=== PATIENT | male | born 1950 | race Caucasian/White ===

== ENCOUNTER 2023-10-12 11:38 | Outpatient (OUT) | payer MEDICARE, SELFPAY ==
[2023-10-12 12:06] LABS: Basophils Percent Auto 0.4 % (0.2-2.0); Eosinophils Absolute Auto 0.1 10^3/uL (0.0-0.7); Eosinophils Percent Auto 0.8 % (0.9-7.0); Hematocrit 37.5 % (42.0-54.0); Hemoglobin 13.1 g/dL (14.0-18.0); Immature Granulocytes Abs Auto 0.02 10^3/uL (0.00-0.03); Immature Granulocytes Pct Auto 0.3 % (0.0-0.5); Lymphocytes Absolute Auto 0.9 10^3/uL (1.2-3.8); Lymphocytes Percent Auto 10.8 % (20.5-60.0); Mean Corpuscular HGB Conc 34.9 g/dL (29.9-35.2); Mean Corpuscular Hemoglobin 36.3 pg (25.9-34.0); Mean Corpuscular Volume 103.9 fL (80.0-94.0); Mean Platelet Volume 10.7 fL (9.5-13.5); Monocytes Absolute Auto 0.7 10^3/uL (0.3-0.8); Monocytes Percent Auto 8.6 % (1.7-12.0); Neutrophils Absolute Auto 6.3 10^3/uL (1.4-6.5); Neutrophils Percent Auto 79.1 % (43.0-75.0); Platelet Count 165 10^3/uL (150-450); Red Blood Count 3.61 10^6/uL (4.70-6.10); Red Cell Distribution Width 12.1 % (11.0-15.0)
[2023-10-12 13:26] LABS: Free T4 0.86 ng/dL (0.76-1.46)
[2023-10-12 13:34] LABS: Prostate Specific Antigen Scrn 0.75 ng/mL (<=4.00)
[2023-10-12 13:45] LABS: Alanine Aminotransferase 30 U/L (16-63); Albumin Level 3.8 g/dL (3.4-5.0); Alkaline Phosphatase 97 U/L (46-116); Anion Gap 14.2; Aspartate Amino Transferase 29 U/L (15-37); BUN Creatinine Ratio 7.3; Bilirubin Total 0.7 mg/dL (0.2-1.0); Calcium 9.6 mg/dL (8.5-10.1); Carbon Dioxide 27.5 mmol/L (21.0-32.0); Chloride 99 mmol/L (98-107); Chol HDL Ratio 1.3; Cholesterol 181 mg/dL (<=200); Estimated GFR (African America >60 (>=60); Estimated GFR (Non-African Ame >60 (>=60); Free T3 2.66 pg/mL (2.18-3.98); Globulin 3.7 g/dL; Glucose 99 mg/dL (74-106); HDL Cholesterol 135 mg/dL (40-60); Potassium 3.7 mmol/L (3.5-5.1); Sodium 137 mmol/L (136-145); Thyroid Stimulating Hormone 0.987 uIU/mL (0.358-3.740); Total Protein 7.5 g/dL (6.4-8.2); Triglycerides 28 mg/dL (<=150); VLDL CHOLESTEROL 5.6 mg/dL
[2023-10-12 13:49] LABS: Estimated Average Glucose 74 mg/dL; Glycohemoglobin A1C 4.2 % (4.5-6.2)
[2023-10-12 15:31] LABS: Occult Blood Positive
[2023-10-13 08:13] LABS: CA 19-9 5 U/mL (0-35)
== END 2023-10-12 11:39 | disposition home or self-care (01) ==
LOC: LAB 11:42
PROVIDERS: PCP Family Medicine; Visit Provider Family Medicine
DX: Z00.00 Encounter for general adult medical examination without abnormal findings (principal); E78.49 Other hyperlipidemia; D50.9 Iron deficiency anemia, unspecified; R97.8 Other abnormal tumor markers
CPT/HCPCS: 36415; 80053; 80061; 83036; 84439; 84443; 84481; 85025; 86301; G0103; G0328

== ENCOUNTER 2023-10-18 11:23 | Outpatient (OUT) | payer MEDICARE, SELFPAY ==
--- NOTE | 2023-10-18 11:26 | US_ITS ---
The [address] [address] Patient Name: GARY ROD MRN: [id number] date: 1950 Sex: M Assigned Patient Location: US Current Patient Location: US Accession/Order Number: [id number] Exam Date: 10/18/2023 11:30 Report Date: 10/18/2023 21:12 At the request of: LORRIE NAPIER Procedure: US right upper quadrant EXAM: US right upper quadrant HISTORY: abnormal tumor markers R97.8 COMPARISON: None. TECHNIQUE: Sonographic examination of the right upper quadrant of the abdomen using grayscale, and color Doppler. FINDINGS: Normal contour and increased echotexture of the liver. No discrete solid hepatic mass. No intrahepatic biliary ductal dilatation. Common bile duct within normal limits. Normal gallbladder wall thickness. No cholelithiasis or intraluminal mass. Negative sonographic Prakash sign. No pericholecystic fluid. Normal visualized pancreas. Normal echogenicity of the right kidney, which measures 11.2 cm in length. No hydronephrosis. No free fluid. Normal visualized aortic diameter(s). SUMMARY: Hepatic steatosis without discrete hepatic mass. Electronically authenticated by: ROBERTO HOWELL Date: 10/18/2023 21:12
--- OUTSIDE RECORDS SUMMARY | 2023-10-18 11:26 | XMS_ITS | CCD ---
Author Name Unknown Address [address] [place] [address] Organization [facility] Care Team Providers Care Television Host Name Role Phone PHYSICIAN, DEFAULT Unavailable Unavailable PHYSICIAN, DEFAULT Unavailable Unavailable BRENT CONDON Unavailable Unavailable BRENT CONDON Unavailable Unavailable LORRIE MUNOZ Unavailable Unavailable LORRIE MUNOZ Unavailable Unavailable PHYSICIAN, DEFAULT Unavailable Unavailable PHYSICIAN, DEFAULT Unavailable Unavailable LORRIE MUNOZ Unavailable Unavailable BALA SHEA Attending Unavailable LORRIE MUNOZ Primary Care Unavailable LORRIE MUNOZ Referring Unavailable Lorrie Munoz Primary Care Physician KARTHIKEYAN ., DR ANDREW Admitting Unavailable HOY ., DR ANDREW Attending Unavailable HOY ., DR ANDREW Primary Care Unavailable HOY ., DR ANDREW Consulting Unavailable ZIEBER, DR FLO Fitzpatrick Consulting Unavailable HOY ., DR ANDREW Admitting Unavailable HOY ., DR ANDREW Attending Unavailable HOY ., DR ANDREW Primary Care Unavailable HOY ., DR ANDREW Consulting Unavailable Eric Stanley Attending Unavaila ble Allergies Allergy Classification Reported Allergen(s) Allergy Type Date of Onset Reaction(s) Facility (1 source) [facility] allergy (disorder) 8 AOF [facility] (1 source) No Known Allergies; Translations: [No Known Allergies] Propensity to adverse reactions (disorder) [facility] (2 sources) influenza A virus A/[place]/GP19 05/2015 (H1N1) antigen / influenza A virus A/[place]/GP20 (H3N2) antigen / influenza B virus B/Saba Barney antigen / influenza B virus B/ antigen; Translations: [influenza virus vaccine] Drug Allergy unknown [facility] (1 source) Flu Vaccine (18 yr +) Drug allergy (disorder) [facility] Repository Medications Current Medications Medication Drug Class(es) Dates Sig (Normalized) Sig (Original) apixaban 5 mg oral tablet (1 source) Factor Xa Inhibitor Start: 01-13-2019 take 5 mg by mouth twice daily Eliquis 5 mg, Oral, BID, Refills(s) 0, Blood Thinner Start Date: 01/13/19 Status: Ordered aspirin 325 mg oral tablet (1 source) Platelet Aggregation Inhibitor, Nonsteroidal Anti-inflammatory Drug Start: 01-13-2019 take 325 mg by mouth once daily aspirin 325 mg, Oral, Daily, Refills(s) 0, Prophylaxis Start Date: 01/13/19 Status: Ordered cetirizine hydrochloride 10 mg oral tablet (1 source) Histamine-1 Receptor Antagonist Start: 01-13-2019 take 10 mg by mouth once daily cetirizine 10 mg, Oral, Daily, Refills(s) 0, Allergy symptoms Start Date: 01/13/19 Status: Ordered desvenlafaxine 50 mg oral tablet (1 source) Serotonin and Norepinephrine Reuptake Inhibitor Start: 01-13-2019 take 50 mg by mouth once daily desvenlafaxine 50 mg, Oral, Daily, Refills(s) 0, Depression Start Date: 01/13/19 Status: Ordered dofetilide 0.25 mg oral capsule (1 source) Antiarrhythmic Start: 08-03-2020 take 1 ug by mouth twice daily dofetilide 250 mcg oral capsule mcg cap(s), Oral, BID, Refills(s) 0 Start Date: 08/03/20 Status: Ordered ferrous sulfate (1 source) Start: 08-03-2020 ferrous sulfate Oral, Refills(s) 0 Start Date: 08/03/20 Status: Ordered Fish Oils (1 source) Start: 01-13-2019 take 1000 mg by mouth once daily Fish Oil 1,000 mg, Oral, Daily, Refill(s) 0, Prophylaxis Start Date: 01/13/19 Status: Ordered lisinopril 40 mg oral tablet (1 source) Angiotensin Converting Enzyme Inhibitor Start: 01-13-2019 take 40 mg by mouth once daily lisinopril 40 mg, Oral, Daily, Refills(s) 0, High blood pressure Start Date: 01/13/19 Status: Ordered Medical Marijuana (1 source) Start: 01-13-2019 Medical Marijuana Medical Marijuana, Pain Start Date: 01/13/19 Status: Ordered mesalamine 1200 mg delayed release oral tablet (1 source) Aminosalicylate Start: 09-21-2022 Lialda 1.2 g oral enteric coated tablet 4.8 gm, 4 tab(s), Oral, Daily, 30 tab(s), Refill(s) 11, [facility]/pharmacy #[id number] Start Date: 09/21/22 Status: Ordered 24 hr metoprolol succinate 50 mg extended release oral tablet (1 source) beta-Adrenergic Turner Start: 01-13-2019 take 1 tablet by mouth twice daily metoprolol 50 mg ER Tab 50 mg = 1 tab(s), Oral, BID, Refills(s) 0, High blood pressure Start Date: 01/13/19 Status: Ordered Milk thistle extract (1 source) Start: 01-13-2019 take 175 mg by mouth three times daily milk thistle 175 mg, Oral, TID, Refill(s) 0, Prophylaxis Start Date: 01/13/19 Status: Ordered Multivitamin, Therapeutic w/ Minerals (1 source) Start: 01-13-2019 take 1 tablet by mouth once daily Multivitamin, Therapeutic w/ Minerals 1 tab(s), Oral, Daily, Refill(s) 0, Prophylaxis Start Date: 01/13/19 Status: Ordered Problems Active Problems Problem Classification Problem Date Documented Date Episodic/Chronic Cardiac dysrhythmias (8 sources) Unspecified atrial fibrillation; Translations: [Paroxysmal atrial fibrillation] Onset: 06-25-2018 Chronic Disorders of lipid metabolism (1 source) Hyperlipidemia, unspecified; Translations: [HYPERLIPIDEMIA UNSPECIFIED] Onset: 07-29-2022 Chronic Esophageal disorders (2 sources) Flores's esophagus; Translations: [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] Onset: 09-20-2022 Chronic Essential hypertension (3 sources) Essential (primary) hypertension; Translations: [Hypertensive disorder] Onset: 06-25-2018 08-03-2020 Chronic Nutritional deficiencies (1 source) Vitamin D deficiency, unspecified; Translations: [VITAMIN D DEFICIENCY UNSPECIFIED] Onset: 07-29-2022 Chronic Osteoarthritis (4 sources) Unilateral primary osteoarthritis, right hip; Translations: [UNI PRIM OSTEOARTHRITIS RT HIP] Onset: 11-29-2022 Chronic Other aftercare (1 source) [facility]DC (current) use of anticoagulants; Translations: [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 (CURRENT) USE OF ANTICOAGULANTS] Onset: 06-25-2018 Episodic Regional enteritis and ulcerative colitis (4 sources) Left sided ulcerative colitis ; Translations: [Left sided colitis without complications] Onset: 09-20-2022 Chronic Substance-related disorders (1 source) Nicotine dependence, unspecified, uncomplicated; Translations: [NICOTINE DEPENDENCE, UNSPECIFIED, UNCOMPLICATED] Onset: 06-25-2018 Chronic Unclassified (1 source) Obstructive sleep apnea (adult) (pediatric); Translations: [OBSTRUCTIVE SLEEP APNEA (ADULT) (PEDIATRIC)] Onset: 06-25-2018 Chronic Unclassified (2 sources) Unknown / UNK(Unknown) Onset: 06-25-2018 Past or Other Problems Problem Classification Problem Date Documented Date Episodic/Chronic Diabetes mellitus without complication (1 source) Other abnormal glucose; Translations: [OTHER ABNORMAL GLUCOSE] Onset: 07-29-2022 Episodic Other nutritional; endocrine; and metabolic disorders (1 source) Hyperuricemia without signs of inflammatory arthritis and tophaceous disease; Translations: [HU W/O SIGNS IA AND TOPHACEOUS DZ] Onset: 07-29-2022 Episodic Other screening for suspected conditions (not mental disorders or infectious disease) (1 source) Encounter for screening for malignant neoplasm of prostate; Translations: [ENC SCREEN MALIG NEOPLASM PROSTATE] Onset: 07-29-2022 Episodic Results Test Name Value Interpretation Reference Range Facility Provider Letter FTMCon 10-31 Provider Letter [facility] [place]Inserted Image. Un able to display) October 31, 2022 GARY BUITRAGO [address] [place] [id number] GARY BUITRAGO 1950 To Whom It May Concern, Please excuse the patient above from Jury Duty. They have multiple medical conditions that would prohibit sitting through jury duty. Respectfully, Sandie Roque Normal [facility] INSULINon 07-28-2022 Insulin 10.4 uIU/mL Normal 2.6-24.9 [facility] Comment on above: Performed By: #### I NSULIN #### [facility] [address] [address] [address] Joanne Martinez CBC AUTO DIFFon 07-27-2022 BASO # 0.0 103/ul Normal 0.0-0.1 [facility] Comment on above: Performed By: #### T 7, URIC, CMP, TSH, LIPID #### [facility] [address] [place] [address] Dr. Joanne Martinez Basophils/100 WBC (Bld) 0.6 % Normal 0.2-2.0 [facility] Comment on above: Performed By: #### T 7, URIC, CMP, TSH, LIPID #### [facility] [address] [place] [address] Dr. Joanne Martinez EO # 0.1 103/ul Normal 0.0-0.7 [facility] Comment on above: Performed By: #### T 7, URIC, CMP, TSH, LIPID #### [facility] [address] [place] [address] Dr. Joanne Martinez Eosinophils/100 WBC (Bld) 1.2 % Normal 0.9-7.0 [facility] Comment on above: Performed By: #### T 7, URIC, CMP, TSH, LIPID #### [facility] [address] [place] [address] Dr. Joanne Martinez Erythrocyte distribution width (RBC) [Ratio] 11.5 % Normal 11.0-15.0 [facility] Comment on above: Performed By: #### T 7, URIC, CMP, TSH, LIPID #### [facility] [address] [place] [address] Dr. Joanne Martinez Hematocrit (Bld) [Volume fraction] 39.2 % Critically low 42.0-54.0 [facility] Comment on above: Performed By: #### T 7, URIC, CMP, TSH, LIPID #### [facility] [address] [place] [address] Dr. Joanne Martinez Hemoglobin (Bld) [Mass/Vol] 14.0 g/dL Normal 14.0-18.0 [facility] Comment on above: Performed By: #### T 7, URIC, CMP, TSH, LIPID #### [facility] [address] [place] [address] Dr. Joanne Martinez IG # 0.03 10e3/ul Normal 0.00-0.03 [facility] Comment on above: Performed By: #### T 7, URIC, CMP, TSH, LIPID #### [facility] [address] [place] [address] Dr. Joanne Martinez IG % 0.5 % Normal 0.0-0.5 [facility] Comment on above: Performed By: #### T 7, URIC, CMP, TSH, LIPID #### [facility] [address] [place] [address] Dr. Joanne Martinez LYMPH # 1.1 103/ul Critically low 1.2-3.8 [facility] Comment on above: Performed By: #### T 7, URIC, CMP, TSH, LIPID #### [facility] [address] [place] [address] Dr. Joanne Martinez Lymphocytes/100 WBC (Bld) 16.3 % Critically low 20.5-60.0 [facility] Comment on above: Performed By: #### T 7, URIC, CMP, TSH, LIPID #### [facility] [address] [place] [address] Dr. Joanne Martinez MANUAL DIFF REQ NO Normal [facility] Comment on above: Performed By: #### T 7, URIC, CMP, TSH, LIPID #### [facility] [address] [place] [address] Dr. Joanne Martinez MCH (RBC) [Entitic mass] 36.9 pg Critically high 25.9-34.0 [facility] Comment on above: Performed By: #### T 7, URIC, CMP, TSH, LIPID #### [facility] [address] [place] [address] Dr. Joanne Martinez MCHC (RBC) [Mass/Vol] 35.7 g/dL Critically high 29.9-35.2 [facility] Comment on above: Performed By: #### T 7, URIC, CMP, TSH, LIPID #### [facility] [address] [place] [address] Dr. Joanne Martinez MCV (RBC) [Entitic vol] 103.4 fL Critically high 80.0-94.0 [facility] Comment on above: Performed By: #### T 7, URIC, CMP, TSH, LIPID #### [facility] [address] [place] [address] Dr. Joanne Martinez MONO # 0.7 103/ul Normal 0.3-0.8 [facility] Comment on above: Performed By: #### T 7, URIC, CMP, TSH, LIPID #### [facility] [address] [place] [address] Dr. Joanne Martinez Monocytes/100 WBC (Bld) 9.8 % Normal 1.7-12.0 [facility] Comment on above: Performed By: #### T 7, URIC, CMP, TSH, LIPID #### [facility] [address] [place] [address] Dr. Joanne Martinez NEUT # 4.8 103/ul Normal 1.4-6.5 [facility] Comment on above: Performed By: #### T 7, URIC, CMP, TSH, LIPID #### [facility] [address] [place] [address] Dr. Joanne Martinez Neutrophils/100 WBC (Bld) 71.6 % Normal 43.0-75.0 [facility] Comment on above: Performed By: #### T 7, URIC, CMP, TSH, LIPID #### [facility] [address] [place] [address] Dr. Joanne Martinez Platelet mean volume (Bld) [Entitic vol] 10.9 fL Normal 9.5-13.5 [facility] Comment on above: Performed By: #### T 7, URIC, CMP, TSH, LIPID #### [facility] [address] [place] [address] Dr. Joanne Martinez PLT 168 103/ul Normal 150-450 [facility] Comment on above: Performed By: #### T 7, URIC, CMP, TSH, LIPID #### [facility] [address] [place] [address] Dr. Joanne Martinez RBC 3.79 106/ul Critically low 4.70-6.10 [facility] Comment on above: Performed By: #### T 7, URIC, CMP, TSH, LIPID #### [facility] [address] [address] [address] Joanne Martinez WBC 6.6 103/ul Normal 4.0-11.0 [facility] Comment on above: Performed By: #### T 7, URIC, CMP, TSH, LIPID #### [facility] [address] [address] [address] Joanne Martinez FREE THYROXINE INDEX T7on FTI 2.14 Normal 1.30-4.50 [facility] Comment on above: Performed By: #### T 7, URIC, CMP, TSH, LIPID #### [facility] [address] [address] [address] Joanne Martinez T3U 34.0 % Normal 33.0-40.0 [facility] Comment on above: Performed By: #### T 7, URIC, CMP, TSH, LIPID #### [facility] [address] [place] [address] Dr. Joanne Martinez T4 [Mass/Vol] 6.30 ug/dL Normal 4.50-12.10 [facility] Comment on above: Performed By: #### T 7, URIC, CMP, TSH, LIPID #### [facility] [address] [address] [address] Joanne Martinez GLYCOHEMOGLOBIN A1Con 2021 ADA RECOMMENDATION SEE BELOW Normal [facility] Comment on above: Result Comment: ADA RECOMMENDED LIMIT 4.0 - 6.0 ADA THERAPEUTIC TARGET < 7.0 ACTION SUGGESTED > 7.0 Performed By: #### A 1C #### [facility] [address] [place] [address] Dr. Joanne Martinez Glucose [Mass/Vol] 74 mg/dL Normal [facility] Comment on above: Performed By: #### A 1C #### [facility] [address] [place] [address] Dr. Joanne Maritnez HbA1c (Bld) [Mass fraction] 4.2 % Critically low 4.5-6.2 [facility] Comment on above: Performed By: #### A 1C #### [facility] [address] [place] [address] Dr. Joanne Martinez LIPID PROFILEon 07-27-2022 CHOL-HDL RATIO NORM SEE BELOW Normal [facility] Comment on above: Result Comment: 3.3 - 4.4 LOW RISK 4.4 - 7.1 AVERAGE RISK 7.1 - 11.0 MODERATE RISK >11.0 HIGH RISK Performed By: #### T 7, URIC, CMP, TSH, LIPID #### [facility] [address] [address] [address] Joanne Martinez Cholesterol [Mass/Vol] 211 mg/dL Critically high <=200 [facility] Comment on above: Performed By: #### T 7, URIC, CMP, TSH, LIPID #### [facility] [address] [address] [address] Joanne Martinez Cholesterol in HDL [Mass/Vol] 121 mg/dL Critically high 40-60 [facility] Comment on above: Performed By: #### T 7, URIC, CMP, TSH, LIPID #### [facility] [address] [address] [address] Joanne Martinez Cholesterol in LDL [Mass/Vol] 81.6 mg/dL Normal [facility] Comment on above: Performed By: #### T 7, URIC, CMP, TSH, LIPID #### [facility] [address] [address] [address] Joanne Martinez Cholesterol.total/Ch olesterol in HDL [Mass ratio] 1.7 {ratio} Normal [facility] Comment on above: Performed By: #### T 7, URIC, CMP, TSH, LIPID #### [facility] [address] [address] [address] Joanne Martinez HDL NORMAL > or = 60 mg/dl - LO W CARDIOVASCULAR RISK <40 mg/dl - HIGH CARDIOVASCULAR RISK Normal [facility] Comment on above: Performed By: #### T 7, URIC, CMP, TSH, LIPID #### [facility] [address] [place] [address] Dr. Joanne Martinez LDL CALC NORMAL SEE BELOW Normal [facility] Comment on above: Result Comment: <100 mg/dl OPTIMAL 100 - 129 mg/dl NEAR OR ABOVE OPTIMAL 130 - 159 mg/dl BORDERLINE HIGH 160 - 189 mg/dl HIGH >190 mg/dl VERY HIGH Performed By: #### T 7, URIC, CMP, TSH, LIPID #### [facility] [address] [address] [address] Joanne Martinez Triglyceride [Mass/Vol] 42 mg/dL Normal <=150 [facility] Comment on above: Performed By: #### T 7, URIC, CMP, TSH, LIPID #### [facility] [address] [address] [address] Joanne Martinez VLDL CALC 8.4 mg/dL Normal [facility] Comment on above: Performed By: #### T 7, URIC, CMP, TSH, LIPID #### [facility] [address] [place] [address] Dr. Joanne Martinez PROF 14(COMP METB)on 022 Albumin [Mass/Vol] 4.1 g/dL Normal 3.4-5.[address] [facility] Comment on above: Performed By: #### T 7, URIC, CMP, TSH, LIPID #### [facility] [address] [place] [address] Dr. Joanne Martinez Albumin/Globulin [Mass ratio] 1.2 {ratio} Normal [facility] Comment on above: Performed By: #### T 7, URIC, CMP, TSH, LIPID #### [facility] [address] [place] [address] Dr. Joanne Martinez ALP [Catalytic activity/Vol] 104 U/L Normal 46-116 [facility] Comment on above: Performed By: #### T 7, URIC, CMP, TSH, LIPID #### [facility] [address] [place] [address] Dr. Joanne Martinez ALT [Catalytic activity/Vol] 42 U/L Normal 16-63 [facility] Comment on above: Performed By: #### T 7, URIC, CMP, TSH, LIPID #### [facility] [address] [place] [address] Dr. Joanne Martinez Anion gap [Moles/Vol] 14.2 mmol/L Normal [facility] Comment on above: Performed By: #### T 7, URIC, CMP, TSH, LIPID #### [facility] [address] [address] [address] Joanne Martinez AST [Catalytic activity/Vol] 56 U/L Critically high 15-37 [facility] Comment on above: Performed By: #### T 7, URIC, CMP, TSH, LIPID #### [facility] [address] [address] [address] Joanne Martinez Bilirubin [Mass/Vol] 0.8 mg/dL Normal 0.2-1.0 [facility] Comment on above: Performed By: #### T 7, URIC, CMP, TSH, LIPID #### [facility] [address] [address] [address] Joanne Martinez Calcium [Mass/Vol] 9.6 mg/dL Normal 8.5-10.[address] [facility] Comment on above: Performed By: #### T 7, URIC, CMP, TSH, LIPID #### [facility] [address] [address] [address] Joanne Martinez Chloride [Moles/Vol] 99 mmol/L Normal 98-107 [facility] Comment on above: Performed By: #### T 7, URIC, CMP, TSH, LIPID #### [facility] [address] [place] [address] Dr. Joanne Martinez CO2 [Moles/Vol] 25.9 mmol/L Normal 21.0-32.0 [facility] Comment on above: Performed By: #### T 7, URIC, CMP, TSH, LIPID #### [facility] [address] [address] [address] Joanne Martinez Creatinine [Mass/Vol] 0.88 mg/dL Normal 0.70-1.30 [facility] Comment on above: Performed By: #### T 7, URIC, CMP, TSH, LIPID #### [facility] [address] [place] [address] Dr. Joanne Martinez EGFR-AF GIBRALTARIAN >60 Normal >=60 [facility] Comment on above: Performed By: #### T 7, URIC, CMP, TSH, LIPID #### [facility] [address] [place] [address] Dr. Joanne Martinez EGFR-NON AF GIBRALTARIAN >60 Normal >=60 [facility] Comment on above: Performed By: #### T 7, URIC, CMP, TSH, LIPID #### [facility] [address] [address] [address] Joanne Martinez Globulin (S) [Mass/Vol] 3.5 g/dL Normal [facility] Comment on above: Performed By: #### T 7, URIC, CMP, TSH, LIPID #### [facility] [address] [address] [address] Joanne Martinez Glucose [Mass/Vol] 99 mg/dL Normal 74-[address] [facility] Comment on above: Performed By: #### T 7, URIC, CMP, TSH, LIPID #### [facility] [address] [place] [address] Dr. Joanne Martinez Potassium [Moles/Vol] 4.1 mmol/L Normal 3.5-5.1 [facility] Comment on above: Performed By: #### T 7, URIC, CMP, TSH, LIPID #### [facility] [address] [address] [address] Joanne Martinez Protein [Mass/Vol] 7.6 g/dL Normal 6.4-8.2 [facility] Comment on above: Performed By: #### T 7, URIC, CMP, TSH, LIPID #### [facility] [address] [place] [address] Dr. Joanne Martinez Sodium [Moles/Vol] 135 mmol/L Critically low 136-145 [facility] Comment on above: Performed By: #### T 7, URIC, CMP, TSH, LIPID #### [facility] [address] [address] [address] Joanne Martinez Urea nitrogen [Mass/Vol] 7.0 mg/dL Normal 7.0-18.0 [facility] Comment on above: Performed By: #### T 7, URIC, CMP, TSH, LIPID #### [facility] [address] [address] [address] Joanne Martinez Urea nitrogen/Creatinine [Mass ratio] 8.0 mg/mg Normal [facility] Comment on above: Performed By: #### T 7, URIC, CMP, TSH, LIPID #### [facility] [address] [place] [address] Dr. Joanne Martinez TSHon 07-27-2022 TSH 1.712 uIU/mL Normal 0.358-3.740 [facility] Comment on above: Performed By: #### T 7, URIC, CMP, TSH, LIPID #### [facility] [facility] [address] [place] [address] Dr. Joanne Martinez URIC ACID SERUMon 07-27-2022 Urate [Mass/Vol] 6.6 mg/dL Normal 3.5-7.2 [facility] Comment on above: Performed By: #### T 7, URIC, CMP, TSH, LIPID #### [facility] [address] [place] [address] Dr. Joanne Martinez VITAMIN D 25 OHon 07-27-2022 VIT D 25-OH 86.1 ng/mL Normal [facility] Comment on above: Performed By: #### V LIDIA, PSASC #### [facility] [address] [place] [address] Dr. Joanne Martinez VIT D RANGES SEE BELOW Normal [facility] Comment on above: Result Comment: <20 ng/mL Vit D deficient 20 - <30 ng/mL Vit D insufficient 30 - 100 ng/mL Vit D sufficient >100 ng/mL Potential Toxicity Performed By: #### Wanda MURILLO, PSASC #### [facility] [address] [place] [address] Dr. Joanne Martinez CNOVSPon 05-29-2019 CNOVSP Visit (SP) Office (HEMACL) GARY BUITRAGO ([id number]) 1950 Date Time Provider Department 05/29/19 2:00 PM ESTER ALBRECHT [facility] During your visit today, we recorded the following information about you: Temperature Pulse Respiration Blood pressure 99.5 degrees 92/minute 18/minute 174/84 Weight Height 107.2 kg 1.81 m Ester Albrecht MD 05/29/2019 2:43 PM Signed HPI Gary Butirago is a 69 year old male who presents in follow up with CT negative for splenomegaly or node enlargement. His hgb is normal. I will recommend he maintain the iron for now and then see me in 4 months for CBC check. If CBC ok will stop iron when I see him in September. He has chronic thrombocytopenia of unknown etiology. Current Outpatient Medications: [place]-3 Fatty Acids (FISH OIL) 500 mg cap Fish Oil Multivitamin capsule Take 1 capsule by mouth once daily. aspirin, enteric coated (ASPIRIN, ENTERIC COATED) 81 mg EC tablet Take 81 mg by mouth once daily. desvenlafaxine ER (PRISTIQ) 50 mg 24 hr tablet Take 50 mg by mouth once daily. Omeprazole 40 mg capsule Take 40 mg by mouth once daily. Mesalamine (LIALDA) 1.2 gram EC tablet Take 2,400 mg by mouth daily with breakfast. lisinopril (ZESTRIL, PRINIVIL) 40 mg tablet Take 40 mg by mouth once daily. metoprolol tartrate, short acting, (LOPRESSOR) 50 mg tablet Take 75 mg by mouth twice daily. Cetirizine (ALL DAY ALLERGY, CETIRIZINE,) 10 mg cap Take 10 mg by mouth once daily. Milk Thistle 175 mg tab Take 175 mg by mouth three times daily. apixaban (ELIQUIS) 5 mg tab(s) Take 5 mg by mouth twice daily. ferrous sulfate 325 mg (65 mg iron) tablet Take 325 mg by mouth daily with breakfast. sucralfate (CARAFATE) 1 gram tablet Take 1 g by mouth four times daily. No current facility-administered medications for this visit. ALLERGIES Allergen Reactions - Influenza Vaccine T* Hives REVIEW OF SYSTEMS GENERAL: No weight loss, malaise or fevers., SEE HPI HEENT: Negative for frequent or significant headaches, No changes in hearing or vision, no nose bleeds or other nasal problems NECK: Negative for lumps, goiter, pain and significant neck swelling RESPIRATORY: Negative for cough, wheezing or shortness of breath. CARDIOVASCULAR: Negative for chest pain, leg swelling or palpitations. GI: Negative for abdominal discomfort, blood in stools or black stools or change in bowel habits MUSCULOSKELETAL: Negative for joint pain or swelling, back pain or muscle pain. SKIN: Negative for lesions, rash, and itching. PSYCH: Negative for sleep disturbance, mood disorder and recent psychosocial stressors. HEMATOLOGY/LYMPHOLOGY: Negative for prolonged bleeding, bruising easily or swollen nodes. NEURO: No history of headaches, syncope, paralysis, seizures or tremors All other reviewed and negative other than HPI. PHYSICAL EXAM: BP 174/84 Pulse 92 Temp 37.5 ?C (99.5 ?F) (Oral) Resp 18 Ht 181 cm (5' 11.26 ) Wt 107.2 kg (236 lb 6.4 oz) SpO2 97% BMI 32.73 kg/m? General Appearance: alert and oriented, appearing in no acute distress Skin: skin color, texture, turgor normal, no suspicious rashes or lesions. Head: normal. Eyes: Anicteric sclera. Pupils are equally round. Extraocular movements are intact. . Ears: external ears normal Neck: Supple, no adenopathy; thyroid symmetric, normal size, no bruits. Back:no pain with ambulation Lungs: good air exchange overall Heart: RRR Abdomen: No obvious evidence of rebound tenderness or guarding Extremities: Extremities normal. No deformities, edema, or skin discoloration. Good capillary refill.. Musculoskeletal: Spine range of motion normal. Muscular strength intact. Peripheral Pulses: Normal. Neurologic: Gait normal. No gross cerebellar defects Psychiatric: the patient has an appropriate affect Hemoglobin (g/dL) Date Value 05/29/2019 15.8 Hematocrit (%) Date Value 05/29/2019 44.0 WBC (k/uL) Date Value 05/29/2019 5.89 Platelet Count (k/uL) Date Value 05/29/2019 110 ASSESSMENT/PLAN: 1. Iron deficiency anemia, unspecified iron deficiency anemia type - ICD9: 280.9, ICD10: D50.9 (primary diagnosis) Maintain oral iron See me in 4 months and at that time will discontinue oral iron - ABS GRAN CT + CBC (FOR REMOTE [facility] USE) - CBC + DIFF (FOR REMOTE [facility] USE) 2. Thrombocytopenia (HCC) - ICD9: 287.5, ICD10: D69.6 Stable Of unknown cause - ABS GRAN CT + CBC (FOR REMOTE [facility] USE) - CBC + DIFF (FOR REMOTE [facility] USE) Ester Albrecht MD Referring Provider: ESTER ALBRECHT [[id number]] Allergies As of Date: 05/29/2019 Noted Allergy Reaction INFLUENZA VACCINE TR-S 09 (PF) 08/02/2018 4 - Hives Date Reviewed: 05/29/2019 Reviewed by: Mariah Guerrero - Fully Assessed Reason for Visit: Anemia [6] Cmt: follow up Primary Visit Diagnosis:Iron deficiency anemia, unspecified iron deficiency anemia type [D50.9] Other Visit Diagnosis:Thrombocytope ladi (HCC) [D69.6] Order(s):ABS GRAN CT + CBC (FOR REMOTE [facility] USE) [SQRAGCBC] Order #: [id number] FUTURE CBC + DIFF (FOR REMOTE [facility] USE) [SQRCBCDF] Order #: [id number] FUTURE Disposition: Return in about 4 months (around 09/28/2019). Follow-up and Disposition History Recorded Prescriptions as of 05/29/2019 Sig: [place]ME[place]-3 FATTY ACIDS 500 MG CA* Fish Oil MULTIVITAMIN CAPSULE Take 1 capsule by mouth once * ASPIRIN 81 MG TABLET,DELAYED * Take 81 mg by mouth once errol* DESVENLAFAXINE SUCCINATE ER 5* Take 50 mg by mouth once errol* OMEPRAZOLE 40 MG CAPSULE,ALBARO* Take 40 mg by mouth once errol* MESALAMINE 1.2 GRAM TABLET,DE* Take 2,400 mg by mouth daily * LISINOPRIL 40 MG TABLET Take 40 mg by mouth once errol* METOPROLOL TARTRATE 50 MG TAB* Take 75 mg by mouth twice faheem* CETIRIZINE 10 MG CAPSULE Take 10 mg by mouth once errol* MILK THISTLE 175 MG TABLET Take 175 mg by mouth three ti* APIXABAN 5 MG TABLET Take 5 mg by mouth twice errol* FERROUS SULFATE 325 MG (65 MG* Take 325 mg by mouth daily wi* SUCRALFATE 1 GRAM TABLET Take 1 g by mouth four times * Problem List As Of Date: 05/29/2019 (None) Encounter Status:Closed by ESTER ALBRECHT MD on 05/29/19 [facility] PROGRESSon 05-29-2019 PROGRESS HNO ID: [id number] Author: Ester Albrecht Service: ? Author Type: Physician Type: Progress Notes Filed: 05/29/2019 2:43 PM Note Text: HPI Gary Buitrago is a 69 year old male who presents in follow up with CT negative for splenomegaly or node enlargement. His hgb is normal. I will recommend he maintain the iron for now and then see me in 4 months for CBC check. If CBC ok will stop iron when I see him in September. He has chronic thrombocytopenia of unknown etiology. Current Outpatient Medications: [place]-3 Fatty Acids (FISH OIL) 500 mg cap Fish Oil Multivitamin capsule Take 1 capsule by mouth once daily. aspirin, enteric coated (ASPIRIN, ENTERIC COATED) 81 mg EC tablet Take 81 mg by mouth once daily. desvenlafaxine ER (PRISTIQ) 50 mg 24 hr tablet Take 50 mg by mouth once daily. Omeprazole 40 mg capsule Take 40 mg by mouth once daily. Mesalamine (LIALDA) 1.2 gram EC tablet Take 2,400 mg by mouth daily with breakfast. lisinopril (ZESTRIL, PRINIVIL) 40 mg tablet Take 40 mg by mouth once daily. metoprolol tartrate, short acting, (LOPRESSOR) 50 mg tablet Take 75 mg by mouth twice daily. Cetirizine (ALL DAY ALLERGY, CETIRIZINE,) 10 mg cap Take 10 mg by mouth once daily. Milk Thistle 175 mg tab Take 175 mg by mouth three times daily. apixaban (ELIQUIS) 5 mg tab(s) Take 5 mg by mouth twice daily. ferrous sulfate 325 mg (65 mg iron) tablet Take 325 mg by mouth daily with breakfast. sucralfate (CARAFATE) 1 gram tablet Take 1 g by mouth four times daily. No current facility-administered medications for this visit. ALLERGIES Allergen Reactions - Influenza Vaccine T* Hives REVIEW OF SYSTEMS GENERAL: No weight loss, malaise or fevers., SEE HPI HEENT: Negative for frequent or significant headaches, No changes in hearing or vision, no nose bleeds or other nasal problems NECK: Negative for lumps, goiter, pain and significant neck swelling RESPIRATORY: Negative for cough, wheezing or shortness of breath. CARDIOVASCULAR: Negative for chest pain, leg swelling or palpitations. GI: Negative for abdominal discomfort, blood in stools or black stools or change in bowel habits MUSCULOSKELETAL: Negative for joint pain or swelling, back pain or muscle pain. SKIN: Negative for lesions, rash, and itching. PSYCH: Negative for sleep disturbance, mood disorder and recent psychosocial stressors. HEMATOLOGY/LYMPHOLOGY: Negative for prolonged bleeding, bruising easily or swollen nodes. NEURO: No history of headaches, syncope, paralysis, seizures or tremors All other reviewed and negative other than HPI. PHYSICAL EXAM: BP 174/84 Pulse 92 Temp 37.5 ?C (99.5 ?F) (Oral) Resp 18 Ht 181 cm (5' 11.26 ) Wt 107.2 kg (236 lb 6.4 oz) SpO2 97% BMI 32.73 kg/m? General Appearance: alert and oriented, appearing in no acute distress Skin: skin color, texture, turgor normal, no suspicious rashes or lesions. Head: normal. Eyes: Anicteric sclera. Pupils are equally round. Extraocular movements are intact. . Ears: external ears normal Neck: Supple, no adenopathy; thyroid symmetric, normal size, no bruits. Back:no pain with ambulation Lungs: good air exchange overall Heart: RRR Abdomen: No obvious evidence of rebound tenderness or guarding Extremities: Extremities normal. No deformities, edema, or skin discoloration. Good capillary refill.. Musculoskeletal: Spine range of motion normal. Muscular strength intact. Peripheral Pulses: Normal. Neurologic: Gait normal. No gross cerebellar defects Psychiatric: the patient has an appropriate affect Hemoglobin (g/dL) Date Value 05/29/2019 15.8 Hematocrit (%) Date Value 05/29/2019 44.0 WBC (k/uL) Date Value 05/29/2019 5.89 Platelet Count (k/uL) Date Value 05/29/2019 110 ASSESSMENT/PLAN: 1. Iron deficiency anemia, unspecified iron deficiency anemia type - ICD9: 280.9, ICD10: D50.9 (primary diagnosis) Maintain oral iron See me in 4 months and at that time will discontinue oral iron - ABS GRAN CT + CBC (FOR REMOTE [facility] USE) - CBC + DIFF (FOR REMOTE [facility] USE) 2. Thrombocytopenia (HCC) - ICD9: 287.5, ICD10: D69.6 Stable Of unknown cause - ABS GRAN CT + CBC (FOR REMOTE [facility] USE) - CBC + DIFF (FOR REMOTE [facility] USE) Ester Albrecht MD Normal [facility] Remote Abs Gran + CBC (for [facility] use only)on 05-29-2019 Absol Gran Count 3.92 k/uL Normal 1.45-7.50 [facility] Erythrocyte distribution width (RBC) [Ratio] 14.0 % Normal 11.5-15.0 [facility] Hematocrit (Bld) [Volume fraction] 44.0 % Normal 39.0-51.0 [facility] Hemoglobin (Bld) [Mass/Vol] 15.8 g/dL Normal 13.0-17.0 [facility] MCH (RBC) [Entitic mass] 34.6 pG High 26.0-34.0 [facility] MCHC (RBC) [Mass/Vol] 35.9 g/dL Normal 30.5-36.0 [facility] MCV (RBC) [Entitic vol] 96.5 fL Normal 80.0-100.0 [facility] Platelet mean volume (Bld) [Entitic vol] 11.2 fL Normal 9.0-12.7 [facility] Platelets (Bld) [#/Vol] 110 10*3/uL Low 150-400 [facility] RBC (Bld) [#/Vol] 4.56 10*6/uL Normal 4.20-6.00 [facility] WBC (Bld) [#/Vol] 5.89 10*3/uL Normal 3.70-11.00 [facility] CT-CT ABD/PELVIS W CON IMPOR Ton 05-23-2019 CT-CT ABD/PELVIS W CON IMPORT Images were obtained outside of [facility] [id number] Normal [facility] CNOVSPon 05-16-2019 CNOVSP Visit (SP) Office (HEMAS[place]) GARY BUITRAGO ([id number]) 1950 M Date Time Provider Department 05/16/19 1:45 PM ESTER ALBRECHT During your visit today, we recorded the following information about you: Temperature Pulse Respiration Blood pressure 98.4 degrees 84/minute 16/minute 177/71 Weight Height 106.8 kg 1.81 m Ester Albrecht MD 05/16/2019 2:58 PM Signed HPI Gary Buitrago is a 69 year old male who presents in follow up with fatigue. With his thrombocytopenia I will check for splenomegaly (NHL, liver disease, etc). On exam, he has no splenomegaly. Our work up has been negative. We recommended he stay on oral iron for now. Results for GARY BUITRAGO ( ) as of 05/16/2019 14:56 Ref. Range 05/07/2019 09:39 05/07/2019 09:52 05/07/2019 09:52 05/14/2019 12:53 05/14/2019 12:54 Sodium Latest Ref Range: 136 - 144 mmol/L 137 Potassium Latest Ref Range: 3.7 - 5.1 mmol/L 4.7 Chloride Latest Ref Range: 97 - 105 mmol/L 101 CO2 Latest Ref Range: 22 - 30 mmol/L 27 BUN Latest Ref Range: 9 - 24 mg/dL 10 Creatinine Latest Ref Range: 0.73 - 1.22 mg/dL 1.01 Glucose Latest Ref Range: 74 - 99 mg/dL 127 (H) Protein, Total Latest Ref Range: 6.0 - 8.4 g/dL 7.0 7.2 Calcium Latest Ref Range: 8.5 - 10.2 mg/dL 9.9 Albumin Latest Ref Range: 3.9 - 4.9 g/dL 4.6 Bilirubin, Total Latest Ref Range: 0.2 - 1.3 mg/dL 0.6 Alkaline Phosphatase Latest Ref Range: 38 - 113 U/L 117 (H) ALT Latest Ref Range: 10 - 54 U/L 33 AST Latest Ref Range: 14 - 40 U/L 39 Anion Gap Latest Ref Range: 9 - 18 mmol/L 9 eGFR- Unknown >60 eGFR-All Other Races Latest Units: . >60 Vitamin B12 Latest Ref Range: 232 - 1,245 pg/mL 262 Folate Latest Ref Range: >4.7 ng/mL >20.0 Ferritin Latest Ref Range: 30.3 - 565.7 ng/mL 106.0 Iron Latest Ref Range: 41 - 186 ug/dL 109 TIBC Latest Ref Range: 232 - 386 ug/dL 348 Transferrin Saturation Latest Ref Range: 15 - 57 % 31 Hematocrit Latest Ref Range: 39.0 - 51.0 % 44.7 46.0 Albumin for SPE Latest Ref Range: 3.37 - 4.23 gm/dL 4.26 (H) Alpha 1 Globulin Latest Ref Range: 0.18 - 0.31 gm/dL 0.27 Alpha 2 Globulin Latest Ref Range: 0.52 - 0.97 gm/dL 0.62 Beta Globulin Latest Ref Range: 0.84 - 1.36 gm/dL 0.97 Gamma Globulin Latest Ref Range: 0.70 - 1.44 gm/dL 1.07 Interpretation (Prot Electro) Unknown SEE COMMENT SPE Staff Review Unknown Reviewed by Star Villagomez M.D., PhD ([id number]) M-Protein Location Unknown N/A M-Protein Concentration Latest Ref Range: 0.00 gm/dL 0.00 MPA Result Latest Ref Range: No M protein is identified. No M protein is identified. Staff Review (MPA) Unknown Reviewed by Star Villagomez M.D., PhD ([id number]) [place] Free, Serum Latest Ref Range: 3.30 - 19.40 mg/L 17.8 Lambda Free, Serum Latest Ref Range: 5.7 - 26.3 mg/L 16.4 K/L Ratio, Serum Latest Ref Range: 0.26 - 1.65 1.09 TSH Latest Ref Range: 0.400 - 5.500 uU/mL 1.350 WBC Latest Ref Range: 3.70 - 11.00 k/uL 6.41 8.17 RBC Latest Ref Range: 4.20 - 6.00 m/uL 4.68 4.76 Hemoglobin Latest Ref Range: 13.0 - 17.0 g/dL 15.8 16.2 Platelet Count Latest Ref Range: 150 - 400 k/uL 120 (L) 127 (L) MCV Latest Ref Range: 80.0 - 100.0 fL 95.5 96.6 MCH Latest Ref Range: 26.0 - 34.0 pG 33.8 34.0 MCHC Latest Ref Range: 30.5 - 36.0 g/dL 35.3 35.2 MPV Latest Ref Range: 9.0 - 12.7 fL 11.0 11.3 RDW-CV Latest Ref Range: 11.5 - 15.0 % 18.6 (H) 17.0 (H) Absol Gran Count Latest Ref Range: 1.45 - 7.50 k/uL 4.88 Neut% Latest Units: % 74.9 Abs Neut (ANC) Latest Ref Range: 1.45 - 7.50 k/uL 6.12 Lymph% Latest Units: % 13.5 Abs Lymph Latest Ref Range: 1.00 - 4.00 k/uL 1.10 [place]% Latest Units: % 10.4 Abs [place] Latest Ref Range: 0.00 - 0.86 k/uL 0.85 Eosin% Latest Units: % 0.7 Abs Eosin Latest Ref Range: 0.00 - 0.45 k/uL 0.06 Baso% Latest Units: % 0.5 Abs Baso Latest Ref Range: 0.00 - 0.10 k/uL 0.04 Staff Review, CBCDIF Unknown SEE COMMENT Pathologist for Staff Review Unknown The Staff Review ... Current Outpatient Medications: [place]-3 Fatty Acids (FISH OIL) 500 mg cap Fish Oil Multivitamin capsule Take 1 capsule by mouth once daily. aspirin, enteric coated (ASPIRIN, ENTERIC COATED) 81 mg EC tablet Take 81 mg by mouth once daily. desvenlafaxine ER (PRISTIQ) 50 mg 24 hr tablet Take 50 mg by mouth once daily. Omeprazole 40 mg capsule Take 40 mg by mouth once daily. Mesalamine (LIALDA) 1.2 gram EC tablet Take 2,400 mg by mouth daily with breakfast. lisinopril (ZESTRIL, PRINIVIL) 40 mg tablet Take 40 mg by mouth once daily. metoprolol tartrate, short acting, (LOPRESSOR) 50 mg tablet Take 75 mg by mouth twice daily. Cetirizine (ALL DAY ALLERGY, CETIRIZINE,) 10 mg cap Take 10 mg by mouth once daily. Milk Thistle 175 mg tab Take 175 mg by mouth three times daily. sucralfate (CARAFATE) 1 gram tablet Take 1 g by mouth four times daily. apixaban (ELIQUIS) 5 mg tab(s) Take 5 mg by mouth twice daily. ferrous sulfate 325 mg (65 mg iron) tablet Take 325 mg by mouth daily with breakfast. No current facility-administered medications for this visit. ALLERGIES Allergen Reactions - Influenza Vaccine T* Hives REVIEW OF SYSTEMS GENERAL: No weight loss, malaise or fevers., SEE HPI HEENT: Negative for frequent or significant headaches, No changes in hearing or vision, no nose bleeds or other nasal problems NECK: Negative for lumps, goiter, pain and significant neck swelling RESPIRATORY: Negative for cough, wheezing or shortness of breath. CARDIOVASCULAR: Negative for chest pain, leg swelling or palpitations. GI: Negative for abdominal discomfort, blood in stools or black stools or change in bowel habits MUSCULOSKELETAL: Negative for joint pain or swelling, back pain or muscle pain. SKIN: Negative for lesions, rash, and itching. PSYCH: Negative for sleep disturbance, mood disorder and recent psychosocial stressors. HEMATOLOGY/LYMPHOLOGY: Negative for prolonged bleeding, bruising easily or swollen nodes. NEURO: No history of headaches, syncope, paralysis, seizures or tremors All other reviewed and negative other than HPI. PHYSICAL EXAM: BP 177/71 Pulse 84 Temp 36.9 ?C (98.4 ?F) (Oral) Resp 16 Ht 181 cm (5' 11.26 ) Wt 106.8 kg (235 lb 6.4 oz) SpO2 100% BMI 32.59 kg/m? General Appearance: alert and oriented, appearing in no acute distress Lymphoreticular exam negative, no splenomegaly Skin: skin color, texture, turgor normal, no suspicious rashes or lesions. Head: normal. Eyes: Anicteric sclera. Pupils are equally round. Extraocular movements are intact. . Ears: external ears normal Neck: Supple, no adenopathy; thyroid symmetric, normal size, no bruits. Back:no pain with ambulation Lungs: good air exchange overall Heart: RRR Abdomen: No obvious evidence of rebound tenderness or guarding Extremities: Extremities normal. No deformities, edema, or skin discoloration. Good capillary refill.. Musculoskeletal: Spine range of motion normal. Muscular strength intact. Peripheral Pulses: Normal. Neurologic: Gait normal. No gross cerebellar defects Psychiatric: the patient has an appropriate affect Hemoglobin (g/dL) Date Value 05/14/2019 16.2 Hematocrit (%) Date Value 05/14/2019 46.0 WBC (k/uL) Date Value 05/14/2019 8.17 Platelet Count (k/uL) Date Value 05/14/2019 127 ASSESSMENT/PLAN: 1. Iron deficiency anemia, unspecified iron deficiency anemia type - ICD9: 280.9, ICD10: D50.9 (primary diagnosis) See below - HEP REMOTE PANEL BL 2. Thrombocytopenia (HCC) - ICD9: 287.5, ICD10: D69.[address] abdomen to rule out NHL, splenomegaly, etc - HEP REMOTE PANEL BL 3. Malaise and fatigue - ICD9: 780.79, ICD10: R53.81, R53.83 With thrombocytopenia, will check CT scans and Hep panel remote - HEP REMOTE PANEL BL 4. Abdominal mass, unspecified abdominal location - ICD9: 789.30, ICD10: R19.00 See above - CT ABD/PEL WO IVCON Ester Albrecht MD Referring Provider: ESTER ALBRECHT [[id number]] Allergies As of Date: 05/16/2019 Noted Allergy Reaction INFLUENZA VACCINE TR-S 09 (PF) 08/02/2018 4 - Hives Date Reviewed: 05/16/2019 Reviewed by: Arielle Rodriguez - Fully Assessed Reason for Visit: Anemia [6] Cmt: follow up Primary Visit Diagnosis:Iron deficiency anemia, unspecified iron deficiency anemia type [D50.9] Other Visit Diagnoses:Thrombocytope ladi (HCC) [D69.6] Malaise and fatigue [R53.81, R53.83] Abdominal mass, unspecified abdominal location [R19.00] Order(s):HEP REMOTE PANEL BL [SQHREMOP] Order #: [id number] FUTURE CT ABD/PEL WO IVCON [[id number]] Order #: [id number] FUTURE Disposition: Return in about 2 weeks (around 05/30/2019). Follow-up and Disposition History Recorded Prescriptions as of 05/16/2019 Sig: OMEGA-3 FATTY ACIDS 500 MG CA* Fish Oil MULTIVITAMIN CAPSULE Take 1 capsule by mouth once * ASPIRIN 81 MG TABLET,DELAYED * Take 81 mg by mouth once errol* DESVENLAFAXINE SUCCINATE ER 5* Take 50 mg by mouth once errol* OMEPRAZOLE 40 MG CAPSULE,ALBARO* Take 40 mg by mouth once errol* MESALAMINE 1.2 GRAM TABLET,DE* Take 2,400 mg by mouth daily * LISINOPRIL 40 MG TABLET Take 40 mg by mouth once errol* METOPROLOL TARTRATE 50 MG TAB* Take 75 mg by mouth twice faheem* CETIRIZINE 10 MG CAPSULE Take 10 mg by mouth once errol* MILK THISTLE 175 MG TABLET Take 175 mg by mouth three ti* SUCRALFATE 1 GRAM TABLET Take 1 g by mouth four times * APIXABAN 5 MG TABLET Take 5 mg by mouth twice errol* FERROUS SULFATE 325 MG (65 MG* Take 325 mg by mouth daily wi* Problem List As Of Date: 05/16/2019 (None) Encounter Status:Closed by ESTER ALBRECHT MD on 05/16/19 [facility] 05-16-2019 CNPN Telephone (NCCAP) GARY BUITRAGO ([id number]) 1950 M Date Time Provider Department 05/16/19 ESTER ALBRECHT NCCTIMMY During your visit today, we recorded the following information about you: Sergio Lorenzo Patient Public Health Dentist 05/16/2019 2:39 PM Signed Need a new order for CT abd/pel W/Ivcon and also an order for Creatine. Thank you Ester Albrecht MD 05/16/2019 3:13 PM Signed done Sergio Lorenzo Patient Public Health Dentist 05/16/2019 3:19 PM Signed Can you just change the CT to WITH ivcon. Thanks AUSTIN HERRERA PA-C 05/19/2019 8:01 AM Signed Ordered AUSTIN HERRERA PA-C Allergies As of Date: 05/16/2019 Noted Allergy Reaction INFLUENZA VACCINE TR-S 09 (PF) 08/02/2018 4 - Hives Date Reviewed: 05/16/2019 Reviewed by: Arielle Rodriguez - Fully Assessed Reason for Visit: Appointment [[id number]] Visit Diagnoses:Abdominal pain, unspecified abdominal location [R10.9] Abdominal mass, unspecified abdominal location [R19.00] Order(s):CREATININE BLD [SQCRET] Order #: [id number] FUTURE CT ABD/PEL W IVCON [[id number]] Order #: [id number] FUTURE [] iv contrast (will be provided with radiology test)CT ABD/PEL -Inject, intravenously, once for 1 dose.No IV access, insert saline lock prior to the beginning of sedation, infusion, injection of imaging exam. Discontinue saline lock post exam. If Pt. has a central line or IVAD, may access for administration according to line specific nursing protocol. Once exam is complete flush line and de-access according to line specific nursing protocol in the CT contrast administration guidelines link.Disp: 1 EachRfl: 0 [] enteric contrast (will be provided with radiology test)For CT ABD/PEL W IVCON Routine order Administer, As Directed One Time Only, via Oral, Rectal, both Oral and Rectal, Enteric Tube, Stoma or Indwelling Catheter, Enteric Contrast as designated per enteric contrast guidelinesDisp: 1 EachRfl: 0 Prescriptions as of 05/16/2019 Sig: IV CONTRAST (RADIOLOGY PROCED* CT ABD/PEL -Inject, intraveno* ENTERIC CONTRAST (RADIOLOGY P* For CT ABD/PEL W IVCON Routin* OMEGA-3 FATTY ACIDS 500 MG CA* Fish Oil MULTIVITAMIN CAPSULE Take 1 capsule by mouth once * ASPIRIN 81 MG TABLET,DELAYED * Take 81 mg by mouth once errol* DESVENLAFAXINE SUCCINATE ER 5* Take 50 mg by mouth once errol* OMEPRAZOLE 40 MG CAPSULE,ALBARO* Take 40 mg by mouth once errol* MESALAMINE 1.2 GRAM TABLET,DE* Take 2,400 mg by mouth daily * LISINOPRIL 40 MG TABLET Take 40 mg by mouth once errol* METOPROLOL TARTRATE 50 MG TAB* Take 75 mg by mouth twice faheem* CETIRIZINE 10 MG CAPSULE Take 10 mg by mouth once errol* MILK THISTLE 175 MG TABLET Take 175 mg by mouth three ti* SUCRALFATE 1 GRAM TABLET Take 1 g by mouth four times * APIXABAN 5 MG TABLET Take 5 mg by mouth twice errol* FERROUS SULFATE 325 MG (65 MG* Take 325 mg by mouth daily wi* Problem List As Of Date: 05/16/2019 (None) Prescriptions ordered this encounter Disp Refills Start End IV CONTRAST (RADIOLOGY PROCEDURE) 1 Ea* 0 05/19/2019 05/20/2019 Class: In Office Sig: CT ABD/PEL -Inject, intravenously, once for 1 dose.No IV access, insert saline lock prior to the beginning of sedation, infusion, injection of imaging exam. Discontinue saline lock post exam. If Pt. has a central line or IVAD, may access for administration according to line specific nursing protocol. Once exam is complete flush line and de-access according to line specific nursing protocol in the CT contrast administration guidelines link. ENTERIC CONTRAST (RADIOLOGY PROCEDUR* 1 Ea* 0 05/19/2019 05/20/2019 Class: In Office Sig: For CT ABD/PEL W IVCON Routine order Administer, As Directed One Time Only, via Oral, Rectal, both Oral and Rectal, Enteric Tube, Stoma or Indwelling Catheter, Enteric Contrast as designated per enteric contrast guidelines Encounter Status:Closed by SURESH PATIENT MEDICAL CODING AUDITOR, SERGIO on 02/04/20 [facility] PROGRESSon 05-16-2019 PROGRESS HNO ID: [id number] Author: Ester Albrecht Service: ? Author Type: Physician Type: Progress Notes Filed: 05/16/2019 2:58 PM Note Text: HPI Gary Buitrago is a 69 year old male who presents in follow up with fatigue. With his thrombocytopenia I will check for splenomegaly (NHL, liver disease, etc). On exam, he has no splenomegaly. Our work up has been negative. We recommended he stay on oral iron for now. Results for GARY BUITRAGO ( ) as of 05/16/2019 14:56 Ref. Range 05/07/2019 09:39 05/07/2019 09:52 05/07/2019 09:52 05/14/2019 12:53 05/14/2019 12:54 Sodium Latest Ref Range: 136 - 144 mmol/L 137 Potassium Latest Ref Range: 3.7 - 5.1 mmol/L 4.7 Chloride Latest Ref Range: 97 - 105 mmol/L 101 CO2 Latest Ref Range: 22 - 30 mmol/L 27 BUN Latest Ref Range: 9 - 24 mg/dL 10 Creatinine Latest Ref Range: 0.73 - 1.22 mg/dL 1.01 Glucose Latest Ref Range: 74 - 99 mg/dL 127 (H) Protein, Total Latest Ref Range: 6.0 - 8.4 g/dL 7.0 7.2 Calcium Latest Ref Range: 8.5 - 10.2 mg/dL 9.9 Albumin Latest Ref Range: 3.9 - 4.9 g/dL 4.6 Bilirubin, Total Latest Ref Range: 0.2 - 1.3 mg/dL 0.6 Alkaline Phosphatase Latest Ref Range: 38 - 113 U/L 117 (H) ALT Latest Ref Range: 10 - 54 U/L 33 AST Latest Ref Range: 14 - 40 U/L 39 Anion Gap Latest Ref Range: 9 - 18 mmol/L 9 eGFR- Unknown >60 eGFR-All Other Races Latest Units: . >60 Vitamin B12 Latest Ref Range: 232 - 1,245 pg/mL 262 Folate Latest Ref Range: >4.7 ng/mL >20.0 Ferritin Latest Ref Range: 30.3 - 565.7 ng/mL 106.0 Iron Latest Ref Range: 41 - 186 ug/dL 109 TIBC Latest Ref Range: 232 - 386 ug/dL 348 Transferrin Saturation Latest Ref Range: 15 - 57 % 31 Hematocrit Latest Ref Range: 39.0 - 51.0 % 44.7 46.0 Albumin for SPE Latest Ref Range: 3.37 - 4.23 gm/dL 4.26 (H) Alpha 1 Globulin Latest Ref Range: 0.18 - 0.31 gm/dL 0.27 Alpha 2 Globulin Latest Ref Range: 0.52 - 0.97 gm/dL 0.62 Beta Globulin Latest Ref Range: 0.84 - 1.36 gm/dL 0.97 Gamma Globulin Latest Ref Range: 0.70 - 1.44 gm/dL 1.07 Interpretation (Prot Electro) Unknown SEE COMMENT SPE Staff Review Unknown Reviewed by Star Villagomez M.D., PhD ([id number]) M-Protein Location Unknown N/A M-Protein Concentration Latest Ref Range: 0.00 gm/dL 0.00 MPA Result Latest Ref Range: No M protein is identified. No M protein is identified. Staff Review (MPA) Unknown Reviewed by Star Villagomez M.D., PhD ([id number]) [place] Free, Serum Latest Ref Range: 3.30 - 19.40 mg/L 17.8 Lambda Free, Serum Latest Ref Range: 5.7 - 26.3 mg/L 16.4 K/L Ratio, Serum Latest Ref Range: 0.26 - 1.65 1.09 TSH Latest Ref Range: 0.400 - 5.500 uU/mL 1.350 WBC Latest Ref Range: 3.70 - 11.00 k/uL 6.41 8.17 RBC Latest Ref Range: 4.20 - 6.00 m/uL 4.68 4.76 Hemoglobin Latest Ref Range: 13.0 - 17.0 g/dL 15.8 16.2 Platelet Count Latest Ref Range: 150 - 400 k/uL 120 (L) 127 (L) MCV Latest Ref Range: 80.0 - 100.0 fL 95.5 96.6 MCH Latest Ref Range: 26.0 - 34.0 pG 33.8 34.0 MCHC Latest Ref Range: 30.5 - 36.0 g/dL 35.3 35.2 MPV Latest Ref Range: 9.0 - 12.7 fL 11.0 11.3 RDW-CV Latest Ref Range: 11.5 - 15.0 % 18.6 (H) 17.0 (H) Absol Gran Count Latest Ref Range: 1.45 - 7.50 k/uL 4.88 Neut% Latest Units: % 74.9 Abs Neut (ANC) Latest Ref Range: 1.45 - 7.50 k/uL 6.12 Lymph% Latest Units: % 13.5 Abs Lymph Latest Ref Range: 1.00 - 4.00 k/uL 1.10 [place]% Latest Units: % 10.4 Abs [place] Latest Ref Range: 0.00 - 0.86 k/uL 0.85 Eosin% Latest Units: % 0.7 Abs Eosin Latest Ref Range: 0.00 - 0.45 k/uL 0.06 Baso% Latest Units: % 0.5 Abs Baso Latest Ref Range: 0.00 - 0.10 k/uL 0.04 Staff Review, CBCDIF Unknown SEE COMMENT Pathologist for Staff Review Unknown The Staff Review ... Current Outpatient Medications: [place]-3 Fatty Acids (FISH OIL) 500 mg cap Fish Oil Multivitamin capsule Take 1 capsule by mouth once daily. aspirin, enteric coated (ASPIRIN, ENTERIC COATED) 81 mg EC tablet Take 81 mg by mouth once daily. desvenlafaxine ER (PRISTIQ) 50 mg 24 hr tablet Take 50 mg by mouth once daily. Omeprazole 40 mg capsule Take 40 mg by mouth once daily. Mesalamine (LIALDA) 1.2 gram EC tablet Take 2,400 mg by mouth daily with breakfast. lisinopril (ZESTRIL, PRINIVIL) 40 mg tablet Take 40 mg by mouth once daily. metoprolol tartrate, short acting, (LOPRESSOR) 50 mg tablet Take 75 mg by mouth twice daily. Cetirizine (ALL DAY ALLERGY, CETIRIZINE,) 10 mg cap Take 10 mg by mouth once daily. Milk Thistle 175 mg tab Take 175 mg by mouth three times daily. sucralfate (CARAFATE) 1 gram tablet Take 1 g by mouth four times daily. apixaban (ELIQUIS) 5 mg tab(s) Take 5 mg by mouth twice daily. ferrous sulfate 325 mg (65 mg iron) tablet Take 325 mg by mouth daily with breakfast. No current facility-administered medications for this visit. ALLERGIES Allergen Reactions - Influenza Vaccine T* Hives REVIEW OF SYSTEMS GENERAL: No weight loss, malaise or fevers., SEE HPI HEENT: Negative for frequent or significant headaches, No changes in hearing or vision, no nose bleeds or other nasal problems NECK: Negative for lumps, goiter, pain and significant neck swelling RESPIRATORY: Negative for cough, wheezing or shortness of breath. CARDIOVASCULAR: Negative for chest pain, leg swelling or palpitations. GI: Negative for abdominal discomfort, blood in stools or black stools or change in bowel habits MUSCULOSKELETAL: Negative for joint pain or swelling, back pain or muscle pain. SKIN: Negative for lesions, rash, and itching. PSYCH: Negative for sleep disturbance, mood disorder and recent psychosocial stressors. HEMATOLOGY/LYMPHOLOGY: Negative for prolonged bleeding, bruising easily or swollen nodes. NEURO: No history of headaches, syncope, paralysis, seizures or tremors All other reviewed and negative other than HPI. PHYSICAL EXAM: BP 177/71 Pulse 84 Temp 36.9 ?C (98.4 ?F) (Oral) Resp 16 Ht 181 cm (5' 11.26 ) Wt 106.8 kg (235 lb 6.4 oz) SpO2 100% BMI 32.59 kg/m? General Appearance: alert and oriented, appearing in no acute distress Lymphoreticular exam negative, no splenomegaly Skin: skin color, texture, turgor normal, no suspicious rashes or lesions. Head: normal. Eyes: Anicteric sclera. Pupils are equally round. Extraocular movements are intact. . Ears: external ears normal Neck: Supple, no adenopathy; thyroid symmetric, normal size, no bruits. Back:no pain with ambulation Lungs: good air exchange overall Heart: RRR Abdomen: No obvious evidence of rebound tenderness or guarding Extremities: Extremities normal. No deformities, edema, or skin discoloration. Good capillary refill.. Musculoskeletal: Spine range of motion normal. Muscular strength intact. Peripheral Pulses: Normal. Neurologic: Gait normal. No gross cerebellar defects Psychiatric: the patient has an appropriate affect Hemoglobin (g/dL) Date Value 05/14/2019 16.2 Hematocrit (%) Date Value 05/14/2019 46.0 WBC (k/uL) Date Value 05/14/2019 8.17 Platelet Count (k/uL) Date Value 05/14/2019 127 ASSESSMENT/PLAN: 1. Iron deficiency anemia, unspecified iron deficiency anemia type - ICD9: 280.9, ICD10: D50.9 (primary diagnosis) See below - HEP REMOTE PANEL BL 2. Thrombocytopenia (HCC) - ICD9: 287.5, ICD10: D69.[address] abdomen to rule out NHL, splenomegaly, etc - HEP REMOTE PANEL BL 3. Malaise and fatigue - ICD9: 780.79, ICD10: R53.81, R53.83 With thrombocytopenia, will check CT scans and Hep panel remote - HEP REMOTE PANEL BL 4. Abdominal mass, unspecified abdominal location - ICD9: 789.30, ICD10: R19.00 See above - CT ABD/PEL WO IVCON Ester Albrecht MD Normal [facility] Ferritinon 05-14-2019 Ferritin [Mass/Vol] 106.0 ng/mL Normal 30.3-565.7 [facility] Comment on above: Performed By: #### T MARCUS, CISCO, IFESC, SEPG #### [facility] [employer] [address], [place] [id number] Folate, Serumon 05-14-2019 Folate [Mass/Vol] ng/mL Normal >4.7 [facility] Comment on above: Result Comment: A re sult of > 20 ng/mL is not necessarily indicative of a pathologic or treatable condition: it reflects a limitation of the test methodology. Assay reference range: 4.8 to 24.2 ng/mL. Suitable for detection of folate deficiency. Reference: Folate III (Folate III) [package insert V 2.0 [place]]. [facility], [place], [place]: August 2015. Performed By: #### T MARCUS, KLFRS, IFESC, SEPG #### [facility] [employer] [address] [place], [place] [id number] Iron and TIBCon 07-31-2019 Iron [Mass/Vol] 109 ug/dL Normal 41-186 [facility] Comment on above: Performed By: #### T CISCO VELAZQUEZ, IFBRIANNAC, SEPG #### [place] [id number] [place] [phone] TIBC 348 ug/dL Normal 232-386 [facility] Comment on above: Performed By: #### T MARCUS, CISCO, IFBRIANNAC, SEPG #### [place] [id number] [place] [phone] Transferrin Saturatn 31 % Normal 15-57 [facility] Comment on above: Performed By: #### T CISCO VELAZQUEZ, CASEY, SEPG #### [place] [phone] Methylmalonic Acidon 019 Methylmalonic Acid 314 nmol/L Normal 79-376 [facility] Comment on above: Result Comment: This test was developed and its performance characteristics determined by [facility] [place] ([facility]). It has not been cleared or approved by the FDA. [facility] is regulated under CLIA as qualified to perform high complexity testing. This test is used for clinical purposes. It should not be regarded as investigational or for research. Performed By: #### T CISCO VELAZQUEZ, IFASAF, SEPG #### [place] [phone] Staff Rev w CBCDIFon 019 Abs Baso 0.04 k/uL Normal 0.00-0.10 [facility] Comment on above: Performed By: #### S MARIA M #### [place] [id number] Abs [place] 0.85 k/uL Normal 0.00-0.86 [facility] Comment on above: Performed By: #### S MARIA M #### [address] [address] Abs Neut 6.12 k/uL Normal 1.45-7.50 [facility] Comment on above: Performed By: #### S MARIA M #### [place] [address] Basophils/100 WBC (Bld) 0.5 % Normal [facility] Comment on above: Performed By: #### S MARIA M #### [place] [address] Eosinophils (Bld) [#/Vol] 0.06 10*3/uL Normal 0.00-0.45 [facility] Comment on above: Performed By: #### S MARIA M #### [place] [address] Eosinophils/100 WBC (Bld) 0.7 % Normal [facility] Comment on above: Performed By: #### S MARIA M #### [place] [address] Erythrocyte distribution width (RBC) [Ratio] 17.0 % High 11.5-15.0 [facility] Comment on above: Performed By: #### S MARIA M #### [place] [address] Hematocrit (Bld) [Volume fraction] 46.0 % Normal 39.0-51.0 [facility] Comment on above: Performed By: #### S MARIA M #### [place] [address] Hemoglobin (Bld) [Mass/Vol] 16.2 g/dL Normal 13.0-17.0 [facility] Comment on above: Performed By: #### S MARIA M #### [place] [id number] Lymphocytes (Bld) [#/Vol] 1.10 10*3/uL Normal 1.00-4.00 [facility] Comment on above: Performed By: #### S MARIA M #### [place] [id number] [place] [address] Lymphocytes/100 WBC (Bld) 13.5 % Normal [facility] Comment on above: Performed By: #### S MARIA M #### [place] [phone] MCH (RBC) [Entitic mass] 34.0 pG Normal 26.0-34.0 [facility] Comment on above: Performed By: #### S MARIA M #### [place] [phone] MCHC (RBC) [Mass/Vol] 35.2 g/dL Normal 30.5-36.0 [facility] Comment on above: Performed By: #### S MARIA M #### [place] [phone] MCV (RBC) [Entitic vol] 96.6 fL Normal 80.0-100.0 [facility] Comment on above: Performed By: #### S MARIA M #### [place] [phone] Monocytes/100 WBC (Bld) 10.4 % Normal [facility] Comment on above: Performed By: #### S MARIA M #### [place] [address] Neutrophils/100 WBC (Bld) 74.9 % Normal [facility] Comment on above: Performed By: #### S MARIA M #### [place] [address] Pathologist Cyto stain Nom (Cvx/Vag) [ID] The Staff Review on this sample was cancelled because the hematology analyzer did not flag any parameters as requiring manual review. If there is a specific clinical concern for which you would like a staff pathologist to review the blood smear, please call Lab Client Services within 28 days. Normal [facility] Comment on above: Result Comment: Acco unt Credited Performed By: #### S MARIA M #### [facility] [employer] [facility] [place] [address] Platelet mean volume (Bld) [Entitic vol] 11.3 fL Normal 9.0-12.7 [facility] Comment on above: Performed By: #### S MARIA M #### [place] [address] Platelets (Bld) [#/Vol] 127 10*3/uL Low 150-400 [facility] Comment on above: Performed By: #### S MARIA M #### [place] [address] RBC (Bld) [#/Vol] 4.76 10*6/uL Normal 4.20-6.00 [facility] Comment on above: Performed By: #### S MARIA M #### [place] [address] Staff Review SEE COMMENT Normal [facility] Comment on above: Result Comment: The Staff Review on this sample was cancelled because the hematology analyzer did not flag any parameters as requiring manual review. If there is a specific clinical concern for which you would like a staff pathologist to review the blood smear, please call Lab Client Services within 28 days. Account Credited Performed By: #### S MARIA M #### [place] [address] WBC (Bld) [#/Vol] 8.17 10*3/uL Normal 3.70-11.00 [facility] Comment on above: Performed By: #### S MARIA M #### [place] [address] Vitamin B12on 05-14-2019 Cobalamin (Vitamin B12) [Mass/Vol] 262 pg/mL Normal 232-1245 [facility] Comment on above: Performed By: #### B 12, SERFOL, IRON, FERR, MMA #### [facility] [address] [place] [id number] CNOVSPon 05-07-2019 CNOVSP Visit (SP) Office ([place]) GARY BUITRAGO ([id number]) 1950 M Date Time Provider Department 05/07/19 9:15 AM ESTER ALBRECHT During your visit today, we recorded the following information about you: Temperature Pulse Respiration Blood pressure 98 degrees 68/minute 18/minute 170/60 Weight Height 107.6 kg 1.81 m Ester Albrecht MD 05/07/2019 11:50 AM Signed HPI Gary Buitrago is a 69 year old male who presents in consultation today with iron deficiency and mild thrombocytopenia. He presented with hemoglobin of 4 was found to have iron deficiency. He was placed on oral iron and has since normalized. He was found to have some low-grade thrombocytopenia. A GI workup was negative. On April 30, 2019 platelet count was 122 with platelet hemoglobin of 15.2. He has had a sustained mildly low platelet count. PAST MEDICAL HISTORY Diagnosis Date - Anemia - Colitis - Hyperlipidemia - Hypertension PAST SURGICAL HISTORY Procedure Laterality Date - COLONOSCOPY - EGD Social History Tobacco Use - Smoking status: Current Every Day Smoker Types: Cigars - Smokeless tobacco: Never Used Substance Use Topics - Alcohol use: Not Currently - Drug use: Never No family history on file. Current Outpatient Medications: [place]-3 Fatty Acids (FISH OIL) 500 mg cap Fish Oil Multivitamin capsule Take 1 capsule by mouth once daily. aspirin, enteric coated (ASPIRIN, ENTERIC COATED) 81 mg EC tablet Take 81 mg by mouth once daily. desvenlafaxine ER (PRISTIQ) 50 mg 24 hr tablet Take 50 mg by mouth once daily. Omeprazole 40 mg capsule Take 40 mg by mouth once daily. Mesalamine (LIALDA) 1.2 gram EC tablet Take 2,400 mg by mouth daily with breakfast. lisinopril (ZESTRIL, PRINIVIL) 40 mg tablet Take 40 mg by mouth once daily. metoprolol tartrate, short acting, (LOPRESSOR) 50 mg tablet Take 75 mg by mouth twice daily. Cetirizine (ALL DAY ALLERGY, CETIRIZINE,) 10 mg cap Take 10 mg by mouth once daily. Milk Thistle 175 mg tab Take 175 mg by mouth three times daily. sucralfate (CARAFATE) 1 gram tablet Take 1 g by mouth four times daily. apixaban (ELIQUIS) 5 mg tab(s) Take 5 mg by mouth twice daily. ferrous sulfate 325 mg (65 mg iron) tablet Take 325 mg by mouth daily with breakfast. No current facility-administered medications for this visit. ALLERGIES Allergen Reactions - Influenza Vaccine T* Hives REVIEW OF SYSTEMS GENERAL: No weight loss, malaise or fevers., SEE HPI HEENT: Negative for frequent or significant headaches, No changes in hearing or vision, no nose bleeds or other nasal problems NECK: Negative for lumps, goiter, pain and significant neck swelling RESPIRATORY: Negative for cough, wheezing or shortness of breath. CARDIOVASCULAR: Negative for chest pain, leg swelling or palpitations. GI: Negative for abdominal discomfort, blood in stools or black stools or change in bowel habits MUSCULOSKELETAL: Negative for joint pain or swelling, back pain or muscle pain. SKIN: Negative for lesions, rash, and itching. PSYCH: Negative for sleep disturbance, mood disorder and recent psychosocial stressors. HEMATOLOGY/LYMPHOLOGY: Negative for prolonged bleeding, bruising easily or swollen nodes. NEURO: No history of headaches, syncope, paralysis, seizures or tremors All other reviewed and negative other than HPI. PHYSICAL EXAM: BP 170/60 Pulse 68 Temp 36.7 ?C (98 ?F) (Oral) Resp 18 Ht 181 cm (5' 11.26 ) Wt 107.6 kg (237 lb 3.2 oz) SpO2 97% BMI 32.84 kg/m? General Appearance: alert and oriented, appearing in no acute distress Skin: skin color, texture, turgor normal, no suspicious rashes or lesions. Head: normal. Eyes: Anicteric sclera. Pupils are equally round. Extraocular movements are intact. . Ears: external ears normal Neck: Supple, no adenopathy; thyroid symmetric, normal size, no bruits. Back:no pain with ambulation Lungs: good air exchange overall Heart: RRR Abdomen: No splenomegaly Extremities: Extremities normal. No deformities, edema, or skin discoloration. Good capillary refill.. Musculoskeletal: Spine range of motion normal. Muscular strength intact. Peripheral Pulses: Normal. Neurologic: Gait normal. No gross cerebellar defects Psychiatric: the patient has an appropriate affect Hemoglobin (g/dL) Date Value 05/07/2019 15.8 Hematocrit (%) Date Value 05/07/2019 44.7 WBC (k/uL) Date Value 05/07/2019 6.41 Platelet Count (k/uL) Date Value 05/07/2019 120 ASSESSMENT/PLAN: 1. Iron deficiency anemia, unspecified iron deficiency anemia type - ICD9: 280.9, ICD10: D50.9 (primary diagnosis) Resolved on oral iron GI work up negative Continue on oral iron per instructions by Dr Munoz - ABS GRAN CT + CBC (FOR REMOTE [facility] USE) - TSH BLD - PROTEIN ELECTROPHORESIS W/INTERP - KAPPA/CACERES,FREE,SER - IMMUNOFIXATION SCREEN, SERUM - COMP METABOLIC PANEL - CBC 2. Thrombocytopenia (HCC) - ICD9: 287.5, ICD10: D69.6 Suspect environmental causes, medications Low grade and can be watched. I would recommend observation only at this point. His platelets can be safely watched now. No intervention needed. See me in one year - ABS GRAN CT + CBC (FOR REMOTE [facility] USE) - TSH BLD - PROTEIN ELECTROPHORESIS W/INTERP - KAPPA/CACERES,FREE,SER - IMMUNOFIXATION SCREEN, SERUM - COMP METABOLIC PANEL - CBC 3. Abnormal weight loss - ICD9: 783.21, ICD10: R63.4 See above - ABS GRAN CT + CBC (FOR REMOTE [facility] USE) - TSH BLD - PROTEIN ELECTROPHORESIS W/INTERP - KAPPA/CACERES,FREE,SER - IMMUNOFIXATION SCREEN, SERUM - COMP METABOLIC PANEL Ester Albrecht MD Referring Provider: LORRIE MUNOZ [[id number]] Allergies As of Date: 05/07/2019 Noted Allergy Reaction INFLUENZA VACCINE TR-S 09 (PF) 08/02/2018 4 - Hives Date Reviewed: 05/07/2019 Reviewed by: Cari Jackson - Fully Assessed Reason for Visit: Anemia [6] Cmt: New patient consultation Primary Visit Diagnosis:Iron deficiency anemia, unspecified iron deficiency anemia type [D50.9] Other Visit Diagnoses:Thrombocytope ladi (HCC) [D69.6] Abnormal weight loss [R63.4] Order(s):ABS GRAN CT + CBC (FOR [facility] USE) [SQRAGCBC] Order #: [id number] FUTURE TSH BLD [SQTSH] Order #: [id number] FUTURE PROTEIN ELECTROPHORESIS W/INTERP [SQSEPG] Order #: [id number] FUTURE KAPPA/CACERES,FREE,SER [SQKLFRS] Order #: [id number] FUTURE IMMUNOFIXATION SCREEN, SERUM [SQIFESC] Order #: [id number] FUTURE COMP METABOLIC PANEL [SQCMP] Order #: [id number] FUTURE CBC [SQCBC] Order #: [id number] FUTURE Disposition: Return in about 1 year (around 05/07/2020). Follow-up and Disposition History Recorded Prescriptions as of 05/07/2019 Sig: [place]-3 FATTY ACIDS 500 MG CA* Fish Oil MULTIVITAMIN CAPSULE Take 1 capsule by mouth once * ASPIRIN 81 MG TABLET,DELAYED * Take 81 mg by mouth once errol* DESVENLAFAXINE SUCCINATE ER 5* Take 50 mg by mouth once errol* OMEPRAZOLE 40 MG CAPSULE,ALBARO* Take 40 mg by mouth once errol* MESALAMINE 1.2 GRAM TABLET,DE* Take 2,400 mg by mouth daily * LISINOPRIL 40 MG TABLET Take 40 mg by mouth once errol* METOPROLOL TARTRATE 50 MG TAB* Take 75 mg by mouth twice faheem* CETIRIZINE 10 MG CAPSULE Take 10 mg by mouth once errol* MILK THISTLE 175 MG TABLET Take 175 mg by mouth three ti* SUCRALFATE 1 GRAM TABLET Take 1 g by mouth four times * APIXABAN 5 MG TABLET Take 5 mg by mouth twice errol* FERROUS SULFATE 325 MG (65 MG* Take 325 mg by mouth daily wi* Problem List As Of Date: 05/07/2019 (None) Encounter Status:Closed by ESTER ALBRECHT MD on 05/07/19 Normal [facility] Comp Metabolic Panelon 05-07 Albumin [Mass/Vol] 4.6 g/dL Normal 3.9-4.9 [facility] Comment on above: Performed By: #### T SH, KLFRS, IFESC, SEPG #### [facility] [address], [place] [address] ALP [Catalytic activity/Vol] 117 U/L High 38-113 [facility] Comment on above: Performed By: #### T SH, KLFRS, IFESC, SEPG #### [facility] [address], [place] [address] ALT [Catalytic activity/Vol] 33 U/L Normal 10-54 [facility] Comment on above: Performed By: #### T SH, KLFRS, IFESC, SEPG #### [facility] [address], [place] [address] Anion gap [Moles/Vol] 9 mmol/L Normal 9-18 [facility] Comment on above: Performed By: #### T MARCUS, KLFRS, IFESC, SEPG #### [facility] [address], [place] [address] AST [Catalytic activity/Vol] 39 U/L Normal 14-40 [facility] Comment on above: Performed By: #### T SH, KLFRS, IFESC, SEPG #### [facility] [address], [place] [address] Bilirubin [Mass/Vol] 0.6 mg/dL Normal 0.2-1.3 [facility] Comment on above: Performed By: #### T SH, KLFRS, IFESC, SEPG #### [facility] [address], [place] [address] Calcium [Mass/Vol] 9.9 mg/dL Normal 8.5-10.2 [facility] Comment on above: Performed By: #### T SH, KLFRS, IFESC, SEPG #### [facility] [address], [place] [address] Chloride [Moles/Vol] 101 mmol/L Normal 97-105 [facility] Comment on above: Performed By: #### T CISCO VELAZQUEZ IFESC, SEPG #### [facility] [address] [place] [address] CO2 [Moles/Vol] 27 mmol/L Normal 22-30 [facility] Comment on above: Performed By: #### T CISCO VELAZQUEZ IFBRIANNAC, SEPG #### [facility] [address] [place] [address] Creatinine [Mass/Vol] 1.01 mg/dL Normal 0.73-1.22 [facility] Comment on above: Performed By: #### T CISCO VELAZQUEZ IFESC, SEPG #### [facility] [address] [place] [address] eGFR- Amer. >60 Normal [facility] Comment on above: Performed By: #### T CISCO VELAZQUEZ IFASAF, SEPG #### [facility] [address] [place] [address] GFR/1.73 sq M predicted among non-blacks MDRD (S/P/Bld) [Vol rate/Area] mL/min/{1.73_m2} Normal [facility] Comment on above: Result Comment: eGFR (Estimated GFR) Units of measure: mL/min/1.73 meters squared eGFR is derived from the reexpressed MDRD Study equation using the following parameters: serum creatinine, age, gender and race. The creatinine assay has been calibrated to be traceable to IDMS. An eGFR <60 mL/min/1.73m2 for >3 months is consistent with chronic kidney disease. Refer to KDOQI guidelines for clinical interpretation. In patients with unstable renal function, e.g. those with acute kidney injury, the eGFR may not accurately reflect actual GFR. Performed By: #### T CISCO VELAZQUEZ, IFESC, SEPG #### [facility] [address] [place] [id number] Glucose [Mass/Vol] 127 mg/dL High 74-99 [facility] Comment on above: Result Comment: The [place] Diabetes Association (ADA) provides guidance for cutoff values for fasting glucose and random glucose. The ADA defines fasting as no caloric intake for at least 8 hours. Fasting plasma glucose results between 100 to 125 mg/dL indicate increased risk for diabetes (prediabetes). Fasting plasma glucose results greater than or equal to 126 mg/dL meet the criteria for diagnosis of diabetes. In the absence of unequivocal hyperglycemia, results should be confirmed by repeat testing. In a patient with classic symptoms of hyperglycemia or hyperglycemic crisis, random plasma glucose results greater than or equal to 200 mg/dL meet the criteria for diagnosis of diabetes. Reference: Standards of Medical Care in Diabetes 2016, [place] Diabetes Association. Diabetes Care. 2016.39(Suppl 1). Performed By: #### T MARCUS, CISCO, IFESC, SEPG #### [facility] [employer] [address], [place] [address] Potassium [Moles/Vol] 4.7 mmol/L Normal 3.7-5.1 [facility] Comment on above: Performed By: #### T MARCUS, LIMARS, IFESC, SEPG #### [facility] [employer] [address], [place] [address] Protein [Mass/Vol] 7.0 g/dL Normal 6.3-8.0 [facility] Comment on above: Performed By: #### T MARCUS, KLFRS, IFESC, SEPG #### [facility] [employer] [address], [place] [address] Sodium [Moles/Vol] 137 mmol/L Normal 136-144 [facility] Comment on above: Performed By: #### T MARCUS, KLFRS, IFESC, SEPG #### [facility] [employer] [address], [place] [address] Urea nitrogen [Mass/Vol] 10 mg/dL Normal 9-24 [facility] Comment on above: Performed By: #### T MARCUS, KLFRS, IFESC, SEPG #### [facility] [employer] [address] [place], [place] [address] DOMINGO Screen, Serumon 07-24-20 19 Protein [Mass/Vol] No M protein is identified. Normal No M protein is identified. [facility] Comment on above: Performed By: #### T CISCO VELAZQUEZ, IFASAF, SEPG #### [facility] [address] [place] [address] Staff Review Reviewed by Star Villagomez M.D., PhD ([id number]) [facility] Comment on above: Performed By: #### T MARCUS, CISCO, IFESC, SEPG #### [place] [id number] [place] [address] [place]/Caceres,Free,Seron 2018 K/L Ratio, Serum 1.09 Normal 0.26-1.65 [facility] Comment on above: Performed By: #### T CISCO VELAZQUEZ, IFASAF, SEPG #### [place] [id number] [place] [address] [place], Free, Serum 17.8 mg/L Normal 3.30-19.40 [facility] Comment on above: Result Comment: Test performed by an immunoturbidimetric assay on Optilite instrument from [facility]. Immunoglobulin free light chain assay results should be interpreted in conjunction with other tests and in correlation with clinical picture. Performed By: #### T MARCUS, CISCO, IFESC, SEPG #### [place] [id number] [place] [address] Lambda, Free, Serum 16.4 mg/L Normal 5.7-26.3 [facility] Comment on above: Result Comment: Test performed by an immunoturbidimetric assay on Optilite instrument from [facility]. Immunoglobulin free light chain assay results should be interpreted in conjunction with other tests and in correlation with clinical picture. Performed By: #### T MARCUS, CISCO, IFESC, SEPG #### [facility] [address] [place] [address] PROGRESSon 05-07-2019 PROGRESS HNO ID: [id number] Author: Ester Albrecht Service: ? Author Type: Physician Type: Progress Notes Filed: 05/07/2019 11:50 AM Note Text: HPI Gary Buitrago is a 69 year old male who presents in consultation today with iron deficiency and mild thrombocytopenia. He presented with hemoglobin of 4 was found to have iron deficiency. He was placed on oral iron and has since normalized. He was found to have some low-grade thrombocytopenia. A GI workup was negative. On April 30, 2019 platelet count was 122 with platelet hemoglobin of 15.2. He has had a sustained mildly low platelet count. PAST MEDICAL HISTORY Diagnosis Date - Anemia - Colitis - Hyperlipidemia - Hypertension PAST SURGICAL HISTORY Procedure Laterality Date - COLONOSCOPY - EGD Social History Tobacco Use - Smoking status: Current Every Day Smoker Types: Cigars - Smokeless tobacco: Never Used Substance Use Topics - Alcohol use: Not Currently - Drug use: Never No family history on file. Current Outpatient Medications: [place]-3 Fatty Acids (FISH OIL) 500 mg cap Fish Oil Multivitamin capsule Take 1 capsule by mouth once daily. aspirin, enteric coated (ASPIRIN, ENTERIC COATED) 81 mg EC tablet Take 81 mg by mouth once daily. desvenlafaxine ER (PRISTIQ) 50 mg 24 hr tablet Take 50 mg by mouth once daily. Omeprazole 40 mg capsule Take 40 mg by mouth once daily. Mesalamine (LIALDA) 1.2 gram EC tablet Take 2,400 mg by mouth daily with breakfast. lisinopril (ZESTRIL, PRINIVIL) 40 mg tablet Take 40 mg by mouth once daily. metoprolol tartrate, short acting, (LOPRESSOR) 50 mg tablet Take 75 mg by mouth twice daily. Cetirizine (ALL DAY ALLERGY, CETIRIZINE,) 10 mg cap Take 10 mg by mouth once daily. Milk Thistle 175 mg tab Take 175 mg by mouth three times daily. sucralfate (CARAFATE) 1 gram tablet Take 1 g by mouth four times daily. apixaban (ELIQUIS) 5 mg tab(s) Take 5 mg by mouth twice daily. ferrous sulfate 325 mg (65 mg iron) tablet Take 325 mg by mouth daily with breakfast. No current facility-administered medications for this visit. ALLERGIES Allergen Reactions - Influenza Vaccine T* Hives REVIEW OF SYSTEMS GENERAL: No weight loss, malaise or fevers., SEE HPI HEENT: Negative for frequent or significant headaches, No changes in hearing or vision, no nose bleeds or other nasal problems NECK: Negative for lumps, goiter, pain and significant neck swelling RESPIRATORY: Negative for cough, wheezing or shortness of breath. CARDIOVASCULAR: Negative for chest pain, leg swelling or palpitations. GI: Negative for abdominal discomfort, blood in stools or black stools or change in bowel habits MUSCULOSKELETAL: Negative for joint pain or swelling, back pain or muscle pain. SKIN: Negative for lesions, rash, and itching. PSYCH: Negative for sleep disturbance, mood disorder and recent psychosocial stressors. HEMATOLOGY/LYMPHOLOGY: Negative for prolonged bleeding, bruising easily or swollen nodes. NEURO: No history of headaches, syncope, paralysis, seizures or tremors All other reviewed and negative other than HPI. PHYSICAL EXAM: BP 170/60 Pulse 68 Temp 36.7 ?C (98 ?F) (Oral) Resp 18 Ht 181 cm (5' 11.26 ) Wt 107.6 kg (237 lb 3.2 oz) SpO2 97% BMI 32.84 kg/m? General Appearance: alert and oriented, appearing in no acute distress Skin: skin color, texture, turgor normal, no suspicious rashes or lesions. Head: normal. Eyes: Anicteric sclera. Pupils are equally round. Extraocular movements are intact. . Ears: external ears normal Neck: Supple, no adenopathy; thyroid symmetric, normal size, no bruits. Back:no pain with ambulation Lungs: good air exchange overall Heart: RRR Abdomen: No splenomegaly Extremities: Extremities normal. No deformities, edema, or skin discoloration. Good capillary refill.. Musculoskeletal: Spine range of motion normal. Muscular strength intact. Peripheral Pulses: Normal. Neurologic: Gait normal. No gross cerebellar defects Psychiatric: the patient has an appropriate affect Hemoglobin (g/dL) Date Value 05/07/2019 15.8 Hematocrit (%) Date Value 05/07/2019 44.7 WBC (k/uL) Date Value 05/07/2019 6.41 Platelet Count (k/uL) Date Value 05/07/2019 120 ASSESSMENT/PLAN: 1. Iron deficiency anemia, unspecified iron deficiency anemia type - ICD9: 280.9, ICD10: D50.9 (primary diagnosis) Resolved on oral iron GI work up negative Continue on oral iron per instructions by Dr Munoz - ABS GRAN CT + CBC (FOR REMOTE [facility] USE) - TSH BLD - PROTEIN ELECTROPHORESIS W/INTERP - KAPPA/CACERES,FREE,SER - IMMUNOFIXATION SCREEN, SERUM - COMP METABOLIC PANEL - CBC 2. Thrombocytopenia (HCC) - ICD9: 287.5, ICD10: D69.6 Suspect environmental causes, medications Low grade and can be watched. I would recommend observation only at this point. His platelets can be safely watched now. No intervention needed. See me in one year - ABS GRAN CT + CBC (FOR REMOTE C USE) - TSH BLD - PROTEIN ELECTROPHORESIS W/INTERP - KAPPA/CACERES,FREE,SER - IMMUNOFIXATION SCREEN, SERUM - COMP METABOLIC PANEL - CBC 3. Abnormal weight loss - ICD9: 783.21, ICD10: R63.4 See above - ABS GRAN CT + CBC (FOR REMOTE C USE) - TSH BLD - PROTEIN ELECTROPHORESIS W/INTERP - KAPPA/CACERES,FREE,SER - IMMUNOFIXATION SCREEN, SERUM - COMP METABOLIC PANEL Ester Albrecht MD Normal [facility] Protein Electrophor.on 05-07 Albumin [Mass/Vol] 4.26 g/dL High 3.37-4.23 [facility] Comment on above: Performed By: #### T CISCO VELAZQUEZ IFESC, SEPG #### [facility] [address] [place] [address] Alpha 1 Globulin 0.27 gm/dL Normal 0.18-0.31 [facility] Comment on above: Performed By: #### T CISCO VELAZQUEZ IFESC, SEPG #### [facility] [employer] [address] [place] [address] Alpha 2 Globulin 0.62 gm/dL Normal 0.52-0.97 [facility] Comment on above: Performed By: #### T CISCO VELAZQUEZ IFESC, SEPG #### [facility] [address], [place] [address] Beta Globulin 0.97 gm/dL Normal 0.84-1.36 [facility] Comment on above: Performed By: #### T SH, KLFRS, IFESC, SEPG #### [facility] [address] [place] [address] Gamma Globulin 1.07 gm/dL Normal 0.70-1.44 [facility] Comment on above: Performed By: #### T MARCUS, KLFRS, IFESC, SEPG #### [place] [id number] [place] [address] Interpretation SEE COMMENT Normal [facility] Comment on above: Result Comment: No d efinitive M protein is identified on protein electrophoresis. Performed By: #### T MARCUS, CISCO, IFESC, SEPG #### [place] [id number] [place] [address] M Gigi Concentratn 0.00 gm/dL Normal 0.00 [facility] Comment on above: Performed By: #### T MARCUS, CISCO, IFESC, SEPG #### [place] [address] [place] [address] Protein [Mass/Vol] N/A Normal [facility] Comment on above: Performed By: #### T SH, KLFVEENA, IFESC, SEPG #### [place] [address] [place] [address] Protein [Mass/Vol] 7.2 g/dL Normal 6.0-8.4 [facility] Comment on above: Performed By: #### T MARCUS, KLFRS, IFESC, SEPG #### [place] [id number] [place] [address] SPE Staff Review Reviewed by Star Villagomez M.D., PhD ([id number]) [facility] Comment on above: Performed By: #### T MARCUS, KLFRS, IFESC, SEPG #### [place] [id number] [place] [address] Remote Abs Gran + CBC (for F [facility] use only)on 05-07-2019 Absol Gran Count 4.88 k/uL Normal 1.45-7.50 [facility] Erythrocyte distribution width (RBC) [Ratio] 18.6 % High 11.5-15.0 [facility] Hematocrit (Bld) [Volume fraction] 44.7 % Normal 39.0-51.0 [facility] Hemoglobin (Bld) [Mass/Vol] 15.8 g/dL Normal 13.0-17.0 [facility] MCH (RBC) [Entitic mass] 33.8 pG Normal 26.0-34.0 [facility] MCHC (RBC) [Mass/Vol] 35.3 g/dL Normal 30.5-36.0 [facility] MCV (RBC) [Entitic vol] 95.5 fL Normal 80.0-100.0 [facility] Platelet mean volume (Bld) [Entitic vol] 11.0 fL Normal 9.0-12.7 [facility] Platelets (Bld) [#/Vol] 120 10*3/uL Low 150-400 [facility] RBC (Bld) [#/Vol] 4.68 10*6/uL Normal 4.20-6.00 [facility] WBC (Bld) [#/Vol] 6.41 10*3/uL Normal 3.70-11.00 [facility] TSHon 05-07-2019 TSH Qn 1.350 uU/mL Normal 0.400-5.500 [facility] Comment on above: Performed By: #### T SH, KLFRS, IFESC, SEPG #### [facility] [address] [place] [id number] Encounters Encounter Date Encounter Type Care Provider Facility Start: 11-29-2023 ambulatory Eric Stanley Facility:[facility] [place] [facility] Start: 11-29-2022 End: 11-30-[address] LORRIE MUNOZ . Facility: Start: 09-21-2022 End: 09-21-2022 Off-Site Hooperanthony MONDRAGON [facility] Start: 07-27-2022 End: 07-28-[address] LORRIE MUNOZ . Facility: Start: 07-13-2021 ambulatory BALA SHEA Facility :[facility] Start: 07-01-2018 End: 07-02-2018 Patient encounter DEFAULT PHYSICIAN Facility:[facility] Start: 06-25-2018 End: 06-26-2018 Patient encounter BRENT Hernández ROSEANNA Facility:[facility] Start: 05-02-2018 End: 05-03-2018 Patient encounter DEFAULT PHYSICIAN Facility:[facility] Procedures Date Procedure Procedure Detail Performing Clinician Start: 07-27-[address] BHARATHI MUNOZ . Comment on above: Performed By: #### V ITAD, PSASC #### [facility] [address] [place] [address] Dr. Joanne Martinez Immunizations Immunization Date Immunization Notes Care Provider [facility] 06-14-2021 SARS-CoV-2 (COVID-19 ) mRNA BNT-162b2 [employer] [facility] 05-24-2021 SARS-CoV-2 (COVID-19 ) mRNA BNT-162b2 [employer] [facility] Payers Date Payer Category Payer Medicare [id number] 1957 Medicare [id number] 1950 Unknown [id number] 1950 Unknown [id number] [id number] 1950 Unknown [id number] [id number] 1950 Unknown [id number] [id number] Unknown Unknown [id number] Social History Date Type Detail Facility Start: 09-21-2022 Tobacco smoking status Smokes tobacco daily (finding) [facility] Tobacco smoking status Never Kishan [facility] Sex Assigned At Male [facility] Functional Status Date Assessment Result Facility 09-21-2022 Functional Status N/A [facility] Clinical Note 11-29-2022 Note Date & Type Note Facility 11-29-2022 Note PROCEDURE: XR HIPS B IL 5V W PELVIS HISTORY: Idiopathic osteoarthritis ; chronic bilateral hip pain COMPARISON: None. FINDINGS: BONES:Slight narrowing of the superior joint space and mild subchondral sclerosis and small periarticular degenerative osteophytes bilaterally. No fracture, dislocation, bone lesion. SOFT TISSUES:No visible soft tissue swelling. EFFUSION:None visible. OTHER: Mechanical fusion of the visible lower lumbar spine. Spinal stimulator pack projecting over right pelvis. IMPRESSION: 1. Mild degenerative changes of hip joints bilaterally. Electronically authenticated by: FLO CORADO Date: 2022-11-29 13:17 [facility] Evaluation + Plan note 09-21-2022 Note Date & Type Note Facility 09-21-2022 Evaluation + Plan note [facility]22Comprehensive Metabolic Panel 09/21/22Calprotectin, Fecal 09/21/22 [facility] Hospital Discharge instructions 07-10-2022 Note Date & Type Note Facility 07-10-2022 Hospital Discharg e instructions Follow Up Care 07/10/2022 17:05:26 With:MIGUELITO RAMIREZ, KASSY Hooper, [facility] Address: [address] [address]- When:1 year [facility] Hospital course Narrative Note Date & Type Note Facility Hospital course Narrative No data available for this section [facility] Progress note Note Date & Type Note Facility Progress note No data available for this section [facility] Summary Purpose Family History No Family History Records FoundNo Family History Records FoundNo Family History Records FoundNo Family History Records FoundNo Family History Records Found Advance Directives No Advanced Directives Records FoundNo Advanced Directives Records FoundNo Advanced Directives Records FoundNo Advanced Directives Records FoundNo Advanced Directives Records Found Additional Source Comments (unrecognized sect ion and content) No Status Records FoundNo Status Records FoundNo Status Records FoundNo Status Records FoundNo Status Records Found INFORMATION SOURCE (unrecogn ized section and content) DATE CREATED AUTHOR 07/28/2018 [facility] DATE CREATED AUTHOR AUTHOR'S ORGANIZ ATION 02/04/2020 [facility] DATE CREATED AUTHOR AUTHOR'S ORGANIZ ATION 11/27/2021 [facility] DATE CREATED AUTHOR AUTHOR'S ORGANIZ ATION 12/04/2022 [facility] DATE CREATED AUTHOR AUTHOR'S ORGANIZ ATION 09/23/2023 [facility] Patient Care team informatio n (unrecognized section and content) Personnel Name: Lorrie Munoz MD Address: Address: [address] [place] [address] FOR RECORDS PERTAINING TO PATIENTS WHO ARE OR HAVE BEEN ENROLLED IN A CHEMICAL DEPENDENCY/SUBSTANCEABUSE PROGRAM, SOME INFORMATION MAY BE OMITTED. This clinical summary was aggregated from multiple sources. Caution should be exercised in using it in the provision of clinical care. This summary normalizes information from multiple sources, and as a consequence, information in this document may materially change the coding, format and clinical context of patient data. In addition, data may be omitted in some cases. CLINICAL DECISIONS SHOULD BE BASED ON THE PRIMARY CLINICAL RECORDS. [facility]. provides no warranty or guarantee of the accuracy or completeness of information in this document.
== END 2023-10-18 11:24 | disposition home or self-care (01) ==
LOC: US 11:23
PROVIDERS: PCP Family Medicine; Visit Provider Family Medicine
DX: R97.8 Other abnormal tumor markers (principal); K76.0 Fatty (change of) liver, not elsewhere classified
CPT/HCPCS: 76705

== ENCOUNTER 2024-12-26 13:48 | Outpatient (OUT) | payer MEDICARE, SELFPAY ==
--- OUTSIDE RECORDS SUMMARY | 2024-12-26 14:14 | XMS_ITS | CCD ---
Author Organization [facility] Care Team Providers Care [employer] Worker Name Role Phone PHYSICIAN, DEFAULT Unavailable Unavailable [...] Fluarix Drug allergy (disorder) 8 AOF [facility] Repository (1 source) No Known Allergies; Translations: [No Known Allergies] Propensity to adverse reactions (disorder) [facility] Repository (3 sources) influenza A virus A/[place]/GP19 05/2015 (H1N1) antigen / influenza A virus A/[place]/GP20 (H3N2) antigen / influenza B virus B/[place] antigen / influenza B virus B/ antigen; Translations: [influenza virus vaccine] Drug Allergy unknown [facility] (1 source) Flu Vaccine (18 yr +) Drug allergy (disorder) [facility] Medications Current Medications Medication Drug Class(es) Dates Sig (Normalized) Sig (Original) apixaban 5 mg oral tablet (2 sources) Factor Xa Inhibitor Start: 01-13-2019 take 5 mg by mouth twice daily Eliquis 5 mg, Oral, BID, Refills(s) 0, Blood Thinner Start Date: 01/13/19 Status: Ordered aspirin 325 mg oral tablet (2 sources) Platelet Aggregation Inhibitor, Nonsteroidal Anti-inflammatory Drug Start: 01-13-2019 take 325 mg by mouth once daily aspirin 325 mg, Oral, Daily, Refills(s) 0, Prophylaxis Start Date: 01/13/19 Status: Ordered cetirizine hydrochloride 10 mg oral tablet (2 sources) Histamine-1 Receptor Antagonist Start: 01-13-2019 take 10 mg by mouth once daily cetirizine 10 mg, Oral, Daily, Refills(s) 0, Allergy symptoms Start Date: 01/13/19 Status: Ordered desvenlafaxine 50 mg oral tablet (2 sources) Serotonin and Norepinephrine Reuptake Inhibitor Start: 01-13-2019 take 50 mg by mouth once daily desvenlafaxine 50 mg, Oral, Daily, Refills(s) 0, Depression Start Date: 01/13/19 Status: Ordered dofetilide 0.25 mg oral capsule (2 sources) Antiarrhythmic Start: 08-03-2020 take 1 ug by mouth twice daily dofetilide 250 mcg oral capsule mcg cap(s), Oral, BID, Refills(s) 0 Start Date: 08/03/20 Status: Ordered ferrous sulfate (2 sources) Start: 08-03-2020 ferrous sulfate Oral, Refills(s) 0 Start Date: 08/03/20 Status: Ordered Fish Oils (2 sources) Start: 01-13-2019 take 1000 mg by mouth once daily Fish Oil 1,000 mg, Oral, Daily, Refill(s) 0, Prophylaxis Start Date: 01/13/19 Status: Ordered lisinopril 40 mg oral tablet (2 sources) Angiotensin Converting Enzyme Inhibitor Start: 01-13-2019 take 40 mg by mouth once daily lisinopril 40 mg, Oral, Daily, Refills(s) 0, High blood pressure Start Date: 01/13/19 Status: Ordered Medical Marijuana (2 sources) Start: 01-13-2019 Medical Marijuana Medical Marijuana, Pain Start Date: 01/13/19 Status: Ordered mesalamine 1200 mg delayed release oral tablet (2 sources) Aminosalicylate Start: 09-24-2023 Lialda 1.2 g oral enteric coated tablet 4.8 gm, 4 tab(s), Oral, Daily, 30 tab(s), Refill(s) 3, [facility]/pharmacy #[id number] Start Date: 09/24/23 Status: Ordered Start: 09-21-2022 Lialda 1.2 g o ral enteric coated tablet 4.8 gm, 4 tab(s), Oral, Daily, 30 tab(s), Refill(s) 11, [facility]/pharmacy #[id number] Start Date: 09/21/22 Status: Ordered 24 hr metoprolol succinate 50 mg extended release oral tablet (2 sources) beta-Adrenergic Turner Start: 01-13-2019 take 1 tablet by mouth twice daily metoprolol 50 mg ER Tab 50 mg = 1 tab(s), Oral, BID, Refills(s) 0, High blood pressure Start Date: 01/13/19 Status: Ordered Milk thistle extract (2 sources) Start: 01-13-2019 take 175 mg by mouth three times daily milk thistle 175 mg, Oral, TID, Refill(s) 0, Prophylaxis Start Date: 01/13/19 Status: Ordered Multivitamin, Therapeutic w/ Minerals (2 sources) Start: 01-13-2019 take 1 tablet by mouth [...] [HYPERLIPIDEMIA UNSPECIFIED] Onset: 07-29-2022 Chronic Esophageal disorders (4 sources) Flores's esophagus; Translations: [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] Onset: 09-20-2022 Chronic Essential hypertension (4 sources) Essential (primary) hypertension; Translations: [Hypertensive disorder] Onset: 06-25-2018 08-03-2020 Chronic Nutritional deficiencies (1 source) Vitamin D deficiency, unspecified; Translations: [VITAMIN D DEFICIENCY UNSPECIFIED] Onset: 07-29-2022 Chronic Osteoarthritis (4 sources) Unilateral primary osteoarthritis, right hip; Translations: [UNI PRIM OSTEOARTHRITIS RT HIP] Onset: 11-29-2022 Chronic Other 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 Joanne Martinez CBC AUTO DIFFon 07-27-2022 BASO # 0.0 103/ul Normal 0.0-0.1 [facility] Comment on above: Performed By: #### T 7, URIC, CMP, TSH, LIPID #### [facility] [address] [address] [address] Joanne Martinez Basophils/100 WBC (Bld) 0.6 % Normal 0.2-2.0 [facility] Comment on above: Performed By: #### T 7, URIC, CMP, TSH, LIPID #### [facility] [address] [place] [address] Dr. Joanne Martinez EO # 0.1 103/ul Normal 0.0-0.7 [facility] Comment on above: Performed By: #### T 7, URIC, CMP, TSH, LIPID #### [facility] [address] [place] [address] Dr. Joanne Martinez Eosinophils/100 WBC (Bld) 1.2 % Normal 0.9-7.0 [facility] Comment on above: Performed By: #### T 7, URIC, CMP, TSH, LIPID #### [facility] [address] [place] [address] Dr. Joanne Martinez Erythrocyte distribution width (RBC) [Ratio] 11.5 % Normal 11.0-15.0 [facility] Comment on above: Performed By: #### T 7, URIC, CMP, TSH, LIPID #### [facility] [address] [place] [address] Dr. Joanne Martinez Hematocrit (Bld) [Volume fraction] 39.2 % Critically low 42.0-54.0 [facility] Comment on above: Performed By: #### T 7, URIC, CMP, TSH, LIPID #### [facility] [address] [place] [address] Dr. Joanne Martinez Hemoglobin (Bld) [Mass/Vol] 14.0 g/dL Normal 14.0-18.0 [facility] Comment on above: Performed By: #### T 7, URIC, CMP, TSH, LIPID #### [facility] [address] [place] [address] Dr. Joanne Martinez IG # 0.03 10e3/ul Normal 0.00-0.03 [facility] Comment on above: Performed By: #### T 7, URIC, CMP, TSH, LIPID #### [facility] [address] [place] [address] Dr. Joanne Martinez IG % 0.5 % Normal 0.0-0.5 [facility] Comment on above: Performed By: #### T 7, URIC, CMP, TSH, LIPID #### [facility] [address] [place] [address] Dr. Joanne Martinez LYMPH # 1.1 103/ul Critically low 1.2-3.8 [facility] Comment on above: Performed By: #### T 7, URIC, CMP, TSH, LIPID #### [facility] [address] [address] [address] Joanne Martinez Lymphocytes/100 WBC (Bld) 16.3 % Critically low 20.5-60.0 [facility] Comment on above: Performed By: #### T 7, URIC, CMP, TSH, LIPID #### [facility] [address] [place] [address] Dr. Joanne Martinez MANUAL DIFF REQ NO Normal [facility] Comment on above: Performed By: #### T 7, URIC, CMP, TSH, LIPID #### [facility] [address] [place] [address] Dr. Joanne Martinez MCH (RBC) [Entitic mass] 36.9 pg Critically high 25.9-34.0 [facility] Comment on above: Performed By: #### T 7, URIC, CMP, TSH, LIPID #### [facility] [address] [place] [address] Dr. Joanne Martinez MCHC (RBC) [Mass/Vol] 35.7 g/dL Critically high 29.9-35.2 [facility] Comment on above: Performed By: #### T 7, URIC, CMP, TSH, LIPID #### [facility] [address] [place] [address] Dr. Joanne Martinez MCV (RBC) [Entitic vol] 103.4 fL Critically high 80.0-94.0 [facility] Comment on above: Performed By: #### T 7, URIC, CMP, TSH, LIPID #### [facility] [address] [place] [address] Dr. Joanne Martinez MONO # 0.7 103/ul Normal 0.3-0.8 [facility] Comment on above: Performed By: #### T 7, URIC, CMP, TSH, LIPID #### [facility] [address] [address] [address] Joanne Martinez Monocytes/100 WBC (Bld) 9.8 % Normal 1.7-12.0 [facility] Comment on above: Performed By: #### T 7, URIC, CMP, TSH, LIPID #### [facility] [address] [place] [address] Dr. Joanne Martinez NEUT # 4.8 103/ul Normal 1.4-6.5 [facility] Comment on above: Performed By: #### T 7, URIC, CMP, TSH, LIPID #### [facility] [address] [place] [address] Dr. Joanne Martinez Neutrophils/100 WBC (Bld) 71.6 % Normal 43.0-75.0 [facility] Comment on above: Performed By: #### T 7, URIC, CMP, TSH, LIPID #### [facility] [address] [place] [address] Dr. Joanne Martinez Platelet mean volume (Bld) [Entitic vol] 10.9 fL Normal 9.5-13.5 [facility] Comment on above: Performed By: #### T 7, URIC, CMP, TSH, LIPID #### [facility] [address] [place] [address] Dr. Joanne Martinez PLT 168 103/ul Normal 150-450 [facility] Comment on above: Performed By: #### T 7, URIC, CMP, TSH, LIPID #### [facility] [address] [place] [address] Dr. Joanne Martinez RBC 3.79 106/ul Critically low 4.70-6.10 [facility] Comment on above: Performed By: #### T 7, URIC, CMP, TSH, LIPID #### [facility] [address] [place] [address] Dr. Joanne Martinez WBC 6.6 103/ul Normal 4.0-11.0 [facility] Comment on above: Performed By: #### T 7, URIC, CMP, TSH, LIPID #### [facility] [address] [address] [address] Joanne Martinez FREE THYROXINE INDEX T7on FTI 2.14 Normal 1.30-4.50 [facility] Comment on above: Performed By: #### T 7, URIC, CMP, TSH, LIPID #### [facility] [address] [place] [address] Dr. Joanne Martinez T3U 34.0 % Normal 33.0-40.0 [facility] Comment on above: Performed By: #### T 7, URIC, CMP, TSH, LIPID #### [facility] [address] [address] [address] Joanne Martinez T4 [Mass/Vol] 6.30 ug/dL Normal 4.50-12.10 [facility] Comment on above: Performed By: #### T 7, URIC, CMP, TSH, LIPID #### [facility] [address] [place] [address] Dr. Joanne Martinez GLYCOHEMOGLOBIN A1Con 2021 ADA RECOMMENDATION SEE BELOW Normal [facility] Comment on above: Result Comment: ADA RECOMMENDED LIMIT 4.0 - 6.0 ADA THERAPEUTIC TARGET < 7.0 ACTION SUGGESTED > 7.0 Performed By: #### A 1C #### [facility] [address] [place] [address] Dr. Joanne Martinez Glucose [Mass/Vol] 74 mg/dL Normal [facility] Comment on above: Performed By: #### A 1C #### [facility] [address] [place] [address] Dr. Joanne Martinez HbA1c (Bld) [Mass fraction] 4.2 % Critically low 4.5-6.2 [facility] Comment on above: Performed By: #### A 1C #### [facility] [address] [place] [address] Dr. Joanne Martinez LIPID PROFILEon 07-27-2022 CHOL-HDL RATIO NORM SEE BELOW Normal [facility] Comment on above: Result Comment: 3.3 - 4.4 LOW RISK 4.4 - 7.1 AVERAGE RISK 7.1 - 11.0 MODERATE RISK >11.0 HIGH RISK Performed By: #### T 7, URIC, CMP, TSH, LIPID #### [facility] [address] [address] [address] Joanne Martinez Cholesterol [Mass/Vol] 211 mg/dL Critically high <=200 [facility] Comment on above: Performed By: #### T 7, URIC, CMP, TSH, LIPID #### [facility] [address] [address] [address] Joanne Martinez Cholesterol in HDL [Mass/Vol] 121 mg/dL Critically high 40-60 [facility] Comment on above: Performed By: #### T 7, URIC, CMP, TSH, LIPID #### [facility] [address] [place] [address] Dr. Joanne Martinez Cholesterol in LDL [Mass/Vol] 81.6 mg/dL Normal [facility] Comment on above: Performed By: #### T 7, URIC, CMP, TSH, LIPID #### [facility] [address] [place] [address] Dr. Joanne Martinez Cholesterol.total/Ch olesterol in HDL [Mass ratio] 1.7 {ratio} Normal [facility] Comment on above: Performed By: #### T 7, URIC, CMP, TSH, LIPID #### [facility] [address] [place] [address] Dr. Joanne Martinez HDL NORMAL > or = 60 mg/dl - LO W CARDIOVASCULAR RISK <40 mg/dl - HIGH CARDIOVASCULAR RISK Normal [facility] Comment on above: Performed By: #### T 7, URIC, CMP, TSH, LIPID #### [facility] [address] [place] [address] Dr. Joanne Martinez LDL CALC NORMAL SEE BELOW Normal [facility] Comment on above: Result Comment: <100 mg/dl OPTIMAL 100 - 129 mg/dl NEAR OR ABOVE OPTIMAL 130 - 159 mg/dl BORDERLINE HIGH 160 - 189 mg/dl HIGH >190 mg/dl VERY HIGH Performed By: #### T 7, URIC, CMP, TSH, LIPID #### [facility] [address] [place] [address] Dr. Joanne Martinez Triglyceride [Mass/Vol] 42 mg/dL Normal <=150 [facility] Comment on above: Performed By: #### T 7, URIC, CMP, TSH, LIPID #### [facility] [address] [address] [address] Joanne Martinez VLDL CALC 8.4 mg/dL Normal [facility] Comment on above: Performed By: #### T 7, URIC, CMP, TSH, LIPID #### [facility] [address] [address] [address] Joanne Martinez PROF 14(COMP METB)on 022 Albumin [Mass/Vol] 4.1 g/dL Normal 3.4-5.0 [facility] Comment on above: Performed By: #### T 7, URIC, CMP, TSH, LIPID #### [facility] [address] [place] [address] Dr. Joanne Martinez Albumin/Globulin [Mass ratio] 1.2 {ratio} Normal [facility] Comment on above: Performed By: #### T 7, URIC, CMP, TSH, LIPID #### [facility] [address] [place] [address] Dr. Joanne Martinez ALP [Catalytic activity/Vol] 104 U/L Normal 46-116 [facility] Comment on above: Performed By: #### T 7, URIC, CMP, TSH, LIPID #### [facility] [address] [place] [address] Dr. Joanne Martinez ALT [Catalytic activity/Vol] 42 U/L Normal 16-63 [facility] Comment on above: Performed By: #### T 7, URIC, CMP, TSH, LIPID #### [facility] [address] [address] [address] Joanne Martinez Anion gap [Moles/Vol] 14.2 mmol/L Normal [facility] Comment on above: Performed By: #### T 7, URIC, CMP, TSH, LIPID #### [facility] [address] [address] [address] Joanne Martinez AST [Catalytic activity/Vol] 56 U/L Critically high 15-37 [facility] Comment on above: Performed By: #### T 7, URIC, CMP, TSH, LIPID #### [facility] [address] [place] [address] Dr. Joanne Martinez Bilirubin [Mass/Vol] 0.8 mg/dL Normal 0.2-1.0 [facility] Comment on above: Performed By: #### T 7, URIC, CMP, TSH, LIPID #### [facility] [address] [place] [address] Dr. Joanne Martinez Calcium [Mass/Vol] 9.6 mg/dL Normal 8.5-10.1 [facility] Comment on above: Performed By: #### T 7, URIC, CMP, TSH, LIPID #### [facility] [address] [place] [address] Dr. Joanne Martinez Chloride [Moles/Vol] 99 mmol/L Normal 98-107 [facility] Comment on above: Performed By: #### T 7, URIC, CMP, TSH, LIPID #### [facility] [address] [place] [address] Dr. Joanne Martinez CO2 [Moles/Vol] 25.9 mmol/L Normal 21.0-32.0 [facility] Comment on above: Performed By: #### T 7, URIC, CMP, TSH, LIPID #### [facility] [address] [place] [address] Dr. Joanne Martinez Creatinine [Mass/Vol] 0.88 mg/dL Normal 0.70-1.30 [facility] Comment on above: Performed By: #### T 7, URIC, CMP, TSH, LIPID #### [facility] [address] [place] [address] Dr. Joanne Martinez EGFR-AF DANISH >60 Normal >=60 [facility] Comment on above: Performed By: #### T 7, URIC, CMP, TSH, LIPID #### [facility] [address] [place] [address] Dr. Joanne Martinez EGFR-NON AF DANISH >60 Normal >=60 [facility] Comment on above: Performed By: #### T 7, URIC, CMP, TSH, LIPID #### [facility] [address] [address] [address] Joanne Martinez Globulin (S) [Mass/Vol] 3.5 g/dL Normal [facility] Comment on above: Performed By: #### T 7, URIC, CMP, TSH, LIPID #### [facility] [address] [place] [address] Dr. Joanne Martinez Glucose [Mass/Vol] 99 mg/dL Normal 74-106 [facility] Comment on above: Performed By: #### T 7, URIC, CMP, TSH, LIPID #### [facility] [address] [place] [address] Dr. Joanne Martinez Potassium [Moles/Vol] 4.1 mmol/L Normal 3.5-5.1 [facility] Comment on above: Performed By: #### T 7, URIC, CMP, TSH, LIPID #### [facility] [address] [place] [address] Dr. Joanne Martinez Protein [Mass/Vol] 7.6 g/dL Normal 6.4-8.2 [facility] Comment on above: Performed By: #### T 7, URIC, CMP, TSH, LIPID #### [facility] [address] [place] [address] Dr. Joanne Martinez Sodium [Moles/Vol] 135 mmol/L Critically low 136-145 [facility] Comment on above: Performed By: #### T 7, URIC, CMP, TSH, LIPID #### [facility] [address] [place] [address] Dr. Joanne Martinez Urea nitrogen [Mass/Vol] 7.0 mg/dL Normal 7.0-18.0 [facility] Comment on above: Performed By: #### T 7, URIC, CMP, TSH, LIPID #### [facility] [address] [place] [address] Dr. Joanne Martinez Urea nitrogen/Creatinine [Mass ratio] 8.0 mg/mg Normal [facility] Comment on above: Performed By: #### T 7, URIC, CMP, TSH, LIPID #### [facility] [address] [place] [address] Dr. Joanne Martinez TSHon 07-27-2022 TSH 1.712 uIU/mL Normal 0.358-3.740 [facility] Comment on above: Performed By: #### T 7, URIC, CMP, TSH, LIPID #### [facility] [address] [address] [address] Joanne Martinez URIC ACID SERUMon 07-27-2022 Urate [Mass/Vol] 6.6 mg/dL Normal 3.5-7.2 [facility] Comment on above: Performed By: #### T 7, URIC, CMP, TSH, LIPID #### [facility] [address] [address] [address] Joanne Martinez VITAMIN D 25 OHon 07-27-2022 VIT D 25-OH 86.1 ng/mL Normal [facility] Comment on above: Performed By: #### V LIDIA, PSASC #### [facility] [address] [address] [address] Joanne Martinez VIT D RANGES SEE BELOW Normal [facility] Comment on above: Result Comment: <20 ng/mL Vit D deficient 20 - <30 ng/mL Vit D insufficient 30 - 100 ng/mL Vit D sufficient >100 ng/mL Potential Toxicity Performed By: #### V ITKAR, PSASC #### [facility] [address] [place] [address] Dr. Joanne YUENPon 05-29-2019 CNOVS Visit (SP) Office (HEMACL) GARY BUITRAGO ([id number]) 1950 M Date Time Provider Department 05/29/19 2:00 PM ESTER ALBRECHT During your visit today, we recorded the following information about you: Temperature Pulse Respiration Blood pressure 99.5 degrees 92/minute 18/minute 174/84 Weight Height 107.2 kg 1.81 m Ester Albrecht MD 05/29/2019 2:43 PM Signed HPI Gary Buitrago is a [...] thrombocytopenia of unknown etiology. Current Outpatient Medications: [place]-3 Fatty Acids (FISH OIL) 500 mg cap [...] CBC + DIFF (FOR REMOTE [facility] USE) sEter Albrecht MD Referring Provider: ESTER ALBRECHT [[id number]] Allergies As of Date: 05/29/2019 Noted Allergy [...] (FOR REMOTE [facility] USE) [SQRAGCBC] Order #: [id number] FUTURE CBC + DIFF (FOR REMOTE [facility] USE) [SQRCBCDF] Order #: [id number] FUTURE Disposition: Return in about 4 months [...] Status:Closed by ESTER ALBRECHT MD on 05/29/19 [facility] 05-29-2019 PROGRESS HNO ID: [id number] Author: Ester Albrecht Service: ? Author Type: [...] thrombocytopenia of unknown etiology. Current Outpatient Medications: [place]-3 Fatty Acids (FISH OIL) 500 mg cap [...] REMOTE [facility] USE) Ester Albrecht MD Normal [facility] Remote Abs Gran + CBC (for [facility] use only)on 05-29-2019 Absol Gran Count 3.92 k/uL Normal 1.45-7.50 [facility] Erythrocyte distribution width (RBC) [Ratio] 14.0 % Normal 11.5-15.0 [facility] Hematocrit (Bld) [Volume fraction] 44.0 % Normal 39.0-51.0 [facility] Hemoglobin (Bld) [Mass/Vol] 15.8 g/dL Normal 13.0-17.0 [facility] MCH (RBC) [Entitic mass] 34.6 pG High 26.0-34.0 [facility] MCHC (RBC) [Mass/Vol] 35.9 g/dL Normal 30.5-36.0 [facility] MCV (RBC) [Entitic vol] 96.5 fL Normal 80.0-100.0 [facility] Platelet mean volume (Bld) [Entitic vol] 11.2 fL Normal 9.0-12.7 [facility] Platelets (Bld) [#/Vol] 110 10*3/uL Low 150-400 [facility] RBC (Bld) [#/Vol] 4.56 10*6/uL Normal 4.20-6.00 [facility] WBC (Bld) [#/Vol] 5.89 10*3/uL Normal 3.70-11.00 [facility] CT-CT ABD/PELVIS W CON IMPOR Ton 05-23-2019 CT-CT ABD/PELVIS W CON IMPORT Images were obtained outside of [facility] [id number] Normal [facility] CNOVSPon 05-16-2019 CNOVSP Visit (SP) Office (HEMASA) GARY BUITRAGO ([id number]) 1950 M Date Time Provider Department 05/16/19 1:45 PM ESTER ALBRECHT During your visit today, we recorded the following information about you: Temperature Pulse Respiration Blood pressure 98.4 degrees 84/minute 16/minute 177/71 Weight Height 106.8 kg 1.81 m Ester Albrecht MD 05/16/2019 2:58 PM Signed HPI Gary Kitrosario is a 69 year old male who [...] Unknown Reviewed by Star Villagomez M.D., PhD ([id number]) M-Protein Location Unknown N/A M-Protein Concentration Latest Ref Range: 0.00 gm/dL 0.00 MPA Result Latest Ref Range: No M protein is identified. No M protein is identified. Staff Review (MPA) Unknown Reviewed by Star Villagomez M.D., PhD ([id number]) [place] Free, Serum Latest Ref Range: 3.30 - [...] Ref Range: 1.00 - 4.00 k/uL 1.10 [place]% Latest Units: % 10.4 Abs [place] Latest Ref Range: 0.00 - 0.86 k/uL 0.85 [place]% Latest Units: % 0.7 Abs [place]osin Latest Ref Range: 0.00 - 0.45 k/uL 0.06 Baso% Latest Units: % 0.5 Abs Baso Latest Ref Range: 0.00 - 0.10 k/uL 0.04 Staff Review, CBCDIF Unknown SEE COMMENT Pathologist for Staff Review Unknown The Staff Review ... Current Outpatient Medications: [place]-3 Fatty Acids (FISH OIL) 500 mg cap [...] Ester Albrecht MD Referring Provider: ESTER ALBRECHT [[id number]] Allergies As of Date: 05/16/2019 Noted Allergy [...] Order(s):HEP REMOTE PANEL BL [SQHREMOP] Order #: [id number] FUTURE CT ABD/PEL WO IVCON [[id number]] Order #: [id number] FUTURE Disposition: Return in about 2 weeks [...] Status:Closed by ESTER ALBRECHT MD on [facility]/16/[facility] Tele[facility] (NCCAP) GARY BUITRAGO ([id number]) 1950 M Date Time Provider Department 05/16/19 ESTER ALBRECHT NCCTIMMY During your visit today, we recorded the following information about you: Sergio Lorenzo Patient [employer] 05/16/2019 2:39 PM Signed Need a new order for CT abd/pel W/Ivcon and also an order for Creatine. Thank you Ester Albrecht MD 05/16/2019 3:13 PM Signed done Sergio Lorenzo Patient [employer] 05/16/2019 3:19 PM Signed Can you just [...] location [R19.00] Order(s):CREATININE BLD [SQCRET] Order #: [id number] FUTURE CT ABD/PEL W IVCON [[id number]] Order #: [id number] FUTURE [] iv contrast (will be provided [...] contrast guidelines Encounter Status:Closed by SURESH PATIENT TEXTILE TECHNOLOGIST, SERGIO on 02/04/20 [facility] PROGRESSon 05-16-2019 PROGRESS HNO ID: [id number] Author: Ester Albrecht Service: ? Author Type: [...] Unknown Reviewed by Star Villagomez M.D., PhD ([id number]) M-Protein Location Unknown N/A M-Protein Concentration Latest Ref Range: 0.00 gm/dL 0.00 MPA Result Latest Ref Range: No M protein is identified. No M protein is identified. Staff Review (MPA) Unknown Reviewed by Star Villagomez M.D., PhD ([id number]) [place] Free, Serum Latest Ref Range: 3.30 - [...] Ref Range: 1.00 - 4.00 k/uL 1.10 [place]% Latest Units: % 10.4 Abs [place] Latest Ref Range: 0.00 - 0.86 k/uL 0.85 Eosin% Latest Units: % 0.7 Abs Eosin Latest Ref Range: 0.00 - 0.45 k/uL 0.06 Baso% Latest Units: % 0.5 Abs Baso Latest Ref Range: 0.00 - 0.10 k/uL 0.04 Staff Review, CBCDIF Unknown SEE COMMENT Pathologist for Staff Review Unknown The Staff Review ... Current Outpatient Medications: [place]-3 Fatty Acids (FISH OIL) 500 mg cap [...] ABD/PEL WO IVCON Ester Albrecht MD Normal [facility] [place] [facility] Ferritinon 05-14-2019 Ferritin [Mass/Vol] 106.0 ng/mL Normal 30.3-565.7 [facility] Comment on above: Performed By: #### T CISCO VELAZQUEZ, IFESC, SEPG #### [facility] [address], [place] [address] Folate, Serumon 05-14-2019 Folate [Mass/Vol] ng/mL Normal >4.7 [facility] Comment on above: Result Comment: A re sult of > 20 ng/mL is not necessarily indicative of a pathologic or treatable condition: it reflects a limitation of the test methodology. Assay reference range: 4.8 to 24.2 ng/mL. Suitable for detection of folate deficiency. Reference: Folate III (Folate III) [package insert V 2.0 Martiniquais]. [facility], [place], [place]: August 2015. Performed By: #### T MARCUS, CISCO, IFESC, SEPG #### [facility] [address] [place], [place] [address] Iron and TIBCon 05-14-2019 Iron [Mass/Vol] 109 ug/dL Normal 41-186 [facility] [place] [facility] Comment on above: Performed By: #### T MARCUS, CISCO, IFESC, SEPG #### [place] [address] [place] [address] TIBC 348 ug/dL Normal 232-386 [facility] [place] [facility] Comment on above: Performed By: #### T CISCO VELAZQUEZ, CASEY, SEPG #### [facility] [address] [place] [address] Transferrin Saturatn 31 % Normal 15-57 [facility] Comment on above: Performed By: #### T CISCO VELAZQUEZ, CASEY, SEPG #### [place] [address] [place] [address] Methylmalonic Acidon 019 Methylmalonic Acid 314 nmol/L Normal 79-376 [facility] Comment on above: Result Comment: This test was developed and its performance characteristics determined by [facility]'s [facility] [place] ( [facility]). It has not been cleared or approved by the FDA. [facility] is regulated under CLIA as qualified to perform high complexity testing. This test is used for clinical purposes. It should not be regarded as investigational or for research. Performed By: #### T CISCO VELAZQUEZ, CASEY, SEPG #### [place] [address] Staff Rev w CBCDIFon 019 Abs Baso 0.04 k/uL Normal 0.00-0.10 [facility] [place] [facility] Comment on above: Performed By: #### S MARIA M #### [place] [address] [place] [address] Abs [place] 0.85 k/uL Normal 0.00-0.86 [facility] [place] [facility] Comment on above: Performed By: #### S MARIA M #### [place] [id number] Abs Neut 6.12 k/uL Normal 1.45-7.50 [facility] [place] [facility] Comment on above: Performed By: #### S MARIA M #### [address] [place], [place] [address] Basophils/100 WBC (Bld) 0.5 % Normal [facility] [place] [facility] Comment on above: Performed By: #### S MARIA M #### [facility] [address], [place] [address] Eosinophils (Bld) [#/Vol] 0.06 10*3/uL Normal 0.00-0.45 [facility] [place] [facility] Comment on above: Performed By: #### S MARIA M #### [place] [address] [place], [place] [address] Eosinophils/100 WBC (Bld) 0.7 % Normal [facility] [place] [facility] Comment on above: Performed By: #### S MARIA M #### [place] [address] Erythrocyte distribution width (RBC) [Ratio] 17.0 % High 11.5-15.0 [facility] [place] [facility] Comment on above: Performed By: #### S MARIA M #### [place] [address] [place] [address] Hematocrit (Bld) [Volume fraction] 46.0 % Normal 39.0-51.0 [facility] [place] [facility] Comment on above: Performed By: #### S MARIA M #### [place] [address] [place], [place] [address] Hemoglobin (Bld) [Mass/Vol] 16.2 g/dL Normal 13.0-17.0 [facility] [place] [facility] Comment on above: Performed By: #### S MARIA M #### [place] [address] [place], [place] [address] Lymphocytes (Bld) [#/Vol] 1.10 10*3/uL Normal 1.00-4.00 [facility] [place] [facility] Comment on above: Performed By: #### S MARIA M #### [place] [address] [place] [id number] Lymphocytes/100 WBC (Bld) 13.5 % Normal [facility] [place] [facility] Comment on above: Performed By: #### S MARIA M #### [place] [address] MCH (RBC) [Entitic mass] 34.0 pG Normal 26.0-34.0 [facility] [place] [facility] Comment on above: Performed By: #### S MARIA M #### [place] [address] MCHC (RBC) [Mass/Vol] 35.2 g/dL Normal 30.5-36.0 [facility] [place] [facility] Comment on above: Performed By: #### S MARIA M #### [place] [phone] MCV (RBC) [Entitic vol] 96.6 fL Normal 80.0-100.0 [facility] [place] [facility] Comment on above: Performed By: #### S MARIA M #### [place] [address] Monocytes/100 WBC (Bld) 10.4 % Normal [facility] [place] [facility] Comment on above: Performed By: #### S MARIA M #### [place] [address] Neutrophils/100 WBC (Bld) 74.9 % Normal [facility] [place] [facility] Comment on above: Performed By: #### S MARIA M #### [place] [phone] Pathologist Cyto stain Nom (Cvx/Vag) [ID] The Staff Review on this sample was cancelled because the hematology analyzer did not flag any parameters as requiring manual review. If there is a specific clinical concern for which you would like a staff pathologist to review the blood smear, please call Lab Client Services within 28 days. Normal [facility] [place] [facility] Comment on above: Result Comment: Acco unt Credited Performed By: #### S MARIA M #### [place] [address] Platelet mean volume (Bld) [Entitic vol] 11.3 fL Normal 9.0-12.7 [facility] [place] [facility] Comment on above: Performed By: #### S MARIA M #### [place] [address] Platelets (Bld) [#/Vol] 127 10*3/uL Low 150-400 [facility] [place] [facility] Comment on above: Performed By: #### S MARIA M #### [place] [address] RBC (Bld) [#/Vol] 4.76 10*6/uL Normal 4.20-6.00 [facility] Comment on above: Performed By: #### S MARIA M #### [place] [address] Staff Review SEE COMMENT Normal [facility] [place] [facility] Comment on above: Result Comment: The Staff Review on this sample was cancelled because the hematology analyzer did not flag any parameters as requiring manual review. If there is a specific clinical concern for which you would like a staff pathologist to review the blood smear, please call Lab Client Services within 28 days. Account Credited Performed By: #### S MARIA M #### [place] [address] WBC (Bld) [#/Vol] 8.17 10*3/uL Normal 3.70-11.00 [facility] Comment on above: Performed By: #### S MARIA M #### [place] [address] Vitamin B12on 05-14-2019 Cobalamin (Vitamin B12) [Mass/Vol] 262 pg/mL Normal 232-1245 [facility] [place] [facility] Comment on above: Performed By: #### B 12, SERFOL, IRON, FERR, MMA #### [place] [address] CNOVSPon 05-07-2019 CNOVSP Visit (SP) Office (HEMASA) GARY BUITRAGO ([id number]) 1950 M Date Time Provider Department 05/07/19 [...] family history on file. Current Outpatient Medications: [place]-3 Fatty Acids (FISH OIL) 500 mg cap [...] + CBC (FOR REMOTE [facility] USE) - TSH BLD - PROTEIN ELECTROPHORESIS [...] + CBC (FOR REMOTE [facility] USE) - TSH BLD - PROTEIN ELECTROPHORESIS W/INTERP - KAPPA/CACERES,FREE,SER - IMMUNOFIXATION SCREEN, SERUM - COMP METABOLIC PANEL - CBC 3. Abnormal weight loss - ICD9: 783.21, ICD10: R63.4 See above - ABS GRAN CT + CBC (FOR REMOTE [facility] USE) - TSH BLD - PROTEIN ELECTROPHORESIS W/INTERP - KAPPA/CACERES,FREE,SER - IMMUNOFIXATION SCREEN, SERUM - COMP METABOLIC PANEL Ester Albrecht MD Referring Provider: LORRIE MUNOZ [[id number]] Allergies As of Date: 05/07/2019 Noted Allergy [...] (FOR REMOTE [facility] USE) [SQRAGCBC] Order #: [id number] FUTURE TSH BLD [SQTSH] Order #: [id number] FUTURE PROTEIN ELECTROPHORESIS W/INTERP [SQSEPG] Order #: [id number] FUTURE KAPPA/CACERES,FREE,SER [SQKLFRS] Order #: [id number] FUTURE IMMUNOFIXATION SCREEN, SERUM [SQIFESC] Order #: [id number] FUTURE COMP METABOLIC PANEL [SQCMP] Order #: [id number] FUTURE CBC [SQCBC] Order #: [id number] FUTURE Disposition: Return in about 1 year [...] by ESTER ALBRECHT MD on 05/07/19 Normal [facility] [place] [facility] Comp Metabolic Panelon 05-07 Albumin [Mass/Vol] 4.6 g/dL Normal 3.9-4.9 [facility] Comment on above: Performed By: #### T SH, KLFRS, IFESC, SEPG #### [facility] [address], [place] [address] ALP [Catalytic activity/Vol] 117 U/L High 38-113 [facility] [place] [facility] Comment on above: Performed By: #### T SH, KLFRS, IFESC, SEPG #### [facility] [address], [place] [address] ALT [Catalytic activity/Vol] 33 U/L Normal 10-54 [facility] [place] [facility] Comment on above: Performed By: #### T SH, KLFRS, IFESC, SEPG #### [facility] [address], [place] [address] Anion gap [Moles/Vol] 9 mmol/L Normal 9-18 [facility] [place] [facility] Comment on above: Performed By: #### T SH, KLFRS, IFESC, SEPG #### [facility] [address], [place] [address] AST [Catalytic activity/Vol] 39 U/L Normal 14-40 [facility] [place] [facility] Comment on above: Performed By: #### T SH, KLFRS, IFESC, SEPG #### [facility] [address], [place] [address] Bilirubin [Mass/Vol] 0.6 mg/dL Normal 0.2-1.3 [facility] Comment on above: Performed By: #### T SH, KLFRS, IFESC, SEPG #### [facility] [address], [place] [address] Calcium [Mass/Vol] 9.9 mg/dL Normal 8.5-10.2 [facility] Comment on above: Performed By: #### T SH, KLFRS, IFESC, SEPG #### [facility] [address], [place] [address] Chloride [Moles/Vol] 101 mmol/L Normal 97-105 [facility] Comment on above: Performed By: #### T SH, KLFRS, IFESC, SEPG #### [facility] [address], [place] [address] CO2 [Moles/Vol] 27 mmol/L Normal 22-30 [facility] [place] [facility] Comment on above: Performed By: #### T CISCO VELAZQUEZ IFESC, SEPG #### [facility] [address] [place], [place] [address] Creatinine [Mass/Vol] 1.01 mg/dL Normal 0.73-1.22 [facility] [place] [facility] Comment on above: Performed By: #### T CISCO VELAZQUEZ IFESC, SEPG #### [facility] [address] [place] [address] eGFR- Amer. >60 Normal [facility] Comment on above: Performed By: #### T CISCO VELAZQUEZ IFESC, SEPG #### [facility] [address] [place] [address] GFR/1.73 sq M predicted among non-blacks MDRD (S/P/Bld) [Vol rate/Area] mL/min/{1.73_m2} Normal [facility] [place] [facility] Comment on above: Result Comment: eGFR (Estimated [...] actual GFR. Performed By: #### T CISCO VELAZQUEZ IFESC, SEPG #### [facility] [address] [place] [phone] Glucose [Mass/Vol] 127 mg/dL High 74-99 [facility] Comment on above: Result Comment: The [place] Diabetes Association (ADA) provides guidance for cutoff [...] Standards of Medical Care in Diabetes 2016, [place] [employer] Association. Diabetes Care. 2016.39(Suppl 1). Performed By: #### T CISCO VELAZQUEZ, IFESC, SEPG #### [facility] [address], [place] [address] Potassium [Moles/Vol] 4.7 mmol/L Normal 3.7-5.1 [facility] [place] [facility] Comment on above: Performed By: #### T CISCO VELAZQUEZ, IFESC, SEPG #### [place] [address] [place], [place] [address] Protein [Mass/Vol] 7.0 g/dL Normal 6.3-8.0 [facility] Comment on above: Performed By: #### T CISCO VELAZQUEZ, IFESC, SEPG #### [facility] [address], [place] [address] Sodium [Moles/Vol] 137 mmol/L Normal 136-144 [facility] Comment on above: Performed By: #### T CISCO VELAZQUEZ, IFESC, SEPG #### [place] [address] [place], [place] [address] Urea nitrogen [Mass/Vol] 10 mg/dL Normal 9-24 [facility] [place] [facility] Comment on above: Performed By: #### T CISCO VELAZQUEZ, IFESC, SEPG #### [facility] [address], [place] [address] DOMINGO Screen, Serumon 05-07-20 19 Protein [Mass/Vol] No M protein is identified. Normal No M protein is identified. [facility] [place] [facility] Comment on above: Performed By: #### T CISCO VELAZQUEZ, IFESC, SEPG #### [facility] [address], [place] [address] Staff Review Reviewed by Star Villagomez M.D., PhD ([id number]) [facility] Comment on above: Performed By: #### T MARCUS, CISCO, IFESC, SEPG #### [facility] [address], [place] [address] [place],Free,Seron 2018 K/L Ratio, Serum 1.09 Normal 0.26-1.65 [facility] Comment on above: Performed By: #### T MARCUS, CISCO, IFASAF, SEPG #### [facility] [address], [place] [address] [place], Free, Serum 17.8 mg/L Normal 3.30-19.40 [facility] Comment on above: Result Comment: Test performed by an immunoturbidimetric assay on Optilite instrument from [facility]. Immunoglobulin free light chain assay results should be interpreted in conjunction with other tests and in correlation with clinical picture. Performed By: #### T MARCUS, CISCO, IFBRIANNAC, SEPG #### [facility] [address], [place] [address] Lambda, Free, Serum 16.4 mg/L Normal 5.7-26.3 [facility] Comment on above: Result Comment: Test performed by an immunoturbidimetric assay on Optilite instrument from [facility]. Immunoglobulin free light chain assay results should be interpreted in conjunction with other tests and in correlation with clinical picture. Performed By: #### T MARCUS, CISCO, IFESC, SEPG #### [facility] [address], [place] [address] PROGRESSon 05-07-2019 PROGRESS HNO ID: [id number] Author: Ester Albrecht Service: ? Author Type: Physician Type: Progress Notes Filed: 05/07/2019 11:50 AM Note Text: THOMPSON Buitrago is a 69 year old male [...] family history on file. Current Outpatient Medications: [place]-3 Fatty Acids (FISH OIL) 500 mg cap [...] iron per instructions by Dr Munoz - MARIO CRAWFORD CT + CBC (FOR REMOTE [facility] USE) - TSH BLD - PROTEIN ELECTROPHORESIS [...] ABS GRAN CT + CBC (FOR REMOTE [facility] USE) - TSH BLD - PROTEIN ELECTROPHORESIS W/INTERP - KAPPA/CACERES,FREE,SER - IMMUNOFIXATION SCREEN, SERUM - COMP METABOLIC PANEL - CBC 3. Abnormal weight loss - ICD9: 783.21, ICD10: R63.4 See above - ABS GRAN CT + CBC (FOR REMOTE [facility] USE) - TSH BLD - PROTEIN ELECTROPHORESIS W/INTERP - KAPPA/CACERES,FREE,SER - IMMUNOFIXATION SCREEN, SERUM - COMP METABOLIC PANEL Ester Albrecht MD Normal [facility] [place] [facility] Protein Electrophor.on 05-07 Albumin [Mass/Vol] 4.26 g/dL High 3.37-4.23 [facility] Comment on above: Performed By: #### T MARCUS, CISCO, IFBRIANNAC, SEPG #### [facility] [address], [place] [address] Alpha 1 Globulin 0.27 gm/dL Normal 0.18-0.31 [facility] Comment on above: Performed By: #### T MARCUS, CISCO, IFBRIANNAC, SEPG #### [facility] [address], [place] [address] Alpha 2 Globulin 0.62 gm/dL Normal 0.52-0.97 [facility] Comment on above: Performed By: #### T MARCUS, CISCO, IFESC, SEPG #### [facility] [address], [place] [address] Beta Globulin 0.97 gm/dL Normal 0.84-1.36 [facility] [place] [facility] Comment on above: Performed By: #### T MARCUS, CISCO, IFESC, SEPG #### [facility] [address], [place] [address] Gamma Globulin 1.07 gm/dL Normal 0.70-1.44 [facility] [place] [facility] Comment on above: Performed By: #### T MARCUS, CISCO, IFESC, SEPG #### [facility] [address] [place] [address] Interpretation SEE COMMENT Normal [facility] [place] [facility] Comment on above: Result Comment: No d efinitive M protein is identified on protein electrophoresis. Performed By: #### T MARCUS, CISCO, IFESC, SEPG #### [facility] [address] [place] [address] M Gigi Concentratn 0.00 gm/dL Normal 0.00 [facility] Comment on above: Performed By: #### T MARCUS, CISCO, IFESC, SEPG #### [place] [address] [place] [address] Protein [Mass/Vol] N/A Normal [facility] Comment on above: Performed By: #### T MARCUS, CISCO, IFESC, SEPG #### [place] [address] [place] [address] Protein [Mass/Vol] 7.2 g/dL Normal 6.0-8.4 [facility] Comment on above: Performed By: #### T MARCUS, CISCO, IFESC, SEPG #### [place] [address] [place], [place] [address] SPE Staff Review Reviewed by Star Villagomez M.D., PhD ([id number]) Normal [facility] [place] [facility] Comment on above: Performed By: #### T MARCUS, CISCO, IFESC, SEPG #### [facility] [address] [place] [address] Remote Abs Gran + CBC (for [facility] use only)on 05-07-2019 Absol Gran Count 4.88 k/uL Normal 1.45-7.50 [facility] Erythrocyte distribution width (RBC) [Ratio] 18.6 % High 11.5-15.0 [facility] [place] [facility] Hematocrit (Bld) [Volume fraction] 44.7 % Normal 39.0-51.0 [facility] [place] [facility] Hemoglobin (Bld) [Mass/Vol] 15.8 g/dL Normal 13.0-17.0 [facility] [place] [facility] MCH (RBC) [Entitic mass] 33.8 pG Normal 26.0-34.0 [facility] [place] [facility] MCHC (RBC) [Mass/Vol] 35.3 g/dL Normal 30.5-36.0 [facility] [place] [facility] MCV (RBC) [Entitic vol] 95.5 fL Normal 80.0-100.0 [facility] [place] [facility] Platelet mean volume (Bld) [Entitic vol] 11.0 fL Normal 9.0-12.7 [facility] [place] [facility] Platelets (Bld) [#/Vol] 120 10*3/uL Low 150-400 [facility] [place] [facility] RBC (Bld) [#/Vol] 4.68 10*6/uL Normal 4.20-6.00 [facility] WBC (Bld) [#/Vol] 6.41 10*3/uL Normal 3.70-11.00 [facility] TSHon 05-07-2019 TSH Qn 1.350 uU/mL Normal 0.400-5.500 [facility] [place] [facility] Comment on above: Performed By: #### T SH, KLFRS, IFESC, SEPG #### [facility] [address] [place] [id number] Encounters Encounter Date Encounter Type Care Provider Facility Start: 11-29-2023 End: 11-30-2023 ambulatory Eric Stanley [facility] Start: 11-29-2023 End: 11-29-2023 Off-Site Eric Stanley [facility] Start: 11-29-2022 End: 11-30-[address] LORRIE MUNOZ . Facility: Start: 09-21-2022 End: 09-21-2022 Off-Site Sandie FARLEY [facility] Start: 07-27-2022 End: 07-28-[address] LORRIE MUNOZ . Facility: Start: 07-13-2021 ambulatory BALA SHEA Facility :[facility] Start: 07-01-2018 End: 07-02-2018 Patient encounter DEFAULT PHYSICIAN Facility:[facility] Start: 06-25-2018 End: 06-26-2018 Patient encounter BRENT Hernández ROSEANNA Facility:[facility] Start: 05-02-2018 End: 05-03-2018 Patient encounter DEFAULT PHYSICIAN Facility:[facility] Procedures Date Procedure Procedure Detail Performing Clinician Start: 07-27-[address] BHARATHI MUNOZ . Comment on above: Performed By: #### V ITAD, PSASC #### [facility] [address] [place] [address] Dr. Joanne Martinze Immunizations Immunization Date Immunization Notes Care Provider Fa cility 06-14-2021 SARS-CoV-2 (COVID-19 ) mRNA BNT-162b2 VISUAL NACERTx Agolo [facility] 05-24-2021 SARS-CoV-2 (COVID-19 ) mRNA BNT-100l9 VISUAL NACERTx Agolo [facility] NEGATED: Highlighted row has not occurred!11-22-2023 influenza virus vaccine, unspecified formulation Reyes Sarmini [facility] Payers Date Payer Category Payer Medicare [id number] 1957 Medicare [id number] 1950 Unknown [id number] 1950 Unknown [id number] [id number] 1950 Unknown [id number] [id number] [id number] 1950 Unknown [id number] [id number] Unknown Unknown [id number] Social History Date Type Detail Facility Start: 09-21-2022 End: 11-29-2023 Tobacco smoking status Smokes tobacco daily (finding) [facility] Tobacco smoking status Never Kishan [facility] Sex Assigned At Male [facility] Functional Status Date Assessment Result Facility 09-21-2022 Functional Status N/A [facility] Clinical Note 11-29-2022 Note [...] authenticated by: FLO CORADO Date: 2022-11-29 13:17 [facility] Evaluation + Plan note 09-21-2022 Note Date & Type Note Facility 09-21-2022 Evaluation + [facility]/21/22Comprehensive Metabolic Panel 09/21/22Calprotectin, Fecal 09/21/22 [facility] Hospital Discharge instructions 07-10-2022 Note Date & Type Note Facility 07-10-2022 Hospital Discharg e instructions Follow Up Care 07/10/2022 17:05:26 With:MIGUELITO RAMIREZ, KASSY Hooper, [facility] Address: [facility] [address] [place] [address] [place] [address]- When:3 year [facility] Hospital course Narrative Note Date & Type Note Facility Hospital course Narrative No data available for this section [facility] Hospital Discharge instructions Note Date & Type Note Facility Hospital Discharge instructions No data available for this section [facility] Progress note Note Date & Type Note Facility Progress note No data available for this section [facility] Summary Purpose Family History No Family History Records FoundNo Family History Records FoundNo Family History Records FoundNo Family History Records Found No data available for this section No Family History Records Found Advance Directives No Advanced Directives Records FoundNo Advanced Directives Records FoundNo Advanced Directives Records FoundNo Advanced Directives Records FoundNo Advanced Directives Records Found Additional Source Comments (unrecognized sect ion and content) No Status Records FoundNo Status Records FoundNo Status Records FoundNo Status Records FoundNo Status Records Found INFORMATION SOURCE (unrecogn ized section and content) DATE CREATED AUTHOR 07/28/2018 [facility] DATE CREATED AUTHOR AUTHOR'S ORGANIZ ATION 02/04/2020 [facility] [place] [facility] DATE CREATED AUTHOR AUTHOR'S ORGANIZ ATION 11/27/2021 [facility] DATE CREATED AUTHOR AUTHOR'S ORGANIZ ATION 12/04/2022 [facility] DATE CREATED AUTHOR AUTHOR'S ORGANIZ ATION 11/30/2023 [facility] Patient Care team informatio n (unrecognized section and content) Personnel Name: Lorrie Munoz MD Address: Address: [address] [place] [address] Personnel Name: Lorrie Munoz MD Address: Address: [address] [place] [address] FOR RECORDS PERTAINING TO PATIENTS WHO ARE [...] BE BASED ON THE PRIMARY CLINICAL RECORDS. [facility] [employer] [facility]. provides no warranty or guarantee of the accuracy or completeness of information in this document.
== END 2024-12-26 13:49 | disposition home or self-care (01) ==
PROVIDERS: PCP Family Medicine; Visit Provider Family Medicine
DX: M75.40 Impingement syndrome of unspecified shoulder (principal); M54.12 Radiculopathy, cervical region; M25.552 Pain in left hip; M54.16 Radiculopathy, lumbar region; M43.22 Fusion of spine, cervical region; M50.30 Other cervical disc degeneration, unspecified cervical region; M43.26 Fusion of spine, lumbar region; M85.80 Other specified disorders of bone density and structure, unspecified site
CPT/HCPCS: 72040; 72110; 73030; 73523

== ENCOUNTER 2025-01-07 13:53 | Outpatient (RCR) | payer MEDICARE, SELFPAY | END 2025-03-06 07:53 | disposition home or self-care (01) | LOC: PT 13:53 | PROVIDERS: PCP Family Medicine; Visit Provider Family Medicine | DX: M54.16 Radiculopathy, lumbar region (principal); M75.40 Impingement syndrome of unspecified shoulder; M54.12 Radiculopathy, cervical region; M25.559 Pain in unspecified hip | CPT/HCPCS: 97110; 97140; 97162 ==

== ENCOUNTER 2025-01-09 12:55 | Outpatient (OUT) | payer MEDICARE, SELFPAY ==
--- NOTE | 2025-01-09 12:57 | CT_ITS ---
The [address] [address] Patient Name: GARY ROD MRN: [id number] date: 1950 Sex: M Assigned Patient Location: CT Current Patient Location: CT Accession/Order Number: [id number] Exam Date: 01/09/2025 13:59 Report Date: 01/09/2025 14:02 At the request of: LORRIE NAPIER MD Procedure: CT cervical spine wo con CT CERVICAL SPINE WITHOUT CONTRAST : CLINICAL HISTORY: Cervical Radiculopathy COMPARISON: Cervical spine 12/26/2024 TECHNIQUE: Spiral axial unenhanced images were obtained through the cervical spine. Sagittal, coronal and reconstructions were also reviewed. This CT exam was performed using one or more following dose reduction techniques: Automated exposure control, adjustment of the mA and/or kV according to patient size, or use of iterative reconstruction technique. FINDINGS: Anterior fusion hardware C4-5 and posterior hardware C3-C6 without evidence of hardware complication. No fracture. Vertebral body heights appear maintained. Scattered endplate and facet degenerative changes with severe disc space narrowing c5. The kidneys. No prevertebral soft tissue swelling. Visualized lung apices demonstrate emphysema. CT/CT cervical spine wo con IMPRESSION: NO HARDWARE COMPLICATION. NO FRACTURE IS SEEN. SCATTERED DEGENERATIVE CHANGES WITH SEVERE DISC SPACE NARROWING C5-T2. Impression dictated by: Maninder Zendejas Jr., D.O.01/09/2025 2:02 PM Dictation Location: [place] [address] Electronically authenticated by: [id number] Y Date: 01/09/2025 14:02
--- NOTE | 2025-01-09 12:57 | CT_ITS ---
The [address] [address] Patient Name: GARY ROD MRN: [id number] date: 1950 Sex: M Assigned Patient Location: CT Current Patient Location: CT Accession/Order Number: [id number] Exam Date: 01/09/2025 14:02 Report Date: 01/09/2025 14:05 At the request of: LORRIE NAPIER MD Procedure: CT lumbar spine wo con CT lumbar spine wo con 01/09/2025 1:18 PM History:Lumbar radiculopathy. TECHNIQUE: Multi detector CT axial slices of the lumbar spine were obtained without IV contrast. Volumetric acquisition sagittal, coronal, and 3-D reconstructions were performed and reviewed on a separate workstation. CT was performed with one or more of the following dose reduction techniques: Automated exposure control, adjustment of the mA and/or kV according to patient size, or use of iterative reconstruction technique. COMPARISON: None FINDINGS: No fracture. Vertebral body heights appear maintained. Posterior hardware fixation L3-L5 without hardware complication. There appears to be partial bony fusion of L2-L3. Scattered endplate and facet joint degenerative changes with severe disc space narrowing L1-L2 and L5-S1. Transverse processes appear intact. SI joints demonstrate change. No paraspinal mass. Neurostimulator device is in place. Visualized retroperitoneum demonstrates no acute process. CT/CT lumbar spine wo con IMPRESSION: Degenerative changes involving lumbar spine with severe disc space narrowing L1-L2 and L5-S1. No hardware complication is seen. Impression dictated by: Maninder Zendejas Jr. DJewell01/09/2025 2:05 PM Dictation Location[facility] Electronically authenticated by: [id number] Y Date: 01/09/2025 14:05
--- OUTSIDE RECORDS SUMMARY | 2025-01-09 13:05 | XMS_ITS | CCD ---
Author Organization [facility] Care Team Providers Care Trauma Registrar Name Role Phone PHYSICIAN, DEFAULT Unavailable Unavailable [...] Fluarix Drug allergy (disorder) 8 AOF [facility]ository (1 source) No Known Allergies; Translations: [No Known Allergies] Propensity to adverse reactions (disorder) [facility] (3 sources) influenza A virus A/[place]/GP19 05/2015 (H1N1) antigen / influenza A virus A/[place]/GP20 (H3N2) antigen / influenza B virus B/[place] antigen / influenza B virus B/ antigen; Translations: [influenza virus vaccine] Drug Allergy unknown [facility] (1 source) Flu Vaccine (18 yr +) Drug allergy (disorder) [facility] Rep[facility] Medications Current Medications Medication Drug Class(es) [...] tab(s), Oral, Daily, 30 tab(s), Refill(s) 3, [facility]/pharmacy #[id number] Start Date: 09/24/23 Status: Ordered Start: 09-21-2022 Lialda 1.2 g o ral enteric coated tablet 4.8 gm, 4 tab(s), Oral, Daily, 30 tab(s), Refill(s) 11, [facility]/pharmacy #[id number] Start Date: 09/21/22 [...] Onset: 11-29-2022 Chronic Other aftercare (1 source) 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 Joanne Martinez CBC AUTO DIFFon 07-27-2022 BASO # 0.0 103/ul Normal 0.0-0.1 [facility] Comment on above: Performed By: #### T 7, URIC, CMP, TSH, LIPID #### [facility] [address] [address] [address] Joanne Martinez Basophils/100 WBC (Bld) 0.6 % Normal 0.2-2.0 [facility] Comment on above: Performed By: #### T 7, URIC, CMP, TSH, LIPID #### [facility] [address] [place] [address] Dr. Joanne Martinez EO # 0.1 103/ul Normal 0.0-0.7 [facility] Comment on above: Performed By: #### T 7, URIC, CMP, TSH, LIPID #### [facility] [address] [place] [address] Dr. Joanne Martinez Eosinophils/100 WBC (Bld) 1.2 % Normal 0.9-7.0 [facility] Comment on above: Performed By: #### T 7, URIC, CMP, TSH, LIPID #### [facility] [address] [place] [address] Dr. Joanne Martinez Erythrocyte distribution width (RBC) [Ratio] 11.5 % Normal 11.0-15.0 [facility] Comment on above: Performed By: #### T 7, URIC, CMP, TSH, LIPID #### [facility] [address] [place] [address] Dr. Joanne Martinez Hematocrit (Bld) [Volume fraction] 39.2 % Critically low 42.0-54.0 [facility] Comment on above: Performed By: #### T 7, URIC, CMP, TSH, LIPID #### [facility] [address] [place] [address] Dr. Joanne Martinez Hemoglobin (Bld) [Mass/Vol] 14.0 g/dL Normal 14.0-18.0 [facility] Comment on above: Performed By: #### T 7, URIC, CMP, TSH, LIPID #### [facility] [address] [place] [address] Dr. Joanne Mratinez IG # 0.03 10e3/ul Normal 0.00-0.03 [facility] Comment on above: Performed By: #### T 7, URIC, CMP, TSH, LIPID #### [facility] [address] [place] [address] Dr. Joanne Martinez IG % 0.5 % Normal 0.0-0.5 [facility] Comment on above: Performed By: #### T 7, URIC, CMP, TSH, LIPID #### [facility] [address] [place] [address] Dr. Joanne Martinez LYMPH # 1.1 103/ul Critically low 1.2-3.8 [facility] Comment on above: Performed By: #### T 7, URIC, CMP, TSH, LIPID #### [facility] [address] [address] [address] Joanne Martinez Lymphocytes/100 WBC (Bld) 16.3 % Critically low 20.5-60.0 [facility] Comment on above: Performed By: #### T 7, URIC, CMP, TSH, LIPID #### [facility] [address] [place] [address] Dr. Joanne Martinez MANUAL DIFF REQ NO Normal [facility] Comment on above: Performed By: #### T 7, URIC, CMP, TSH, LIPID #### [facility] [address] [place] [address] Dr. Joanne Martinez MCH (RBC) [Entitic mass] 36.9 pg Critically high 25.9-34.0 [facility] Comment on above: Performed By: #### T 7, URIC, CMP, TSH, LIPID #### [facility] [address] [place] [address] Dr. Joanne Martinez MCHC (RBC) [Mass/Vol] 35.7 g/dL Critically high 29.9-35.2 [facility] Comment on above: Performed By: #### T 7, URIC, CMP, TSH, LIPID #### [facility] [address] [place] [address] Dr. Joanne Martinez MCV (RBC) [Entitic vol] 103.4 fL Critically high 80.0-94.0 [facility] Comment on above: Performed By: #### T 7, URIC, CMP, TSH, LIPID #### [facility] [address] [place] [address] Dr. Joanne Martinez MONO # 0.7 103/ul Normal 0.3-0.8 [facility] Comment on above: Performed By: #### T 7, URIC, CMP, TSH, LIPID #### [facility] [address] [address] [address] Joanne Martinez Monocytes/100 WBC (Bld) 9.8 % Normal 1.7-12.0 [facility] Comment on above: Performed By: #### T 7, URIC, CMP, TSH, LIPID #### [facility] [address] [place] [address] Dr. Joanne Martinez NEUT # 4.8 103/ul Normal 1.4-6.5 [facility] Comment on above: Performed By: #### T 7, URIC, CMP, TSH, LIPID #### [facility] [address] [place] [address] Dr. Joanne Martinez Neutrophils/100 WBC (Bld) 71.6 % Normal 43.0-75.0 [facility] Comment on above: Performed By: #### T 7, URIC, CMP, TSH, LIPID #### [facility] [address] [place] [address] Dr. Joanne Martinez Platelet mean volume (Bld) [Entitic vol] 10.9 fL Normal 9.5-13.5 [facility] Comment on above: Performed By: #### T 7, URIC, CMP, TSH, LIPID #### [facility] [address] [place] [address] Dr. Joanne Martinez PLT 168 103/ul Normal 150-450 [facility] Comment on above: Performed By: #### T 7, URIC, CMP, TSH, LIPID #### [facility] [address] [place] [address] Dr. Joanne Martinez RBC 3.79 106/ul Critically low 4.70-6.10 [facility] Comment on above: Performed By: #### T 7, URIC, CMP, TSH, LIPID #### [facility] [address] [place] [address] Dr. Joanne Martinez WBC 6.6 103/ul Normal 4.0-11.0 [facility] Comment on above: Performed By: #### T 7, URIC, CMP, TSH, LIPID #### [facility] [address] [address] [address] Joanne Martinez FREE THYROXINE INDEX T7on FTI 2.14 Normal 1.30-4.50 [facility] Comment on above: Performed By: #### T 7, URIC, CMP, TSH, LIPID #### [facility] [address] [place] [address] Dr. Joanne Martinez T3U 34.0 % Normal 33.0-40.0 [facility] Comment on above: Performed By: #### T 7, URIC, CMP, TSH, LIPID #### [facility] [address] [address] [address] Joanne Martinez T4 [Mass/Vol] 6.30 ug/dL Normal 4.50-12.10 [facility] Comment on above: Performed By: #### T 7, URIC, CMP, TSH, LIPID #### [facility] [address] [place] [address] Dr. Joanne Martinez GLYCOHEMOGLOBIN A1Con 2021 ADA RECOMMENDATION SEE BELOW Normal [facility] Comment on above: Result Comment: ADA RECOMMENDED LIMIT 4.0 - 6.0 ADA THERAPEUTIC TARGET < 7.0 ACTION SUGGESTED > 7.0 Performed By: #### A 1C #### [facility] [address] [place] [address] Dr. Joanne Martinez Glucose [Mass/Vol] 74 mg/dL Normal [facility] Comment on above: Performed By: #### A 1C #### [facility] [address] [place] [address] Dr. Joanne Martinez HbA1c (Bld) [Mass fraction] 4.2 % Critically low 4.5-6.2 [facility] Comment on above: Performed By: #### A 1C #### [facility] [address] [place] [address] Dr. Joanne Martinez LIPID PROFILEon 07-27-2022 CHOL-HDL RATIO NORM SEE BELOW Normal [facility] Comment on above: Result Comment: 3.3 - 4.4 LOW RISK 4.4 - 7.1 AVERAGE RISK 7.1 - 11.0 MODERATE RISK >11.0 HIGH RISK Performed By: #### T 7, URIC, CMP, TSH, LIPID #### [facility] [address] [address] [address] Joanne Martinez Cholesterol [Mass/Vol] 211 mg/dL Critically high <=200 [facility] Comment on above: Performed By: #### T 7, URIC, CMP, TSH, LIPID #### [facility] [address] [address] [address] Joanne Martinez Cholesterol in HDL [Mass/Vol] 121 mg/dL Critically high 40-60 [facility] Comment on above: Performed By: #### T 7, URIC, CMP, TSH, LIPID #### [facility] [address] [place] [address] Dr. Joanne Martinez Cholesterol in LDL [Mass/Vol] 81.6 mg/dL Normal [facility] Comment on above: Performed By: #### T 7, URIC, CMP, TSH, LIPID #### [facility] [address] [place] [address] Dr. Joanne Martinez Cholesterol.total/Ch olesterol in HDL [Mass ratio] 1.7 {ratio} Normal [facility] Comment on above: Performed By: #### T 7, URIC, CMP, TSH, LIPID #### [facility] [address] [place] [address] Dr. Joanne Martinez HDL NORMAL > or = 60 mg/dl - LO W CARDIOVASCULAR RISK <40 mg/dl - HIGH CARDIOVASCULAR RISK Normal [facility] Comment on above: Performed By: #### T 7, URIC, CMP, TSH, LIPID #### [facility] [address] [place] [address] Dr. Joanne Martinez LDL CALC NORMAL SEE BELOW Normal [facility] Comment on above: Result Comment: <100 mg/dl OPTIMAL 100 - 129 mg/dl NEAR OR ABOVE OPTIMAL 130 - 159 mg/dl BORDERLINE HIGH 160 - 189 mg/dl HIGH >190 mg/dl VERY HIGH Performed By: #### T 7, URIC, CMP, TSH, LIPID #### [facility] [address] [place] [address] Dr. Joanne Martinez Triglyceride [Mass/Vol] 42 mg/dL Normal <=150 [facility] Comment on above: Performed By: #### T 7, URIC, CMP, TSH, LIPID #### [facility] [address] [address] [address] Joanne Martinez VLDL CALC 8.4 mg/dL Normal [facility] Comment on above: Performed By: #### T 7, URIC, CMP, TSH, LIPID #### [facility] [address] [address] [address] Joanne Martinez PROF 14(COMP METB)on 022 Albumin [Mass/Vol] 4.1 g/dL Normal 3.4-5.0 [facility] Comment on above: Performed By: #### T 7, URIC, CMP, TSH, LIPID #### [facility] [address] [place] [address] Dr. Joanne Martinez Albumin/Globulin [Mass ratio] 1.2 {ratio} Normal [facility] Comment on above: Performed By: #### T 7, URIC, CMP, TSH, LIPID #### [facility] [address] [place] [address] Dr. Joanne Martinez ALP [Catalytic activity/Vol] 104 U/L Normal 46-116 [facility] Comment on above: Performed By: #### T 7, URIC, CMP, TSH, LIPID #### [facility] [address] [place] [address] Dr. Joanne Martinez ALT [Catalytic activity/Vol] 42 U/L Normal 16-63 [facility] Comment on above: Performed By: #### T 7, URIC, CMP, TSH, LIPID #### [facility] [address] [address] [address] Joanne Martinez Anion gap [Moles/Vol] 14.2 mmol/L Normal [facility] Comment on above: Performed By: #### T 7, URIC, CMP, TSH, LIPID #### [facility] [address] [address] [address] Joanne Martinez AST [Catalytic activity/Vol] 56 U/L Critically high 15-37 [facility] Comment on above: Performed By: #### T 7, URIC, CMP, TSH, LIPID #### [facility] [address] [place] [address] Dr. Joanne Martinez Bilirubin [Mass/Vol] 0.8 mg/dL Normal 0.2-1.0 [facility] Comment on above: Performed By: #### T 7, URIC, CMP, TSH, LIPID #### [facility] [address] [place] [address] Dr. Joanne Martinez Calcium [Mass/Vol] 9.6 mg/dL Normal 8.5-10.1 [facility] Comment on above: Performed By: #### T 7, URIC, CMP, TSH, LIPID #### [facility] [address] [place] [address] Dr. Joanne Martinez Chloride [Moles/Vol] 99 mmol/L Normal 98-107 [facility] Comment on above: Performed By: #### T 7, URIC, CMP, TSH, LIPID #### [facility] [address] [place] [address] Dr. Joanne Martinez CO2 [Moles/Vol] 25.9 mmol/L Normal 21.0-32.0 [facility] Comment on above: Performed By: #### T 7, URIC, CMP, TSH, LIPID #### [facility] [address] [place] [address] Dr. Joanne Martinez Creatinine [Mass/Vol] 0.88 mg/dL Normal 0.70-1.30 [facility] Comment on above: Performed By: #### T 7, URIC, CMP, TSH, LIPID #### [facility] [address] [place] [address] Dr. Joanne Martinez EGFR-AF BENINESE >60 Normal >=60 [facility] Comment on above: Performed By: #### T 7, URIC, CMP, TSH, LIPID #### [facility] [address] [place] [address] Dr. Joanne Martinez EGFR-NON AF BENINESE >60 Normal >=60 [facility] Comment on above: Performed By: #### T 7, URIC, CMP, TSH, LIPID #### [facility] [address] [address] [address] Joanne Martinez Globulin (S) [Mass/Vol] 3.5 g/dL Normal [facility] Comment on above: Performed By: #### T 7, URIC, CMP, TSH, LIPID #### [facility] [address] [place] [address] Dr. Joanne Martinez Glucose [Mass/Vol] 99 mg/dL Normal 74-106 [facility] Comment on above: Performed By: #### T 7, URIC, CMP, TSH, LIPID #### [facility] [address] [place] [address] Dr. Joanne Martinez Potassium [Moles/Vol] 4.1 mmol/L Normal 3.5-5.1 [facility] Comment on above: Performed By: #### T 7, URIC, CMP, TSH, LIPID #### [facility] [address] [place] [address] Dr. Joanne Martinez Protein [Mass/Vol] 7.6 g/dL Normal 6.4-8.2 [facility] Comment on above: Performed By: #### T 7, URIC, CMP, TSH, LIPID #### [facility] [address] [place] [address] Dr. Joanne Martinez Sodium [Moles/Vol] 135 mmol/L Critically low 136-145 [facility] Comment on above: Performed By: #### T 7, URIC, CMP, TSH, LIPID #### [facility] [address] [place] [address] Dr. Joanne Martinez Urea nitrogen [Mass/Vol] 7.0 mg/dL Normal 7.0-18.0 [facility] Comment on above: Performed By: #### T 7, URIC, CMP, TSH, LIPID #### [facility] [address] [place] [address] Dr. Joanne Martinez Urea nitrogen/Creatinine [Mass ratio] 8.0 mg/mg Normal [facility] Comment on above: Performed By: #### T 7, URIC, CMP, TSH, LIPID #### [facility] [address] [place] [address] Dr. Joanne Martinez TSHon 07-27-2022 TSH 1.712 uIU/mL Normal 0.358-3.740 [facility] Comment on above: Performed By: #### T 7, URIC, CMP, TSH, LIPID #### [facility] [address] [address] [address] Joanne Martinez URIC ACID SERUMon 07-27-2022 Urate [Mass/Vol] 6.6 mg/dL Normal 3.5-7.2 [facility] Comment on above: Performed By: #### T 7, URIC, CMP, TSH, LIPID #### [facility] [address] [address] [address] Joanne Martinez VITAMIN D 25 OHon 07-27-2022 VIT D 25-OH 86.1 ng/mL Normal [facility] Comment on above: Performed By: #### V LIDIA, PSASC #### [facility] [address] [address] [address] Joanne Martinez VIT D RANGES SEE BELOW Normal [facility] Comment on above: Result Comment: <20 ng/mL Vit D deficient 20 - <30 ng/mL Vit D insufficient 30 - 100 ng/mL Vit D sufficient >100 ng/mL Potential Toxicity Performed By: #### V ITKAR, PSASC #### [facility] [address] [place] [address] Dr. Joanne YUENPon 05-29-2019 CNOVS Visit (SP) Office (HEMACL) GARY BUITRAGO ([id number]) 1950 M Date Time Provider Department 05/29/19 [...] thrombocytopenia of unknown etiology. Current Outpatient Medications: Mcdowell-3 Fatty Acids (FISH OIL) 500 mg cap [...] Ester Albrecht MD Referring Provider: ESTER ALBRECHT [[id number]] Allergies As of Date: 05/29/2019 Noted Allergy [...] (FOR REMOTE [facility] USE) [SQRAGCBC] Order #: [id number] FUTURE CBC + DIFF (FOR REMOTE [facility] USE) [SQRCBCDF] Order #: [id number] FUTURE Disposition: Return in about 4 months [...] by ESTER ALBRECHT MD on 05/29/19 [facility] 05-29-2019 PROGRESS HNO ID: [id number] Author: Ester Albrecht Service: ? Author Type: [...] thrombocytopenia of unknown etiology. Current Outpatient Medications: Mcdowell-3 Fatty Acids (FISH OIL) 500 mg cap [...] REMOTE [facility] USE) Ester Albrecht MD Normal [facility] Remote Abs Gran + CBC (for [facility] use only)on 05-29-2019 Absol Gran Count 3.92 k/uL Normal 1.45-7.50 [facility] Erythrocyte distribution width (RBC) [Ratio] 14.0 % Normal 11.5-15.0 [facility] Hematocrit (Bld) [Volume fraction] 44.0 % Normal 39.0-51.0 [facility] Hemoglobin (Bld) [Mass/Vol] 15.8 g/dL Normal 13.0-17.0 [facility] MCH (RBC) [Entitic mass] 34.6 pG High 26.0-34.0 [facility] MCHC (RBC) [Mass/Vol] 35.9 g/dL Normal 30.5-36.0 [facility] MCV (RBC) [Entitic vol] 96.5 fL Normal 80.0-100.0 [facility] Platelet mean volume (Bld) [Entitic vol] 11.2 fL Normal 9.0-12.7 [facility] Platelets (Bld) [#/Vol] 110 10*3/uL Low 150-400 [facility] RBC (Bld) [#/Vol] 4.56 10*6/uL Normal 4.20-6.00 [facility] WBC (Bld) [#/Vol] 5.89 10*3/uL Normal 3.70-11.00 [facility] CT-CT ABD/PELVIS W CON IMPOR Ton 05-23-2019 CT-CT ABD/PELVIS W CON IMPORT Images were obtained outside of [facility] [id number] Normal [facility] CNOVSPon 05-16-2019 CNOVSP Visit (SP) Office (HEMASA) GARY BUITRAGO ([id number]) 1950 M Date Time Provider Department 05/16/19 1:45 PM ESTER ALBRECHT During your visit today, we recorded the following information about you: Temperature Pulse Respiration Blood pressure 98.4 degrees 84/minute 16/minute 177/71 Weight Height 106.8 kg 1.81 m Ester Albrecht MD 05/16/2019 2:58 PM Signed HPI Gary Kitrosairo is a 69 year old male who [...] Unknown Reviewed by Star Villagomez M.D., PhD ([id number]) M-Protein Location Unknown N/A M-Protein Concentration Latest Ref Range: 0.00 gm/dL 0.00 MPA Result Latest Ref Range: No M protein is identified. No M protein is identified. Staff Review (MPA) Unknown Reviewed by Star Villagomez M.D., PhD ([id number]) [place] Free, Serum Latest Ref Range: 3.30 - [...] Ref Range: 1.00 - 4.00 k/uL 1.10 Oxford% Latest Units: % 10.4 Abs Oxford Latest Ref Range: 0.00 - 0.86 k/uL 0.85 Eosin% Latest Units: % 0.7 Abs Eosin Latest Ref Range: 0.00 - 0.45 k/uL 0.06 Baso% Latest Units: % 0.5 Abs Baso Latest Ref Range: 0.00 - 0.10 k/uL 0.04 Staff Review, CBCDIF Unknown SEE COMMENT Pathologist for Staff Review Unknown The Staff Review ... Current Outpatient Medications: Mcdowell-3 Fatty Acids (FISH OIL) 500 mg cap [...] Ester Albrecht MD Referring Provider: ESTER ALBRECHT [[id number]] Allergies As of Date: 05/16/2019 Noted Allergy [...] Order(s):HEP REMOTE PANEL BL [SQHREMOP] Order #: [id number] FUTURE CT ABD/PEL WO IVCON [[id number]] Order #: [id number] FUTURE Disposition: Return in about 2 weeks [...] Status:Closed by ESTER ALBRECHT MD on [facility]16[facility] CNPN Telephone (NCCAP) GARY BUITRAGO ([id number]) 1950 M Date Time Provider Department 05/16/19 ESTER ALBRECHT NCCTIMMY During your visit today, we recorded the following information about you: Sergio Lorenzo 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 Thank you Ester Albrecht MD 05/16/2019 3:13 PM Signed done Sergio Lorenzo Patient Cnc Lathe Programmer 05/16/2019 3:19 PM Signed Can you just [...] location [R19.00] Order(s):CREATININE BLD [SQCRET] Order #: [id number] FUTURE CT ABD/PEL W IVCON [[id number]] Order #: [id number] FUTURE [] iv contrast (will be provided [...] contrast guidelines Encounter Status:Closed by SURESH PATIENT PICKER OPERATOR, SERGIO on 02/04/20 [facility] PROGRESSon 05-16-2019 PROGRESS HNO ID: [id number] Author: Ester Albrecht Service: ? Author Type: [...] Unknown Reviewed by Star Villagomez M.D., PhD ([id number]) M-Protein Location Unknown N/A M-Protein Concentration Latest Ref Range: 0.00 gm/dL 0.00 MPA Result Latest Ref Range: No M protein is identified. No M protein is identified. Staff Review (MPA) Unknown Reviewed by Star Villagomez M.D., PhD ([id number]) [place] Free, Serum Latest Ref Range: 3.30 - [...] Ref Range: 1.00 - 4.00 k/uL 1.10 [place]% Latest Units: % 10.4 Abs [place] Latest Ref Range: 0.00 - 0.86 k/uL 0.85 Eosin% Latest Units: % 0.7 Abs Eosin Latest Ref Range: 0.00 - 0.45 k/uL 0.06 Baso% Latest Units: % 0.5 Abs Baso Latest Ref Range: 0.00 - 0.10 k/uL 0.04 Staff Review, CBCDIF Unknown SEE COMMENT Pathologist for Staff Review Unknown The Staff Review ... Current Outpatient Medications: Mcdowell-3 Fatty Acids (FISH OIL) 500 mg cap [...] ABD/PEL WO IVCON Ester Albrecht MD Normal [facility] Ferritinon 05-14-2019 Ferritin [Mass/Vol] 106.0 ng/mL Normal 30.3-565.[address] [facility] Comment on above: Performed By: #### T CISCO VELAZQUEZ, IFESC, SEPG #### [facility] [employer] [address] [place], [place] [address] Folate, Serumon 05-14-2019 Folate [Mass/Vol] ng/mL Normal >4.7 [facility] Comment on above: Result Comment: A re sult of > 20 ng/mL is not necessarily indicative of a pathologic or treatable condition: it reflects a limitation of the test methodology. Assay reference range: 4.8 to 24.2 ng/mL. Suitable for detection of folate deficiency. Reference: Folate III (Folate III) [package insert V 2.0 [place]]. [facility], [place], [place]: August 2015. Performed By: #### T MARCUS, CISCO, IFESC, SEPG #### [facility] [address] [place], [place] [address] Iron and TIBCon 05-14-2019 Iron [Mass/Vol] 109 ug/dL Normal 41-186 [facility] Comment on above: Performed By: #### T MARCUS, CISCO, IFESC, SEPG #### [place] [address] [place] [address] TIBC 348 ug/dL Normal 232-386 [facility] Comment on above: Performed By: #### T CISCO VELAZQUEZ, CASEY, SEPG #### [facility] [address] [place] [address] Transferrin Saturatn 31 % Normal 15-[address] [facility] Comment on above: Performed By: #### T CISCO VELAZQUEZ, CASEY, SEPG #### [place] [address] [place] [address] Methylmalonic Acidon 019 Methylmalonic Acid 314 nmol/L Normal 79-376 [facility] Comment on above: Result Comment: This test was developed and its performance characteristics determined by [facility] [place] ( [facility]). It has not been cleared or approved by the FDA. [facility] is regulated under CLIA as qualified to perform high complexity testing. This test is used for clinical purposes. It should not be regarded as investigational or for research. Performed By: #### T CISCO VELAZQUEZ, CASEY, SEPG #### [place] [address] Staff Rev w CBCDIFon 019 Abs Baso 0.04 k/uL Normal 0.00-0.10 [facility] Comment on above: Performed By: #### S MARIA M #### [place] [address] [place] [address] Abs Oxford 0.85 k/uL Normal 0.00-0.86 [facility] Comment on above: Performed By: #### S MARIA M #### [place] [id number] Abs Neut 6.12 k/uL Normal 1.45-7.50 [facility] Comment on above: Performed By: #### S MARIA M #### [address] [place], [place] [address] Basophils/100 WBC (Bld) 0.5 % Normal [facility] Comment on above: Performed By: #### S MARIA M #### [facility] [address] [place], [place] [address] Eosinophils (Bld) [#/Vol] 0.06 10*3/uL Normal 0.00-0.45 [facility] Comment on above: Performed By: #### S MARIA M #### [place] [address] [place], [place] [address] Eosinophils/100 WBC (Bld) 0.7 % Normal [facility] Comment on above: Performed By: #### S MARIA M #### [place] [address] Erythrocyte distribution width (RBC) [Ratio] 17.0 % High 11.5-15.0 [facility] Comment on above: Performed By: #### S MARIA M #### [place] [address] [place] [address] Hematocrit (Bld) [Volume fraction] 46.0 % Normal 39.0-51.0 [facility] Comment on above: Performed By: #### S MARIA M #### [place] [address] [place], [place] [address] Hemoglobin (Bld) [Mass/Vol] 16.2 g/dL Normal 13.0-17.0 [facility] Comment on above: Performed By: #### S MARIA M #### [place] [address] [place], [place] [address] Lymphocytes (Bld) [#/Vol] 1.10 10*3/uL Normal 1.00-4.00 [facility] Comment on above: Performed By: #### S MARIA M #### [place] [address] [place] [phone] Lymphocytes/100 WBC (Bld) 13.5 % Normal [facility] Comment on above: Performed By: #### S MARIA M #### [place] [address] MCH (RBC) [Entitic mass] 34.0 pG Normal 26.0-34.0 [facility] Comment on above: Performed By: #### S MARIA M #### [place] [address] MCHC (RBC) [Mass/Vol] 35.2 g/dL Normal 30.5-36.0 [facility] Comment on above: Performed By: #### S MARIA M #### [place] [phone] MCV (RBC) [Entitic vol] 96.6 fL Normal 80.0-100.0 [facility] Comment on above: Performed By: #### S MARIA M #### [place] [address] Monocytes/100 WBC (Bld) 10.4 % Normal [facility] Comment on above: Performed By: #### S MARIA M #### [place] [address] Neutrophils/100 WBC (Bld) 74.9 % Normal [facility] Comment on above: Performed By: #### S MARIA M #### [place] [phone] Pathologist Cyto stain Nom (Cvx/Vag) [ID] The Staff Review on this sample was cancelled because the hematology analyzer did not flag any parameters as requiring manual review. If there is a specific clinical concern for which you would like a staff pathologist to review the blood smear, please call Lab Client Services within 28 days. Normal [facility] Comment on above: Result Comment: Acco unt Credited Performed By: #### S MARIA M #### [place] [address] Platelet mean volume (Bld) [Entitic vol] 11.3 fL Normal 9.0-12.7 [facility] Comment on above: Performed By: #### S MARIA M #### [place] [address] Platelets (Bld) [#/Vol] 127 10*3/uL Low 150-400 [facility] Comment on above: Performed By: #### S MARIA M #### [place] [address] RBC (Bld) [#/Vol] 4.76 10*6/uL Normal 4.20-6.00 [facility] Comment on above: Performed By: #### S MARIA M #### [place] [address] Staff Review SEE COMMENT Normal [facility] Comment on above: Result Comment: [...] Performed By: #### S MARIA M #### [place] [address] WBC (Bld) [#/Vol] 8.17 10*3/uL Normal 3.70-11.00 [facility] Comment on above: Performed By: #### S MARIA M #### [place] [address] Vitamin B12on 05-14-2019 Cobalamin (Vitamin B12) [Mass/Vol] 262 pg/mL Normal 232-1245 [facility] Comment on above: Performed By: #### B 12, SERFOL, IRON, FERR, MMA #### [place] [address] CNOVSPon 05-07-2019 CNOVSP Visit (SP) Office ([place]) GARY BUITRAGO ([id number]) 1950 M Date Time Provider Department 05/07/19 [...] family history on file. Current Outpatient Medications: Mcdowell-3 Fatty Acids (FISH OIL) 500 mg cap [...] Ester Albrecht MD Referring Provider: LORRIE MUNOZ [[id number]] Allergies As of Date: 05/07/2019 Noted Allergy [...] (FOR REMOTE [facility] USE) [SQRAGCBC] Order #: [id number] FUTURE TSH BLD [SQTSH] Order #: [id number] FUTURE PROTEIN ELECTROPHORESIS W/INTERP [SQSEPG] Order #: [id number] FUTURE KAPPA/CACERES,FREE,SER [SQKLFRS] Order #: [id number] FUTURE IMMUNOFIXATION SCREEN, SERUM [SQIFESC] Order #: [id number] FUTURE COMP METABOLIC PANEL [SQCMP] Order #: [id number] FUTURE CBC [SQCBC] Order #: [id number] FUTURE Disposition: Return in about 1 year [...] by ESTER ALBRECHT MD on 05/07/19 Normal [facility] Comp Metabolic Panelon 05-07 Albumin [Mass/Vol] 4.6 g/dL Normal 3.9-4.9 [facility] Comment on above: Performed By: #### T SH, KLFRS, IFESC, SEPG #### [facility] [address] [place], [place] [address] ALP [Catalytic activity/Vol] 117 U/L High 38-113 [facility] Comment on above: Performed By: #### T SH, KLFRS, IFESC, SEPG #### [facility] [address], [place] [address] ALT [Catalytic activity/Vol] 33 U/L Normal 10-54 [facility] Comment on above: Performed By: #### T SH, KLFRS, IFESC, SEPG #### [facility] [address] [place], [place] [address] Anion gap [Moles/Vol] 9 mmol/L Normal 9-18 [facility] Comment on above: Performed By: #### T SH, KLFRS, IFESC, SEPG #### [facility] [address] [place], [place] [address] AST [Catalytic activity/Vol] 39 U/L Normal 14-40 [facility] Comment on above: Performed By: #### T SH, KLFRS, IFESC, SEPG #### [facility] [address] [place], [place] [address] Bilirubin [Mass/Vol] 0.6 mg/dL Normal 0.2-1.[address] [facility] Comment on above: Performed By: #### T SH, KLFRS, IFESC, SEPG #### [facility] [address] [place], [place] [address] Calcium [Mass/Vol] 9.9 mg/dL Normal 8.5-10.2 [facility] Comment on above: Performed By: #### T SH, KLFRS, IFESC, SEPG #### [facility] [address] [place], [place] [address] Chloride [Moles/Vol] 101 mmol/L Normal 97-[address] [facility] Comment on above: Performed By: #### T SH, KLFRS, IFESC, SEPG #### [facility] [address], [place] [address] CO2 [Moles/Vol] 27 mmol/L Normal 22-30 [facility] Comment on above: Performed By: #### T CISCO VELAZQUEZ IFESC, SEPG #### [facility] [address] [place], [place] [address] Creatinine [Mass/Vol] 1.01 mg/dL Normal 0.73-1.22 [facility] Comment on above: Performed By: #### T CISCO VELAZQUEZ IFESC, SEPG #### [facility] [address] [place] [address] eGFR- Amer. >60 Normal [facility] Comment on above: Performed By: #### T CISCO VELAZQUEZ IFESC, SEPG #### [facility] [address] [place] [address] GFR/1.73 sq M predicted among non-blacks MDRD (S/P/Bld) [Vol rate/Area] mL/min/{1.73_m2} Normal [facility] Comment on above: Result Comment: eGFR [...] #### T CISCO VELAZQUEZ IFESC, SEPG #### [facility] [address] [place] [phone] Glucose [Mass/Vol] 127 mg/dL High 74-99 [facility] Comment on above: Result Comment: The [place] Diabetes Association (ADA) provides guidance for cutoff [...] Standards of Medical Care in Diabetes 2016, [place] [employer] Association. Diabetes Care. 2016.39(Suppl 1). Performed By: #### T CISCO VELAZQUEZ, IFESC, SEPG #### [facility] [address] [place], [place] [address] Potassium [Moles/Vol] 4.7 mmol/L Normal 3.7-5.1 [facility] Comment on above: Performed By: #### T CISCO VELAZQUEZ, IFESC, SEPG #### [place] [address] [place], [place] [address] Protein [Mass/Vol] 7.0 g/dL Normal 6.3-8.0 [facility] Comment on above: Performed By: #### T CISCO VELAZQUEZ, IFESC, SEPG #### [facility] [address] [place], [place] [address] Sodium [Moles/Vol] 137 mmol/L Normal 136-144 [facility] Comment on above: Performed By: #### T CISCO VELAZQUEZ, IFESC, SEPG #### [place] [address] [place], [place] [address] Urea nitrogen [Mass/Vol] 10 mg/dL Normal 9-24 [facility] Comment on above: Performed By: #### T CISCO VELAZQUEZ, IFESC, SEPG #### [facility] [address] [place], [place] [address] DOMINGO Screen, Serumon 05-07-20 19 Protein [Mass/Vol] No M protein is identified. Normal No M protein is identified. [facility] Comment on above: Performed By: #### T CISCO VELAZQUEZ, IFESC, SEPG #### [facility] [address] [place], [place] [address] Staff Review Reviewed by Star Villagomez M.D., PhD ([id number]) [facility] Comment on above: Performed By: #### T MARCUS, CISCO, IFESC, SEPG #### [facility] [address] [place], [place] [address] [place]aceres,Free,Seron 2018 K/L Ratio, Serum 1.09 Normal 0.26-1.65 [facility] Comment on above: Performed By: #### T MARCUS, CISCO, IFASAF, SEPG #### [facility] [address] [place], [place] [address] [place], Free, Serum 17.8 mg/L Normal 3.30-19.40 [facility] Comment on above: Result Comment: Test performed by an immunoturbidimetric assay on Optilite instrument from [employer]. Immunoglobulin free light chain assay results should be interpreted in conjunction with other tests and in correlation with clinical picture. Performed By: #### T MARCUS, CISCO, IFBRIANNAC, SEPG #### [facility] [address] [place], [place] [address] Lambda, Free, Serum 16.4 mg/L Normal 5.7-26.3 [facility] Comment on above: Result Comment: Test performed by an immunoturbidimetric assay on Optilite instrument from [employer]. Immunoglobulin free light chain assay results should be interpreted in conjunction with other tests and in correlation with clinical picture. Performed By: #### T MARCUS, CISCO, IFESC, SEPG #### [facility] [address] [place], [place] [address] PROGRESSon 05-07-2019 PROGRESS HNO ID: [id number] Author: Ester Albrecht Service: ? Author Type: [...] family history on file. Current Outpatient Medications: Mcdowell-3 Fatty Acids (FISH OIL) 500 mg cap [...] MARIO CRAWFORD CT + CBC (FOR REMOTE [facility] USE) - TSH BLD - [...] ABS GRAN CT + CBC (FOR REMOTE [facility] USE) - TSH BLD - PROTEIN ELECTROPHORESIS W/INTERP - KAPPA/CACERES,FREE,SER - IMMUNOFIXATION SCREEN, SERUM - COMP METABOLIC PANEL - CBC 3. Abnormal weight loss - ICD9: 783.21, ICD10: R63.4 See above - ABS GRAN CT + CBC (FOR REMOTE [facility] USE) - TSH BLD - PROTEIN ELECTROPHORESIS W/INTERP - KAPPA/CACERES,FREE,SER - IMMUNOFIXATION SCREEN, SERUM - COMP METABOLIC PANEL Ester Albrecht MD Normal [facility] Protein Electrophor.on 05-07 Albumin [Mass/Vol] 4.26 g/dL High 3.37-4.23 [facility] Comment on above: Performed By: #### T MARCUS, CISCO, IFBRIANNAC, SEPG #### [facility] [address] [place], [place] [address] Alpha 1 Globulin 0.27 gm/dL Normal 0.18-0.31 [facility] Comment on above: Performed By: #### T MARCUS, CISCO, IFBRIANNAC, SEPG #### [facility] [address] [place], [place] [address] Alpha 2 Globulin 0.62 gm/dL Normal 0.52-0.97 [facility] Comment on above: Performed By: #### T MARCUS, CISCO, IFESC, SEPG #### [facility] [address] [place], [place] [address] Beta Globulin 0.97 gm/dL Normal 0.84-1.36 [facility] Comment on above: Performed By: #### T MARCUS, CISCO, IFESC, SEPG #### [facility] [address] [place], [place] [address] Gamma Globulin 1.07 gm/dL Normal 0.70-1.44 [facility] Comment on above: Performed By: #### T MARCUS, CISCO, IFESC, SEPG #### [facility] [address] [place] [address] Interpretation SEE COMMENT Normal [facility] Comment on above: Result Comment: No d efinitive M protein is identified on protein electrophoresis. Performed By: #### T MARCUS, CISCO, IFESC, SEPG #### [facility] [address] [place] [address] M Gigi Concentratn 0.00 gm/dL Normal 0.00 [facility] Comment on above: Performed By: #### T MARCUS, CISCO, IFESC, SEPG #### [place] [address] [place] [address] Protein [Mass/Vol] N/A Normal [facility] Comment on above: Performed By: #### T MARCUS, CISCO, IFESC, SEPG #### [place] [address] [place] [address] Protein [Mass/Vol] 7.2 g/dL Normal 6.0-8.4 [facility] Comment on above: Performed By: #### T MARCUS, CISCO, IFESC, SEPG #### [place] [address] [place], [place] [address] SPE Staff Review Reviewed by Star Villagomez M.D., PhD ([id number]) Normal [facility] Comment on above: Performed By: #### T MARCUS, CISCO, IFESC, SEPG #### [facility] [address] [place] [address] Remote Abs Gran + CBC (for [facility] use only)on 05-07-2019 Absol Gran Count 4.88 k/uL Normal 1.45-7.50 [facility] Erythrocyte distribution width (RBC) [Ratio] 18.6 % High 11.5-15.0 [facility] Hematocrit (Bld) [Volume fraction] 44.7 % Normal 39.0-51.0 [facility] Hemoglobin (Bld) [Mass/Vol] 15.8 g/dL Normal 13.0-17.0 [facility] MCH (RBC) [Entitic mass] 33.8 pG Normal 26.0-34.0 [facility] MCHC (RBC) [Mass/Vol] 35.3 g/dL Normal 30.5-36.0 [facility] MCV (RBC) [Entitic vol] 95.5 fL Normal 80.0-100.0 [facility] Platelet mean volume (Bld) [Entitic vol] 11.0 fL Normal 9.0-12.7 [facility] Platelets (Bld) [#/Vol] 120 10*3/uL Low 150-400 [facility] RBC (Bld) [#/Vol] 4.68 10*6/uL Normal 4.20-6.00 [facility] WBC (Bld) [#/Vol] 6.41 10*3/uL Normal 3.70-11.00 [facility] TSHon 05-07-2019 TSH Qn 1.350 uU/mL Normal 0.400-5.500 [facility] Comment on above: Performed By: #### T SH, KLFRS, IFESC, SEPG #### [facility] [address] [place] [id number] Encounters Encounter Date Encounter Type Care Provider Facility Start: 11-29-2023 End: 11-30-2023 ambulatory [facility] Start: 11-29-2023 End: 11-29-2023 Off-Site Eric Stanley [facility] Start: 11-29-2022 End: 11-30-[address] LORRIE MUNOZ . Facility: Start: 09-21-2022 End: 09-21-2022 Off-Site Sandie FARLEY [facility] Start: 07-27-2022 End: 07-28-[address] LORRIE MUNOZ . Facility: Start: 07-13-2021 ambulatory BALA SHEA Facility :[facility] Start: 07-01-2018 End: 07-02-2018 Patient encounter DEFAULT PHYSICIAN Facility:[facility] Start: 06-25-2018 End: 06-26-2018 Patient encounter BRENT Hernández ROSEANNA Facility:[facility] Start: 05-02-2018 End: 05-03-2018 Patient encounter DEFAULT PHYSICIAN Facility:[facility] Procedures Date Procedure Procedure Detail Performing Clinician Start: 07-27-[address] BHARATHI MUNOZ . Comment on above: Performed By: #### V ITAD, PSASC #### [facility] [address] [place] [address] Dr. Joanne Martinez Immunizations Immunization Date Immunization Notes Care Provider Fa cility 06-14-2021 SARS-CoV-2 (COVID-19 ) mRNA BNT-162b2 [employer] [facility] 05-24-2021 SARS-CoV-2 (COVID-19 ) mRNA BNT-901f0 [employer] [facility] NEGATED: Highlighted row has not occurred!11-22-2023 influenza virus vaccine, unspecified formulation Reyes Sarmini [facility] Payers Date Payer Category Payer Medicare [id number] 1957 Medicare [id number] 1950 Unknown [id number] 1950 Unknown [id number] [id number] [id number] 1950 Unknown [id number] 1950 Unknown [id number] [id number] Unknown Unknown [id number] Social History Date Type Detail Facility Start: 09-21-2022 End: 11-29-2023 Tobacco smoking status Smokes tobacco daily (finding) [facility] Tobacco smoking status Never Kishan [facility] Sex Assigned At Male [facility] Functional Status Date Assessment Result Facility 09-21-2022 Functional Status N/A [facility] Clinical Note 11-29-2022 Note [...] authenticated by: FLO CORADO Date: 2022-11-29 13:17 [facility] Evaluation + Plan note 09-21-2022 Note Date & Type Note Facility 09-21-2022 Evaluation + Plan note [facility] Indices 09/21/22Comprehensive Metabolic Panel 09/21/22Calprotectin, Fecal 09/21/22 [facility] Hospital Discharge instructions 07-10-2022 Note Date & Type Note Facility 07-10-2022 Hospital Discharg e instructions Follow Up Care 07/10/2022 17:05:26 With:MIGUELITO RAMIREZ, KASSY Hooper, [facility] Address: [facility] [address] [place] [address] [place] [address]- When:1 year [facility] Hospital course Narrative Note Date & Type Note Facility Hospital course Narrative No data available for this section [facility] Hospital Discharge instructions Note Date & Type Note Facility Hospital Discharge instructions No data available for this section [facility] Progress note Note Date & Type Note Facility Progress note No data available for this section [facility] Summary Purpose Family History No Family [...] section and content) DATE CREATED AUTHOR 07/28/2018 [facility] DATE CREATED AUTHOR AUTHOR'S ORGANIZ ATION 02/04/2020 [facility] DATE CREATED AUTHOR AUTHOR'S ORGANIZ ATION 11/27/2021 [facility] DATE CREATED AUTHOR AUTHOR'S ORGANIZ ATION 12/04/2022 [facility] DATE CREATED AUTHOR AUTHOR'S ORGANIZ ATION 11/30/2023 [facility] Patient Care team informatio n (unrecognized section and content) Personnel Name: Lorrie Munoz MD Address: Address: [address] [place] [address] Personnel Name: Lorrie Munoz MD Address: Address: [address] [place] [address] FOR RECORDS PERTAINING TO PATIENTS WHO ARE [...] BE BASED ON THE PRIMARY CLINICAL RECORDS. [facility]. provides no warranty or guarantee of the accuracy or completeness of information in this document.
--- NOTE | 2025-01-09 13:12 | CT_ITS ---
The [address] [address] Patient Name: GARY ROD MRN: [id number] date: 1950 Sex: M Assigned Patient Location: CT Current Patient Location: CT Accession/Order Number: [id number] Exam Date: 01/09/2025 14:05 Report Date: 01/09/2025 14:07 At the request of: LORRIE NAPIER MD Procedure: CT shoulder LT wo con CT left shoulder WITHOUT CONTRAST : CLINICAL HISTORY: Shoulder impingement M75.40 COMPARISON: Left shoulder series 12/26/2024 TECHNIQUE: Spiral axial unenhanced images were obtained through the left shoulder. Sagittal, coronal reconstructions were also reviewed. This CT exam was performed using one or more following dose reduction techniques: Automated exposure control, adjustment of the mA and/or kV according to patient size, or use of iterative reconstruction technique. FINDINGS: Moderate degenerative changes of the AC glenohumeral joints without fracture. Patient is status post rotator cuff surgery. There is narrowing of the subacromial space. Musculature demonstrates no focal abnormality. No axillary lymphadenopathy. No joint effusion. Visualized left rib cage and left lung field demonstrates no acute process. CT/CT shoulder LT wo con IMPRESSION: MODERATE DEGENERATIVE CHANGES OF THE LEFT SHOULDER WITHOUT ACUTE BONY PROCESS. Impression dictated by: Maninder Zendejas Jr., D.O.01/09/2025 2:07 PM Dictation Location: [place] [address] Electronically authenticated by: [id number] Y Date: 01/09/2025 14:07
== END 2025-01-09 12:56 | disposition home or self-care (01) ==
LOC: CT 12:55
PROVIDERS: PCP Family Medicine; Visit Provider Family Medicine
DX: M54.16 Radiculopathy, lumbar region (principal); M54.12 Radiculopathy, cervical region; M75.40 Impingement syndrome of unspecified shoulder; M51.369 Other intervertebral disc degeneration, lumbar region without mention of lumbar back pain or lower extremity pain; M50.30 Other cervical disc degeneration, unspecified cervical region
CPT/HCPCS: 72125; 72131; 73200

== ENCOUNTER 2025-03-16 11:36 | Outpatient (OUT) | payer MEDICARE, SELFPAY ==
--- OUTSIDE RECORDS SUMMARY | 2025-02-13 11:36 | XMS_ITS ---
Author Organization [facility] [place] Address [address] [place] [address] Care Team Providers Care Micro Computer Specialist Name Role Phone Gucci Munoz Primary Care Provider REASON FOR VISIT f/u from PT Encounters Encounter Location Date Provider Diagnosis [facility] [address] [place] [address] 02/13/2025 Gucci Tammy Plan Of Treatment No Information Progress Notes * Nick BUITRAGODOB: (74 yo M)Acc No.[id number]:02/13/2025 Patient: Nick GOMEZ :1950 A ge:74 Y S ex:Male Address:[address] [place] [phone] * true * Date: Generated for Gaviota walker/Vernellg/eTransmitting on: 0 03/16/2025 11:49 AM EDT
--- OUTSIDE RECORDS SUMMARY | 2025-03-13 09:00 | XMS_ITS ---
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 patient reports lots of improvement Medications Medication SIG (Take, Route, Frequency, Duration) Notes Start Date End Date Status Metoprolol Tartrate 100 MG TAKE 1 TABLET BY MOUTH TWICE A DAY WITH FOOD FOR 30 DAYS for 90 Active Montelukast Sodium 10 MG TAKE 1 TABLET B Y MOUTH EVERY DAY FOR 90 DAYS for 90 Active amLODIPine Besylate 2.5 MG TAKE 1 TABLET BY MOUTH EVERY DAY FOR 30 DAYS for 90 days Active Cetirizine HCl 10 MG TAKE 1 TABLET BY MO UTH EVERY DAY FOR 30 DAYS for 90 days Active Desvenlafaxine Succinate ER 50 MG TAKE 1 TABLET BY MOUTH EVERY DAY for 90 Active Eliquis 5 MG TAKE 1 TABLET BY MARY BETH TH TWICE A DAY for 30 Active Ferrous Sulfate 325 (65 Fe) MG TAKE 1 TABLET BY MOUTH TWICE A DAY for 90 days Active Lisinopril 40 MG TAKE 1 TABLET BY MARY BETH TH EVERY DAY for 90 Active Memantine HCl ER 28 MG TAKE 1 CAPSULE BY MOUTH EVERY DAY FOR 30 DAYS for 90 Active Mesalamine 1.2 GM TAKE 4 TABLETS ORALL Y ONCE A DAY 30 DAYS for 90 Active Dofetilide 250 MCG TAKE 1 CAPSULE BY MO UTH TWICE A DAY for 90 Active Social History Tobacco Use: Social History Observation Description Date Details (start date - stop date) Current Smoker NA - NA Tobacco Use/Smoking Question Answer Notes Patient is a current smoker How often do you smoke cigarettes? every day Tobacco use other than smoking: Question Answer Notes Are you an other tobacco user? Yes C igars AUDIT-C (Standard) Question Answer Notes Did you have a drink contain ing alcohol in the past year? Yes How often did you have six o r more drinks on one occasion in the past year? 4 or more times a week (4 points) How many drinks did you have on a typical day when you were drinking in the past year? 10 or more drinks (4 points) How often did you have a dri nk containing alcohol in the past year? Daily or almost daily (4 points) Points 12 Interpretation Positive Vital Signs Blood pressure systolic 154 mm Hg 03/13/20 25 Blood pressure diastolic 80 mm Hg 025 Height 70 in 03/13/2025 Weight 220.4 lbs 03/13/2025 BMI 31.62 kg/m2 03/13/2025 Encounters Encounter Location Date Provider Diagnosis [address] [address] 03/13/2025 Gucci Munoz Essential (primary) hypertension I10 and Shoulder impingement M75.40 Assessments Encounter Date Diagnosis (ICD Code) Assessment Notes Treatment Notes Treatment Clinical Notes Section Notes 03/13/2025 Essential (primary) hypertension (ICD-10 - I10) 03/13/2025 Shoulder impingement (ICD-10 - M75.40) Plan Of Treatment No Information Progress Notes * Nick BUITRAGODOB: (74 yo M)Acc No.[id number]:03/13/2025 UNLOCKED PROGRESS NOTE Progress Note Patient: Nick GOMEZ Provider: Winifred Munoz ([facility])MD :1950 A ge:74 Y S ex:Male Date:03/13/2025 Address:[address] [place], [place] [id number] Check In:12:58 PM ESTCheck O ut:01:20 PM EST Subjective: * Chief Complaints: * 1 . F/u after pt, finished pt last . patient reports lots of improvement. * HPI: G eneral: Graduated for PT - doing home exercises hs doding better - macrina cloud [facility] pt htn - not watching caffeine UC - stable on meds. * ROS: E ENT: hearing changes d enies. v isual changes d enies.?non-healing mouth sores d enies. s wollen glands or neck lumps d enies. h oarseness d enies. s ore throat d enies. d ifficulty swallowing d enies. n ose bleeds d enies. n amira congestion d enies. e ar ache d enies. e ar discharge?denies. r inging in ears d enies. l ight sensitivity d enies. e ye pain d enies. b lurring d enies. e ye irritation d enies. d ouble vision d enies.?vision loss d enies. G eneral/Constitutional: Sweats: D enies. F atigue d enies. S leep problems d enies. A norexia d enies. M alaise d enies. W eight loss d enies.?Fatigue or Weakness d enies. F ever or Chills d enies. C ardiovascular: Shortness of Breath w/lying flat d enies. L ightheadedness/dizziness d enies. C hest tightness/ heavy pressure d enies. S welling of legs, ankles, or feet d enies. W aking up with shortness of breath d enies. C hest pain denies. P alpitations d enies. W eight gain d enies. R espiratory: Chronic or frequent cough d enies. C oughing up blood?denies. D ifficulty breathing d enies. P roductive cough d enies. S noring?denies. S hortness of breath that awakens from sleep (PND) d enies. C hest pain d enies. S putum production d enies. W heezing d enies. M usculoskeletal: Joint pain d enies. J oint Fluid d enies. B ack pain d enies. K nee pain d enies. N chase pain d enies. J oint Stiffness d enies. M uscle cramps d enies. W eakness of muscles d enies. A rthritis d enies. M uscle aches d enies. P ain in shoulder(s) d enies. S wollen joints d enies. * Medical History: M edical History Verified. * Surgical History: C ardiac Ablation , Cardioversion , Back Surgery , Neck Surgery , Hernia Repair , Rotator Cuff Surgery- Bilateral , Knee Surgery- Left . * Family History: F ather: , pancreatic cancer, diagnosed with Other malignant neoplasm of unspecified site. B jeseniaer(s): pancreatic cancer, diagnosed with Other malignant neoplasm of unspecified site. S iszoie(s): , pancreatic cancer, diagnosed with Other malignant neoplasm of unspecified site. * Social History: T obacco Use: T obacco use other than smoking A re you an other tobacco user? Y es Cigars Tobacco Use/Smoking P atient is a c urrent smoker H ow often do you smoke cigarettes? e very day D rug/Alcohol: A JOJO-C (Standard) D id you have a drink containing alcohol in the past year? Y es H ow often did you have six or more drinks on one occasion in the past year? 4 or more times a week (4 points) H ow many drinks did you have on a typical day when you were drinking in the past year? 1 0 or more drinks (4 points) H ow often did you have a drink containing alcohol in the past year? D aily or almost daily (4 points) P oints 1 2 I nterpretation P ositive * Medications: T aking amLODIPine Besylate 2.5 MG Tablet TAKE 1 TABLET BY MOUTH EVERY DAY FOR 30 DAYS , Taking Cetirizine HCl 10 MG Tablet TAKE 1 TABLET BY MOUTH EVERY DAY FOR 30 DAYS , Taking Desvenlafaxine Succinate ER 50 MG Tablet Extended Release 24 Hour TAKE 1 TABLET BY MOUTH EVERY DAY , Taking Dofetilide 250 MCG Capsule TAKE 1 CAPSULE BY MOUTH TWICE A DAY , Taking Eliquis(Apixaban) 5 MG Tablet TAKE 1 TABLET BY MOUTH TWICE A DAY , Taking Ferrous Sulfate 325 (65 Fe) MG Tablet TAKE 1 TABLET BY MOUTH TWICE A DAY , Taking Lisinopril 40 MG Tablet TAKE 1 TABLET BY MOUTH EVERY DAY , Taking Memantine HCl ER 28 MG Capsule Extended Release 24 Hour TAKE 1 CAPSULE BY MOUTH EVERY DAY FOR 30 DAYS , Taking Mesalamine 1.2 GM Tablet Delayed Release TAKE 4 TABLETS ORALLY ONCE A DAY 30 DAYS , Taking Metoprolol Tartrate 100 MG Tablet TAKE 1 TABLET BY MOUTH TWICE A DAY WITH FOOD FOR 30 DAYS , Taking Montelukast Sodium 10 MG Tablet TAKE 1 TABLET BY MOUTH EVERY DAY FOR 90 DAYS , Medication List reviewed and reconciled with the patient * Allergies: I nfluenza Vaccines: hives. Objective: * Vitals: W t:220.4lbs, Ht: 70 in, BP:154/80mm Hg, BMI:31.62Index, Ht-cm: 177.8 cm, Wt-k.97 kg. * Examination: P hysical Exam: GENERAL: w ell developed, well nourished, in no acute distress. HEAD: n ormocephalic/atraumatic. EYES: p upils equal, round and reactive to light, conjunctivae and sclerae normal. EARS: n o deformity or lesion of external ear, canals and TM appear normal bilaterally, TM's intact, not inflamed with normal light reflex, hearing grossly normal to conversational speech. NOSE: n o deformity, discharge, inflammation, or lesions.? MOUTH: m ucous membranes moist, normal oropharynx and posterior pharynx without lesions or exudates, tongue normal, dentition normal. NECK: n chase supple, no masses or palpable cervical nodes, trachea midline, thyroid without nodules, masses, tenderness, or enlargement. CHEST: n o chest wall deformity, no chest wall tenderness.? LUNGS: n ormal respiratory effort and clear to auscultation, no wheezes, rales, or rhonchi, good air exchange. CARDIO: r egular rate and rhythm, normal S1 and S2, nor murmur, rub, or gallop. PULSES: n ormal capillary refill. ABDOMEN: s oft, non-distended, non-tender, no masses. MUSCULOSKELETAL: n o deformity or scoliosis noted, normal range of motion, joints normal, no erythema, edema, effusion, or ecchymosis. EXTREMITY: n o clubbing, cyanosis, edema, or deformity with normal ROM in both upper and lower bilateral extremities. NEUROLOGIC: g rossly normal. SKIN: n o rashes, ulcerations, or suspicious lesions. LYMPH NODES: n o cervical adenopathy, nodes normal. MENTAL STATUS: a lert and oriented x3, normal mood and affect. Assessment: * Assessment: 1. E ssential (primary) hypertension - I10 (Primary) 2 . S houlder impingement - M75.40 Plan: * Treatment: * Preventive Medicine: Screenings/Counseling: B [place] ACTION PLAN Above Normal BMI Follow-up D ietary management education, guidance, and counseling See treatment section of progress note for complete details of management plan. T OBACCO ACTION PLAN Patient counselled on the dangers of tobacco use and urged to quit. . * * Electronic signature of Gucci Munoz MD, [phone] on 03/16/2025 at 11:48 AM EDT Sign off status: Pending Visit Status: C HK (Check Out) * Provider: Winifred Munoz ([facility])MD Date: 0 03/13/2025 Generated for Printi ng/Fakeanug/eTransmitting on: 0 03/16/2025 11:48 AM EDT History and Physical Notes * HPI (History of Present Illness) Category Sub-Category Detail Notes Category Not es General Graduated for PT - doing home exercises hs doding better - macrina cloud wtih pt htn - not watching caffeine UC - stable on meds Examination Category Sub-Category Detail Notes Category Not es Physical Exam GENERAL: well developed, well nourished, in no acute distress HEAD: normocephalic/atraum atic EYES: pupils equal, round and reactive to light, conjunctivae and sclerae normal EARS: no deformity or lesi on of external ear, canals and TM appear normal bilaterally, TM's intact, not inflamed with normal light reflex, hearing grossly normal to conversational speech NOSE: no deformity, discha rge, inflammation, or lesions MOUTH: mucous membranes joe st, normal oropharynx and posterior pharynx without lesions or exudates, tongue normal, dentition normal NECK: neck supple, no mass es or palpable cervical nodes, trachea midline, thyroid without nodules, masses, tenderness, or enlargement CHEST: no chest wall deform ity, no chest wall tenderness LUNGS: normal respiratory e ffort and clear to auscultation, no wheezes, rales, or rhonchi, good air exchange CARDIO: regular rate and rhy thm, normal S1 and S2, nor murmur, rub, or gallop PULSES: normal capillary ref ill ABDOMEN: soft, non-distended, non-tender, no masses RECTAL: MUSCULOSKELETAL: no deformity or scol iosis noted, normal range of motion, joints normal, no erythema, edema, effusion, or ecchymosis EXTREMITY: no clubbing, cyanosi s, edema, or deformity with normal ROM in both upper and lower bilateral extremities NEUROLOGIC: grossly normal SKIN: no rashes, ulceratio ns, or suspicious lesions LYMPH NODES: no cervical adenopat hy, nodes normal MENTAL STATUS: alert and oriented x 3, normal mood and affect
--- OUTSIDE RECORDS SUMMARY | 2025-03-13 09:18 | XMS_ITS ---
Author Organization The [facility] in [place] Address [address] [place] [address] Care Team Providers Care Community Mental Health Worker Name Role Phone Gucci Munoz Primary Care Provider REASON FOR VISIT lab orders- LMTCB Encounters Encounter Location Date Provider Diagnosis [facility] [address] [place] [address] 03/13/2025 Gucci Munoz Iron deficiency anem ia, unspecified D50.9 ; Essential (primary) hypertension I10 ; Other hyperlipidemia E78.49 ; Other hypoglycemia E16.1 and Family history of cancer Z80.9 Assessments Encounter Date Diagnosis (ICD Code) Assessment Notes Treatment Notes Treatment Clinical Notes Section Notes 03/13/2025 Iron deficiency anemia, unspecified (ICD-10 - D50.9) 03/13/2025 Essential (primary) hypertension (ICD-10 - I10) 03/13/2025 Other hyperlipidemia (ICD-10 - E78.49) 03/13/2025 Other hypoglycemia (ICD-10 - E16.1) 03/13/2025 Family history of cancer (ICD-10 - Z80.9) Plan Of Treatment Pending Test Test Name Order Date FECAL OCCULT BLOOD 03/13/2025 CMP - Comprehensive Metabolic Panel 02/14 CBC W/AUTO DIFF 03/13/2025 AMYLASE 03/13/2025 CA 19-9 03/13/2025 GLYCOHEMOGLOBIN A1C 03/13/2025 LIPASE 03/13/2025 LIPID PROFILE 03/13/2025 THYROID PANEL (T4/TSH/FREE T3) PSA, SCREENING 03/13/2025 Progress Notes * Nick BUITRAGODOB: (74 yo M)Acc No.[id number]:03/13/2025 Patient: Nick GOMEZ :1950 A ge:74 Y S ex:Male Address:[address] [place] [phone] Subjective: * Chief Complaints: * l ab orders- LMTCB * Medical History: * Surgical History: * Hospitalization/Major Diagno stic Procedure: * Medications: Objective: * Vitals: * Physical Examination: Assessment: * Assessment: 1. I [place]ingo deficiency anemia, unspecified - D50.9 (Primary) 2 . E ssential (primary) hypertension - I10 3 . O ther hyperlipidemia - E78.49 4 . O ther hypoglycemia - E16.1 5 . F amily history of cancer - Z80.9 ? Plan: * Treatment: 2. E ssential (primary) hypertension L AB: FECAL OCCULT BLOOD L AB: CMP - Comprehensive Metabolic Panel L AB: CBC W/AUTO DIFF L AB: GLYCOHEMOGLOBIN A1C L AB: LIPID PROFILE L AB: THYROID PANEL (T4/TSH/FREE T3) L AB: PSA, SCREENING 3. O ther hyperlipidemia L AB: FECAL OCCULT BLOOD L AB: CMP - Comprehensive Metabolic Panel L AB: CBC W/AUTO DIFF L AB: GLYCOHEMOGLOBIN A1C L AB: LIPID PROFILE L AB: THYROID PANEL (T4/TSH/FREE T3) L AB: PSA, SCREENING 4. O ther hypoglycemia L AB: FECAL OCCULT BLOOD L AB: CMP - Comprehensive Metabolic Panel L AB: CBC W/AUTO DIFF L AB: GLYCOHEMOGLOBIN A1C L AB: LIPID PROFILE L AB: THYROID PANEL (T4/TSH/FREE T3) L AB: PSA, SCREENING 5. F amily history of cancer L AB: AMYLASE L AB: CA 19-9 L AB: LIPASE * Procedure Codes: * true * Date: Generated for Printi ng/Fakeanug/eTransmitting on: 0 03/16/2025 11:49 AM EDT
--- OUTSIDE RECORDS SUMMARY | 2025-03-16 11:49 | XMS_ITS | Clinical Summary ---
Author Organization [facility] Address [address] [place], [place] [address] Care Team Providers Care Inset Cutter Name Role Phone Lauro Munoz MD Primary Care Provider [phone] Allergies Active Allergy Reactions Criticality Noted Date Comments Influenza Vaccine Tr-S 09 (Pf) Hives High 08/02 Medications Multivitamin capsule Take 1 capsule by mouth once daily. Active aspirin, enteric coated (ASPIRIN, ENTERIC COATED) 81 mg EC tablet Take 81 mg by mouth once daily. Active desvenlafaxine ER (PRISTIQ) 50 mg 24 hr tablet Take 50 mg by mouth once daily. Active Omeprazole 40 mg capsule Take 40 mg by mouth once daily. Active Mesalamine (LIALDA) 1.2 gram EC tablet Take 2,400 mg by mouth daily with breakfast. Active lisinopril (ZESTRIL, PRINIVIL) 40 mg tablet Take 40 mg by mouth once daily. Active metoprolol tartrate, short acting, (LOPRESSOR) 50 mg tablet Take 75 mg by mouth twice daily. Active Cetirizine (ALL DAY ALLERGY, CETIRIZINE,) 10 mg cap Take 10 mg by mouth once daily. Active Milk Thistle 175 mg tab Take 175 mg by mouth three times daily. Active sucralfate (CARAFATE) 1 gram tablet Take 1 g by mouth four times daily. Active apixaban (ELIQUIS) 5 mg tab(s) Take 5 mg by mouth twice daily. Active ferrous sulfate 325 mg (65 mg iron) tablet Take 325 mg by mouth daily with breakfast. Active [place]-3 Fatty Acids (FISH OIL) 500 mg cap Fish Oil Acti ve Social History Tobacco Use Types Packs/Day Years Used Date Smoking Tobacco: Every Day Cigars Smokeless Tobacco: Never Alcohol Use Standard Drinks/Week Comments Not Currently 0 (1 standard drink = 0.6 oz pur e alcohol) PHQ-2 Answer Date Recorded PHQ-2 score 0 05/16/2019 Area Deprivation Index Answer Date Rafy rded National Score (1-100), lower number is lower ri sk Not on file 09/21/2020 State Score (1-10), lower number is lower risk N ot on file 09/21/2020 Data from: https://www.neighborhoodatlas.medicine.[facility]/. Last address used for calculation Not on file 09/21/2020 Sex and Gender Information Value Date Recorded Sex Assigned at Not on file Legal Sex Male 2:36 PM EDT Gender Identity Not on file Sexual Orientation Not on file Last Filed Vital Signs Vital Sign Reading Time Taken Comments Blood Pressure 174/84 05/29/2019 1:48 PM EDT Pulse 92 05/29/2019 1:48 PM EDT Temperature 37.5 C (99.5 F) 05/29/2019 1:48 PM EDT Respiratory Rate 18 05/29/2019 1:48 PM EDT Oxygen Saturation 97% 05/29/2019 1:48 PM EDT Inhaled Oxygen Concentration - - Weight 107.2 kg (236 lb 6.4 oz) 05/29/2019 1:48 PM EDT Height 181 cm (5' 11.26 ) 05/29/2019 1:48 PM EDT Body Mass Index 32.73 05/29/2019 1:48 PM EDT Plan of Treatment Health Maintenance Due Date Last Done Comments Abdominal Aortic Aneurysm Screening 1950 Anxiety Screening 1970 Depression Screening 1970 Hepatitis C Screening 1970 DTaP,Tdap,Td Vaccine (1 - Tdap) [address] Colonography 1997 Cologuard (FIT-DNA) 1997 Colonoscopy 1997 Colorectal Cancer Screening 1997 Fecal Occult Blood 1997 Sigmoidoscopy 1997 Pneumococcal Vaccine: 50+ (1 of 1 - PCV) 2002 Shingrix Vaccine (1 of 2) 2002 Diabetes Screening 05/07/2022 05/07/2019, 1 11/24/2017, 09/22/2018, Additional history exists Covid-19 Vaccine ( - 2023-2 5 season) 2024 Advance Directive Discussion 10/15/2024 Influenza Vaccine (Season Ended) 2025 RSV Vaccine (1 - 1-dose 75+ series) 2027 Procedures Procedure Name Priority Date/Time Associated Diagnosis Comments COMPREHENSIVE METABOLIC PANEL Routine 05/07/2019 9:52 AM EDT Iron deficiency anemia, unspecified iron deficiency anemia type Thrombocytopenia (HCC) Abnormal weight loss from Last 3 Months or Most Recently Relevant to Health Maintenance Results * (ABNORMAL) COMP METABOLIC PANEL (05/07/2019 9:52 AM EDT) Pathologist [facility] Protein, Total 7.0 6.3 - 8.0 g/dL 05/07/2019 10:18 AM EDT [facility] Albumin 4.6 3.9 - 4.9 g/dL 05/07/2019 10:18 AM EDT [facility] Calcium 9.9 8.5 - 10.2 mg/dL 05/07/2019 10:18 AM EDT [facility] Bilirubin, Total 0.6 0.2 - 1.3 mg/dL 05/07/2019 10:18 AM EDT [facility] Alkaline Phosphatase 117(H) 38 - 113 U/L 05/07/2019 10:18 AM EDT [facility] AST 39 14 - 40 U/L 05/07/2019 10:18 AM EDT [facility] Glucose 127(H) 74 - 99 mg/dL 05/07/2019 10:18 AM EDT [facility] Comment: The [place] Diabetes Association (ADA) provides guidance for cutoff [...] Standards of Medical Care in Diabetes 2016, [place] Diabetes Association. Diabetes Care. 2016.39(Suppl 1). BUN 10 9 - 24 mg/dL 05/07/2019 10:18 AM EDT [facility] Creatinine 1.01 0.73 - 1.22 mg/dL 05/07/2019 10:18 AM EDT [facility] Sodium 137 136 - 144 mmol/L 05/07/2019 10:18 AM EDT [facility] Potassium 4.7 3.7 - 5.1 mmol/L 05/07/2019 10:18 AM EDT [facility] Chloride 101 97 - 105 mmol/L 05/07/2019 10:18 AM EDT [facility] CO2 27 22 - 30 mmol/L 05/07/2019 10:18 AM EDT [facility] Anion Gap 9 9 - 18 mmol/L 05/07/2019 10:18 AM EDT [facility] ALT 33 10 - 54 U/L 05/07/2019 10:18 AM EDT [facility] eGFR- >60 05/07/2019 10:18 AM EDT [facility] eGFR-All Other Races >60 . 05/07/2019 10:18 AM EDT [facility] Comment: eGFR (Estimated GFR) Units of measure: [...] eGFR may not accurately reflect actual GFR. Blood specimen (specimen) BLOOD SPECIMEN / Unknown 05/07/2019 9:52 AM EDT 05/07/2019 9:57 AM EDT [facility] Final Result [address] [facility] [address] [place], [place] from Last 3 Months or Most Recently Relevant to Health Maintenance Insurance [facility] MEDICARE [employer] MEDICARE Care Teams Inset Cutter Relationship Specialty Start Date End Date Lauro Munoz MD PCP - General Family Medicine 04/30/19
--- OUTSIDE RECORDS SUMMARY | 2025-03-16 11:49 | XMS_ITS | Clinical Summary ---
Author Organization [facility] Address [address] [place] [address] Care Team Providers Care Hot Mill Supervisor Name Role Phone Lauro Munoz MD Primary Care Provider [phone] Jovanny Arnold MD Unavailable [phone] Jovanny Arnold MD Unavailable [phone] Venkatesh Neves MD Unavailable [phone] Allergies Active Allergy Reactions Criticality Noted Date Comments Influenza Vaccines Hives 08/02/2018 Medications apixaban (ELIQUIS) 5 MG Tab tablet Take 5 mg by mouth every 12 hours. Active lisinopril 40 MG Tab tablet Take 40 mg by mouth daily. Active Milk Thistle 175 MG Tab Take 175 mg by mouth 3 times daily. Active Desvenlafaxine Succinate (PRISTIQ) 50 MG Tab SR 24 HR Take 50 mg by mouth daily. Active Multiple Vitamin (MULTIVITAMIN) Cap Take 1 capsule by mouth daily. Active cetirizine 10 MG Tab tablet Take 10 mg by mouth daily. Active omega-3 acid ethyl esters 1 g Cap capsule Take 1 g by mouth daily. Active NON-FORMULARY Medical cannabis Active Mesalamine (LIALDA) 1.[address] Take 2 tablets by mouth daily. 60 tablet 1 09/21/2018 Active aspirin 81 MG Chew Tab chewable tablet Chew 1 tablet daily every morning. 09/24/2018 Active DOFETILIDE 250 MCG capsule TAKE 1 CAPSULE BY MOUTH EVERY 12 HOURS 60 capsule 01/17/2019 Active metoprolol 50 MG tab regular release Take 75 mg by mouth 2 times daily. Active Active Problems Problem Noted Date Diagnosed Date Atrial fibrillation 08/02/2018 Obesity: body mass index of 30.0-34.9 08/02/2018 PAF (paroxysmal atrial fibrillation) 07/29/2018 Overview (07/29/2018): Added automatically from request for surgery [id number] Paroxysmal atrial fibrillation 07/29/2018 Overview (08/02/2018): Added automatically from request for surgery [id number] A-fib Family History Medical History Relation Name Comments Cancer- Other Father pancreatic can cer Breast Cancer Mother Relation Name Status Comments Father Mother Social History Tobacco Use Types Packs/Day Years Used Date Smoking Tobacco: Every Day Cigars Smokeless Tobacco: Never Alcohol Use Standard Drinks/Week Comments Yes 6 (1 standard drink = 0.6 oz pur e alcohol) 6-8 drinks/day Sex and Gender Information Value Date Recorded Sex Assigned at Not on file Legal Sex Male 7:13 AM EDT Gender Identity Male 07/17/2018 9:13 AM EDT Sexual Orientation Not on file Last Filed Vital Signs Vital Sign Reading Time Taken Comments Blood Pressure 161/53 01/07/2019 2:09 PM EDT Pulse 107 01/07/2019 2:09 PM EDT Temperature 36.6 C (97.8 F) 09/23/2018 7:49 AM EST Respiratory Rate 18 01/07/2019 2:09 PM EDT Oxygen Saturation 99% 09/23/2018 7:49 AM EST Inhaled Oxygen Concentration - - Weight 104.3 kg (230 lb) 07/13/2021 10:07 AM EDT Height 177.8 cm (5' 10 ) 07/13/2021 10:07 AM EDT Body Mass Index 33 07/13/2021 10:07 AM EDT Plan of Treatment Health Maintenance Due Date Last Done Comments HEPATITIS C VIRUS SCREENING 1950 TETANUS 1952 TDAP (ADULT) 1971 LIPID SCREENING 1992 COLORECTAL CANCER SCREENING DISCUSSION 1997 PNEUMOCOCCAL VACCINE SERIES (1 of 1 - PCV) 2002 ZOSTER (SHINGLES) VACCINE (1 of 2) 2002 ABDOMINAL AORTIC ANEURYSM HIGH RISK SCREEN 2017 COVID-19 VACCINE (2023-2 5 season) 2024 06/14/2021, 05/24/2021 RSV VACCINE (1 - 1-dose 75+ series) 2027 HEP B VACCINE Aged Out No longer elimich acosta based on patient's age to complete this topic Medical Devices Implanted Type Area Brand Planner Device Identifier Shelf Expiration Date Model / Serial / Lot Icm Reveal Linq - [id number] Implanted:Qty : 1 on 08/02/2018 by Meeta Cornejo MD at [facility] Loop Recorder Left: Chest [employer] [id number] 02/09/2019 [id number] / [id number] S / Insurance MEDICARE RAILROAD MEDICARE SUPPLEMENT on file Care Teams Hot Mill Supervisor Relationship Specialty Start Date End Date Lauro Munoz MD PCP - General Family Medicine 07/25/18 Jovanny Arnold MD PCP - Referring 1 Cardiovascular Disease 08/02/18 Venkatesh Neves MD [address] [place] [id number] PCP - Referring 2 Clinical Cardiac Electrophysiology 08/02/18 Jovanny Arnold MD Cardiovascular Disease 07/25/18
--- OUTSIDE RECORDS SUMMARY | 2025-03-16 11:49 | XMS_ITS | Encounter Summary ---
Author Organization [facility] Address [address] [place], [place] [address] Care Team Providers Care Multi Mission Helicopter Aircrewman Name Role Phone Lauro Munoz MD Primary Care Provider [phone] Source Comments In the event this information is protected by the Federal Confidentiality of Alcohol and Drug AbusePatient Records regulations: The Federal rules restrict any use of the information to criminally investigate or prosecute any alcohol or drug abuse patient.[facility] Encounter Details Date Type Department Care Team (Latest Contact Info) Description 05/01/2019 H&P External-NonCCF Provider, External, GRADY Do not enter address information under generic External Provider. Social History Tobacco Use Types Packs/Day Years Used Date Smoking Tobacco: Never Assessed Sex and Gender Information Value Date Recorded Sex Assigned at Not on file Legal Sex Male 2:36 PM EDT Gender Identity Not on file Sexual Orientation Not on file documented as of this encounter Plan of Treatment Not on file documented as of this encounter Visit Diagnoses Not on filedocumented in this encounter Care Teams Multi Mission Helicopter Aircrewman Relationship Specialty Start Date End Date Lauro Munoz MD PCP - General Family Medicine 04/30/19 documented as of this encounter
--- OUTSIDE RECORDS SUMMARY | 2025-03-16 11:49 | XMS_ITS | Patient Health Record ---
Author Organization [facility] [place] Address [address] [place] [address] Care Team Providers Care Public School Teacher Name Role Phone Gucci Napier Primary Care Provider Allergies Allergen (clinical drug ingredient) Drug/Non Drug Allergy documented on EMR Reaction Allergy Type Onset Date Status Vaccine product containing Influenza virus antigen (medicinal product) Influenza Vaccines hives Drug Allergy Ac tive Results Component Value Reference Range Notes CT shoulder LT wo con Reviewed date:01/11/2025 03:59:31 PM Interpretation: Performing Lab: Notes/Report: Source Facility: [place] [address] CT Scan Report Signed Patient: NICK BUITRAGO MR#: [id number] : 1950 Acct:[id number] Age/Sex: 74 / M ADM Date: 01/09/25 Loc: CT Attending Dr: Lauro Napier M.D. Ordering Physician: Lauro Napier M.D. Date of Service: 01/09/25 Procedure(s): CT shoulder LT wo con Accession Number(s): [id number] cc: Lauro Napier M.D. [place] [id number] Patient Name: NICK BUITRAGO MRN: [id number] date: 1950 Sex: M Assigned Patient Location: CT Current Patient Location: CT Accession/Order Number: [id number] Exam Date: 01/09/2025 14:05 Report Date: 01/09/2025 14:07 At the request of: LAURO NAPIER MD Procedure: CT shoulder LT wo con CT left shoulder WITHOUT CONTRAST : CLINICAL HISTORY: Shoulder impingement M75.40 COMPARISON: Left shoulder series 12/26/2024 TECHNIQUE: Spiral axial unenhanced images were obtained through the left shoulder. Sagittal, coronal reconstructions were also reviewed. This CT exam was performed using one or more following dose reduction techniques: Automated exposure control, adjustment of the mA and/or kV according to patient size, or use of iterative reconstruction technique. FINDINGS: Moderate degenerative changes of the AC glenohumeral joints without fracture. Patient is status post rotator cuff surgery. There is narrowing of the subacromial space. Musculature demonstrates no focal abnormality. No axillary lymphadenopathy. No joint effusion. Visualized left rib cage and left lung field demonstrates no acute process. CT/CT shoulder LT wo con IMPRESSION: MODERATE DEGENERATIVE CHANGES OF THE LEFT SHOULDER WITHOUT ACUTE BONY PROCESS. Impression dictated by: Maninder Zendejas Jr., D.O.01/09/2025 2:07 PM Dictation Location: [place] [address] Electronically authenticated by: [id number] Y Date: 01/09/2025 14:07 Dictated By: Maninder Zendejas M.D. Signed By: 01/09/25 1410 DD/ 1407 TD/TT: Valet Parker: [place] [address] CT Scan Report Signed Patient: NICK SANCHEZ MR#: [id number] : 1950 Acct:[id number] Age/Sex: 74 / M ADM Date: 01/09/25 Loc: CT Attending Dr: Lauro Napier M.D. Ordering Physician: Lauro Napier M.D. Date of Service: 01/09/25 Procedure(s): CT ed ulder LT wo con Accession Number(s): [id number] cc: Lauro Napier M.D. [place] [id number] Patient Name: NICK BUITRAGO MRN: [id number] date: 1950 Sex: M Assigned Patient Location: CT Current Patient Location: CT Accession/Order Numb er: [id number] Exam Date: 01/09/2025 14:05 Report Date: 01/09/2025 14:07 At the request of: LAURO NAPIER MD Procedure: CT should er LT wo con CT left shoulder WIT HOUT CONTRAST : CLINICAL HISTORY: Sh oulder impingement M75.40 COMPARISON: Left ed ulder series 12/26/2024 TECHNIQUE: Spiral ax ial unenhanced images were obtained through the left shoulder. Sagittal, coronal reconstructions were also reviewed. This CT exam was performed u sing one or more following dose reduction techniques: Automated exposure c ontrol, adjustment of the mA and/or kV according to patient size, or use of iterative reconstruction technique. FINDINGS: Moderate d egenerative changes of the AC glenohumeral joints without fracture. Patient is status post rotator cuff surgery. There is narrowing of the subacromial spac e. Musculature demonstrates no focal abnormality. No axillary lymphadenop athy. No joint effusion. Visualized left rib cage and left lung field demo nstrates no acute process. C T/CT shoulder LT wo con IMPRESSION: MODERATE DEGENERATIV E CHANGES OF THE LEFT SHOULDER WITHOUT ACUTE BONY PROCESS. Impression dictated by: Maninder Zendejas Jr., D.O.01/09/2025 2:07 PM Dictation Location: [facility] Electronically authe nticated by: [id number] Y Date: 01/09/2025 14:07 Dictated By: Maninder Sánchez i, M.D. Signed By: 01/09/25 1410 DD/ 1407 TD/TT: Valet Parker: CT cervical spine wo con Reviewed date:01/11/2025 03:59:31 PM Interpretation: Performing Lab: Notes/Report: Source Facility: [place] [address] [place] [address] CT Scan Report Signed Patient: NICK BUITRAGO MR#: [id number] : 1950 Acct:[id number] Age/Sex: 74 / M ADM Date: 01/09/25 Loc: CT Attending Dr: Lauro Napier M.D. Ordering Physician: Lauro Napier M.D. Date of Service: 01/09/25 Procedure(s): CT cervical spine wo con Accession Number(s): [id number] cc: Lauro Napier M.D. [place] [id number] Patient Name: NICK BUITRAGO MRN: [id number] date: 1950 Sex: M Assigned Patient Location: CT Current Patient Location: CT Accession/Order Number: [id number] Exam Date: 01/09/2025 13:59 Report Date: 01/09/2025 14:02 At the request of: LAURO NAPIER MD Procedure: CT cervical spine wo con CT CERVICAL SPINE WITHOUT CONTRAST : CLINICAL HISTORY: Cervical Radiculopathy COMPARISON: Cervical spine 12/26/2024 TECHNIQUE: Spiral axial unenhanced images were obtained through the cervical spine. Sagittal, coronal and reconstructions were also reviewed. This CT exam was performed using one or more following dose reduction techniques: Automated exposure control, adjustment of the mA and/or kV according to patient size, or use of iterative reconstruction technique. FINDINGS: Anterior fusion hardware C4-5 and posterior hardware C3-C6 without evidence of hardware complication. No fracture. Vertebral body heights appear maintained. Scattered endplate and facet degenerative changes with severe disc space narrowing c5. The kidneys. No prevertebral soft tissue swelling. Visualized lung apices demonstrate emphysema. CT/CT cervical spine wo con IMPRESSION: NO HARDWARE COMPLICATION. NO FRACTURE IS SEEN. SCATTERED DEGENERATIVE CHANGES WITH SEVERE DISC SPACE NARROWING C5-T2. Impression dictated by: Maninder Zendejas Jr., DAngieOAngie01/09/2025 2:02 PM Dictation Location: [place] [address] Electronically authenticated by: [id number] Y Date: 01/09/2025 14:02 Dictated By: Maninder Zendejas M.D. Signed By: 01/09/25 140 DD/ 01 TD/TT: Valet Parker: [place] [address] CT Scan Report Signed Patient: NICK SANCHEZ MR#: [id number] : 1950 Acct:[id number] Age/Sex: 74 / M ADM Date: 01/09/25 Loc: CT Attending Dr: Lauro Napier M.D. Ordering Physician: Lauro Napier M.D. Date of Service: 01/09/25 Procedure(s): CT cer vical spine wo con Accession Number(s): [id number] cc: Lauro Napier M.D. [place] [address] Patient Name: NICK BUITRAGO MRN: [id number] date: 1950 Sex: M Assigned Patient Location: CT Current Patient Location: CT Accession/Order Numb er: [id number] Exam Date: 01/09/2025 13:59 Report Date: 01/09/2025 14:02 At the request of: LAURO NAPIER MD Procedure: CT cervic al spine wo con CT CERVICAL SPINE WI THOUT CONTRAST : CLINICAL HISTORY: Ce rvical Radiculopathy COMPARISON: Cervical spine 12/26/2024 TECHNIQUE: Spiral ax ial unenhanced images were obtained through the cervical spine. Sagittal, cor onal and reconstructions were also reviewed. This CT exam was performed u sing one or more following dose reduction techniques: Automated exposure c ontrol, adjustment of the mA and/or kV according to patient size, or use of iterative reconstruction technique. FINDINGS: Anterior f usion hardware C4-5 and posterior hardware C3-C6 without evidence of hardware complication. No fracture. Vertebral body heights appear maintained. S cattered endplate and facet degenerative changes with severe disc space na rrowing c5. The kidneys. No prevertebral soft tissue swelling. Visualized lung apices demonstrate emphysema. C T/CT cervical spine wo con IMPRESSION: NO HARDWARE COMPLICA TION. NO FRACTURE IS SEEN. SCATTERED DEGENERATI VE CHANGES WITH SEVERE DISC SPACE NARROWING C5-T2. Impression dictated by: Maninder Zendejas Jr., D.O.01/09/2025 2:02 PM Dictation Location: [facility] [address] Electronically authe nticated by: [id number] Y Date: 01/09/2025 14:02 Dictated By: Maninder Sánchez i, M.D. Signed By: 01/09/25 1405 DD/ 140 TD/TT: Valet Parker: CT lumbar spine wo con Reviewed date:01/11/2025 03:59:31 PM Interpretation: Performing Lab: Notes/Report: Source Facility: [place] [address] CT Scan Report Signed Patient: NICK BUITRAGO MR#: [id number] : 1950 Acct:[id number] Age/Sex: 74 / M ADM Date: 01/09/25 Loc: CT Attending Dr: Lauro Napier M.D. Ordering Physician: Lauro Napier M.D. Date of Service: 01/09/25 Procedure(s): CT lumbar spine wo con Accession Number(s): [id number] cc: Lauro Napier M.D. [place] [address] Patient Name: NICK BUITRAGO MRN: [id number] date: 1950 Sex: M Assigned Patient Location: CT Current Patient Location: CT Accession/Order Number: [id number] Exam Date: 01/09/2025 14:02 Report Date: 01/09/2025 14:05 At the request of: LAURO NAPIER MD Procedure: CT lumbar spine wo con CT lumbar spine wo con 01/09/2025 1:18 PM History:Lumbar radiculopathy. TECHNIQUE: Multi detector CT axial slices of the lumbar spine were obtained without IV contrast. Volumetric acquisition sagittal, coronal, and 3-D reconstructions were performed and reviewed on a separate workstation. CT was performed with one or more of the following dose reduction techniques: Automated exposure control, adjustment of the mA and/or kV according to patient size, or use of iterative reconstruction technique. COMPARISON: None FINDINGS: No fracture. Vertebral body heights appear maintained. Posterior hardware fixation L3-L5 without hardware complication. There appears to be partial bony fusion of L2-L3. Scattered endplate and facet joint degenerative changes with severe disc space narrowing L1-L2 and L5-S1. Transverse processes appear intact. SI joints demonstrate change. No paraspinal mass. Neurostimulator device is in place. Visualized retroperitoneum demonstrates no acute process. CT/CT lumbar spine wo con IMPRESSION: Degenerative changes involving lumbar spine with severe disc space narrowing L1-L2 and L5-S1. No hardware complication is seen. Impression dictated by: Maninder Zendejas Jr., D.O.01/09/2025 2:05 PM Dictation Location: [place] [address] Electronically authenticated by: [id number] Y Date: 01/09/2025 14:05 Dictated By: Maninder Zendejas M.D. Signed By: 01/09/25 1407 DD/ 04 TD/TT: Valet Parker: [place] [address] CT Scan Report Signed Patient: NICK SANCHEZ MR#: [id number] : 1950 Acct:[id number] Age/Sex: 74 / M ADM Date: 01/09/25 Loc: CT Attending Dr: Lauro Napier M.D. Ordering Physician: Lauro Napier M.D. Date of Service: 01/09/25 Procedure(s): CT lum bar spine wo con Accession Number(s): [id number] cc: Lauro Napier M.D. [place] [address] Patient Name: NICK BUITRAGO MRN: [id number] date: 1950 Sex: M Assigned Patient Location: CT Current Patient Location: CT Accession/Order Numb er: [id number] Exam Date: 01/09/2025 14:02 Report Date: 01/09/2025 14:05 At the request of: LAURO NAPIER MD Procedure: CT lumbar spine wo con CT lumbar spine wo c on 01/09/2025 1:18 PM History:Lumbar radiculopathy. TECHNIQUE: Multi det ayush CT axial slices of the lumbar spine were obtained without IV contrast. Volumetric acquisition sagittal, coronal, and 3-D reconstructions were performed and reviewed on a separate workstation. CT was performed with one o r more of the following dose reduction techniques: Automated exposure c ontrol, adjustment of the mA and/or kV according to patient size, or use of iterative reconstruction technique. COMPARISON: None FINDINGS: No fracture. Vertebr al body heights appear maintained. Posterior hardware fixation L3-L5 witho ut hardware complication. There appears to be partial bony fusion of L2-L3 . Scattered endplate and facet joint degenerative changes with severe disc spa ce narrowing L1-L2 and L5-S1. Transverse processes appear intact. SI joints de monstrate change. No paraspinal mass. Neurostimulator device is in place. Visualized retroperitoneum demonstrates no acute process. C T/CT lumbar spine wo con IMPRESSION: Degenerative changes involving lumbar spine with severe disc space narrowing L1-L2 and L5-S1. No hardware complication is seen. Impression dictated by: Maninder Zendejas Jr., D.O.01/09/2025 2:05 PM Dictation Location: [facility]--18 Electronically authe nticated by: [id number] Y Date: 01/09/2025 14:05 Dictated By: Maninder Sánchez i, M.D. Signed By: 01/09/25 1407 DD/ 140 TD/TT: Valet Parker: Reason For Referral Diagnosis 1 Shoulder impingement (M75.40) Diagnosis 2 Lumbar radiculopathy (M54.16) Diagnosis 3 Hip pain, acute (M25 .559) Diagnosis 4 Cervical radiculopat hy (M54.12) Referral Organization [facility] Medicine Referring Provider First Name Gucci Referring Provider Last Name Tammy Referring Provider Speciality Family Med icine Referred Provider [facility], Physical Therap y Referred Provider Specialty Physical The rapist Referral Priority Routine Medications Medication SIG (Take, Route, Frequency, Duration) Notes Start Date End Date Status Dofetilide 250 MCG TAKE 1 CAPSULE BY MO UTH TWICE A DAY for 90 Active Eliquis 5 MG [...] A DAY 30 DAYS for 90 Active Metoprolol Tartrate 100 MG TAKE 1 TABLET [...] HCl 10 MG TAKE 1 TABLET BY [facility] EVERY DAY FOR 30 DAYS for 90 days Active Desvenlafaxine Succinate ER 50 MG TAKE 1 TABLET BY MOUTH EVERY DAY for 90 Active Social History Tobacco Use: Social History Observation Description Date Details (start date - stop date) Current Smoker NA - NA Tobacco Use/Smoking Question Answer Notes Patient is a current smoker How often do you smoke cigarettes? every day Alcohol Screen (Audit-C) Question Answer Notes Did you have a drink contain ing alcohol in the past year? Yes How often did you have 6 or more drinks on one occasion in the past year? Four or more times a week (4 points) How many drinks did you have on a typical day when you were drinking in the past year? 5 or 6 drinks (2 points) How often did you have a dri nk containing alcohol in the past year? 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.8) Active confirmed Problem Cervical radiculopathy (22206502) Cervical radiculopathy (M54.12) Active confirmed Problem Lumbar radiculopathy (500454821) Lumbar radiculopathy (M54.16) Active confirmed Problem Memory loss (12426950) Memory loss (R41.3) Active confirmed Problem Impingement syndrome of shoulder region (635412532) Shoulder impingement (M75.40) Active confirmed Problem Arthralgia of the pelvic region and thigh (713383225) Hip pain, acute (M25.559) Active confirmed Problem 66530374 Other hyperlipidemia (E78.49) Active confirmed Vital Signs Blood pressure diastolic 80 mm Hg 03/13/2025 Height 70 in 03/13/2025 Blood pressure systolic 154 mm Hg 03/13/2025 Weight 220.4 lbs 03/13/2025 BMI 31.62 kg/m2 03/13/2025 Encounters Encounter Location Date Provider Diagnosis [address] [address] 01/07/2025 Gucci Hoy Shoulder impingement M75.[address] [address] 01/11/2025 Gucci Hoy [address] [address] 02/13/2025 Gucci Daríoy [address] [address] 03/13/2025 Gucci Hoy Iron deficiency anem ia, unspecified D50.9 ; Essential (primary) hypertension I10 ; Other hyperlipidemia E78.49 ; Other hypoglycemia E16.1 and Family history of cancer Z80.[address] [address] 12/30/2024 Gucci Hoy Lumbar radiculopathy M54.16 and Cervical radiculopathy M54.[address] [address] 12/26/2024 Gucci Hoy Shoulder impingement M75.40 ; Cervical radiculopathy M54.12 ; Hip pain, acute M25.559 ; Lumbar radiculopathy M54.16 and H/O fall Z91.[address] [address] 03/13/2025 Gucci Hoy Essential (primary) hypertension I10 and Shoulder impingement M75.40 Assessments Encounter Date Diagnosis (ICD Code) Assessment Notes Treatment Notes Treatment Clinical Notes Section Notes 12/26/2024 Shoulder impingement (ICD-10 - M75.40) 12/26/2024 Cervical radiculopathy (ICD-10 - M54.12) 03/13/2025 Essential (primary) hypertension (ICD-10 - I10) 03/13/2025 Shoulder impingement (ICD-10 - M75.40) 12/30/2024 Lumbar radiculopathy (ICD-10 - M54.16) 12/30/2024 Cervical radiculopathy (ICD-10 - M54.12) 01/07/2025 Shoulder impingement (ICD-10 - M75.40) 03/13/2025 Iron deficiency anemia, unspecified (ICD-10 - D50.9) 03/13/2025 Essential (primary) hypertension (ICD-10 - I10) 03/13/2025 Other hyperlipidemia (ICD-10 - E78.49) 12/26/2024 Hip pain, acute (ICD-10 - M25.559) 12/26/2024 Lumbar radiculopathy (ICD-10 - M54.16) 03/13/2025 Other hypoglycemia (ICD-10 - E16.1) 03/13/2025 Family history of cancer (ICD-10 - Z80.9) 12/26/2024 H/O fall (ICD-10 - Z91.81) Plan Of Treatment Pending Test Test Name Order Date CMP (COMPLETE METABOLIC PANEL) 3 PSA, PROSTATE-SPECIFIC ANTIGEN 3 T3 FREE, T4 FREE and TSH 10/11/2023 FECAL OCCULT BLOOD 10/11/2023 FECAL OCCULT BLOOD 03/13/2025 CMP - Comprehensive Metabolic Panel 02/14 US Pancreas 10/11/2023 CBC W/AUTO DIFF 03/13/2025 AMYLASE 03/13/2025 CA 19-9 10/11/2023 CA 19-9 03/13/2025 GLYCOHEMOGLOBIN A1C 03/13/2025 LIPASE 03/13/2025 LIPID PROFILE 03/13/2025 CT SHOULDER LT WO CON 01/07/2025 XR HIP LT 2 3V W PELVIS 12/26/2024 XR LSPINE MIN 4 VIEWS 12/26/2024 XR SHOULDER LT 2V or > 12/26/2024 THYROID PANEL (T4/TSH/FREE T3) 5 XR HIP RT 2 3V W PELVIS 12/26/2024 XR cervical spine 2-3V 12/26/2024 PSA, SCREENING 03/13/2025 Insurance Providers Payer Name Payer Address Payer Phone Subscriber Number Group Number Insured Name Patient Relationship to Insured Coverage Start Date Coverage End Date [employer] [address] [address] [place] [phone] [id number] Nick Scott Self - patient is the insured Medical (General) History Surgical History Surgery Date(Month/Year) Cardiac Ablation Cardioversion Back Surgery Neck Surgery Hernia Repair Rotator Cuff Surgery- Bilateral Knee Surgery- Left
--- OUTSIDE RECORDS SUMMARY | 2025-03-16 11:49 | XMS_ITS | Encounter Summary ---
Author Organization [facility] Address [address] [place], [place] [id number] Care Team Providers Care Construction Millwright Name Role Phone Lauro Munoz MD Primary Care Provider [phone] Source Comments In the event this information is protected by the Federal Confidentiality of Alcohol and Drug AbusePatient Records regulations: The Federal rules restrict any use of the information to criminally investigate or prosecute any alcohol or drug abuse patient.[facility] Encounter Details Date Type Department Care [...] on filedocumented in this encounter Care Teams Construction Millwright Relationship Specialty Start Date End Date Lauro Munoz MD PCP - General Family Medicine 04/30/19 documented as of this encounter
--- OUTSIDE RECORDS SUMMARY | 2025-03-16 11:49 | XMS_ITS | Encounter Summary ---
Author Organization [facility] Address [address] [place] [address] Care Team Providers Care Healthcare Liaison Name Role Phone Lauro Munoz MD Primary Care Provider [phone] Jovanny Arnold MD Unavailable [phone] Jovanny Arnold MD Unavailable [phone] Venkatesh Neves MD Unavailable [phone] Encounter Details Date Type Department Care Team (Late st Contact Info) Description 09/18/2018 Orders Only Cardiovascular Imaging Lab [facility] [address] [place] [id number] Angelika Win RN PAF (paroxysmal atrial fibrillation) (Primary Dx); Obesity: body mass index of 30.0-34.9 Social History Tobacco Use Types Packs/Day Years Used Date Smoking Tobacco: Every Day Cigars Alcohol Use Standard Drinks/Week Comments Yes 0 (1 standard drink = 0.6 oz pur e alcohol) 6-8 drinks/day Sex and Gender Information Value Date Recorded Sex Assigned at Not on file Legal Sex Male 7:13 AM EDT Gender Identity Male 07/17/2018 9:13 AM EDT Sexual Orientation Not on file documented as of this encounter Functional Status * Are you deaf or do you have serious difficulty hearing? Answer Date of Assessment Author No 08/02/2018 4:00 PM EDT Hilario Ashley, LINE PATROLLER-FILM MASKER * Are you blind or do you have serious difficulty seeing, even when wearing glasses? Answer Date of Assessment Author No 08/02/2018 4:00 PM EDT Hilario Ashley, LINE PATROLLER-FILM MASKER * Do you have serious difficulty walking or climbing stairs (5 years or older)? Answer Date of Assessment Author No 08/02/2018 4:00 PM EDT Hilario Ashley, LINE PATROLLER-FILM MASKER * Do you have difficulty dressing or bathing (5 yrs or older)? Answer Date of Assessment Author No 08/02/2018 4:33 PM EDT Hilario Ashley, LINE PATROLLER-FILM MASKER * Because of a physical, mental, or emotional condition, do you have difficulty doing errands alone such as visiting a doctor's office or shopping (5 yrs or older)? Answer Date of Assessment Author No 08/02/2018 4:33 PM EDT Hilario Ashley, LINE PATROLLER-FILM MASKER documented as of this encounter Mental Status * Because of a physical, mental, or emotional condition, do you have serious difficulty concentrating, remembering, or making decisions (5 yrs or older)? Answer Entry Date Author No 08/02/2018 4:33 PM EDT Hilario Ashley, LINE PATROLLER-FILM MASKER documented in this encounter Plan of Treatment Not on file documented as of this encounter Results * (ABNORMAL) CHEM 7 (LYTES,BUN,CREA,GLUC) (09/19/2018 8:45 AM EST) BUN 17 7 - 22 mg/dL [facility], [facility] SODIUM 141 133 - 143 mmol/L [facility] Potassium 4.8 3.5 - 5.0 mmol/L [facility] CHLORIDE 106 98 - 108 mmol/L [facility] CARBON DIOXIDE (CO2) 28 22 - 30 mmol/L [facility] Glucose 116(H) 70 - 99 mg/dL [facility] CREATININE SERUM 1.10 0.70 - 1.30 mg/dL [facility] ANION GAP 12 7 - 17 mmol/L [facility] BUN/CREA RATIO 15 [facility] OSMOLALITY (CALC) 299 278 - 305 mOsm/kg [facility] ESTIMATED GFR, NON AMER >60 >60 mL/min/1.7 3sqM [facility] ESTIMATED GFR, >60 >60 mL/min/1.7 3sqM [facility] 09/19/2018 8:45 AM EST 09/19/2018 9:50 AM EST us Venkatesh Neves MD CHEMISTRY ORDERABLES Final Resu lt Performing Organization Address [facility] de Phone Number LAB, [facility] [address] [place] [address] * (ABNORMAL) CBC,PLATELETS (09/19/2018 8:45 AM EST) WBC (WHITE BLOOD COUNT) 5.64 3.73 - 10.10 K/uL [facility] RBC 4.03(L) 4.38 - 5.83 M/uL [facility] HEMOGLOBIN (HGB) 10.5(L) 13.4 - 16.8 g/dL [facility] HEMATOCRIT (HCT) 34.2(L) 39.6 - 48.8 % [facility] Mean Cell Volume 84.9 79.0 - 94.5 fL [facility] Mean Cell HGB 26.1 26.1 - 33.3 pg [facility] Mean Cell HGB Concentration 30.7(LL) 31.9 - 36.5 g/dL [facility] RBC Distribution 16.0(H) 10.9 - 14.3 % [facility] PLATELET COUNT 171 146 - 337 K/uL [facility] Mean Platelet Volume 12.5(H) 8.7 - 12.3 fL [facility] RBC, NUCLEATED 0.0 0.0 - 0.2 /100 WBC [facility] 09/19/2018 8:45 AM EST 09/19/2018 9:50 AM EST us Venkatesh Neves MD HEMATOLOGY ORDERABLES Final Res ult Performing Organization Address City/[facility]/ZIP Co de Phone Number LAB, [facility] [address] [place] [address] documented in this encounter Visit Diagnoses Diagnosis PAF (paroxysmal atrial fibrillation)- Primary Atrial fibrillation Obesity: body mass index of 30.0-34.9 Obesity, unspecified documented in this encounter Care Teams Healthcare Liaison Relationship Specialty Start Date End Date Lauro Munoz MD PCP - General Family Medicine 07/25/18 Jovanny Arnold MD PCP - Referring 1 Cardiovascular Disease 08/02/18 Venkatesh Neves MD [address] [address] PCP - Referring 2 Clinical Cardiac Electrophysiology 08/02/18 Jovanny Arnold MD Cardiovascular Disease 07/25/18 documented as of this encounter
--- OUTSIDE RECORDS SUMMARY | 2025-03-16 11:49 | XMS_ITS | Clinical Summary ---
Author Organization [facility] Address [address] [place] [address] Care Team Providers Care Sheep Clipper Name Role Phone Unavailable Primary Care Provider Unavailabl e Social History Tobacco Use Types Packs/Day Years Used Date Smoking Tobacco: Never Assessed Sex and Gender Information Value Date Recorded Sex Assigned at Not on file Legal Sex Male 3:45 PM EDT Gender Identity Not on file Sexual Orientation Not on file Plan of Treatment Not on file
[2025-03-16 12:09] LABS: Basophils Percent Auto 0.5 % (0.2-2.0); Eosinophils Absolute Auto 0.2 10^3/uL (0.0-0.7); Eosinophils Percent Auto 2.6 % (0.9-7.0); Hematocrit 38.1 % (42.0-54.0); Hemoglobin 13.8 g/dL (14.0-18.0); Immature Granulocytes Abs Auto 0.03 10^3/uL (0.00-0.03); Immature Granulocytes Pct Auto 0.5 % (0.0-0.5); Lymphocytes Percent Auto 16.9 % (20.5-60.0); Mean Corpuscular HGB Conc 36.2 g/dL (29.9-35.2); Mean Corpuscular Hemoglobin 36.3 pg (25.9-34.0); Mean Corpuscular Volume 100.3 fL (80.0-94.0); Mean Platelet Volume 10.5 fL (9.5-13.5); Monocytes Absolute Auto 0.6 10^3/uL (0.3-0.8); Monocytes Percent Auto 10.6 % (1.7-12.0); Neutrophils Percent Auto 68.9 % (43.0-75.0); Platelet Count 151 10^3/uL (150-450); White Blood Count 5.7 10^3/uL (4.0-11.0)
[2025-03-16 12:36] LABS: Estimated Average Glucose 94 mg/dL; Glycohemoglobin A1C 4.9 % (4.5-6.2)
[2025-03-16 12:52] LABS: Alanine Aminotransferase 35 U/L (16-63); Albumin Globulin Ratio 1.1; Albumin Level 3.7 g/dL (3.4-5.0); Alkaline Phosphatase 93 U/L (46-116); Amylase 39 U/L (25-115); Anion Gap 15.1; Aspartate Amino Transferase 28 U/L (15-37); BUN Creatinine Ratio 12.5; Bilirubin Total 0.7 mg/dL (0.2-1.0); Carbon Dioxide 27.3 mmol/L (21.0-32.0); Chloride 98 mmol/L (98-107); Chol HDL Ratio 1.6; Cholesterol 186 mg/dL (<=200); Estimated GFR (African America >60 (>=60 mL/min/1.73m^2); Estimated GFR (Non-African Ame >60 (>=60 mL/min/1.73m^2); Free T3 2.44 pg/mL (2.18-3.98); Globulin 3.3 g/dL; Glucose 100 mg/dL (74-106); HDL Cholesterol 116 mg/dL (40-60); Potassium 4.4 mmol/L (3.5-5.1); Sodium 136 mmol/L (136-145); Thyroid Stimulating Hormone 1.593 uIU/mL (0.358-3.740); Triglycerides 20 mg/dL (<=150)
[2025-03-16 12:59] LABS: Calcium 9.4 mg/dL (8.5-10.1)
[2025-03-16 13:37] LABS: Prostate Specific Antigen Scrn 0.74 ng/mL (<=4.00)
[2025-03-17 05:09] LABS: CA 19-9 4 U/mL (0-35)
== END 2025-03-16 11:37 | disposition home or self-care (01) ==
LOC: LAB 11:46
PROVIDERS: PCP Family Medicine; Visit Provider Family Medicine
DX: E78.49 Other hyperlipidemia (principal); I10 Essential (primary) hypertension; Z12.5 Encounter for screening for malignant neoplasm of prostate; Z12.11 Encounter for screening for malignant neoplasm of colon; D50.9 Iron deficiency anemia, unspecified; E07.9 Disorder of thyroid, unspecified; E16.1 Other hypoglycemia; Z80.9 Family history of malignant neoplasm, unspecified
CPT/HCPCS: 36415; 80053; 80061; 82150; 83036; 83690; 84436; 84443; 84481; 85025; 86301; G0103

== ENCOUNTER 2025-03-18 12:36 | Outpatient (OUT) | payer MEDICARE, SELFPAY ==
--- OUTSIDE RECORDS SUMMARY | 2025-03-13 09:18 | XMS_ITS ---
Author Organization The [facility] in [place] Address [address] [place] [address] Care Team Providers Care Medical Representative Name Role Phone Gucci Munoz Primary Care Provider [phone] Results Component Value Reference Range Notes AMYLASE Reviewed date:03/16/2025 08:54:23 PM Interpretation: Performing Lab: Notes/Report: [facility] , Amylase 39 25-115 U/L Performing Lab: see note ML - [facility] LB GLYCOHEMOGLOBIN A1C Reviewed date:03/16/2025 08:54:23 PM Interpretation: Performing Lab: Notes/Report: [facility] , Glycohemoglobin A1C 4.9 4.5-6.2 % ADA RECOMMENDED LIMIT 4.0 - 6.0 ADA THERAPEUTIC TARGET < 7.0 ACTION SUGGESTED > 7.0 Estimated Average Glucose 94 Performing Lab: see note ML - [facility] LB LIPASE Reviewed date:03/16/2025 08:54:23 PM Interpretation: Performing Lab: Notes/Report: [facility] , Lipase 33.0 16.0-77.0 U/L Performing Lab: see note ML - [facility] LB LIPID PROFILE Reviewed date:03/16/2025 08:54:23 PM Interpretation: Performing Lab: Notes/Report: [facility] , Triglycerides 20 <=150 mg/dL Cholesterol 186 <=200 mg/dL HDL Cholesterol 116 40-60 mg/dL > or =60 mg/dl - LOW CARDIOVASCULAR RISK <40 mg/dl - HIGH CARDIOVASCULAR RISK LDL Cholesterol Calculated 66.0 <100 mg/dl OPTIMAL 100-129 mg/dl NEAR OR ABOVE OPTIMAL 130-159 mg/dl BORDERLINE HIGH 160-189 mg/dl HIGH >190 mg/dl VERY HIGH VLDL CHOLESTEROL 4.0 Chol HDL Ratio 1.6 3.3 - 4.4 LOW RISK 4.4 - 7.1 AVERAGE RISK 7.1 - 11.0 MODERATE RISK >11.0 HIGH RISK Performing Lab: see note ML - [facility] LB REASON FOR VISIT lab orders- LMB Encounters Encounter Location Date Provider Diagnosis [facility] [address] [place] [address] 03/13/2025 Gucci Munoz Iron deficiency anem ia, [...] Metabolic Panel 02/14 CBC W/AUTO DIFF 03/13/2025 CA 19-9 03/13/2025 THYROID PANEL (T4/TSH/FREE T3) PSA, SCREENING 03/13/2025 Progress Notes * Nick BUITRAGODOB: (74 yo M)Acc No.[id number]:03/13/2025 Patient: Red Nick CHURCH :1950 A ge:74 Y S ex:Male Address:[address] [place] [phone] Subjective: * Chief Complaints: * [facility] * Medical History: * Surgical History: * [...] Codes: * true * Date: Generated for Gaviota walker/Darcy/eTransmitting on: 0 03/18/2025 12:39 PM EDT
--- OUTSIDE RECORDS SUMMARY | 2025-03-16 16:53 | XMS_ITS ---
Author Organization [facility] [place] Address [address] [place] [address] Care Team Providers Care Chairperson Anesthesiology Name Role Phone Gucci Munoz Primary Care Provider REASON FOR VISIT review labs Encounters Encounter Location Date Provider Diagnosis [facility] [address] [place] [address] 03/16/2025 Gucci Munoz Abnormal red blood cells R71.8 and Iron deficiency anemia, unspecified D50.9 Assessments Encounter Date Diagnosis (ICD Code) Assessment Notes Treatment Notes Treatment Clinical Notes Section Notes 03/16/2025 Abnormal red blood cells (ICD-10 - R71.8) 03/16/2025 Iron deficiency anemia, unspecified (ICD-10 - D50.9) Plan Of Treatment Pending Test Test Name Order Date FERRITIN 03/16/2025 VITAMIN B12 03/16/2025 Progress Notes * Nick BUITRAGODOB: (74 yo M)Acc No.[id number]:03/16/2025 Patient: Red Nick CHURCH :1950 A ge:74 Y S ex:Male Address:[address] [place] [id number] Subjective: * Chief Complaints: * R eview labs * Medical History: * Surgical History: * Hospitalization/Major Diagno stic Procedure: * Medications: Objective: * Vitals: * Physical Examination: Assessment: * Assessment: 1. A bnormal red blood cells - R71.8 (Primary) 2 . I dom[place] deficiency anemia, unspecified - D50.9 Plan: * Treatment: 2. I domingo deficiency anemia, unspecified L AB: FERRITIN L AB: VITAMIN B12 * Procedure Codes: * true * Date: Generated for Gaviota walker/Darcy/Ramón on: 0 03/18/2025 12:39 PM EDT
--- OUTSIDE RECORDS SUMMARY | 2025-03-17 12:09 | XMS_ITS ---
Author Organization [facility] [place] Address [address] [place] [address] Care Team Providers Care Audit Mgr Name Role Phone Gucci Munoz Primary Care Provider [phone] REASON FOR VISIT review labs/pancreas Encounters Encounter Location Date Provider Diagnosis [facility] [address] [place] [address] 03/17/2025 Gucci Tammy Plan Of Treatment No Information Progress Notes * Nick BUITRAGODOB: (74 yo M)Acc No.[id number]:03/17/2025 Patient: Nick GOMEZ :1950 A ge:74 Y S ex:Male Address:[address] [place] [id number] * true * Date: Generated for Gaviota walker/Darcy/eTransmitting on: 0 03/18/2025 12:39 PM EDT
--- OUTSIDE RECORDS SUMMARY | 2025-03-18 12:39 | XMS_ITS | Encounter Summary ---
Author Organization [facility] Address [address] [place], [place] [address] Care Team Providers Care Publicity Consultant Name Role Phone Lauro Munoz MD Primary Care Provider [phone] Source Comments In the event this information is protected by the Federal Confidentiality of Alcohol and Drug AbusePatient Records regulations: The Federal rules restrict any use of the information to criminally investigate or prosecute any alcohol or drug abuse patient.[facility] Encounter Details Date Type Department Care [...] on filedocumented in this encounter Care Teams Publicity Consultant Relationship Specialty Start Date End Date Lauro Munoz MD PCP - General Family Medicine 04/30/19 documented as of this encounter
--- OUTSIDE RECORDS SUMMARY | 2025-03-18 12:40 | XMS_ITS | Encounter Summary ---
Author Organization [facility] Address [address] [place] [address] Care Team Providers Care Excavating Contractor Name Role Phone Lauro Munoz MD Primary Care Provider [phone] Jovanny Arnold MD Unavailable [phone] Jovanny Arnold MD Unavailable [phone] Venkatesh Neves MD Unavailable [phone] Encounter Details Date Type Department Care Team (Late st Contact Info) Description 09/18/2018 Orders Only Cardiovascular Imaging Lab [facility] [address] [place] [phone] Angelika Win RN PAF (paroxysmal atrial fibrillation) [...] No 08/02/2018 4:00 PM EDT Hilario Ashley, METEOROLOGY PROFESSOR-TAX INVESTIGATOR * Are you blind or do you have serious difficulty seeing, even when wearing glasses? Answer Date of Assessment Author No 08/02/2018 4:00 PM EDT Hilario Ashley, METEOROLOGY PROFESSOR-TAX INVESTIGATOR * Do you have serious difficulty walking or climbing stairs (5 years or older)? Answer Date of Assessment Author No 08/02/2018 4:00 PM EDT Hilario Ashley, METEOROLOGY PROFESSOR-TAX INVESTIGATOR * Do you have difficulty dressing or bathing (5 yrs or older)? Answer Date of Assessment Author No 08/02/2018 4:33 PM EDT Hilario Ashley, METEOROLOGY PROFESSOR-TAX INVESTIGATOR * Because of a physical, mental, or emotional condition, do you have difficulty doing errands alone such as visiting a doctor's office or shopping (5 yrs or older)? Answer Date of Assessment Author No 08/02/2018 4:33 PM EDT Hilario Ashley, METEOROLOGY PROFESSOR-TAX INVESTIGATOR documented as of this encounter Mental Status * Because of a physical, mental, or emotional condition, do you have serious difficulty concentrating, remembering, or making decisions (5 yrs or older)? Answer Entry Date Author No 08/02/2018 4:33 PM EDT Hilario Ashley, METEOROLOGY PROFESSOR-TAX INVESTIGATOR documented in this encounter Plan of Treatment [...] ORDERABLES Final Resu lt Performing Organization Address [facility] de Phone Number LAB, [facility] [address] [place] [address] * (ABNORMAL) CBC,PLATELETS (09/19/2018 8:45 AM EST) [...] ORDERABLES Final Res ult Performing Organization Address City/[facility]/ZIP Co de Phone Number LAB, [facility] [address] [place] [address] documented in this encounter Visit Diagnoses Diagnosis PAF (paroxysmal atrial fibrillation)- Primary Atrial fibrillation Obesity: body mass index of 30.0-34.9 Obesity, unspecified documented in this encounter Care Teams Excavating Contractor Relationship Specialty Start Date End Date Lauro Munoz MD PCP - General Family Medicine 07/25/18 Jovanny Arnold MD PCP - Referring 1 Cardiovascular Disease 08/02/18 Venkatesh Neves MD [address] [address] PCP - Referring 2 Clinical Cardiac Electrophysiology 08/02/18 Jovanny Arnold MD Cardiovascular Disease 07/25/18 documented as of this encounter
--- OUTSIDE RECORDS SUMMARY | 2025-03-18 12:40 | XMS_ITS | Clinical Summary ---
Author Organization [facility] Address [address] [place] [address] Care Team Providers Care Charter And Tour Bus Driver Name Role Phone Unavailable Primary Care Provider Unavailabl e Social History Tobacco Use Types Packs/Day Years Used Date Smoking Tobacco: Never Assessed Sex and Gender Information Value Date Recorded Sex Assigned at Not on file Legal Sex Male 7:13 PM EDT Gender Identity Not on file Sexual Orientation Not on file Plan of Treatment Not on file
--- OUTSIDE RECORDS SUMMARY | 2025-03-18 12:40 | XMS_ITS | Clinical Summary ---
Author Organization [facility] Address [address] [place], [place] [id number] Care Team Providers Care Assistant Women'S Rowing Coach Name Role Phone Lauro Munoz MD Primary Care Provider [phone] Allergies Active Allergy Reactions Criticality Noted Date [...] mg by mouth daily with breakfast. Active Luck-3 Fatty Acids (FISH OIL) 500 mg cap [...] N ot on file 09/21/2020 Data from: https://www.neighborhoodatlas.medicine.[facility]/. Last address used for calculation Not on [...] METABOLIC PANEL (05/07/2019 9:52 AM EDT) Pathologist [facility] Protein, Total 7.0 6.3 - 8.0 g/dL 05/07/2019 10:18 AM EDT [facility] Albumin 4.6 3.9 - 4.9 g/dL 05/07/2019 10:18 AM EDT [facility] Calcium 9.9 8.5 - 10.2 mg/dL 05/07/2019 10:18 AM EDT [facility] Bilirubin, Total 0.6 0.2 - 1.3 mg/dL 05/07/2019 10:18 AM EDT [facility] Alkaline Phosphatase 117(H) 38 - 113 U/L 05/07/2019 10:18 AM EDT [facility] AST 39 14 - 40 U/L 05/07/2019 10:18 AM EDT [facility] Glucose 127(H) 74 - 99 mg/dL 05/07/2019 10:18 AM EDT [facility] Comment: The [place] [employer] (ADA) provides guidance for cutoff [...] Standards of Medical Care in Diabetes 2016, [place] [employer]. Diabetes Care. 2016.39(Suppl 1). BUN 10 9 - 24 mg/dL 05/07/2019 10:18 AM EDT [facility] Creatinine 1.01 0.73 - 1.22 mg/dL 05/07/2019 10:18 AM EDT [facility] Sodium 137 136 - 144 mmol/L 05/07/2019 10:18 AM EDT [facility] Potassium 4.7 3.7 - 5.1 mmol/L 05/07/2019 10:18 AM EDT [facility] Chloride 101 97 - 105 mmol/L 05/07/2019 10:18 AM EDT [facility] CO2 27 22 - 30 mmol/L 05/07/2019 10:18 AM EDT [facility] Anion Gap 9 9 - 18 mmol/L 05/07/2019 10:18 AM EDT [facility] ALT 33 10 - 54 U/L 05/07/2019 10:18 AM EDT [facility] eGFR- >60 05/07/2019 10:18 AM EDT [facility] eGFR-All Other Races >60 . 05/07/2019 10:18 AM EDT [facility] Comment: eGFR (Estimated GFR) Units of measure: [...] AM EDT [facility] Final Result [address] [address] [facility] [address] [place], [place] from Last 3 Months or Most Recently Relevant to Health Maintenance Insurance [facility] MEDICARE RAILRO[employer] MEDICARE Care Teams Assistant Women'S Rowing Coach Relationship Specialty Start Date End Date Lauro Munoz MD PCP - General Family Medicine 04/30/19
--- OUTSIDE RECORDS SUMMARY | 2025-03-18 12:40 | XMS_ITS | Clinical Summary ---
Author Organization [facility] Address [address] [place] [address] Care Team Providers Care Continuous Wave Operator Name Role Phone Unavailable Primary Care Provider [...]
--- OUTSIDE RECORDS SUMMARY | 2025-03-18 12:40 | XMS_ITS | Patient Health Record ---
Author Organization [facility] in [place] Address [address] [place] [address] Care Team Providers Care Training And Development Manager Name Role Phone Gucci Napier Primary Care Provider Allergies Allergen (clinical drug ingredient) Drug/Non Drug Allergy documented on EMR Reaction Allergy Type Onset Date Status Vaccine product containing Influenza virus antigen (medicinal product) Influenza Vaccines hives Drug Allergy Ac tive Results Component Value Reference Range Notes AMYLASE Reviewed date:03/16/2025 08:54:23 PM Interpretation: Performing Lab: Notes/Report: [facility] , Amylase 39 25-115 U/L Performing Lab: see note ML - [facility] LB LIPASE Reviewed date:03/16/2025 08:54:23 PM Interpretation: Performing Lab: Notes/Report: [facility] , Lipase 33.0 16.0-77.0 U/L Performing Lab: see note ML - [facility] LB LIPID PROFILE Reviewed date:03/16/2025 08:54:23 PM Interpretation: Performing Lab: Notes/Report: [facility] , Triglycerides 20 <=150 mg/dL Cholesterol 186 <=200 mg/dL HDL Cholesterol 116 40-60 mg/dL > or =60 mg/dl - LOW CARDIOVASCULAR RISK <40 mg/dl - HIGH CARDIOVASCULAR RISK LDL Cholesterol Calculated 66.0 >190 mg/dl VERY HIGH 100-129 mg/dl NEAR OR ABOVE OPTIMAL 160-189 mg/dl HIGH <100 mg/dl OPTIMAL 130-159 mg/dl BORDERLINE HIGH VLDL CHOLESTEROL 4.0 Chol HDL Ratio 1.6 7.1 - 11.0 MODERATE RISK 4.4 - 7.1 AVERAGE RISK >11.0 HIGH RISK 3.3 - 4.4 LOW RISK Performing Lab: see note ML - [facility] LB CT shoulder LT wo con Reviewed date:01/11/2025 03:59:31 PM Interpretation: Performing Lab: Notes/Report: Source Facility: [place] [address] CT Scan Report Signed Patient: NICK BUITRAGO MR#: [id number] : 1950 Acct:[id number] Age/Sex: 74 / M ADM Date: 01/09/25 Loc: CT Attending Dr: Lauro Napier M.D. Ordering Physician: Lauro Napier M.D. Date of Service: 01/09/25 Procedure(s): CT shoulder LT wo con Accession Number(s): [id number] cc: Lauro Napier M.D. [place] [address] Patient Name: NICK BUITRAGO MRN: [id number] date: 1950 Sex: M Assigned Patient Location: CT Current Patient Location: CT Accession/Order Number: [id number] Exam Date: 01/09/2025 14:05 Report Date: 01/09/2025 [...] BONY PROCESS. Impression dictated by: Maninder Zendejas Jr. DAngieOAngie01/09/2025 2:07 PM Dictation Location: [employer] Electronically authenticated by: [id number] Y Date: 01/09/2025 14:07 Dictated By: Maninder Zendejas M.D. Signed By: 01/09/25 1410 DD/ 1407 TD/TT: Senior Developer: [place] [address] CT Scan Report Signed Patient: NICK BUITRAGO MR#: [id number] : 1950 Acct:[id number] Age/Sex: 74 / M ADM Date: 01/09/25 Loc: CT Attending Dr: Lauro Napier M.D. Ordering Physician: Lauro Napier M.D. Date of Service: 01/09/25 Procedure(s): CT shoulder LT wo con Accession Number(s): [id number] cc: Lauro Napier M.D. [place] [address] Patient Name: NICK BUITRAGO MRN: [id number] date: 1950 Sex: M Assigned Patient Location: CT Current Patient Location: CT Accession/Order Number: [id number] Exam Date: 01/09/2025 14:05 Report Date: 01/09/2025 [...] Zendejas Jr., D.O.01/09/2025 2:07 PM Dictation Location: [place] [address] Electronically authenticated by: [id number] Y Date: 01/09/2025 14:07 Dictated By: Maninder Zendejas M.D. Signed By: 01/09/25 1410 DD/ 1407 TD/TT: Senior Developer: CBC AUTO DIFF Reviewed date:03/16/2025 08:54:23 PM Interpretation: Performing Lab: Notes/Report: [facility] , White Blood Count 5.7 4.0-11.0 10 3/uL Red Blood Count 3.80 4.70-6.10 10 6/uL Hemoglobin 13.8 14.0-18.0 g/dL Hematocrit 38.1 42.0-54.0 % Mean Corpuscular Volume 100.3 80.0-94.0 fL Mean Corpuscular Hemoglobin 36.3 25.9-34.0 pg Mean Corpuscular HGB Conc 36.2 29.9-35.2 g/dL Red Cell Distribution Width 12.0 11.0-15.0 % Platelet Count 151 150-450 10 3/uL Mean Platelet Volume 10.5 9.5-13.5 fL Neutrophils Percent Auto 68.9 43.0-75.0 % Lymphocytes Percent Auto 16.9 20.5-60.0 % Monocytes Percent Auto 10.6 1.7-12.0 % Eosinophils Percent Auto 2.6 0.9-7.0 % Basophils Percent Auto 0.5 0.2-2.0 % Immature Granulocytes Pct Auto 0.5 0.0-0.5 % Neutrophils Absolute Auto 4.0 1.4-6.5 10 3/uL Lymphocytes Absolute Auto 1.0 1.2-3.8 10 3/uL Monocytes Absolute Auto 0.6 0.3-0.8 10 3/uL Eosinophils Absolute Auto 0.2 0.0-0.7 10 3/uL Basophils Absolute Auto 0.0 0.0-0.1 10 3/uL Immature Granulocytes Abs Auto 0.03 0.00-0.03 10 3/uL Performing Lab: see note ML - [facility] LB FREE T3 Reviewed date:03/16/2025 08:54:23 PM Interpretation: Performing Lab: Notes/Report: [facility] , Free T3 2.44 2.18-3.98 pg/mL Performing Lab: see note ML - [facility] LB PROF 14(COMP METB) Reviewed date:03/16/2025 08:54:23 PM Interpretation: Performing Lab: Notes/Report: [facility] , Sodium 136 136-145 mmol/L Potassium 4.4 3.5-5.1 mmol/L Chloride 98 98-107 mmol/L Carbon Dioxide 27.3 21.0-32.0 mmol/L Anion Gap 15.1 Glucose 100 74-106 mg/dL Blood Urea Nitrogen 10.0 7.0-18.0 mg/dL Creatinine 0.80 0.70-1.30 mg/dL Estimated GFR ( Krystle >60 >=60 mL/min/1.73m 2 Estimated GFR (Non- Belkis >60 >=60 mL/min/1.73m 2 BUN Creatinine Ratio 12.5 Calcium 9.4 8.5-10.1 mg/dL Bilirubin Total 0.7 0.2-1.0 mg/dL Aspartate Amino Transferase 28 15-37 U/L Alanine Aminotransferase 35 16-63 U/L Alkaline Phosphatase 93 46-116 U/L Total Protein 7.0 6.4-8.2 g/dL Albumin Level 3.7 3.4-5.0 g/dL Globulin 3.3 Albumin Globulin Ratio 1.1 Performing Lab: see note ML - [facility] LB PSA SCREENING Reviewed date:03/16/2025 08:54:23 PM Interpretation: Performing Lab: Notes/Report: [facility] , Prostate Specific Antigen Scrn 0.74 <=4.00 ng/mL Performing Lab: see note ML - [facility] LB T4 Reviewed date:03/16/2025 08:54:23 PM Interpretation: Performing Lab: Notes/Report: [facility] , T4 Thyroxine 5.20 4.50-12.10 ug/dL Performing Lab: see note ML - [facility] LB TSH Reviewed date:03/16/2025 08:54:23 PM Interpretation: Performing Lab: Notes/Report: [facility] , Thyroid Stimulating Hormone 1.593 0.358-3.740 uIU/mL Performing Lab: see note ML - [facility] LB CA 19-9 Reviewed date:03/17/2025 04:10:14 PM Interpretation: Performing Lab: Notes/Report: [facility] CA 19-9 4 0-35 U/mL Vacuum Drum Drier Operator: Chauncey Galeano PhD, Phone: [phone] absolute evidence of the presence or absence of malignant [address] [place], [place] [id number] (ECLIA) Performed at: [facility] be used interchangeably. Results cannot be interpreted as Values obtained with different assay methods or kits cannot disease. [employer] Electrochemiluminescence Immunoassay Performing Lab: see note [facility] LB GLYCOHEMOGLOBIN A1C Reviewed date:03/16/2025 08:54:23 PM Interpretation: Performing Lab: Notes/Report: [facility] , Glycohemoglobin A1C 4.9 4.5-6.2 % ADA RECOMMENDED LIMIT 4.0 - 6.0 ADA THERAPEUTIC TARGET < 7.0 ACTION SUGGESTED > 7.0 Estimated Average Glucose 94 Performing Lab: see note - [facility] CT cervical spine wo con Reviewed date:01/11/2025 03:59:31 PM Interpretation: Performing Lab: Notes/Report: Source Facility: [place] [address] CT Scan Report Signed Patient: NICK BUITRAGO MR#: [id number] : 1950 Acct:[id number] Age/Sex: 74 / M ADM Date: 01/09/25 Loc: CT Attending Dr: Lauro Napier M.D. Ordering Physician: Lauro Napier M.D. Date of Service: 01/09/25 Procedure(s): CT cervical spine wo con Accession Number(s): [id number] cc: Lauro Napier M.D. [place] [address] Patient Name: NICK BUITRAGO MRN: [id number] date: 1950 Sex: M Assigned Patient Location: CT Current Patient Location: CT Accession/Order Number: [id number] Exam Date: 01/09/2025 13:59 Report Date: 01/09/2025 [...] Zendejas Jr., D.O.01/09/2025 2:02 PM Dictation Location: [place] [address] Electronically authenticated by: [id number] Y Date: 01/09/2025 14:02 Dictated By: Maninder Zendejas M.D. Signed By: 01/09/251404 DD/ 01 TD/TT: Senior Developer: [place] [address] CT Scan Report Signed Patient: NICK BUITRAGO MR#: [id number] : 1950 Acct:[id number] Age/Sex: 74 / M ADM Date: 01/09/25 Loc: CT Attending Dr: Lauro Napier M.D. Ordering Physician: Lauro Napier M.D. Date of Service: 01/09/25 Procedure(s): CT cervical spine wo con Accession Number(s): [id number] cc: Lauro Napier M.D. [address] [address] Patient Name: NICK BUITRAGO MRN: [id number] date: 1950 Sex: M Assigned Patient Location: CT Current Patient Location: CT Accession/Order Number: [id number] Exam Date: 01/09/2025 13:59 Report Date: 01/09/2025 [...] Zendejas Jr., D.O.01/09/2025 2:02 PM Dictation Location: [place] [address] Electronically authenticated by: [id number] Y Date: 01/09/2025 14:02 Dictated By: Maninder Zendejas M.D. Signed By: 01/09/25 1405 DD/ 1402 TD/TT: Senior Developer: CT lumbar spine wo con Reviewed date:01/11/2025 03:59:31 PM Interpretation: Performing Lab: Notes/Report: Source Facility: [place] [address] [place] [address] CT Scan Report Signed Patient: NICK BUITRAGO MR#: [id number] : 1950 Acct:[id number] Age/Sex: 74 / M ADM Date: 01/09/25 Loc: CT Attending Dr: Lauro Napier M.D. Ordering Physician: Lauro Napier M.D. Date of Service: 01/09/25 Procedure(s): CT lumbar spine wo con Accession Number(s): [id number] cc: Lauro Napier M.D. [place] [address] Patient Name: NICK BUITRAGO MRN: [id number] date: 1950 Sex: M Assigned Patient Location: CT Current Patient Location: CT Accession/Order Number: [id number] Exam Date: 01/09/2025 14:02 Report Date: 01/09/2025 [...] hardware complication is seen. Impression dictated by: Kath Cruz Jr.OAngie01/09/2025 2:05 PM Dictation Location: [facility] Electronically authenticated by: [id number] Y Date: 01/09/2025 14:05 Dictated By: Maninder Zendejas M.D. Signed By: 01/09/25 1407 DD/ 04 TD/TT: Senior Developer: [place] [address] CT Scan Report Signed Patient: NICK BUITRAGO MR#: [id number] : 1950 Acct:[id number] Age/Sex: 74 / M ADM Date: 01/09/25 Loc: CT Attending Dr: Lauro Napier M.D. Ordering Physician: Lauro Napier M.D. Date of Service: 01/09/25 Procedure(s): CT lumbar spine wo con Accession Number(s): [id number] cc: Lauro Napier M.D. [place] [address] Patient Name: NICK BUITRAGO MRN: [id number] date: 1950 Sex: M Assigned Patient Location: CT Current Patient Location: CT Accession/Order Number: [id number] Exam Date: 01/09/2025 14:02 Report Date: 01/09/2025 [...] Zendejas Jr., D.O.01/09/2025 2:05 PM Dictation Location: [place] [address] Electronically authenticated by: [id number] Y Date: 01/09/2025 14:05 Dictated By: Maninder Zendejas M.D. 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) Active confirmed Problem Cervical radiculopathy (31509936) Cervical radiculopathy (M54.12) Active confirmed Problem Lumbar radiculopathy (544576436) Lumbar radiculopathy (M54.16) Active confirmed Problem Memory loss (14867247) Memory loss (R41.3) Active confirmed Problem Impingement syndrome of shoulder region (736201035) Shoulder impingement (M75.40) Active confirmed Problem Arthralgia of the pelvic region and thigh (386832700) Hip pain, acute (M25.559) Active confirmed Problem 17872583 Other hyperlipidemia (E78.49) Active confirmed Vital Signs Blood pressure diastolic 80 mm Hg 03/13/2025 Height 70 in 03/13/2025 Blood pressure systolic 154 mm Hg 03/13/2025 Weight 220.4 lbs 03/13/2025 BMI 31.62 kg/m2 03/13/2025 Encounters Encounter Location Date Provider Diagnosis [facility] [address] [place] [address] 01/07/2025 Gucci Hoy Shoulder impingement M75.[address] [address] 01/11/2025 Gucci Napier [address] [address] 02/13/2025 Gucci Chanely [address] [address] 03/13/2025 Gucci Napier Iron deficiency anem ia, unspecified D50.9 ; Essential (primary) hypertension I10 ; Other hyperlipidemia E78.49 ; Other hypoglycemia E16.1 and Family history of cancer Z80.[address] [address] 03/16/2025 Gucci Napier Abnormal red blood c ells R71.8 and Iron deficiency anemia, unspecified D50.[address] [address] 03/17/2025 Gucci Napier [address] [address] 12/30/2024 Gucci Hoy Lumbar radiculopathy M54.16 and Cervical radiculopathy M54.[address] [address] 12/26/2024 Gucci Chanely Shoulder impingement M75.40 ; Cervical radiculopathy M54.12 ; Hip pain, acute M25.559 ; Lumbar radiculopathy M54.16 and H/O fall Z91.[address] [address] 03/13/2025 Gucci Hoy Essential (primary) hypertension I10 [...] 03/13/2025 Essential (primary) hypertension (ICD-10 - I10) 03/16/2025 Abnormal red blood cells (ICD-10 - R71.8) 03/16/2025 Iron deficiency anemia, unspecified (ICD-10 - D50.9) 03/13/2025 Other hyperlipidemia (ICD-10 - E78.49) 12/26/2024 Hip pain, acute (ICD-10 - M25.559) 12/26/2024 Lumbar radiculopathy (ICD-10 - M54.16) 03/13/2025 Other hypoglycemia (ICD-10 - E16.1) 03/13/2025 Family history of cancer (ICD-10 - Z80.9) 12/26/2024 H/O fall (ICD-10 - Z91.81) Plan Of Treatment Pending Test Test Name Order Date CMP (COMPLETE METABOLIC PANEL) PSA, PROSTATE-SPECIFIC ANTIGEN T3 FREE, T4 FREE and TSH 10/11/2023 FECAL OCCULT BLOOD 10/11/2023 FECAL OCCULT BLOOD 03/13/2025 CMP - Comprehensive Metabolic Panel 02/14 US Pancreas 10/11/2023 CBC W/AUTO DIFF 03/13/2025 CA 19-9 03/13/2025 CA 19-9 10/11/2023 FERRITIN 03/16/2025 VITAMIN B12 03/16/2025 CT SHOULDER LT WO CON 01/07/2025 XR HIP LT 2 3V W PELVIS 12/26/2024 XR LSPINE MIN 4 VIEWS 12/26/2024 XR SHOULDER LT 2V or > 12/26/2024 THYROID PANEL (T4/TSH/FREE T3) XR HIP RT 2 3V W PELVIS 12/26/2024 XR cervical spine 2-3V 12/26/2024 PSA, SCREENING 03/13/2025 Insurance Providers Payer Name Payer Address Payer Phone Subscriber Number Group Number Insured Name Patient Relationship to Insured Coverage Start Date Coverage End Date [facility] MEDICARE SOL[employer]IONS [address] [address] [place] [address] [phone] [id number] Nick Scott Self - patient is the insured Medical (General) History Surgical History Surgery Date(Month/Year) Knee Surgery- Left Rotator Cuff Surgery- Bilateral Hernia Repair Neck Surgery Back Surgery Cardioversion Cardiac Ablation
--- OUTSIDE RECORDS SUMMARY | 2025-03-18 12:40 | XMS_ITS | Clinical Summary ---
Author Organization [facility] Address [address] [place] [address] Care Team Providers Care Chorus Master Name Role Phone Lauro Munoz MD Primary Care Provider [phone] Jovanny Arnold MD Unavailable Jovanny Arnold MD Unavailable [phone] Venkatesh Neves MD Unavailable [phone] Allergies Active Allergy Reactions Criticality Noted [...] (07/29/2018): Added automatically from request for surgery [id number] Paroxysmal atrial fibrillation 07/29/2018 Overview (08/02/2018): Added automatically from request for surgery [id number] A-fib Family History Medical History Relation Name [...] this topic Medical Devices Implanted Type Area Roll On Worker Device Identifier Shelf Expiration Date Model / Serial / Lot Icm Reveal Linq - [id number] Implanted:Qty : 1 on 08/02/2018 by Meeta Cornejo MD at [facility] Loop Recorder Left: Chest [employer] [id number] 02/09/2019 [id number] / [id number] / Insurance MEDICARE RAILROAD MEDICARE SUPPLEMENT on file Care Teams Chorus Master Relationship Specialty Start Date End Date Lauro Munoz MD PCP - General Family Medicine 07/25/18 Jovanny Arnold MD PCP - Referring 1 Cardiovascular Disease 08/02/18 Venkatesh Neves MD [address] [place] [address] PCP - Referring 2 Clinical Cardiac Electrophysiology 08/02/18 Jovanny Arnold MD Cardiovascular Disease 07/25/18
--- OUTSIDE RECORDS SUMMARY | 2025-03-18 12:51 | XMS_ITS | CCD ---
Author Organization [facility] Care Team Providers Care Plant Pathologist Name Role Phone PHYSICIAN, DEFAULT Unavailable Unavailable PHYSICIAN, DEFAULT Unavailable Unavailable BRENT CONDON Unavailable Unavailable BRENT CONDON Unavailable Unavailable LORRIE MUNOZ Unavailable Unavailable LORRIE MUNOZ Unavailable Unavailable PHYSICIAN, DEFAULT Unavailable Unavailable PHYSICIAN, DEFAULT Unavailable Unavailable LORRIE MUNOZ Unavailable Unavailable BALA SHEA Attending Unavailable LORRIE MUNOZ Primary Care Unavailable LORRIE MUNOZ Referring Unavailable Lorrie Munoz Primary Care Physician [phone] [address] ., DR ANDREW Admitting Unavailable HOY [...] [facility]arix Drug allergy (disorder) 8 AOF [facility] Repository (1 source) No Known Allergies; Translations: [No Known Allergies] Propensity to adverse reactions (disorder) [facility] (3 sources) influenza A virus A/[place]/GP19 05/2015 (H1N1) antigen / influenza A virus A/[place]/GP20 (H3N2) antigen / influenza B virus B/[place] antigen / influenza B virus B/ antigen; Translations: [influenza virus vaccine] Drug Allergy unknown [facility] (1 source) Flu Vaccine (18 yr +) Drug allergy (disorder) [facility] Repository Medications Current Medications Medication Drug [...] tab(s), Oral, Daily, 30 tab(s), Refill(s) 3, [facility]/pharmacy #[id number] Start Date: 09/24/23 Status: Ordered Start: 09-21-2022 Lialda 1.2 g o ral enteric coated tablet 4.8 gm, 4 tab(s), Oral, Daily, 30 tab(s), Refill(s) 11, [facility]/pharmacy #[id number] Start Date: 09/21/22 Status: Ordered 24 [...] Onset: 11-29-2022 Chronic Other aftercare (1 source) intermission coordinator (current) use of anticoagulants; 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 Joanne Martinez CBC AUTO DIFFon 07-27-2022 BASO # 0.0 103/ul Normal 0.0-0.1 [facility] Comment on above: Performed By: #### T 7, URIC, CMP, TSH, LIPID #### [facility] [address] [address] [address] Joanne Martinez Basophils/100 WBC (Bld) 0.6 % Normal 0.2-2.0 [facility] Comment on above: Performed By: #### T 7, URIC, CMP, TSH, LIPID #### [facility] [address] [place] [address] Dr. Joanne Martinez EO # 0.1 103/ul Normal 0.0-0.7 [facility] Comment on above: Performed By: #### T 7, URIC, CMP, TSH, LIPID #### [facility] [address] [place] [address] Dr. Joanne Martinez Eosinophils/100 WBC (Bld) 1.2 % Normal 0.9-7.0 [facility] Comment on above: Performed By: #### T 7, URIC, CMP, TSH, LIPID #### [facility] [address] [place] [address] Dr. Joanne Martinez Erythrocyte distribution width (RBC) [Ratio] 11.5 % Normal 11.0-15.0 [facility] Comment on above: Performed By: #### T 7, URIC, CMP, TSH, LIPID #### [facility] [address] [place] [address] Dr. Joanne Martinez Hematocrit (Bld) [Volume fraction] 39.2 % Critically low 42.0-54.0 [facility] Comment on above: Performed By: #### T 7, URIC, CMP, TSH, LIPID #### [facility] [address] [place] [address] Dr. Joanne Martinez Hemoglobin (Bld) [Mass/Vol] 14.0 g/dL Normal 14.0-18.0 [facility] Comment on above: Performed By: #### T 7, URIC, CMP, TSH, LIPID #### [facility] [address] [place] [address] Dr. Joanne Martinez IG # 0.03 10e3/ul Normal 0.00-0.03 [facility] Comment on above: Performed By: #### T 7, URIC, CMP, TSH, LIPID #### [facility] [address] [place] [address] Dr. Joanne Martinez IG % 0.5 % Normal 0.0-0.5 [facility] Comment on above: Performed By: #### T 7, URIC, CMP, TSH, LIPID #### [facility] [address] [place] [address] Dr. Joanne Martinez LYMPH # 1.1 103/ul Critically low 1.2-3.8 [facility] Comment on above: Performed By: #### T 7, URIC, CMP, TSH, LIPID #### [facility] [address] [address] [address] Joanen Martinez Lymphocytes/100 WBC (Bld) 16.3 % Critically low 20.5-60.0 [facility] Comment on above: Performed By: #### T 7, URIC, CMP, TSH, LIPID #### [facility] [address] [place] [address] Dr. Joanne Martinez MANUAL DIFF REQ NO Normal [facility] Comment on above: Performed By: #### T 7, URIC, CMP, TSH, LIPID #### [facility] [address] [place] [address] Dr. Joanne Martinez MCH (RBC) [Entitic mass] 36.9 pg Critically high 25.9-34.0 [facility] Comment on above: Performed By: #### T 7, URIC, CMP, TSH, LIPID #### [facility] [address] [place] [address] Dr. Joanne Martinez MCHC (RBC) [Mass/Vol] 35.7 g/dL Critically high 29.9-35.2 [facility] Comment on above: Performed By: #### T 7, URIC, CMP, TSH, LIPID #### [facility] [address] [place] [address] Dr. Joanne Martinez MCV (RBC) [Entitic vol] 103.4 fL Critically high 80.0-94.0 [facility] Comment on above: Performed By: #### T 7, URIC, CMP, TSH, LIPID #### [facility] [address] [place] [address] Dr. Joanne Martinez MONO # 0.7 103/ul Normal 0.3-0.8 [facility] Comment on above: Performed By: #### T 7, URIC, CMP, TSH, LIPID #### [facility] [address] [address] [address] Joanne Martinez Monocytes/100 WBC (Bld) 9.8 % Normal 1.7-12.0 [facility] Comment on above: Performed By: #### T 7, URIC, CMP, TSH, LIPID #### [facility] [address] [place] [address] Dr. Joanne Martinez NEUT # 4.8 103/ul Normal 1.4-6.5 [facility] Comment on above: Performed By: #### T 7, URIC, CMP, TSH, LIPID #### [facility] [address] [place] [address] Dr. Joanne Martinez Neutrophils/100 WBC (Bld) 71.6 % Normal 43.0-75.0 [facility] Comment on above: Performed By: #### T 7, URIC, CMP, TSH, LIPID #### [facility] [address] [place] [address] Dr. Joanne Martinez Platelet mean volume (Bld) [Entitic vol] 10.9 fL Normal 9.5-13.5 [facility] Comment on above: Performed By: #### T 7, URIC, CMP, TSH, LIPID #### [facility] [address] [place] [address] Dr. Joanne Martinez PLT 168 103/ul Normal 150-450 [facility] Comment on above: Performed By: #### T 7, URIC, CMP, TSH, LIPID #### [facility] [address] [place] [address] Dr. Joanne Martinez RBC 3.79 106/ul Critically low 4.70-6.10 [facility] Comment on above: Performed By: #### T 7, URIC, CMP, TSH, LIPID #### [facility] [address] [place] [address] Dr. Joanne Martinez WBC 6.6 103/ul Normal 4.0-11.0 [facility] Comment on above: Performed By: #### T 7, URIC, CMP, TSH, LIPID #### [facility] [address] [address] [address] Joanne Martinez FREE THYROXINE INDEX T7on FTI 2.14 Normal 1.30-4.50 [facility] Comment on above: Performed By: #### T 7, URIC, CMP, TSH, LIPID #### [facility] [address] [place] [address] Dr. Joanne Martinez T3U 34.0 % Normal 33.0-40.0 [facility] Comment on above: Performed By: #### T 7, URIC, CMP, TSH, LIPID #### [facility] [address] [address] [address] Joanne Martinez T4 [Mass/Vol] 6.30 ug/dL Normal 4.50-12.10 [facility] Comment on above: Performed By: #### T 7, URIC, CMP, TSH, LIPID #### [facility] [address] [place] [address] Dr. Joanne Martinez GLYCOHEMOGLOBIN A1Con 2021 ADA RECOMMENDATION SEE BELOW Normal [facility] Comment on above: Result Comment: ADA RECOMMENDED LIMIT 4.0 - 6.0 ADA THERAPEUTIC TARGET < 7.0 ACTION SUGGESTED > 7.0 Performed By: #### A 1C #### [facility] [address] [place] [address] Dr. Joanne Martinez Glucose [Mass/Vol] 74 mg/dL Normal [facility] Comment on above: Performed By: #### A 1C #### [facility] [address] [place] [address] Dr. Joanne Martinez HbA1c (Bld) [Mass fraction] 4.2 % Critically low 4.5-6.2 [facility] Comment on above: Performed By: #### A 1C #### [facility] [address] [place] [address] Dr. Joanne Martinez LIPID PROFILEon 07-27-2022 CHOL-HDL RATIO NORM SEE BELOW Normal [facility] Comment on above: Result Comment: 3.3 - 4.4 LOW RISK 4.4 - 7.1 AVERAGE RISK 7.1 - 11.0 MODERATE RISK >11.0 HIGH RISK Performed By: #### T 7, URIC, CMP, TSH, LIPID #### [facility] [address] [address] [address] Joanne Martinez Cholesterol [Mass/Vol] 211 mg/dL Critically high <=200 [facility] Comment on above: Performed By: #### T 7, URIC, CMP, TSH, LIPID #### [facility] [address] [address] [address] Joanne Martinez Cholesterol in HDL [Mass/Vol] 121 mg/dL Critically high 40-60 [facility] Comment on above: Performed By: #### T 7, URIC, CMP, TSH, LIPID #### [facility] [address] [place] [address] Dr. Joanne Martinez Cholesterol in LDL [Mass/Vol] 81.6 mg/dL Normal [facility] Comment on above: Performed By: #### T 7, URIC, CMP, TSH, LIPID #### [facility] [address] [place] [address] Dr. Joanne Martinez Cholesterol.total/Ch olesterol in HDL [Mass ratio] 1.7 {ratio} Normal [facility] Comment on above: Performed By: #### T 7, URIC, CMP, TSH, LIPID #### [facility] [address] [place] [address] Dr. Joanne Martinez HDL NORMAL > or = 60 mg/dl - LO W CARDIOVASCULAR RISK <40 mg/dl - HIGH CARDIOVASCULAR RISK Normal [facility] Comment on above: Performed By: #### T 7, URIC, CMP, TSH, LIPID #### [facility] [address] [place] [address] Dr. Joanne Martinez LDL CALC NORMAL SEE BELOW Normal [facility] Comment on above: Result Comment: <100 mg/dl OPTIMAL 100 - 129 mg/dl NEAR OR ABOVE OPTIMAL 130 - 159 mg/dl BORDERLINE HIGH 160 - 189 mg/dl HIGH >190 mg/dl VERY HIGH Performed By: #### T 7, URIC, CMP, TSH, LIPID #### [facility] [address] [place] [address] Dr. Joanne Martinez Triglyceride [Mass/Vol] 42 mg/dL Normal <=150 [facility] Comment on above: Performed By: #### T 7, URIC, CMP, TSH, LIPID #### [facility] [address] [address] [address] Joanne Martinez VLDL CALC 8.4 mg/dL Normal [facility] Comment on above: Performed By: #### T 7, URIC, CMP, TSH, LIPID #### [facility] [address] [address] [address] Joanne Martinez PROF 14(COMP METB)on 022 Albumin [Mass/Vol] 4.1 g/dL Normal 3.4-5.0 [facility] Comment on above: Performed By: #### T 7, URIC, CMP, TSH, LIPID #### [facility] [address] [place] [address] Dr. Joanne Martinez Albumin/Globulin [Mass ratio] 1.2 {ratio} Normal [facility] Comment on above: Performed By: #### T 7, URIC, CMP, TSH, LIPID #### [facility] [address] [place] [address] Dr. Joanne Martinez ALP [Catalytic activity/Vol] 104 U/L Normal 46-116 [facility] Comment on above: Performed By: #### T 7, URIC, CMP, TSH, LIPID #### [facility] [address] [place] [address] Dr. Joanne Martinez ALT [Catalytic activity/Vol] 42 U/L Normal 16-63 [facility] Comment on above: Performed By: #### T 7, URIC, CMP, TSH, LIPID #### [facility] [address] [address] [address] Joanne Martinez Anion gap [Moles/Vol] 14.2 mmol/L Normal [facility] Comment on above: Performed By: #### T 7, URIC, CMP, TSH, LIPID #### [facility] [address] [address] [address] Joanne Martinez AST [Catalytic activity/Vol] 56 U/L Critically high 15-37 [facility] Comment on above: Performed By: #### T 7, URIC, CMP, TSH, LIPID #### [facility] [address] [place] [address] Dr. Joanne Martinez Bilirubin [Mass/Vol] 0.8 mg/dL Normal 0.2-1.0 [facility] Comment on above: Performed By: #### T 7, URIC, CMP, TSH, LIPID #### [facility] [address] [place] [address] Dr. Joanne Martinez Calcium [Mass/Vol] 9.6 mg/dL Normal 8.5-10.1 [facility] Comment on above: Performed By: #### T 7, URIC, CMP, TSH, LIPID #### [facility] [address] [place] [address] Dr. Joanne Martinez Chloride [Moles/Vol] 99 mmol/L Normal 98-107 [facility] Comment on above: Performed By: #### T 7, URIC, CMP, TSH, LIPID #### [facility] [address] [place] [address] Dr. Joanne Martinez CO2 [Moles/Vol] 25.9 mmol/L Normal 21.0-32.0 [facility] Comment on above: Performed By: #### T 7, URIC, CMP, TSH, LIPID #### [facility] [address] [place] [address] Dr. Joanne Martinez Creatinine [Mass/Vol] 0.88 mg/dL Normal 0.70-1.30 [facility] Comment on above: Performed By: #### T 7, URIC, CMP, TSH, LIPID #### [facility] [address] [place] [address] Dr. Joanne Martinez EGFR-AF GREENLANDIC >60 Normal >=60 [facility] Comment on above: Performed By: #### T 7, URIC, CMP, TSH, LIPID #### [facility] [address] [place] [address] Dr. Joanne Martinez EGFR-NON AF GREENLANDIC >60 Normal >=60 [facility] Comment on above: Performed By: #### T 7, URIC, CMP, TSH, LIPID #### [facility] [address] [address] [address] Joanne Martinez Globulin (S) [Mass/Vol] 3.5 g/dL Normal [facility] Comment on above: Performed By: #### T 7, URIC, CMP, TSH, LIPID #### [facility] [address] [place] [address] Dr. Joanne Martinez Glucose [Mass/Vol] 99 mg/dL Normal 74-106 [facility] Comment on above: Performed By: #### T 7, URIC, CMP, TSH, LIPID #### [facility] [address] [place] [address] Dr. Joanne Martinez Potassium [Moles/Vol] 4.1 mmol/L Normal 3.5-5.1 [facility] Comment on above: Performed By: #### T 7, URIC, CMP, TSH, LIPID #### [facility] [address] [place] [address] Dr. Joanne Martinez Protein [Mass/Vol] 7.6 g/dL Normal 6.4-8.2 [facility] Comment on above: Performed By: #### T 7, URIC, CMP, TSH, LIPID #### [facility] [address] [place] [address] Dr. Joanne Martinez Sodium [Moles/Vol] 135 mmol/L Critically low 136-145 [facility] Comment on above: Performed By: #### T 7, URIC, CMP, TSH, LIPID #### [facility] [address] [place] [address] Dr. Joanne Martinez Urea nitrogen [Mass/Vol] 7.0 mg/dL Normal 7.0-18.0 [facility] Comment on above: Performed By: #### T 7, URIC, CMP, TSH, LIPID #### [facility] [address] [place] [address] Dr. Joanne Martinez Urea nitrogen/Creatinine [Mass ratio] 8.0 mg/mg Normal [facility] Comment on above: Performed By: #### T 7, URIC, CMP, TSH, LIPID #### [facility] [address] [place] [address] Dr. Joanne Martinez TSHon 07-27-2022 TSH 1.712 uIU/mL Normal 0.358-3.740 [facility] Comment on above: Performed By: #### T 7, URIC, CMP, TSH, LIPID #### [facility] [address] [address] [address] Joanne Martinez URIC ACID SERUMon 07-27-2022 Urate [Mass/Vol] 6.6 mg/dL Normal 3.5-7.2 [facility] Comment on above: Performed By: #### T 7, URIC, CMP, TSH, LIPID #### [facility] [address] [address] [address] Joanne Martinez VITAMIN D 25 OHon 07-27-2022 VIT D 25-OH 86.1 ng/mL Normal [facility] Comment on above: Performed By: #### V LIDIA, PSASC #### [facility] [address] [address] [address] Joanne Martinez VIT D RANGES SEE BELOW Normal [facility] Comment on above: Result Comment: <20 ng/mL Vit D deficient 20 - <30 ng/mL Vit D insufficient 30 - 100 ng/mL Vit D sufficient >100 ng/mL Potential Toxicity Performed By: #### V ITKAR, PSASC #### [facility] [address] [place] [address] Dr. Joanne YUENPon 05-29-2019 CNOVS Visit (SP) Office ([facility]) GARY BUITRAGO ([id number]) 1950 M Date Time Provider Department 05/29/19 [...] thrombocytopenia of unknown etiology. Current Outpatient Medications: Decker-3 Fatty Acids (FISH OIL) 500 mg cap [...] Ester Albrecht MD Referring Provider: ESTER ALBRECHT [[id number]] Allergies As of Date: 05/29/2019 Noted Allergy [...] (FOR REMOTE [facility] USE) [SQRAGCBC] Order #: [id number] FUTURE CBC + DIFF (FOR REMOTE [facility] USE) [SQRCBCDF] Order #: [id number] FUTURE Disposition: Return in about 4 months [...] by ESTER ALBRECHT MD on 05/29/19 [facility] PROGRESSon 05-29-2019 PROGRESS HNO ID: [id number] Author: Ester Albrecht Service: ? Author Type: [...] thrombocytopenia of unknown etiology. Current Outpatient Medications: Decker-3 Fatty Acids (FISH OIL) 500 mg cap [...] REMOTE [facility] USE) Ester Albrecht MD Normal [facility] Remote Abs Gran + CBC (for [facility] use only)on 05-29-2019 Absol Gran Count 3.92 k/uL Normal 1.45-7.50 [facility] Erythrocyte distribution width (RBC) [Ratio] 14.0 % Normal 11.5-15.0 [facility] Hematocrit (Bld) [Volume fraction] 44.0 % Normal 39.0-51.0 [facility] Hemoglobin (Bld) [Mass/Vol] 15.8 g/dL Normal 13.0-17.0 [facility] MCH (RBC) [Entitic mass] 34.6 pG High 26.0-34.0 [facility] MCHC (RBC) [Mass/Vol] 35.9 g/dL Normal 30.5-36.0 [facility] MCV (RBC) [Entitic vol] 96.5 fL Normal 80.0-100.0 [facility] Platelet mean volume (Bld) [Entitic vol] 11.2 fL Normal 9.0-12.7 [facility] Platelets (Bld) [#/Vol] 110 10*3/uL Low 150-400 [facility] RBC (Bld) [#/Vol] 4.56 10*6/uL Normal 4.20-6.00 [facility] WBC (Bld) [#/Vol] 5.89 10*3/uL Normal 3.70-11.00 [facility] CT-CT ABD/PELVIS W CON IMPOR Ton 05-23-2019 CT-CT ABD/PELVIS W CON IMPORT Images were obtained outside of [facility] [id number] Normal [facility] CNOVSPon 05-16-2019 CNOVSP Visit (SP) Office ([facility]) GARY BUITRAGO ([id number]) 1950 M Date Time Provider Department 05/16/19 [...] Unknown Reviewed by Star Villagomez M.D., PhD ([id number]) M-Protein Location Unknown N/A M-Protein Concentration Latest Ref Range: 0.00 gm/dL 0.00 MPA Result Latest Ref Range: No M protein is identified. No M protein is identified. Staff Review (MPA) Unknown Reviewed by Star Villagomez M.D., PhD ([id number]) [place] Free, Serum Latest Ref Range: 3.30 - [...] Ref Range: 1.00 - 4.00 k/uL 1.10 [place]% Latest Units: % 10.4 Abs [place] Latest Ref Range: 0.00 - 0.86 k/uL 0.85 [place]% Latest Units: % 0.7 Abs Eosin Latest Ref Range: 0.00 - 0.45 k/uL 0.06 Baso% Latest Units: % 0.5 Abs Baso Latest Ref Range: 0.00 - 0.10 k/uL 0.04 Staff Review, CBCDIF Unknown SEE COMMENT Pathologist for Staff Review Unknown The Staff Review ... Current Outpatient Medications: Decker-3 Fatty Acids (FISH OIL) 500 mg cap [...] Ester Albrecht MD Referring Provider: ESTER ALBRECHT [[id number]] Allergies As of Date: 05/16/2019 Noted Allergy [...] Order(s):HEP REMOTE PANEL BL [SQHREMOP] Order #: [id number] FUTURE CT ABD/PEL WO IVCON [[id number]] Order #: [id number] FUTURE Disposition: Return in about 2 weeks [...] CAPSULE Take 10 mg by mouth once rerol* MILK THISTLE 175 MG TABLET Take 175 mg by mouth three ti* SUCRALFATE 1 GRAM TABLET Take 1 g by mouth four times * APIXABAN 5 MG TABLET Take 5 mg by mouth twice errol* FERROUS SULFATE 325 MG (65 MG* Take 325 mg by mouth daily wi* Problem List As Of Date: 05/16/2019 (None) Encounter Status:Closed by ESTER ALBRECHT MD [facility]N Telephone (NCCAP) GARY BUITRAGO ([id number]) 1950 M Date Time Provider Department 05/16/19 ESTER ALBRECHT NCCTIMMY During your visit today, we recorded the following information about you: Sergio Lorenzo Patient Reference Investigator 05/16/2019 2:39 PM Signed Need a new order for CT abd/pel W/Ivcon and also an order for Creatine. Thank you Ester Albrecht MD 05/16/2019 3:13 PM Signed done Sergio Lorenzo Patient Reference Investigator 05/16/2019 3:19 PM Signed Can you just [...] location [R19.00] Order(s):CREATININE BLD [SQCRET] Order #: [id number] FUTURE CT ABD/PEL W IVCON [[id number]] Order #: [id number] FUTURE [] iv contrast (will be provided [...] contrast guidelines Encounter Status:Closed by SURESH PATIENT HUMAN FACTORS ADVISOR LEAD, SERGIO on 02/04/20 [facility] PROGRESSon 05-16-2019 PROGRESS HNO ID: [id number] Author: Ester Albrecht Service: ? Author Type: [...] Unknown Reviewed by Star Villagomez M.D., PhD ([id number]) M-Protein Location Unknown N/A M-Protein Concentration Latest Ref Range: 0.00 gm/dL 0.00 MPA Result Latest Ref Range: No M protein is identified. No M protein is identified. Staff Review (MPA) Unknown Reviewed by Star Villagomez M.D., PhD ([id number]) [place] Free, Serum Latest Ref Range: 3.30 - [...] Ref Range: 1.00 - 4.00 k/uL 1.10 [place]% Latest Units: % 10.4 Abs [place] Latest Ref Range: 0.00 - 0.86 k/uL 0.85 [place]% Latest Units: % 0.7 Abs [place] Latest Ref Range: 0.00 - 0.45 k/uL 0.06 Baso% Latest Units: % 0.5 Abs Baso Latest Ref Range: 0.00 - 0.10 k/uL 0.04 Staff Review, CBCDIF Unknown SEE COMMENT Pathologist for Staff Review Unknown The Staff Review ... Current Outpatient Medications: Decker-3 Fatty Acids (FISH OIL) 500 mg cap [...] ABD/PEL WO IVCON Ester Albrecht MD Normal [facility] Ferritinon 05-14-2019 Ferritin [Mass/Vol] 106.0 ng/mL Normal 30.3-565.7 [facility] Comment on above: Performed By: #### T CISCO VELAZQUEZ, IFESC, SEPG #### [facility] [address] [place], [place] [address] Folate, Serumon 05-14-2019 Folate [Mass/Vol] ng/mL Normal >4.7 [facility] Comment on above: Result Comment: A re sult of > 20 ng/mL is not necessarily indicative of a pathologic or treatable condition: it reflects a limitation of the test methodology. Assay reference range: 4.8 to 24.2 ng/mL. Suitable for detection of folate deficiency. Reference: Folate III (Folate III) [package insert V 2.0 Cymro]. [facility], [place], [place]: August 2015. Performed By: #### T MARCUS, CISCO, IFESC, SEPG #### [facility] [address] [place], [place] [address] Iron and TIBCon 05-14-2019 Iron [Mass/Vol] 109 ug/dL Normal 41-186 [facility] Comment on above: Performed By: #### T MARCUS, CISCO, IFESC, SEPG #### [place] [address] [place] [address] TIBC 348 ug/dL Normal 232-386 [facility] Comment on above: Performed By: #### T CISCO VELAZQUEZ, CASEY, SEPG #### [facility] [address] [place] [address] Transferrin Saturatn 31 % Normal 15-57 [facility] Comment on above: Performed By: #### T CISCO VELAZQUEZ, CASEY, SEPG #### [place] [address] [place] [address] Methylmalonic Acidon 019 Methylmalonic Acid 314 nmol/L Normal 79-376 [facility] Comment on above: Result Comment: This test was developed and its performance characteristics determined by [facility]'s [facility] [place] ( [facility]). It has not been cleared or approved by the FDA. [facility] is regulated under CLIA as qualified to perform high complexity testing. This test is used for clinical purposes. It should not be regarded as investigational or for research. Performed By: #### T CISCO VELAZQUEZ, CASEY, SEPG #### [place] [address] Staff Rev w CBCDIFon 019 Abs Baso 0.04 k/uL Normal 0.00-0.10 [facility] Comment on above: Performed By: #### S MARIAM #### [place] [address] [place] [address] Abs [place] 0.85 k/uL Normal 0.00-0.86 [facility] Comment on above: Performed By: #### S MARIA M #### [place] [id number] Abs Neut 6.12 k/uL Normal 1.45-7.50 [facility] Comment on above: Performed By: #### S MARIA M #### [address] [place], [place] [address] Basophils/100 WBC (Bld) 0.5 % Normal [facility] Comment on above: Performed By: #### S MARIA M #### [facility] [address] [place], [place] [address] Eosinophils (Bld) [#/Vol] 0.06 10*3/uL Normal 0.00-0.45 [facility] Comment on above: Performed By: #### S MARIA M #### [place] [address] [place], [place] [address] Eosinophils/100 WBC (Bld) 0.7 % Normal [facility] Comment on above: Performed By: #### S MARIA M #### [place] [address] Erythrocyte distribution width (RBC) [Ratio] 17.0 % High 11.5-15.0 [facility] Comment on above: Performed By: #### S MARIA M #### [place] [address] [place] [address] Hematocrit (Bld) [Volume fraction] 46.0 % Normal 39.0-51.0 [facility] Comment on above: Performed By: #### S MARIA M #### [place] [address] [place], [place] [address] Hemoglobin (Bld) [Mass/Vol] 16.2 g/dL Normal 13.0-17.0 [facility] Comment on above: Performed By: #### S MARIA M #### [place] [address] [place], [place] [address] Lymphocytes (Bld) [#/Vol] 1.10 10*3/uL Normal 1.00-4.00 [facility] Comment on above: Performed By: #### S MARIA M #### [place] [address] [place] [phone] Lymphocytes/100 WBC (Bld) 13.5 % Normal [facility] Comment on above: Performed By: #### S MARIA M #### [place] [address] MCH (RBC) [Entitic mass] 34.0 pG Normal 26.0-34.0 [facility] Comment on above: Performed By: #### S MARIA M #### [place] [address] MCHC (RBC) [Mass/Vol] 35.2 g/dL Normal 30.5-36.0 [facility] Comment on above: Performed By: #### S MARIA M #### [place] [phone] MCV (RBC) [Entitic vol] 96.6 fL Normal 80.0-100.0 [facility] Comment on above: Performed By: #### S MARIA M #### [place] [address] Monocytes/100 WBC (Bld) 10.4 % Normal [facility] Comment on above: Performed By: #### S MARIA M #### [place] [address] Neutrophils/100 WBC (Bld) 74.9 % Normal [facility] Comment on above: Performed By: #### S MARIA M #### [place] [phone] Pathologist Cyto stain Nom (Cvx/Vag) [ID] The Staff Review on this sample was cancelled because the hematology analyzer did not flag any parameters as requiring manual review. If there is a specific clinical concern for which you would like a staff pathologist to review the blood smear, please call Lab Client Services within 28 days. Normal [facility] Comment on above: Result Comment: Acco unt Credited Performed By: #### S MARIA M #### [place] [address] Platelet mean volume (Bld) [Entitic vol] 11.3 fL Normal 9.0-12.7 [facility] Comment on above: Performed By: #### S MARIA M #### [place] [address] Platelets (Bld) [#/Vol] 127 10*3/uL Low 150-400 [facility] Comment on above: Performed By: #### S MARIA M #### [place] [address] RBC (Bld) [#/Vol] 4.76 10*6/uL Normal 4.20-6.00 [facility] Comment on above: Performed By: #### S MARIA M #### [place] [address] Staff Review SEE COMMENT Normal [facility] Comment on above: Result Comment: The Staff Review on this sample was cancelled because the hematology analyzer did not flag any parameters as requiring manual review. If there is a specific clinical concern for which you would like a staff pathologist to review the blood smear, please call Lab Client Services within 28 days. Account Credited Performed By: #### S MARIA M #### [place] [address] WBC (Bld) [#/Vol] 8.17 10*3/uL Normal 3.70-11.00 [facility] Comment on above: Performed By: #### S MARIA M #### [place] [address] Vitamin B12on 05-14-2019 Cobalamin (Vitamin B12) [Mass/Vol] 262 pg/mL Normal 232-1245 [facility] Comment on above: Performed By: #### B 12, SERFOL, IRON, FERR, MMA #### [place] [address] CNOVSPon 05-07-2019 CNOVSP Visit (SP) Office ([place]) GARY BUITRAGO ([id number]) 1950 M Date Time Provider Department 05/07/19 [...] family history on file. Current Outpatient Medications: Decker-3 Fatty Acids (FISH OIL) 500 mg cap [...] Ester Albrecht MD Referring Provider: LORRIE MUNOZ [[id number]] Allergies As of Date: 05/07/2019 Noted Allergy [...] (FOR REMOTE [facility] USE) [SQRAGCBC] Order #: [id number] FUTURE TSH BLD [SQTSH] Order #: [id number] FUTURE PROTEIN ELECTROPHORESIS W/INTERP [SQSEPG] Order #: [id number] FUTURE KAPPA/CACERES,FREE,SER [SQKLFRS] Order #: [id number] FUTURE IMMUNOFIXATION SCREEN, SERUM [SQIFESC] Order #: [id number] FUTURE COMP METABOLIC PANEL [SQCMP] Order #: [id number] FUTURE CBC [SQCBC] Order #: [id number] FUTURE Disposition: Return in about 1 year [...] by ESTER ALBRECHT MD on 05/07/19 Normal [facility] Comp Metabolic Panelon 05-07 Albumin [Mass/Vol] 4.6 g/dL Normal 3.9-4.9 [facility] Comment on above: Performed By: #### T SH, KLFRS, IFESC, SEPG #### [facility] [address] [place], [place] [address] ALP [Catalytic activity/Vol] 117 U/L High 38-113 [facility] Comment on above: Performed By: #### T SH, KLFRS, IFESC, SEPG #### [facility] [address], [place] [address] ALT [Catalytic activity/Vol] 33 U/L Normal 10-54 [facility] Comment on above: Performed By: #### T SH, KLFRS, IFESC, SEPG #### [facility] [address] [place], [place] [address] Anion gap [Moles/Vol] 9 mmol/L Normal 9-18 [facility] Comment on above: Performed By: #### T SH, KLFRS, IFESC, SEPG #### [facility] [address] [place], [place] [address] AST [Catalytic activity/Vol] 39 U/L Normal 14-40 [facility] Comment on above: Performed By: #### T SH, KLFRS, IFESC, SEPG #### [facility] [address] [place], [place] [address] Bilirubin [Mass/Vol] 0.6 mg/dL Normal 0.2-1.3 [facility] Comment on above: Performed By: #### T SH, KLFRS, IFESC, SEPG #### [facility] [address] [place], [place] [address] Calcium [Mass/Vol] 9.9 mg/dL Normal 8.5-10.2 [facility] Comment on above: Performed By: #### T SH, KLFRS, IFESC, SEPG #### [facility] [address] [place], [place] [address] Chloride [Moles/Vol] 101 mmol/L Normal 97-105 [facility] Comment on above: Performed By: #### T SH, KLFRS, IFESC, SEPG #### [facility] [address] [place], [place] [address] CO2 [Moles/Vol] 27 mmol/L Normal 22-30 [facility] Comment on above: Performed By: #### T CISCO VELAZQUEZ IFESC, SEPG #### [facility] [address] [place], [place] [address] Creatinine [Mass/Vol] 1.01 mg/dL Normal 0.73-1.22 [facility] Comment on above: Performed By: #### T CISCO VELAZQUEZ IFESC, SEPG #### [facility] [address] [place] [address] eGFR- Amer. >60 Normal [facility] Comment on above: Performed By: #### T CISCO VELAZQUEZ IFESC, SEPG #### [facility] [address] [place] [address] GFR/1.73 sq M predicted among non-blacks MDRD (S/P/Bld) [Vol rate/Area] mL/min/{1.73_m2} Normal [facility] Comment on above: Result Comment: eGFR (Estimated [...] #### T CISCO VELAZQUEZ IFESC, SEPG #### [facility] [address] [place] [phone] Glucose [Mass/Vol] 127 mg/dL High 74-99 [facility] Comment on above: Result Comment: The [place] Diabetes Association (ADA) provides guidance for cutoff [...] Standards of Medical Care in Diabetes 2016, [place] [employer]. Diabetes Care. 2016.39(Suppl 1). Performed By: #### T CISCO VELAZQUEZ, IFESC, SEPG #### [facility] [address] [place], [place] [address] Potassium [Moles/Vol] 4.7 mmol/L Normal 3.7-5.1 [facility] Comment on above: Performed By: #### T CISCO VELAZQUEZ, IFESC, SEPG #### [place] [address] [place], [place] [address] Protein [Mass/Vol] 7.0 g/dL Normal 6.3-8.0 [facility] Comment on above: Performed By: #### T CISCO VELAZQUEZ, IFESC, SEPG #### [facility] [address] [place], [place] [address] Sodium [Moles/Vol] 137 mmol/L Normal 136-144 [facility] Comment on above: Performed By: #### T CISCO VELAZQUEZ, IFESC, SEPG #### [place] [address] [place], [place] [address] Urea nitrogen [Mass/Vol] 10 mg/dL Normal 9-24 [facility] Comment on above: Performed By: #### T CISCO VELAZQUEZ, IFESC, SEPG #### [facility] [address] [place], [place] [address] DOMINGO Screen, Serumon 05-07-20 19 Protein [Mass/Vol] No M protein is identified. Normal No M protein is identified. [facility] Comment on above: Performed By: #### T CISCO VELAZQUEZ, IFESC, SEPG #### [facility] [address] [place], [place] [address] Staff Review Reviewed by Star Villagomez M.D., PhD ([id number]) [facility] Comment on above: Performed By: #### T MARCUS, CISCO, IFESC, SEPG #### [facility] [address] [place], [place] [address] [place]/Caceres,Free,Seron 2018 K/L Ratio, Serum 1.09 Normal 0.26-1.65 [facility] Comment on above: Performed By: #### T MARCUS, CISCO, IFASAF, SEPG #### [facility] [address] [place], [place] [address] [place], Free, Serum 17.8 mg/L Normal 3.30-19.40 [facility] Comment on above: Result Comment: Test performed by an immunoturbidimetric assay on Optilite instrument from [facility]. Immunoglobulin free light chain assay results should be interpreted in conjunction with other tests and in correlation with clinical picture. Performed By: #### T MARCUS, CISCO, IFBRIANNAC, SEPG #### [facility] [address] [place], [place] [address] Lambda, Free, Serum 16.4 mg/L Normal 5.7-26.3 [facility] Comment on above: Result Comment: Test performed by an immunoturbidimetric assay on Optilite instrument from [facility]. Immunoglobulin free light chain assay results should be interpreted in conjunction with other tests and in correlation with clinical picture. Performed By: #### T MARCUS, CISCO, IFESC, SEPG #### [facility] [address] [place], [place] [address] PROGRESSon 05-07-2019 PROGRESS HNO ID: [id number] Author: Ester Albrecht Service: ? Author Type: [...] family history on file. Current Outpatient Medications: Decker-3 Fatty Acids (FISH OIL) 500 mg cap [...] MARIO CRAWFORD CT + CBC (FOR REMOTE [facility] USE) - TSH BLD - PROTEIN [...] ABS GRAN CT + CBC (FOR REMOTE [facility] USE) - TSH BLD - PROTEIN ELECTROPHORESIS W/INTERP - KAPPA/CACERES,FREE,SER - IMMUNOFIXATION SCREEN, SERUM - COMP METABOLIC PANEL - CBC 3. Abnormal weight loss - ICD9: 783.21, ICD10: R63.4 See above - ABS GRAN CT + CBC (FOR REMOTE [facility] USE) - TSH BLD - PROTEIN ELECTROPHORESIS W/INTERP - KAPPA/CACERES,FREE,SER - IMMUNOFIXATION SCREEN, SERUM - COMP METABOLIC PANEL Ester Albrecht MD Normal [facility] Protein Electrophor.on 05-07 Albumin [Mass/Vol] 4.26 g/dL High 3.37-4.23 [facility] Comment on above: Performed By: #### T MARCUS, CISCO, IFBRIANNAC, SEPG #### [facility] [address] [place], [place] [address] Alpha 1 Globulin 0.27 gm/dL Normal 0.18-0.31 [facility] Comment on above: Performed By: #### T MARCUS, CISCO, IFBRIANNAC, SEPG #### [facility] [address] [place], [place] [address] Alpha 2 Globulin 0.62 gm/dL Normal 0.52-0.97 [facility] Comment on above: Performed By: #### T MARCUS, CSICO, IFESC, SEPG #### [facility] [address] [place], [place] [address] Beta Globulin 0.97 gm/dL Normal 0.84-1.36 [facility] Comment on above: Performed By: #### T MARCUS, CISCO, IFESC, SEPG #### [facility] [address] [place], [place] [address] Gamma Globulin 1.07 gm/dL Normal 0.70-1.44 [facility] Comment on above: Performed By: #### T MARCUS, CISCO, IFESC, SEPG #### [facility] [address] [place] [address] Interpretation SEE COMMENT Normal [facility] Comment on above: Result Comment: No d efinitive M protein is identified on protein electrophoresis. Performed By: #### T MARCUS, CISCO, IFESC, SEPG #### [facility] [address] [place] [address] M Gigi Concentratn 0.00 gm/dL Normal 0.00 [facility] Comment on above: Performed By: #### T MARCUS, CISCO, IFESC, SEPG #### [place] [address] [place] [address] Protein [Mass/Vol] N/A Normal [facility] Comment on above: Performed By: #### T MARCUS, CISCO, IFESC, SEPG #### [place] [address] [place] [address] Protein [Mass/Vol] 7.2 g/dL Normal 6.0-8.4 [facility] Comment on above: Performed By: #### T MARCUS, CISCO, IFESC, SEPG #### [place] [address] [place], [place] [address] SPE Staff Review Reviewed by Star Villagomez M.D., PhD ([id number]) Normal [facility] Comment on above: Performed By: #### T MARCUS, CISCO, IFESC, SEPG #### [facility] [address] [place] [address] Remote Abs Gran + CBC (for [facility] use only)on 05-07-2019 Absol Gran Count 4.88 k/uL Normal 1.45-7.50 [facility] Erythrocyte distribution width (RBC) [Ratio] 18.6 % High 11.5-15.0 [facility] Hematocrit (Bld) [Volume fraction] 44.7 % Normal 39.0-51.0 [facility] Hemoglobin (Bld) [Mass/Vol] 15.8 g/dL Normal 13.0-17.0 [facility] MCH (RBC) [Entitic mass] 33.8 pG Normal 26.0-34.0 [facility] MCHC (RBC) [Mass/Vol] 35.3 g/dL Normal 30.5-36.0 [facility] MCV (RBC) [Entitic vol] 95.5 fL Normal 80.0-100.0 [facility] Platelet mean volume (Bld) [Entitic vol] 11.0 fL Normal 9.0-12.7 [facility] Platelets (Bld) [#/Vol] 120 10*3/uL Low 150-400 [facility] RBC (Bld) [#/Vol] 4.68 10*6/uL Normal 4.20-6.00 [facility] WBC (Bld) [#/Vol] 6.41 10*3/uL Normal 3.70-11.00 [facility] TSHon 05-07-2019 TSH Qn 1.350 uU/mL Normal 0.400-5.500 [facility] Comment on above: Performed By: #### T SH, KLFRS, IFESC, SEPG #### [facility] [address] [place] [id number] Encounters Encounter Date Encounter Type Care Provider Facility Start: 11-29-2023 End: 11-30-2023 ambulatory Eric [facility] Start: 11-29-2023 End: 11-29-2023 Off-Site Eric Stanley [facility] Start: 11-29-2022 End: 11-30-[address] LORRIE MUNOZ . Facility: Start: 09-21-2022 End: 09-21-2022 Off-Site Sandie FARLEY [facility] Start: 07-27-2022 End: 07-28-[address] LORRIE MUNOZ . Facility: Start: 07-13-2021 ambulatory BALA SHEA Facility :[facility] Start: 07-01-2018 End: 07-02-2018 Patient encounter DEFAULT PHYSICIAN Facility:[facility] Start: 06-25-2018 End: 06-26-2018 Patient encounter BRENT Hernández ROSEANNA Facility:[facility] Start: 05-02-2018 End: 05-03-2018 Patient encounter DEFAULT PHYSICIAN Facility:[facility] Procedures Date Procedure Procedure Detail Performing Clinician Start: 07-27-[address] BHARATHI MUNOZ . Comment on above: Performed By: #### V ITAD, PSASC #### [facility] [address] [place] [address] Dr. Joanne Martinez Immunizations Immunization Date Immunization Notes Care Provider Fa cility 06-14-2021 SARS-CoV-2 (COVID-19 ) mRNA BNT-162b2 Spot[employer]odox Bizee[employer]ee [facility] 05-24-2021 SARS-CoV-2 (COVID-19 ) mRNA BNT-253x2 [employer]ize[employer] [facility] NEGATED: Highlighted row has not occurred!11-22-2023 influenza virus vaccine, unspecified formulation Reyes Sarmini [facility] Payers Date Payer Category Payer Medicare [id number] 1957 Medicare [id number] 1950 Unknown [id number] 1950 Unknown [id number] [id number] 1950 Unknown [id number] [id number] 1950 Unknown [id number] [id number] Unknown Unknown [id number] Social History Date Type Detail Facility Start: 09-21-2022 End: 11-29-2023 Tobacco smoking status Smokes tobacco daily (finding) [facility] Tobacco smoking status Never [facility] Sex Assigned At Male [facility] Functional Status Date Assessment Result Facility 09-21-2022 Functional Status N/A [facility] Clinical Note 11-29-2022 Note [...] authenticated by: FLO CORADO Date: 2022-11-29 13:17 [facility] Evaluation + Plan note 09-21-2022 Note Date & Type Note Facility 09-21-2022 Evaluation + Plan note [facility] 09/21/22Comprehensive Metabolic Panel 09/21/22Calprotectin, Fecal 09/21/22 [facility] Hospital Discharge instructions 07-10-2022 Note Date & Type Note Facility 07-10-2022 Hospital Discharg e instructions Follow Up Care 07/10/2022 17:05:26 With:MIGUELITO RAMIREZ, KASSY Hooper, [facility] Address: [facility] [address] [place] [address] [place] [address]- When:1 year [facility] Hospital course Narrative Note Date & Type Note Facility Hospital course Narrative No data available for this section [facility] Hospital Discharge instructions Note Date & Type Note Facility Hospital Discharge instructions No data available for this section [facility] Progress note Note Date & Type Note Facility Progress note No data available for this section [facility] Summary Purpose Family History No Family History [...] section and content) DATE CREATED AUTHOR 07/28/2018 [facility] DATE CREATED AUTHOR AUTHOR'S ORGANIZ ATION 02/04/2020 [facility] DATE CREATED AUTHOR AUTHOR'S ORGANIZ ATION 11/27/2021 [facility] DATE CREATED AUTHOR AUTHOR'S ORGANIZ ATION 12/04/2022 [facility] DATE CREATED AUTHOR AUTHOR'S ORGANIZ ATION 11/30/2023 [facility] Patient Care team informatio n (unrecognized section and content) Personnel Name: Lorrie Munoz MD Address: Address: [address] [place] [address] Personnel Name: Lorrie Munoz MD Address: Address: [address] [place] [address] FOR RECORDS PERTAINING TO PATIENTS WHO ARE [...] BE BASED ON THE PRIMARY CLINICAL RECORDS. [facility] [employer] [facility]. provides no warranty or guarantee of the accuracy or completeness of information in this document.
[2025-03-18 14:21] LABS: Internal Control Within Normal Limits; Occult Blood Negative
[2025-03-19 05:08] LABS: Vitamin B12 300 pg/mL (232-1245)
== END 2025-03-18 12:37 | disposition home or self-care (01) ==
LOC: LAB 12:38
PROVIDERS: PCP Family Medicine; Visit Provider Family Medicine
DX: D50.9 Iron deficiency anemia, unspecified (principal); E78.49 Other hyperlipidemia; E16.1 Other hypoglycemia; Z12.5 Encounter for screening for malignant neoplasm of prostate; Z12.11 Encounter for screening for malignant neoplasm of colon
CPT/HCPCS: 36415; 82607; 82728; G0328

== ENCOUNTER 2025-05-26 12:56 | Outpatient (OUT) | payer MEDICARE, SELFPAY ==
--- OUTSIDE RECORDS SUMMARY | 2025-05-19 09:00 | XMS_ITS ---
Author Organization [facility] [place] Address [address] [place] [address] Care Team Providers Care Scullion Chief Name Role Phone Gucci Munoz Primary Care Provider Antionette Jane Unavailable [phone] REASON FOR VISIT MD New PT Hem Encounters Encounter Location Date Provider Diagnosis [facility] Oncology [address] [place] [phone] 05/19/2025 Antionette Jane Plan Of Treatment Next Appt Details Provider Name:Antionette Jane , 06/02/2025 01:45:00 PM, [address] [place] [address], [phone], Progress Notes * Nick BUITRAGODOB: (75 yo M)Acc No.[id number]:05/19/2025 UNLOCKED PROGRESS NOTE Progress Notes Patient: Nick GOMEZ Provider: Anu Jane M.D. :1950 A ge:75 Y S ex:Male Date:05/19/2025 Address:[address] [place], [place] [id number] Pcp:Gucci Munoz Subjective: * Chief Complaints: * 1 . MD New PT Hem. * Medical History: Objective: * Vitals: Assessment: Plan: * Treatment: * * Electronic signature of Gokul Jane MD, [id number] on 05/26/2025 at 12:59 PM EDT Sign off status: Pending Visit Status: A [facility] (Voice) * Provider: Anu Jane M.D. Date: 0 05/19/2025 Generated for Gaviota walker/Darcy/Girishitting on: 0 05/26/2025 12:59 PM EDT
--- OUTSIDE RECORDS SUMMARY | 2025-05-22 09:15 | XMS_ITS ---
Author Organization [facility] in [place] Address [address] [place] [address] Care Team Providers Care Warp Clamper Name Role Phone Gucci Munoz Primary Care Provider [phone] Results Component Value Reference Range Notes UA DIP NONAUTO WO MICRO (810 02) - IN OFFICE Reviewed date:05/22/2025 01:17:18 PM Interpretation: Performing Lab: Notes/Report: COLOR yellow CLARITY clear GLUCOSE NEG BILIRUBIN NEG KETONE NEG SPECIFIC GRAVITY 1.005 BLOOD NEG PH 5.0 PROTEIN NEG UROBILINOGEN NEG NITRITE NEG LEUKOCYTE ESTERASE NEG REASON FOR VISIT urine Encounters Encounter Location Date Provider Diagnosis [facility] [address] [place] [address] 05/22/2025 Gucci Munoz Frequency R35.0 Assessments Encounter Date Diagnosis (ICD Code) Assessment Notes Treatment Notes Treatment Clinical Notes Section Notes 05/22/2025 Frequency (ICD-10 - R35.0) Plan Of Treatment Next Appt Details Provider Name:Antionette Jane , 06/02/2025 01:45:00 PM, [address] [place], [address], Progress Notes * Nick BUITRAGODOB: (75 yo M)Acc No.[id number]:05/22/2025 UNLOCKED PROGRESS NOTE Nurse Visit Patient: Nick GOMEZ Provider: Winifred Munoz ([facility])MD :1950 A ge:75 Y S ex:Male Date:05/22/2025 Address:[address] [place], [place] [id number] Check In:01:10 PM ESTCheck O ut:01:16 PM EST Subjective: * Chief Complaints: * 1 . Urine. * Medical History: Objective: * Vitals: Assessment: * Assessment: 1. F requency - R35.0 (Primary) Plan: * Treatment: * Labs: * L ab: UA DIP NONAUTO WO MICRO (32646) - IN OFFICE (Collection Date & Time - 05/22/2025) Value Reference Range C OLOR yellow * C LARITY clear * G LUCOSE NEG * B ILIRUBIN NEG * K ETONE NEG * S PECIFIC GRAVITY 1.005 * B LOOD NEG * P H 5.0 * P ROTEIN NEG * U ROBILINOGEN NEG * N ITRITE NEG * L EUKOCYTE ESTERASE NEG * Procedure Codes: 8 1002 URINALYSIS WO MICRO * * Electronic signature of Gucci Munoz MD, [id number] on 05/26/2025 at 12:58 PM EDT Sign off status: Pending Visit Status: C HK (Check Out) * Provider: Winifred Munoz ([facility])MD Date: 0 05/22/2025 Generated for Gaviota walker/Darcy/eTransmitting on: 0 05/26/2025 12:58 PM EDT
--- OUTSIDE RECORDS SUMMARY | 2025-05-22 09:17 | XMS_ITS ---
Author Organization [facility] [place] Address [address] [place] [address] Care Team Providers Care Cassandra Architect Name Role Phone Gucci Munoz Primary Care Provider [phone] REASON FOR VISIT urine Encounters Encounter Location Date Provider Diagnosis [facility] [address] [place] [address] 05/22/2025 Gucci Munoz Plan Of Treatment Next Appt Details Provider Name:Antionette Jane , 06/02/2025 01:45:00 PM, [address] [place], [address], Progress Notes * Nick BUITRAGO JDOB: (75 yo M)Acc No.[id number]:05/22/2025 Patient: Red Nick CHURCH :1950 A ge:75 Y S ex:Male Address:[address] [place] [phone] Subjective: * Chief Complaints: * U rine * Medical History: * Surgical History: * Hospitalization/Major Diagno stic Procedure: * Medications: Objective: * Vitals: * P ast Orders: L ab:UA DIP NONAUTO WO MICRO (22793) - IN OFFICE (Order Date - 05/22/2025) (Collection Date & Time - 05/22/2025) Value Reference Range COLOR yellow CLARITY clear GLUCOSE NEG BILIRUBIN NEG KETONE NEG SPECIFIC GRAVITY 1.005 BLOOD NEG PH 5.0 PROTEIN NEG UROBILINOGEN NEG NITRITE NEG LEUKOCYTE ESTERASE NEG * Physical Examination: Assessment: Plan: * Treatment: * Procedure Codes: * true * Date: Generated for Printi ng/Faxing/eTransmitting on: 0 05/26/2025 12:59 PM EDT
--- NOTE | 2025-05-26 | US_ITS ---
[address] [address] Patient Name: GARY ROD MRN: [id number] date: 1950 Sex: M Assigned Patient Location: US Current Patient Location: US Accession/Order Number: [id number] Exam Date: 05/26/2025 13:53 Report Date: 05/26/2025 13:55 At the request of: SUSAN LAMB MD Procedure: US right upper quadrant LIMITED ABDOMINAL ULTRASOUND: CLINICAL HISTORY: anemia, abnormal liver enzyme test COMPARISON: Ultrasound 10/18/2023 TECHNIQUE: Grayscale and color Doppler images of the right upper quadrant organs were obtained. FINDINGS: Pancreas: Heterogeneous in echotexture without focal abnormality. Liver: Fatty infiltration. Gallbladder: Unremarkable. CBD: 2.2 mm RT KIDNEY: No Hydronephrosis US/US right upper quadrant IMPRESSION: FATTY INFILTRATION OF THE LIVER. NO ACUTE PROCESS. HETEROGENEOUS ECHOTEXTURE INVOLVING THE PANCREAS. THIS CAN BE FURTHER EVALUATED BY CONTRAST-ENHANCED CT.. Impression dictated by: Maninder Zendejas Jr., D.O. 05/26/2025 1:55 PM Dictation Location: [place] [address] Electronically authenticated by: [id number] Y Date: 05/26/2025 13:55
--- OUTSIDE RECORDS SUMMARY | 2025-05-26 12:59 | XMS_ITS | Patient Health Record ---
Author Organization [facility] in [place] Address [address] [place] [address] Care Team Providers Care Food And Beverage Associate Name Role Phone Tammy Gucci Primary Care Provider Antionette Jane Unavailable [phone] Allergies Allergen (clinical drug ingredient) Drug/Non Drug Allergy documented on EMR Reaction Allergy Type Onset Date Status Vaccine product containing Influenza virus antigen (medicinal product) Influenza Vaccines hives Drug Allergy Ac tive Results Component Value Reference Range Notes UA DIP NONAUTO WO MICRO (810 02) - IN OFFICE Reviewed date:05/22/2025 01:17:18 PM Interpretation: Performing Lab: Notes/Report: COLOR yellow CLARITY clear GLUCOSE NEG BILIRUBIN NEG KETONE NEG SPECIFIC GRAVITY 1.005 BLOOD NEG PH 5.0 PROTEIN NEG UROBILINOGEN NEG NITRITE NEG LEUKOCYTE ESTERASE NEG UA DIP NONAUTO WO MICRO (810 02) - IN OFFICE (Not yet reviewed by provider) Interpretation: Performing Lab: Notes/Report: COLOR yellow CLARITY clear GLUCOSE NEG BILIRUBIN NEG KETONE NEG SPECIFIC GRAVITY 1.010 BLOOD POS PH 6.5 PROTEIN POS UROBILINOGEN NEG NITRITE NEG LEUKOCYTE ESTERASE POS CT lumbar spine wo con Reviewed date:01/11/2025 03:59:31 PM Interpretation: Performing Lab: Notes/Report: Source Facility: [place] [address] [place] [address] CT Scan Report Signed Patient: GARY BUITRAGO MR#: [id number] : 1950 Acct:[id number] Age/Sex: 74 / M ADM Date: 01/09/25 Loc: CT Attending Dr: Lorrie Munoz M.D. Ordering Physician: Lorrie Munoz M.D. Date of Service: 01/09/25 Procedure(s): CT lumbar spine wo con Accession Number(s): [id number] cc: Lorrie Munoz M.D. [facility] [place] [id number] Patient Name: GARY BUITRAGO MRN: [id number] date: 1950 Sex: M Assigned Patient Location: CT Current Patient Location: CT Accession/Order Number: [id number] Exam Date: 01/09/2025 14:02 Report Date: 01/09/2025 14:05 At the request of: LORRIE MUNOZ MD Procedure: CT lumbar spine wo con [...] Zendejas Jr., D.O.01/09/2025 2:05 PM Dictation Location: [facility] Electronically authenticated by: [id number] Y Date: 01/09/2025 14:05 Dictated By: Maninder Zendejas M.D. Signed By: 01/09/25 1407 DD/ 04 TD/TT: New Patient Escort: [place] [address] CT Scan Report Signed Patient: GARY BUITRAGO MR#: [id number] : 1950 Acct:[id number] Age/Sex: 74 / M ADM Date: 01/09/25 Loc: CT Attending Dr: Lorrie Munoz M.D. Ordering Physician: Lorrie Munoz M.D. Date of Service: 01/09/25 Procedure(s): CT lumbar spine wo con Accession Number(s): [id number] cc: Lorrie Munoz M.D. [place] [address] Patient Name: GARY BUITRAGO MRN: [id number] date: 1950 Sex: M Assigned Patient Location: CT Current Patient Location: CT Accession/Order Number: [id number] Exam Date: 01/09/2025 14:02 Report Date: 01/09/2025 14:05 At the request of: LORRIE MUNOZ MD Procedure: CT lumbar spine wo con [...] Zendejas Jr., D.O.01/09/2025 2:05 PM Dictation Location: [facility] Electronically authenticated by: [id number] Y Date: 01/09/2025 14:05 Dictated By: Maninder Zendejas M.D. Signed By: 01/09/25 1407 DD/ 140 TD/TT: New Patient Escort: CT cervical spine wo con Reviewed date:01/11/2025 03:59:31 PM Interpretation: Performing Lab: Notes/Report: Source Facility: [place] [address] CT Scan Report Signed Patient: GARY BUITRAGO MR#: [id number] : 1950 Acct:[id number] Age/Sex: 74 / M ADM Date: 01/09/25 Loc: CT Attending Dr: Lorrie Munoz M.D. Ordering Physician: Lorrie Munoz M.D. Date of Service: 01/09/25 Procedure(s): CT cervical spine wo con Accession Number(s): [id number] cc: Lorrie Munoz M.D. [place] [address] Patient Name: GARY BUITRAGO MRN: [id number] date: 1950 Sex: M Assigned Patient Location: CT Current Patient Location: CT Accession/Order Number: [id number] Exam Date: 01/09/2025 13:59 Report Date: 01/09/2025 14:02 At the request of: LORRIE MUNOZ MD Procedure: CT cervical spine wo con [...] Zendejas Jr., D.O.01/09/2025 2:02 PM Dictation Location: [place] [address] Electronically authenticated by: [id number] Y Date: 01/09/2025 14:02 Dictated By: Maninder Zendejas M.D. Signed By: 01/09/251404 DD/ 01 TD/TT: New Patient Escort: [place] [address] CT Scan Report Signed Patient: GARY BUITRAGO MR#: [id number] : 1950 Acct:[id number] Age/Sex: 74 / M ADM Date: 01/09/25 Loc: CT Attending Dr: Lorrie Munoz M.D. Ordering Physician: Lorrie Munoz M.D. Date of Service: 01/09/25 Procedure(s): CT cervical spine wo con Accession Number(s): [id number] cc: Lorrie Munoz M.D. [place] [id number] Patient Name: GARY BUITRAGO MRN: [id number] date: 1950 Sex: M Assigned Patient Location: CT Current Patient Location: CT Accession/Order Number: [id number] Exam Date: 01/09/2025 13:59 Report Date: 01/09/2025 14:02 At the request of: LORRIE MUNOZ MD Procedure: CT cervical spine wo con [...] Zendejas Jr., D.O.01/09/2025 2:02 PM Dictation Location: [place] [address] Electronically authenticated by: [id number] Y Date: 01/09/2025 14:02 Dictated By: Maninder Zendejas M.D. Signed By: 01/09/25 1405 DD/ 1402 TD/TT: New Patient Escort: [place] Reviewed date:03/16/2025 08:54:23 PM Interpretation: Performing Lab: Notes/Report: [facility] , Amylase 39 25-115 U/L Performing Lab: see note ML - [facility] LB LIPASE Reviewed date:03/16/2025 08:54:23 PM Interpretation: Performing Lab: Notes/Report: [facility] , Lipase 33.0 16.0-77.0 U/L Performing Lab: see note ML - [facility] LB LIPID PROFILE Reviewed date:03/16/2025 08:54:23 PM Interpretation: Performing Lab: Notes/Report: [facility] , Triglycerides 20 <=150 mg/dL Cholesterol 186 [...] Performing Lab: see note ML - [facility] LB FERRITIN Reviewed date:03/18/2025 09:13:30 PM Interpretation: Performing Lab: Notes/Report: [facility] , Ferritin 114.0 26.0-388.0 ng/mL Performing Lab: see note ML - [facility] LB CT shoulder LT wo con Reviewed date:01/11/2025 03:59:31 PM Interpretation: Performing Lab: Notes/Report: Source Facility: [facility] [place] [address] [place] [address] CT Scan Report Signed Patient: GARY BUITRAGO MR#: [id number] : 1950 Acct:[id number] Age/Sex: 74 / M ADM Date: 01/09/25 Loc: CT Attending Dr: Lorrie Munoz M.D. Ordering Physician: Lorrie Munoz M.D. Date of Service: 01/09/25 Procedure(s): CT shoulder LT wo con Accession Number(s): [id number] cc: Lorrie Munoz M.D. [place] [address] Patient Name: GARY BUITRAGO MRN: [id number] date: 1950 Sex: M Assigned Patient Location: CT Current Patient Location: CT Accession/Order Number: [id number] Exam Date: 01/09/2025 14:05 Report Date: 01/09/2025 14:07 At the request of: LORRIE MUNOZ MD Procedure: CT shoulder LT wo con [...] Zendejas Jr., D.O.01/09/2025 2:07 PM Dictation Location: [place] [address] Electronically authenticated by: [id number] Y Date: 01/09/2025 14:07 Dictated By: Maninder Zendejas M.D. Signed By: 01/09/25 1410 DD/ 1407 TD/TT: New Patient Escort: [place] [address] CT Scan Report Signed Patient: GARY BUITRAGO MR#: [id number] : 1950 Acct:[id number] Age/Sex: 74 / M ADM Date: 01/09/25 Loc: CT Attending Dr: Lorrie Munoz M.D. Ordering Physician: Lorrie Munoz M.D. Date of Service: 01/09/25 Procedure(s): CT shoulder LT wo con Accession Number(s): [id number] cc: Lorrie Munoz M.D. [place] [address] Patient Name: GARY BUITRAGO MRN: [id number] date: 1950 Sex: M Assigned Patient Location: CT Current Patient Location: CT Accession/Order Number: [id number] Exam Date: 01/09/2025 14:05 Report Date: 01/09/2025 14:07 At the request of: LORRIE MUNOZ MD Procedure: CT shoulder LT wo con [...] Zendejas Jr., D.O.01/09/2025 2:07 PM Dictation Location: [place] [address] Electronically authenticated by: [id number] Y Date: 01/09/2025 14:07 Dictated By: Maninder Zendejas M.D. Signed By: 01/09/25 1410 DD/ 1407 TD/TT: New Patient Escort: CBC AUTO DIFF Reviewed date:03/16/2025 08:54:23 PM Interpretation: Performing Lab: Notes/Report: [facility] , White Blood Count 5.7 4.0-11.0 10 [...] Performing Lab: see note ML - [facility] LB FREE T3 Reviewed date:03/16/2025 08:54:23 PM Interpretation: Performing Lab: Notes/Report: [facility] , Free T3 2.44 2.18-3.98 pg/mL Performing Lab: see note - [facility] LB PROF 14(COMP METB) Reviewed date:03/16/2025 08:54:23 PM Interpretation: Performing Lab: Notes/Report: [facility] , Sodium 136 136-145 mmol/L Potassium 4.4 [...] 1.1 Performing Lab: see note ML - [facility] LB PSA SCREENING Reviewed date:03/16/2025 08:54:23 PM Interpretation: Performing Lab: Notes/Report: [facility] , Prostate Specific Antigen Scrn 0.74 <=4.00 ng/mL Performing Lab: see note ML - [facility] LB T4 Reviewed date:03/16/2025 08:54:23 PM Interpretation: Performing Lab: Notes/Report: [facility] , T4 Thyroxine 5.20 4.50-12.10 ug/dL Performing Lab: see note ML - [facility] LB TSH Reviewed date:03/16/2025 08:54:23 PM Interpretation: Performing Lab: Notes/Report: [facility] , Thyroid Stimulating Hormone 1.593 0.358-3.740 uIU/mL Performing Lab: see note - [facility] LB CA 19-9 Reviewed date:03/17/2025 04:10:14 PM Interpretation: Performing Lab: Notes/Report: Sergio CA 19-9 4 0-35 U/mL [employer] [employer] Electrochemiluminescence Immunoassay (ECLIA) Values obtained with different assay methods or kits cannot be used interchangeably. Results cannot be interpreted as absolute evidence of the presence or absence of malignant disease. Performed at: [address] [id number] [employer]iodies[employer] Production Associate: Chauncey Galeano PhD, Phone: [phone] Performing Lab: see note [facility] LB Occult Blood* Reviewed date:03/18/2025 09:13:30 PM Interpretation: Performing Lab: Notes/Report: [facility] , Occult Blood Negative Performing Lab: see note [facility] Vitamin B12 Reviewed date:03/19/2025 08:05:01 PM Interpretation: Performing Lab: Notes/Report: [facility] , Vitamin B12 795 599-2167 pg/mL Performed at: [address] [id number] [employer]iod[employer] Production Associate: Chauncey Galeano PhD, Phone: [phone] Performing Lab: see note [facility] CBC AUTO DIFF (Not yet revie wed by provider) Interpretation: Performing Lab: Notes/Report: [facility] , White Blood Count 5.7 4.0-11.0 10 3/uL Red Blood Count 3.55 4.70-6.10 10 6/uL Hemoglobin 13.3 14.0-18.0 g/dL Hematocrit 36.4 42.0-54.0 % Mean Corpuscular Volume 102.5 80.0-94.0 fL Mean Corpuscular Hemoglobin 37.5 25.9-34.0 pg Mean Corpuscular HGB Conc 36.5 29.9-35.2 g/dL Red Cell Distribution Width 12.1 11.0-15.0 % Platelet Count 127 150-450 10 3/uL Mean Platelet Volume 11.5 9.5-13.5 fL Performing Lab: see note ML - [facility] LB FOLATE (Not yet reviewed by provider) Interpretation: Performing Lab: Notes/Report: [facility] , Folate 26.70 8.60-58.90 ng/mL Performing Lab: see note - [facility] LB IMMUNOGLOBULIN E, TOTAL (Not yet reviewed by provider) Interpretation: Performing Lab: Notes/Report: [facility] , Immunoglobulin E, Total 352 6-495 IU/mL Performed at: - [facility] [id number] [employer] Production Associate: Becky Renae MD, Phone: [phone] Performing Lab: see note - [facility] LB LDH (Not yet reviewed by pro vider) Interpretation: Performing Lab: Notes/Report: [facility] , Lactate Dehydrogenase 187 85-227 U/L Performing Lab: see note - [facility] LB Manual Differential (Not yet reviewed by provider) Interpretation: Performing Lab: Notes/Report: [facility] , Segmented Neutrophils % Manual 76.0 43.0-75.0 Lymphocytes Percent Manual 13.0 20.5-60.0 % Monocytes Percent Manual 10.0 1.7-12.0 % Eosinophils Percent Manual 0.0 0.9-7.0 % Basophils Percent Manual 1.0 0.2-2.0 % Segmented Neut Absolute Manual 4.33 1.4-6.5 10 3/uL Lymphocytes Absolute Manual 0.74 1.20-3.80 10 3/uL Monocytes Absolute Manual 0.57 0.30-0.80 10 3/uL Eosinophils Absolute Manual 0.00 0.00-0.70 10 3/uL Basophils Abs Manual 0.05 0.00-0.10 1 0 3/uL Macrocytosis 2+ Performing Lab: see note ML - [facility] LB DOMINGO, PE and FLC, Serum (Not yet reviewed by provider) Interpretation: Performing Lab: Notes/Report: [facility] , Immunoglobulin G, Qn, Serum 662 659-0769 mg/dL Immunoglobulin A, Qn, Serum 227 61-437 mg/dL Immunoglobulin M, Qn, Serum 79 15-143 mg/dL Protein, Total 6.5 6.0-8.5 g/dL Albumin 3.8 2.9-4.4 g/dL Ogeew-0-Zyhsnmsq 0.3 0.0-0.4 g/dL Gdsuq-6-Ldfgsxdv 0.6 0.4-1.0 g/dL Beta Globulin 0.8 0.7-1.3 g/dL Gamma Globulin 1.0 0.4-1.8 g/dL M-Gigi Not Observed Not Observed g/dL Globulin, Total 2.7 2.2-3.9 g/dL A/G Ratio 1.5 0.7-1.7 Immunofixation Result, Serum Comment . No monoclonality det ected. Please note: Comment . Protein electrophoresis scan will follow via computer, mail, or sports leadership instructor delivery. Free Dermott Lt Chains,S 18.0 3.3-19.4 mg/L Free Lambda Lt Chains,S 18.5 5.7-26.3 mg/L Dermott/Lambda Ratio,S 0.97 0.26-1.65 Performed at: [address] [id number] [employer] Production Associate: Chauncey Galeano PhD, Phone: [phone] Performing Lab: see note [facility] Reticulocyte Pct Auto (Not y et reviewed by provider) Interpretation: Performing Lab: Notes/Report: [facility] , Reticulocyte Pct Auto 2.56 0.60-3.10 % Performing Lab: see note [facility] Vitamin B12 (Not yet reviewe d by provider) Interpretation: Performing Lab: Notes/Report: [facility] , Vitamin B12 265 033-0085 pg/mL Performed at: [address] [id number] [employer] Production Associate: Chauncey Galeano PhD, Phone: [phone] Performing Lab: see note [facility] GLYCOHEMOGLOBIN A1C Reviewed date:03/16/2025 08:54:23 PM Interpretation: Performing Lab: Notes/Report: [facility] , Glycohemoglobin A1C 4.9 4.5-6.2 % ADA RECOMMENDED LIMIT 4.0 - 6.0 ADA THERAPEUTIC TARGET < 7.0 ACTION SUGGESTED > 7.0 Estimated Average Glucose 94 Performing Lab: see note [facility] Reason For Referral Diagnosis 1 Shoulder impingement (M75.40) Diagnosis 2 Lumbar radiculopathy (M54.16) Diagnosis 3 Hip pain, acute (M25 .559) Diagnosis 4 Cervical radiculopat hy (M54.12) Referral Organization [facility] Referring Provider First Name Gucci Referring Provider Last Name Tammy Referring Provider [facility] Referred Provider [facility], Physical Therap y Referred Provider Specialty Physical The rapist Referral Priority Routine Reason Patient would like s eechucky in [place] office please. Diagnosis 1 Abnormal red blood c ells (R71.8) Referral Organization [facility] Referring Provider First Name Gucci Referring Provider Last Name Tammy Referring Provider [facility] Referred Organization [facility] Referred Provider Antionette Jane Referred Address [address], [place],[address], Referred Provider Specialty Hematology/O ncology Referral Priority Routine Medications Medication SIG (Take, Route, Frequency, Duration) Notes Start Date End Date Status Desvenlafaxine Succinate ER 50 MG TAKE 1 TABLET BY MOUTH EVERY DAY for 90 Active Dofetilide 250 MCG TAKE 1 CAPSULE BY MO UTH TWICE A DAY for 90 Active Cefdinir 300 MG 2 capsule Orally onc e a day for 10 days 05/08/2025 Active Eliquis 5 MG TAKE 1 TABLET [...] FOR 30 DAYS for 90 days Active Social History Tobacco Use: Social History [...] Problem Status W/U Status Risk Notes Problem [id number] Essential (primary) hypertension (I10) Active confirmed Problem 93749617 Iron deficiency anemia, unspecified (D50.9) Active confirmed Problem 77585622 Other hypoglycemia (E16.1) Active confirmed Problem Crohn's disease (36830093) Crohn's disease, unspecified, without complications (K50.90) Active confirmed Problem 971029868 Other abnormal tumor markers (R97.8) Active confirmed Problem Cervical radiculopathy (94250585) Cervical radiculopathy (M54.12) Active confirmed Problem Lumbar radiculopathy (890547778) Lumbar radiculopathy (M54.16) Active confirmed Problem Urgent desire to urinate (28652479) Urinary urgency (R39.15) Active confirmed Problem Memory loss (65142187) Memory loss (R41.3) Active confirmed Problem Impingement syndrome of shoulder region (463945226) Shoulder impingement (M75.40) Active confirmed Problem Acute urinary tract infection (552186240) Acute UTI (N39.0) Active confirmed Problem Dementia (83007302) Advanced dementia (F03.90) Active confirmed Problem Arthralgia of the pelvic region and thigh (514068239) Hip pain, acute (M25.559) Active confirmed Problem 24204838 Other hyperlipidemia (E78.49) Active confirmed Vital Signs Blood pressure diastolic 78 mm Hg 05/08/2025 Height 70 in 05/08/2025 Blood pressure systolic 138 mm Hg 05/08/2025 Weight 213.4 lbs 05/08/2025 BMI 30.62 kg/m2 05/08/2025 Encounters Encounter Location Date Provider Diagnosis [facility] [address] [place] [address] 12/26/2024 Gucci Hoy Shoulder impingement M75.40 ; Cervical radiculopathy M54.12 ; Hip pain, acute M25.559 ; Lumbar radiculopathy M54.16 and H/O fall Z91.81 [facility] [address] [place] [address] 03/13/2025 Gucci Hoy Essential (primary) hypertension I10 and Shoulder impingement M75.40 [facility] [address] [place] [address] 05/19/2025 Antionette Buck [facility] [address] [place] [address] 05/08/2025 Gucci Hoy Urinary urgency R39. 15 ; Crohn's disease, unspecified, without complications K50.90 ; Advanced dementia F03.90 and Acute UTI N39.0 [facility] [address] [place] [address] 05/22/2025 Gucci Hoy Frequency R35.0 [facility] [address] [place] [address] 12/30/2024 Gucci Hoy Lumbar radiculopathy M54.16 and Cervical radiculopathy M54.12 [facility] [address] [place] [address] 01/07/2025 Gucci Hoy Shoulder impingement M75.40 [facility] [address] [place] [address] 01/11/2025 Gucci Hoy [facility] [address] [place] [address] 02/13/2025 Gucci Chanely [facility] [address] [place] [address] 03/13/2025 Gucci Hoy Iron deficiency anem ia, unspecified D50.9 ; Essential (primary) hypertension I10 ; Other hyperlipidemia E78.49 ; Other hypoglycemia E16.1 and Family history of cancer Z80.[address] [address] 03/16/2025 Gucci Hoy Abnormal red blood cells R71.8 and Iron deficiency anemia, unspecified D50.[address] [address] 03/17/2025 Gucci Hoy [address] [address] 04/15/2025 Gucci Hoy Abnormal red blood cells R71.[address] [address] 05/08/2025 Gucci Hoy Urinary urgency R39. [address] [address] 05/22/2025 Gucci Hoy Assessments Encounter Date Diagnosis (ICD Code) Assessment Notes Treatment Notes Treatment Clinical Notes Section Notes 12/26/2024 Cervical radiculopathy (ICD-10 - M54.12) 12/26/2024 Shoulder impingement (ICD-10 - M75.40) 03/13/2025 Essential (primary) hypertension (ICD-10 - I10) 03/13/2025 Shoulder impingement (ICD-10 - M75.40) 05/08/2025 Crohn's disease, unspecified, without complications (ICD-10 - K50.90) 05/08/2025 Urinary urgency (ICD-10 - R39.15) 12/30/2024 Cervical radiculopathy (ICD-10 - M54.12) 12/30/2024 Lumbar radiculopathy (ICD-10 - M54.16) 01/07/2025 Shoulder impingement (ICD-10 - M75.40) 03/13/2025 Essential (primary) hypertension (ICD-10 - I10) 03/13/2025 Iron deficiency anemia, unspecified (ICD-10 - D50.9) 05/22/2025 Frequency (ICD-10 - R35.0) 03/16/2025 Iron deficiency anemia, unspecified (ICD-10 - D50.9) 03/16/2025 Abnormal red blood cells (ICD-10 - R71.8) 04/15/2025 Abnormal red blood cells (ICD-10 - R71.8) 05/08/2025 Urinary urgency (ICD-10 - R39.15) 03/13/2025 Other hyperlipidemia (ICD-10 - E78.49) 12/26/2024 Hip pain, acute (ICD-10 - M25.559) 05/08/2025 Advanced dementia (ICD-10 - F03.90) memory - pretty statble maybe some chidi 03/13/2025 Other hypoglycemia (ICD-10 - E16.1) 05/08/2025 Acute UTI (ICD-10 - N39.0) 12/26/2024 Lumbar radiculopathy (ICD-10 - M54.16) 12/26/2024 H/O fall (ICD-10 - Z91.81) 03/13/2025 Family history of cancer (ICD-10 - Z80.9) Plan Of Treatment Pending Test Test Name Order Date CMP (COMPLETE METABOLIC PANEL) 3 PSA, PROSTATE-SPECIFIC ANTIGEN 3 T3 FREE, T4 FREE and TSH 10/11/2023 UA DIP NONAUTO WO MICRO (26871) - IN OFF ICE 05/08/2025 FECAL OCCULT BLOOD 10/11/2023 FECAL OCCULT BLOOD 03/13/2025 CMP - Comprehensive Metabolic Panel 02/14 US Pancreas 10/11/2023 CBC W/AUTO DIFF 03/13/2025 CA 19-9 03/13/2025 CA 19-9 10/11/2023 CBC AUTO DIFF 05/19/2025 FOLATE 05/19/2025 IMMUNOGLOBULIN E, TOTAL 05/19/2025 LDH 05/19/2025 VITAMIN B12 03/16/2025 CT SHOULDER LT WO CON 01/07/2025 XR HIP LT 2 3V W PELVIS 12/26/2024 XR LSPINE MIN 4 VIEWS 12/26/2024 XR SHOULDER LT 2V or > 12/26/2024 THYROID PANEL (T4/TSH/FREE T3) XR HIP RT 2 3V W PELVIS 12/26/2024 Manual Differential 05/19/2025 XR cervical spine 2-3V 12/26/2024 PSA, SCREENING 03/13/2025 DOMINGO, PE and FLC, Serum 05/19/2025 Reticulocyte Pct Auto 05/19/2025 Vitamin B12 05/19/2025 Next Appt Details Provider Name:Antionette Jane , 06/02/2025 01:45:00 PM, [address] [place], [address], Insurance Providers Payer Name Payer Address Payer Phone Subscriber Number Group Number Insured Name Patient Relationship to Insured Coverage Start Date Coverage End Date [facility] [employer] [address] [address] [place] [address] [id number] Gary Scott Self - patient is the insured Medical (General) History Surgical History Surgery Date(Month/Year) Cardioversion Cardiac Ablation Knee Surgery- Left Rotator Cuff Surgery- Bilateral Hernia Repair Neck Surgery Back Surgery
--- OUTSIDE RECORDS SUMMARY | 2025-05-26 13:23 | XMS_ITS | CCD ---
Author Organization [facility] Care Team Providers Care Drone Pilot Name Role Phone PHYSICIAN, DEFAULT Unavailable Unavailable [...] [facility] Drug allergy (disorder) 8 AOF [facility] (1 source) No Known Allergies; Translations: [No Known Allergies] Propensity to adverse reactions (disorder) [facility] (3 sources) influenza A virus A/[place]/GP19 05/2015 (H1N1) antigen / influenza A virus A/[place]/GP20 (H3N2) antigen / influenza B virus B/[place] antigen / influenza B virus B/ antigen; Translations: [influenza virus vaccine] Drug Allergy unknown [facility] (1 source) Flu Vaccine (18 yr +) Drug allergy (disorder) [facility] Medications Current Medications Medication [...] tab(s), Oral, Daily, 30 tab(s), Refill(s) 3, [facility]/pharmacy #[id number] Start Date: 09/24/23 Status: Ordered Start: 09-21-2022 Lialda 1.2 g o ral enteric coated tablet 4.8 gm, 4 tab(s), Oral, Daily, 30 tab(s), Refill(s) 11, [facility]/pharmacy #[id number] Start Date: 09/21/22 Status: Ordered 24 [...] Onset: 11-29-2022 Chronic 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 Joanne Martinez CBC AUTO DIFFon 07-27-2022 BASO # 0.0 103/ul Normal 0.0-0.1 [facility] Comment on above: Performed By: #### T 7, URIC, CMP, TSH, LIPID #### [facility] [address] [address] [address] Joanne Martinez Basophils/100 WBC (Bld) 0.6 % Normal 0.2-2.0 [facility] Comment on above: Performed By: #### T 7, URIC, CMP, TSH, LIPID #### [facility] [address] [place] [address] Dr. Joanne Martinez EO # 0.1 103/ul Normal 0.0-0.7 [facility] Comment on above: Performed By: #### T 7, URIC, CMP, TSH, LIPID #### [facility] [address] [place] [address] Dr. Joanne Martinez Eosinophils/100 WBC (Bld) 1.2 % Normal 0.9-7.0 [facility] Comment on above: Performed By: #### T 7, URIC, CMP, TSH, LIPID #### [facility] [address] [place] [address] Dr. Joanne Martinez Erythrocyte distribution width (RBC) [Ratio] 11.5 % Normal 11.0-15.0 [facility] Comment on above: Performed By: #### T 7, URIC, CMP, TSH, LIPID #### [facility] [address] [place] [address] Dr. Joanne Martinez Hematocrit (Bld) [Volume fraction] 39.2 % Critically low 42.0-54.0 [facility] Comment on above: Performed By: #### T 7, URIC, CMP, TSH, LIPID #### [facility] [address] [place] [address] Dr. Joanne Martinez Hemoglobin (Bld) [Mass/Vol] 14.0 g/dL Normal 14.0-18.0 [facility] Comment on above: Performed By: #### T 7, URIC, CMP, TSH, LIPID #### [facility] [address] [place] [address] Dr. Joanne Martinez IG # 0.03 10e3/ul Normal 0.00-0.03 [facility] Comment on above: Performed By: #### T 7, URIC, CMP, TSH, LIPID #### [facility] [address] [place] [address] Dr. Joanne Martinez IG % 0.5 % Normal 0.0-0.5 [facility] Comment on above: Performed By: #### T 7, URIC, CMP, TSH, LIPID #### [facility] [address] [place] [address] Dr. Joanne Martinez LYMPH # 1.1 103/ul Critically low 1.2-3.8 [facility] Comment on above: Performed By: #### T 7, URIC, CMP, TSH, LIPID #### [facility] [address] [address] [address] Joanne Martinez Lymphocytes/100 WBC (Bld) 16.3 % Critically low 20.5-60.0 [facility] Comment on above: Performed By: #### T 7, URIC, CMP, TSH, LIPID #### [facility] [address] [place] [address] Dr. Joanne Martinez MANUAL DIFF REQ NO Normal [facility] Comment on above: Performed By: #### T 7, URIC, CMP, TSH, LIPID #### [facility] [address] [place] [address] Dr. Joanne Martinez MCH (RBC) [Entitic mass] 36.9 pg Critically high 25.9-34.0 [facility] Comment on above: Performed By: #### T 7, URIC, CMP, TSH, LIPID #### [facility] [address] [place] [address] Dr. Joanne Martinez MCHC (RBC) [Mass/Vol] 35.7 g/dL Critically high 29.9-35.2 [facility] Comment on above: Performed By: #### T 7, URIC, CMP, TSH, LIPID #### [facility] [address] [place] [address] Dr. Joanne Martinez MCV (RBC) [Entitic vol] 103.4 fL Critically high 80.0-94.0 [facility] Comment on above: Performed By: #### T 7, URIC, CMP, TSH, LIPID #### [facility] [address] [place] [address] Dr. Joanne Martinez MONO # 0.7 103/ul Normal 0.3-0.8 [facility] Comment on above: Performed By: #### T 7, URIC, CMP, TSH, LIPID #### [facility] [address] [address] [address] Joanne Martinez Monocytes/100 WBC (Bld) 9.8 % Normal 1.7-12.0 [facility] Comment on above: Performed By: #### T 7, URIC, CMP, TSH, LIPID #### [facility] [address] [place] [address] Dr. Joanne Martinez NEUT # 4.8 103/ul Normal 1.4-6.5 [facility] Comment on above: Performed By: #### T 7, URIC, CMP, TSH, LIPID #### [facility] [address] [place] [address] Dr. Joanne Martinez Neutrophils/100 WBC (Bld) 71.6 % Normal 43.0-75.0 [facility] Comment on above: Performed By: #### T 7, URIC, CMP, TSH, LIPID #### [facility] [address] [place] [address] Dr. Joanne Martinez Platelet mean volume (Bld) [Entitic vol] 10.9 fL Normal 9.5-13.5 [facility] Comment on above: Performed By: #### T 7, URIC, CMP, TSH, LIPID #### [facility] [address] [place] [address] Dr. Joanne Martinez PLT 168 103/ul Normal 150-450 [facility] Comment on above: Performed By: #### T 7, URIC, CMP, TSH, LIPID #### [facility] [address] [place] [address] Dr. Joanne Martinez RBC 3.79 106/ul Critically low 4.70-6.10 [facility] Comment on above: Performed By: #### T 7, URIC, CMP, TSH, LIPID #### [facility] [address] [place] [address] Dr. Joanne Martinez WBC 6.6 103/ul Normal 4.0-11.0 [facility] Comment on above: Performed By: #### T 7, URIC, CMP, TSH, LIPID #### [facility] [address] [address] [address] Joanne Martinez FREE THYROXINE INDEX T7on FTI 2.14 Normal 1.30-4.50 [facility] Comment on above: Performed By: #### T 7, URIC, CMP, TSH, LIPID #### [facility] [address] [place] [address] Dr. Joanne Martinez T3U 34.0 % Normal 33.0-40.0 [facility] Comment on above: Performed By: #### T 7, URIC, CMP, TSH, LIPID #### [facility] [address] [address] [address] Joanne Martinez T4 [Mass/Vol] 6.30 ug/dL Normal 4.50-12.10 [facility] Comment on above: Performed By: #### T 7, URIC, CMP, TSH, LIPID #### [facility] [address] [place] [address] Dr. Joanne Martinez GLYCOHEMOGLOBIN A1Con 2021 ADA RECOMMENDATION SEE BELOW Normal [facility] Comment on above: Result Comment: ADA RECOMMENDED LIMIT 4.0 - 6.0 ADA THERAPEUTIC TARGET < 7.0 ACTION SUGGESTED > 7.0 Performed By: #### A 1C #### [facility] [address] [place] [address] Dr. Joanne Martinez Glucose [Mass/Vol] 74 mg/dL Normal [facility] Comment on above: Performed By: #### A 1C #### [facility] [address] [place] [address] Dr. Joanne Martinez HbA1c (Bld) [Mass fraction] 4.2 % Critically low 4.5-6.2 [facility] Comment on above: Performed By: #### A 1C #### [facility] [address] [place] [address] Dr. Joanne Martinez LIPID PROFILEon 07-27-2022 CHOL-HDL RATIO NORM SEE BELOW Normal [facility] Comment on above: Result Comment: 3.3 - 4.4 LOW RISK 4.4 - 7.1 AVERAGE RISK 7.1 - 11.0 MODERATE RISK >11.0 HIGH RISK Performed By: #### T 7, URIC, CMP, TSH, LIPID #### [facility] [address] [address] [address] Joanne Martinez Cholesterol [Mass/Vol] 211 mg/dL Critically high <=200 [facility] Comment on above: Performed By: #### T 7, URIC, CMP, TSH, LIPID #### [facility] [address] [address] [address] Joanne Martinez Cholesterol in HDL [Mass/Vol] 121 mg/dL Critically high 40-60 [facility] Comment on above: Performed By: #### T 7, URIC, CMP, TSH, LIPID #### [facility] [address] [place] [address] Dr. Joanne Martinez Cholesterol in LDL [Mass/Vol] 81.6 mg/dL Normal [facility] Comment on above: Performed By: #### T 7, URIC, CMP, TSH, LIPID #### [facility] [address] [place] [address] Dr. Joanne Martinez Cholesterol.total/Ch olesterol in HDL [Mass ratio] 1.7 {ratio} Normal [facility] Comment on above: Performed By: #### T 7, URIC, CMP, TSH, LIPID #### [facility] [address] [place] [address] Dr. Joanne Martinez HDL NORMAL > or = 60 mg/dl - LO W CARDIOVASCULAR RISK <40 mg/dl - HIGH CARDIOVASCULAR RISK Normal [facility] Comment on above: Performed By: #### T 7, URIC, CMP, TSH, LIPID #### [facility] [address] [place] [address] Dr. Joanne Martinez LDL CALC NORMAL SEE BELOW Normal [facility] Comment on above: Result Comment: <100 mg/dl OPTIMAL 100 - 129 mg/dl NEAR OR ABOVE OPTIMAL 130 - 159 mg/dl BORDERLINE HIGH 160 - 189 mg/dl HIGH >190 mg/dl VERY HIGH Performed By: #### T 7, URIC, CMP, TSH, LIPID #### [facility] [address] [place] [address] Dr. Joanne Martinez Triglyceride [Mass/Vol] 42 mg/dL Normal <=150 [facility] Comment on above: Performed By: #### T 7, URIC, CMP, TSH, LIPID #### [facility] [address] [address] [address] Joanne Martinez VLDL CALC 8.4 mg/dL Normal [facility] Comment on above: Performed By: #### T 7, URIC, CMP, TSH, LIPID #### [facility] [address] [address] [address] Joanne Martinez PROF 14(COMP METB)on 022 Albumin [Mass/Vol] 4.1 g/dL Normal 3.4-5.0 [facility] Comment on above: Performed By: #### T 7, URIC, CMP, TSH, LIPID #### [facility] [address] [place] [address] Dr. Joanne Martinez Albumin/Globulin [Mass ratio] 1.2 {ratio} Normal [facility] Comment on above: Performed By: #### T 7, URIC, CMP, TSH, LIPID #### [facility] [address] [place] [address] Dr. Joanne Martinez ALP [Catalytic activity/Vol] 104 U/L Normal 46-116 [facility] Comment on above: Performed By: #### T 7, URIC, CMP, TSH, LIPID #### [facility] [address] [place] [address] Dr. Joanne Martinez ALT [Catalytic activity/Vol] 42 U/L Normal 16-63 [facility] Comment on above: Performed By: #### T 7, URIC, CMP, TSH, LIPID #### [facility] [address] [address] [address] Joanne Martinez Anion gap [Moles/Vol] 14.2 mmol/L Normal [facility] Comment on above: Performed By: #### T 7, URIC, CMP, TSH, LIPID #### [facility] [address] [address] [address] Joanne Martinez AST [Catalytic activity/Vol] 56 U/L Critically high 15-37 [facility] Comment on above: Performed By: #### T 7, URIC, CMP, TSH, LIPID #### [facility] [address] [place] [address] Dr. Joanne Martinez Bilirubin [Mass/Vol] 0.8 mg/dL Normal 0.2-1.0 [facility] Comment on above: Performed By: #### T 7, URIC, CMP, TSH, LIPID #### [facility] [address] [place] [address] Dr. Joanne Martinez Calcium [Mass/Vol] 9.6 mg/dL Normal 8.5-10.1 [facility] Comment on above: Performed By: #### T 7, URIC, CMP, TSH, LIPID #### [facility] [address] [place] [address] Dr. Joanne Martinez Chloride [Moles/Vol] 99 mmol/L Normal 98-107 [facility] Comment on above: Performed By: #### T 7, URIC, CMP, TSH, LIPID #### [facility] [address] [place] [address] Dr. Joanne Martinez CO2 [Moles/Vol] 25.9 mmol/L Normal 21.0-32.0 [facility] [place] Comment on above: Performed By: #### T 7, URIC, CMP, TSH, LIPID #### [facility] [address] [place] [address] Dr. Joanne Martinez Creatinine [Mass/Vol] 0.88 mg/dL Normal 0.70-1.30 [facility] Comment on above: Performed By: #### T 7, URIC, CMP, TSH, LIPID #### [facility] [address] [place] [address] Dr. Joanne Martinez EGFR-AF SERBIAN >60 Normal >=60 [facility] [place] Comment on above: Performed By: #### T 7, URIC, CMP, TSH, LIPID #### [facility] [address] [place] [address] Dr. Joanne Martinez EGFR-NON AF SERBIAN >60 Normal >=60 [facility] Comment on above: Performed By: #### T 7, URIC, CMP, TSH, LIPID #### [facility] [address] [address] [address] Joanne Martinez Globulin (S) [Mass/Vol] 3.5 g/dL Normal [facility] Comment on above: Performed By: #### T 7, URIC, CMP, TSH, LIPID #### [facility] [address] [place] [address] Dr. Joanne Martinez Glucose [Mass/Vol] 99 mg/dL Normal 74-106 [facility] Comment on above: Performed By: #### T 7, URIC, CMP, TSH, LIPID #### [facility] [address] [place] [address] Dr. Joanne Martinez Potassium [Moles/Vol] 4.1 mmol/L Normal 3.5-5.1 [facility] Comment on above: Performed By: #### T 7, URIC, CMP, TSH, LIPID #### [facility] [address] [place] [address] Dr. Joanne Martinez Protein [Mass/Vol] 7.6 g/dL Normal 6.4-8.2 [facility] Comment on above: Performed By: #### T 7, URIC, CMP, TSH, LIPID #### [facility] [address] [place] [address] Dr. Joanne Martinez Sodium [Moles/Vol] 135 mmol/L Critically low 136-145 [facility] Comment on above: Performed By: #### T 7, URIC, CMP, TSH, LIPID #### [facility] [address] [place] [address] Dr. Joanne Martinez Urea nitrogen [Mass/Vol] 7.0 mg/dL Normal 7.0-18.0 [facility] Comment on above: Performed By: #### T 7, URIC, CMP, TSH, LIPID #### [facility] [address] [place] [address] Dr. Joanne Martinez Urea nitrogen/Creatinine [Mass ratio] 8.0 mg/mg Normal [facility] Comment on above: Performed By: #### T 7, URIC, CMP, TSH, LIPID #### [facility] [address] [place] [address] Dr. Joanne Martinez TSHon 07-27-2022 TSH 1.712 uIU/mL Normal 0.358-3.740 [facility] Comment on above: Performed By: #### T 7, URIC, CMP, TSH, LIPID #### [facility] [address] [address] [address] Joanne Martinez URIC ACID SERUMon 07-27-2022 Urate [Mass/Vol] 6.6 mg/dL Normal 3.5-7.2 [facility] Comment on above: Performed By: #### T 7, URIC, CMP, TSH, LIPID #### [facility] [address] [address] [address] Joanne Martinez VITAMIN D 25 OHon 07-27-2022 VIT D 25-OH 86.1 ng/mL Normal [facility] Comment on above: Performed By: #### V LIDIA, PSASC #### [facility] [address] [address] [address] Joanne Martinez VIT D RANGES SEE BELOW Normal [facility] Comment on above: Result Comment: <20 ng/mL Vit D deficient 20 - <30 ng/mL Vit D insufficient 30 - 100 ng/mL Vit D sufficient >100 ng/mL Potential Toxicity Performed By: #### V ITKAR, PSASC #### [facility] [address] [place] [address] Dr. Joanne YUENPon 05-29-2019 CNOVS Visit (SP) Office (HEMACL) GARY BUITRAGO ([id number]) 1950 M Date Time Provider Department 05/29/19 [...] thrombocytopenia of unknown etiology. Current Outpatient Medications: [place]-3 Fatty Acids (FISH OIL) 500 mg cap [...] Ester Albrecht MD Referring Provider: ESTER ALBRECHT [[id number]] Allergies As of Date: 05/29/2019 Noted Allergy [...] (FOR REMOTE [facility] USE) [SQRAGCBC] Order #: [id number] FUTURE CBC + DIFF (FOR REMOTE [facility] USE) [SQRCBCDF] Order #: [id number] FUTURE Disposition: Return in about 4 months [...] by ESTER ALBRECHT MD on 05/29/19 [facility] 05-29-2019 PROGRESS HNO ID: [id number] Author: Ester Albrecht Service: ? Author Type: [...] thrombocytopenia of unknown etiology. Current Outpatient Medications: [place]-3 Fatty Acids (FISH OIL) 500 mg cap [...] REMOTE [facility] USE) Ester Albrecht MD Normal [facility] Remote Abs Gran + CBC (for [facility] use only)on 05-29-2019 Absol Gran Count 3.92 k/uL Normal 1.45-7.50 [facility] Erythrocyte distribution width (RBC) [Ratio] 14.0 % Normal 11.5-15.0 [facility] Hematocrit (Bld) [Volume fraction] 44.0 % Normal 39.0-51.0 [facility] Hemoglobin (Bld) [Mass/Vol] 15.8 g/dL Normal 13.0-17.0 [facility] MCH (RBC) [Entitic mass] 34.6 pG High 26.0-34.0 [facility] MCHC (RBC) [Mass/Vol] 35.9 g/dL Normal 30.5-36.0 [facility] MCV (RBC) [Entitic vol] 96.5 fL Normal 80.0-100.0 [facility] Platelet mean volume (Bld) [Entitic vol] 11.2 fL Normal 9.0-12.7 [facility] Platelets (Bld) [#/Vol] 110 10*3/uL Low 150-400 [facility] RBC (Bld) [#/Vol] 4.56 10*6/uL Normal 4.20-6.00 [facility] WBC (Bld) [#/Vol] 5.89 10*3/uL Normal 3.70-11.00 [facility] CT-CT ABD/PELVIS W CON IMPOR Ton 05-23-2019 CT-CT ABD/PELVIS W CON IMPORT Images were obtained outside of [facility] [id number] Normal [facility] CNOVSPon 05-16-2019 CNOVSP Visit (SP) Office (HEMASA) GARY BUITRAGO ([id number]) 1950 M Date Time Provider Department 05/16/19 [...] Unknown Reviewed by Star Villagomez M.D., PhD ([id number]) M-Protein Location Unknown N/A M-Protein Concentration Latest Ref Range: 0.00 gm/dL 0.00 MPA Result Latest Ref Range: No M protein is identified. No M protein is identified. Staff Review (MPA) Unknown Reviewed by Star Villagomez M.D., PhD ([id number]) [place] Free, Serum Latest Ref Range: 3.30 - [...] Ref Range: 1.00 - 4.00 k/uL 1.10 Whitman% Latest Units: % 10.4 Abs Whitman Latest Ref Range: 0.00 - 0.86 k/uL 0.85 Eosin% Latest Units: % 0.7 Abs Eosin Latest Ref Range: 0.00 - 0.45 k/uL 0.06 Baso% Latest Units: % 0.5 Abs Baso Latest Ref Range: 0.00 - 0.10 k/uL 0.04 Staff Review, CBCDIF Unknown SEE COMMENT Pathologist for Staff Review Unknown The Staff Review ... Current Outpatient Medications: [place]-3 Fatty Acids (FISH OIL) 500 mg cap [...] Ester Albrecht MD Referring Provider: ESTER ALBRECHT [[id number]] Allergies As of Date: 05/16/2019 Noted Allergy [...] Order(s):HEP REMOTE PANEL BL [SQHREMOP] Order #: [id number] FUTURE CT ABD/PEL WO IVCON [[id number]] Order #: [id number] FUTURE Disposition: Return in about 2 weeks [...] Status:Closed by ESTER ALBRECHT MD on [facility]16[facility]19 [facility] (NCCAP) GARY BUITRAGO ([id number]) 1950 M Date Time Provider Department 05/16/19 ESTER ALBRECHT NCCTIMMY During your visit today, we recorded the following information about you: Sergio Lorenzo Patient Physician Compensation Analyst 05/16/2019 2:39 PM Signed Need a new order for CT abd/pel W/Ivcon and also an order for Creatine. Thank you Ester Albrecht MD 05/16/2019 3:13 PM Signed done Sergio Lorenzo Patient Physician Compensation Analyst 05/16/2019 3:19 PM Signed Can you just [...] location [R19.00] Order(s):CREATININE BLD [SQCRET] Order #: [id number] FUTURE CT ABD/PEL W IVCON [[id number]] Order #: [id number] FUTURE [] iv contrast (will be provided [...] contrast guidelines Encounter Status:Closed by SURESH PATIENT HAIR SALON MANAGER, SERGIO on 02/04/20 [facility] PROGRESSon 05-16-2019 PROGRESS HNO ID: [id number] Author: Ester Albrecht Service: ? Author Type: [...] Unknown Reviewed by Star Villagomez M.D., PhD ([id number]) M-Protein Location Unknown N/A M-Protein Concentration Latest Ref Range: 0.00 gm/dL 0.00 MPA Result Latest Ref Range: No M protein is identified. No M protein is identified. Staff Review (MPA) Unknown Reviewed by Star Villagomez M.D., PhD ([id number]) [place] Free, Serum Latest Ref Range: 3.30 - [...] Ref Range: 1.00 - 4.00 k/uL 1.10 Whitman% Latest Units: % 10.4 Abs Whitman Latest Ref Range: 0.00 - 0.86 k/uL 0.85 Eosin% Latest Units: % 0.7 Abs Eosin Latest Ref Range: 0.00 - 0.45 k/uL 0.06 Baso% Latest Units: % 0.5 Abs Baso Latest Ref Range: 0.00 - 0.10 k/uL 0.04 Staff Review, CBCDIF Unknown SEE COMMENT Pathologist for Staff Review Unknown The Staff Review ... Current Outpatient Medications: [place]-3 Fatty Acids (FISH OIL) 500 mg cap [...] ABD/PEL WO IVCON Ester Albrecht MD Normal [facility] Ferritinon 05-14-2019 Ferritin [Mass/Vol] 106.0 ng/mL Normal 30.3-565.7 [facility] Comment on above: Performed By: #### T CISCO VELAZQUEZ, IFESC, SEPG #### [facility] [employer] [address] [place], [place] [address] Folate, Serumon 05-14-2019 Folate [Mass/Vol] ng/mL Normal >4.7 [facility] Comment on above: Result Comment: A re sult of > 20 ng/mL is not necessarily indicative of a pathologic or treatable condition: it reflects a limitation of the test methodology. Assay reference range: 4.8 to 24.2 ng/mL. Suitable for detection of folate deficiency. Reference: Folate III (Folate III) [package insert V 2.0 Ecuadorean]. [facility], [place], [place]: August 2015. Performed By: #### T MARCUS, CISCO, IFESC, SEPG #### [facility] [address] [place], [place] [address] Iron and TIBCon 05-14-2019 Iron [Mass/Vol] 109 ug/dL Normal 41-186 [facility] Comment on above: Performed By: #### T MARCUS, CISCO, IFESC, SEPG #### [place] [address] [place] [address] TIBC 348 ug/dL Normal 232-386 [facility] Comment on above: Performed By: #### T CISCO VELAZQUEZ, CASEY, SEPG #### [facility] [address] [place] [address] Transferrin Saturatn 31 % Normal 15-57 [facility] Comment on above: Performed By: #### T CISCO VELAZQUEZ, CASEY, SEPG #### [place] [address] [place] [address] Methylmalonic Acidon 019 Methylmalonic Acid 314 nmol/L Normal 79-376 [facility] Comment on above: Result Comment: This test was developed and its performance characteristics determined by [facility] [place] ( [facility]). It has not been cleared or approved by the FDA. [facility] is regulated under CLIA as qualified to perform high complexity testing. This test is used for clinical purposes. It should not be regarded as investigational or for research. Performed By: #### T CISCO VELAZQUEZ, CASEY, SEPG #### [place] [address] Staff Rev w CBCDIFon 019 Abs Baso 0.04 k/uL Normal 0.00-0.10 [facility] Comment on above: Performed By: #### S MRAIA M #### [place] [address] [place] [address] Abs Whitman 0.85 k/uL Normal 0.00-0.86 [facility] Comment on above: Performed By: #### S MARIA M #### [place] [id number] Abs Neut 6.12 k/uL Normal 1.45-7.50 [facility] Comment on above: Performed By: #### S MARIA M #### [address] [place], [place] [address] Basophils/100 WBC (Bld) 0.5 % Normal [facility] Comment on above: Performed By: #### S MARIA M #### [facility] [address] [place], [place] [address] Eosinophils (Bld) [#/Vol] 0.06 10*3/uL Normal 0.00-0.45 [facility] Comment on above: Performed By: #### S MARIA M #### [place] [address] [place], [place] [address] Eosinophils/100 WBC (Bld) 0.7 % Normal [facility] Comment on above: Performed By: #### S MARIA M #### [place] [address] Erythrocyte distribution width (RBC) [Ratio] 17.0 % High 11.5-15.0 [facility] Comment on above: Performed By: #### S MARIA M #### [place] [address] [place] [address] Hematocrit (Bld) [Volume fraction] 46.0 % Normal 39.0-51.0 [facility] Comment on above: Performed By: #### S MARIA M #### [place] [address] [place], [place] [address] Hemoglobin (Bld) [Mass/Vol] 16.2 g/dL Normal 13.0-17.0 [facility] Comment on above: Performed By: #### S MARIA M #### [place] [address] [place], [place] [address] Lymphocytes (Bld) [#/Vol] 1.10 10*3/uL Normal 1.00-4.00 [facility] Comment on above: Performed By: #### S MARIA M #### [place] [address] [place] [id number] Lymphocytes/100 WBC (Bld) 13.5 % Normal [facility] Comment on above: Performed By: #### S MARIA M #### [place] [address] MCH (RBC) [Entitic mass] 34.0 pG Normal 26.0-34.0 [facility] Comment on above: Performed By: #### S MARIA M #### [place] [address] MCHC (RBC) [Mass/Vol] 35.2 g/dL Normal 30.5-36.0 [facility] Comment on above: Performed By: #### S MARIA M #### [place] [phone] MCV (RBC) [Entitic vol] 96.6 fL Normal 80.0-100.0 [facility] Comment on above: Performed By: #### S MARIA M #### [place] [address] Monocytes/100 WBC (Bld) 10.4 % Normal [facility] Comment on above: Performed By: #### S MARIA M #### [place] [address] Neutrophils/100 WBC (Bld) 74.9 % Normal [facility] Comment on above: Performed By: #### S MARIA M #### [place] [phone] Pathologist Cyto stain Nom (Cvx/Vag) [ID] The Staff Review on this sample was cancelled because the hematology analyzer did not flag any parameters as requiring manual review. If there is a specific clinical concern for which you would like a staff pathologist to review the blood smear, please call Lab Client Services within 28 days. Normal [facility] Comment on above: Result Comment: Acco unt Credited Performed By: #### S MARIA M #### [place] [address] Platelet mean volume (Bld) [Entitic vol] 11.3 fL Normal 9.0-12.7 [facility] Comment on above: Performed By: #### S MARIA M #### [place] [address] Platelets (Bld) [#/Vol] 127 10*3/uL Low 150-400 [facility] Comment on above: Performed By: #### S MARIA M #### [place] [address] RBC (Bld) [#/Vol] 4.76 10*6/uL Normal 4.20-6.00 [facility] Comment on above: Performed By: #### S MARIA M #### [place] [address] Staff Review SEE COMMENT Normal [facility] Comment on above: Result Comment: The [...] Performed By: #### S MARIA M #### [place] [address] WBC (Bld) [#/Vol] 8.17 10*3/uL Normal 3.70-11.00 [facility] Comment on above: Performed By: #### S MARIA M #### [place] [address] Vitamin B12on 05-14-2019 Cobalamin (Vitamin B12) [Mass/Vol] 262 pg/mL Normal 232-1245 [facility] Comment on above: Performed By: #### B 12, SERFOL, IRON, FERR, MMA #### [place] [address] CNOVSPon 05-07-2019 CNOVSP Visit (SP) Office ([place]) GARY BUITRAGO ([id number]) 1950 M Date Time Provider Department 05/07/19 [...] family history on file. Current Outpatient Medications: [place]-3 Fatty Acids (FISH OIL) 500 mg cap [...] Ester Albrecht MD Referring Provider: LORRIE MUNOZ [[id number]] Allergies As of Date: 05/07/2019 Noted Allergy [...] (FOR REMOTE [facility] USE) [SQRAGCBC] Order #: [id number] FUTURE TSH BLD [SQTSH] Order #: [id number] FUTURE PROTEIN ELECTROPHORESIS W/INTERP [SQSEPG] Order #: [id number] FUTURE KAPPA/CACERES,FREE,SER [SQKLFRS] Order #: [id number] FUTURE IMMUNOFIXATION SCREEN, SERUM [SQIFESC] Order #: [id number] FUTURE COMP METABOLIC PANEL [SQCMP] Order #: [id number] FUTURE CBC [SQCBC] Order #: [id number] FUTURE Disposition: Return in about 1 year [...] by ESTER ALBRECHT MD on 05/07/19 Normal [facility] Comp Metabolic Panelon 05-07 Albumin [Mass/Vol] 4.6 g/dL Normal 3.9-4.9 [facility] Comment on above: Performed By: #### T SH, KLFRS, IFESC, SEPG #### [facility] [address] [place], [place] [address] ALP [Catalytic activity/Vol] 117 U/L High 38-113 [facility] Comment on above: Performed By: #### T SH, KLFRS, IFESC, SEPG #### [facility] [address] [place], [place] [address] ALT [Catalytic activity/Vol] 33 U/L Normal 10-54 [facility] Comment on above: Performed By: #### T SH, KLFRS, IFESC, SEPG #### [facility] [address] [place], [place] [address] Anion gap [Moles/Vol] 9 mmol/L Normal 9-18 [facility] Comment on above: Performed By: #### T SH, KLFRS, IFESC, SEPG #### [facility] [address] [place], [place] [address] AST [Catalytic activity/Vol] 39 U/L Normal 14-40 [facility] Comment on above: Performed By: #### T SH, KLFRS, IFESC, SEPG #### [facility] [address] [place], [place] [address] Bilirubin [Mass/Vol] 0.6 mg/dL Normal 0.2-1.3 [facility] Comment on above: Performed By: #### T SH, KLFRS, IFESC, SEPG #### [facility] [address] [place], [place] [address] Calcium [Mass/Vol] 9.9 mg/dL Normal 8.5-10.2 [facility] Comment on above: Performed By: #### T SH, KLFRS, IFESC, SEPG #### [facility] [address] [place], [place] [address] Chloride [Moles/Vol] 101 mmol/L Normal 97-105 [facility] Comment on above: Performed By: #### T SH, KLFRS, IFESC, SEPG #### [facility] [address] [place], [place] [address] CO2 [Moles/Vol] 27 mmol/L Normal 22-30 [facility] Comment on above: Performed By: #### T CISCO VELAZQUEZ IFESC, SEPG #### [facility] [address] [place], [place] [address] Creatinine [Mass/Vol] 1.01 mg/dL Normal 0.73-1.22 [facility] Comment on above: Performed By: #### T CISCO VELAZQUEZ IFESC, SEPG #### [facility] [address] [place] [address] eGFR- Amer. >60 Normal [facility] Comment on above: Performed By: #### T CISCO VELAZQUEZ IFESC, SEPG #### [facility] [address] [place] [address] GFR/1.73 sq M predicted among non-blacks MDRD (S/P/Bld) [Vol rate/Area] mL/min/{1.73_m2} Normal [facility] Comment on above: Result Comment: eGFR [...] #### T CISCO VELAZQUEZ IFESC, SEPG #### [facility] [address] [place] [phone] Glucose [Mass/Vol] 127 mg/dL High 74-99 [facility] Comment on above: Result Comment: The [place] Diabetes Association (ADA) provides guidance for cutoff [...] Standards of Medical Care in Diabetes 2016, [place] Diabetes Association. Diabetes Care. 2016.39(Suppl 1). Performed By: #### T CISCO VELAZQUEZ, IFESC, SEPG #### [facility] [address] [place], [place] [address] Potassium [Moles/Vol] 4.7 mmol/L Normal 3.7-5.1 [facility] Comment on above: Performed By: #### T CISCO VELAZQUEZ, IFESC, SEPG #### [place] [address] [place], [place] [address] Protein [Mass/Vol] 7.0 g/dL Normal 6.3-8.0 [facility] Comment on above: Performed By: #### T CISCO VELAZQUEZ, IFESC, SEPG #### [facility] [address] [place], [place] [address] Sodium [Moles/Vol] 137 mmol/L Normal 136-144 [facility] Comment on above: Performed By: #### T CISCO VELAZQUEZ, IFESC, SEPG #### [place] [address] [place], [place] [address] Urea nitrogen [Mass/Vol] 10 mg/dL Normal 9-24 [facility] Comment on above: Performed By: #### T CISCO VELAZQUEZ, IFESC, SEPG #### [facility] [address] [place], [place] [address] DOMINGO Screen, Serumon 05-07-20 19 Protein [Mass/Vol] No M protein is identified. Normal No M protein is identified. [facility] Comment on above: Performed By: #### T CISCO VELAZQUEZ, IFESC, SEPG #### [facility] [address] [place], [place] [address] Staff Review Reviewed by Star Villagomez M.D., PhD ([id number]) [facility] Comment on above: Performed By: #### T MARCUS, CISCO, IFESC, SEPG #### [facility] [address] [place], [place] [address] [place]/Caceres,Free,Seron 2018 K/L Ratio, Serum 1.09 Normal 0.26-1.65 [facility] Comment on above: Performed By: #### T MARCUS, CISCO, IFASAF, SEPG #### [facility] [address] [place], [place] [address] [place], Free, Serum 17.8 mg/L Normal 3.30-19.40 [facility] Comment on above: Result Comment: Test performed by an immunoturbidimetric assay on Optilite instrument from [facility]. Immunoglobulin free light chain assay results should be interpreted in conjunction with other tests and in correlation with clinical picture. Performed By: #### T MARCUS, CISCO, IFBRIANNAC, SEPG #### [facility] [address] [place], [place] [address] Lambda, Free, Serum 16.4 mg/L Normal 5.7-26.3 [facility] Comment on above: Result Comment: Test performed by an immunoturbidimetric assay on Optilite instrument from [facility]. Immunoglobulin free light chain assay results should be interpreted in conjunction with other tests and in correlation with clinical picture. Performed By: #### T MARCUS, CISCO, IFESC, SEPG #### [facility] [address] [place], [place] [address] PROGRESSon 05-07-2019 PROGRESS HNO ID: [id number] Author: Ester Albrecht Service: ? Author Type: [...] family history on file. Current Outpatient Medications: [place]-3 Fatty Acids (FISH OIL) 500 mg cap [...] MARIO CRAWFORD CT + CBC (FOR REMOTE [facility] USE) - TSH BLD - PROTEIN ELECTROPHORESIS [...] ABS GRAN CT + CBC (FOR REMOTE [facility] USE) - TSH BLD - PROTEIN ELECTROPHORESIS W/INTERP - KAPPA/CACERES,FREE,SER - IMMUNOFIXATION SCREEN, SERUM - COMP METABOLIC PANEL - CBC 3. Abnormal weight loss - ICD9: 783.21, ICD10: R63.4 See above - ABS GRAN CT + CBC (FOR REMOTE [facility] USE) - TSH BLD - PROTEIN ELECTROPHORESIS W/INTERP - KAPPA/CACERES,FREE,SER - IMMUNOFIXATION SCREEN, SERUM - COMP METABOLIC PANEL Ester Albrecht MD Normal [facility] Protein Electrophor.on 05-07 Albumin [Mass/Vol] 4.26 g/dL High 3.37-4.23 [facility] Comment on above: Performed By: #### T MARCUS, CISCO, IFBRIANNAC, SEPG #### [facility] [address] [place], [place] [address] Alpha 1 Globulin 0.27 gm/dL Normal 0.18-0.31 [facility] Comment on above: Performed By: #### T MARCUS, CISCO, IFBRIANNAC, SEPG #### [facility] [address] [place], [place] [address] Alpha 2 Globulin 0.62 gm/dL Normal 0.52-0.97 [facility] Comment on above: Performed By: #### T MARCUS, CISCO, IFESC, SEPG #### [facility] [address] [place], [place] [address] Beta Globulin 0.97 gm/dL Normal 0.84-1.36 [facility] Comment on above: Performed By: #### T MARCUS, CISCO, IFESC, SEPG #### [facility] [address] [place], [place] [address] Gamma Globulin 1.07 gm/dL Normal 0.70-1.44 [facility] Comment on above: Performed By: #### T MARCUS, CISCO, IFESC, SEPG #### [facility] [address] [place] [address] Interpretation SEE COMMENT Normal [facility] Comment on above: Result Comment: No d efinitive M protein is identified on protein electrophoresis. Performed By: #### T MARCUS, CISCO, IFESC, SEPG #### [facility] [address] [place] [address] M Gigi Concentratn 0.00 gm/dL Normal 0.00 [facility] Comment on above: Performed By: #### T MARCUS, CISCO, IFESC, SEPG #### [place] [address] [place] [address] Protein [Mass/Vol] N/A Normal [facility] Comment on above: Performed By: #### T MARCUS, CISCO, IFESC, SEPG #### [place] [address] [place] [address] Protein [Mass/Vol] 7.2 g/dL Normal 6.0-8.4 [facility] Comment on above: Performed By: #### T MARCUS, CISCO, IFESC, SEPG #### [place] [address] [place], [place] [address] SPE Staff Review Reviewed by Star Villagomez M.D., PhD ([id number]) Normal [facility] Comment on above: Performed By: #### T MARCUS, CISCO, IFESC, SEPG #### [facility] [address] [place] [address] Remote Abs Gran + CBC (for [facility] use only)on 05-07-2019 Absol Gran Count 4.88 k/uL Normal 1.45-7.50 [facility] Erythrocyte distribution width (RBC) [Ratio] 18.6 % High 11.5-15.0 [facility] Hematocrit (Bld) [Volume fraction] 44.7 % Normal 39.0-51.0 [facility] Hemoglobin (Bld) [Mass/Vol] 15.8 g/dL Normal 13.0-17.0 [facility] MCH (RBC) [Entitic mass] 33.8 pG Normal 26.0-34.0 [facility] MCHC (RBC) [Mass/Vol] 35.3 g/dL Normal 30.5-36.0 [facility] MCV (RBC) [Entitic vol] 95.5 fL Normal 80.0-100.0 [facility] Platelet mean volume (Bld) [Entitic vol] 11.0 fL Normal 9.0-12.7 [facility] Platelets (Bld) [#/Vol] 120 10*3/uL Low 150-400 [facility] RBC (Bld) [#/Vol] 4.68 10*6/uL Normal 4.20-6.00 [facility] WBC (Bld) [#/Vol] 6.41 10*3/uL Normal 3.70-11.00 [facility] TSHon 05-07-2019 TSH Qn 1.350 uU/mL Normal 0.400-5.500 [facility] Comment on above: Performed By: #### T SH, KLFRS, IFESC, SEPG #### [facility] [address] [place] [id number] Encounters Encounter Date Encounter Type Care Provider Facility Start: 11-29-2023 End: 11-30-2023 ambulatory Eric Stanley [facility] Start: 11-29-2023 End: 11-29-2023 Off-Site Eric Stanley [facility] Start: 11-29-2022 End: 11-30-[address] LORRIE MUNOZ . Facility: Start: 09-21-2022 End: 09-21-2022 Off-Site Sandie FARLEY [facility] Start: 07-27-2022 End: 07-28-[address] LORRIE MUNOZ . Facility: Start: 07-13-2021 ambulatory BALA SHEA Facility :[facility] Start: 07-01-2018 End: 07-02-2018 Patient encounter DEFAULT PHYSICIAN Facility:[facility] Start: 06-25-2018 End: 06-26-2018 Patient encounter BRENT Hernández ROSEANNA Facility:[facility] Start: 05-02-2018 End: 05-03-2018 Patient encounter DEFAULT PHYSICIAN Facility:[facility] Procedures Date Procedure Procedure Detail Performing Clinician Start: 07-27-[address] BHARATHI MUNOZ . Comment on above: Performed By: #### V ITAD, PSASC #### [facility] [address] [place] [address] Dr. Joanne Martinez Immunizations Immunization Date Immunization Notes Care Provider Fa cility 06-14-2021 SARS-CoV-2 (COVID-19 ) mRNA BNT-162b2 Nuday Games[employer] Doutíssima [facility] 05-24-2021 SARS-CoV-2 (COVID-19 ) mRNA BNT-124z5 Nuday [employer] Doutíssima [facility] NEGATED: Highlighted row has not occurred!11-22-2023 influenza virus vaccine, unspecified formulation Reyes Sarmini [facility] Payers Date Payer Category Payer Medicare [id number] 1957 Medicare [id number] 1950 Unknown [id number] 1950 Unknown [id number] 1950 Unknown [id number] 1950 Unknown [id number] Unknown Unknown [id number] Social History Date Type Detail Facility Start: 09-21-2022 End: 11-29-2023 Tobacco smoking status Smokes tobacco daily (finding) [facility] Tobacco smoking status Never Kishan [facility] Sex Assigned At Male [facility] Functional Status Date Assessment Result Facility 09-21-2022 Functional Status N/A [facility] Clinical Note 11-29-2022 Note Date [...] authenticated by: FLO CORADO Date: 2022-11-29 13:17 [facility] Evaluation + Plan note 09-21-2022 Note Date & Type Note Facility 09-21-2022 Evaluation + Plan [facility]/21/22Comprehensive Metabolic Panel 09/21/22Calprotectin, Fecal 09/21/22 [facility] Hospital Discharge instructions 07-10-2022 Note Date & Type Note Facility 07-10-2022 Hospital Discharg e instructions Follow Up Care 07/10/2022 17:05:26 With:MIGUELITO RAMIREZ, KASSY Hooper, [facility] Address: [facility] [address] [place] [address] [place] [address]- When:1 year [facility] Hospital course Narrative Note Date & Type Note Facility Hospital course Narrative No data available for this section [facility] Hospital Discharge instructions Note Date & Type Note Facility Hospital Discharge instructions No data available for this section [facility] Progress note Note Date & Type Note Facility Progress note No data available for this section [facility] Summary Purpose Family History No Family History [...] section and content) DATE CREATED AUTHOR 07/28/2018 [facility] DATE CREATED AUTHOR AUTHOR'S ORGANIZ ATION 02/04/2020 [facility] DATE CREATED AUTHOR AUTHOR'S ORGANIZ ATION 11/27/2021 [facility] DATE CREATED AUTHOR AUTHOR'S ORGANIZ ATION 12/04/[address] [facility] DATE CREATED AUTHOR AUTHOR'S ORGANIZ ATION 11/30/2023 [facility] Patient Care team informatio n (unrecognized section and content) Personnel Name: Lorrie Munoz MD Address: Address: [address] [place] [address] Personnel Name: Lorrie Munoz MD Address: Address: [address] [place] [address] FOR RECORDS PERTAINING TO PATIENTS WHO ARE [...] BE BASED ON THE PRIMARY CLINICAL RECORDS. [facility] [employer] [facility]. provides no warranty or guarantee of the accuracy or completeness of information in this document.
== END 2025-05-26 12:57 | disposition home or self-care (01) ==
LOC: US 12:57
PROVIDERS: PCP Family Medicine; Visit Provider Internal Medicine Hematology & Oncology
DX: R71.8 Other abnormality of red blood cells (principal); R94.5 Abnormal results of liver function studies; R10.816 Epigastric abdominal tenderness; K76.0 Fatty (change of) liver, not elsewhere classified
CPT/HCPCS: 76705

== ENCOUNTER 2025-06-02 06:51 | Outpatient (RCR) | payer MEDICARE, SELFPAY ==
[2025-05-19 15:29] LABS: Hematocrit 36.4 % (42.0-54.0); Hemoglobin 13.3 g/dL (14.0-18.0); Mean Corpuscular HGB Conc 36.5 g/dL (29.9-35.2); Mean Corpuscular Hemoglobin 37.5 pg (25.9-34.0); Mean Corpuscular Volume 102.5 fL (80.0-94.0); Platelet Count 127 10^3/uL (150-450); Red Blood Count 3.55 10^6/uL (4.70-6.10); Reticulocyte Pct Auto 2.56 % (0.60-3.10); White Blood Count 5.7 10^3/uL (4.0-11.0)
[2025-05-19 16:08] LABS: Segmented Neut Absolute Manual 4.33 10^3/uL (1.4-6.5); Segmented Neutrophils % Manual 76.0 (43.0-75.0)
[2025-05-19 16:09] LABS: Basophils Abs Manual 0.05 10^3/uL (0.00-0.10); Basophils Percent Manual 1.0 % (0.2-2.0); Eosinophils Absolute Manual 0.00 10^3/uL (0.00-0.70); Eosinophils Percent Manual 0.0 % (0.9-7.0); Lymphocytes Absolute Manual 0.74 10^3/uL (1.20-3.80); Lymphocytes Percent Manual 13.0 % (20.5-60.0); Macrocytosis 2+; Monocytes Absolute Manual 0.57 10^3/uL (0.30-0.80); Monocytes Percent Manual 10.0 % (1.7-12.0)
[2025-05-19 16:18] LABS: Folate 26.70 ng/mL (8.60-58.90)
[2025-05-20 04:07] LABS: Vitamin B12 328 pg/mL (232-1245)
[2025-05-21 15:08] LABS: Albumin 3.8 g/dL (2.9-4.4); Alpha-1-Globulin 0.3 g/dL (0.0-0.4); Alpha-2-Globulin 0.6 g/dL (0.4-1.0); Free Kappa Lt Chains,S 18.0 mg/L (3.3-19.4); Free Lambda Lt Chains,S 18.5 mg/L (5.7-26.3); Gamma Globulin 1.0 g/dL (0.4-1.8); Immunoglobulin A, Qn, Serum 227 mg/dL (61-437); Kappa/Lambda Ratio,S 0.97 (0.26-1.65)
== END 2025-06-14 23:59 | disposition home or self-care (01) ==
LOC: HEMC 06:51
PROVIDERS: PCP Family Medicine; Visit Provider Internal Medicine Hematology & Oncology
DX: D64.9 Anemia, unspecified (principal); R94.5 Abnormal results of liver function studies; R10.816 Epigastric abdominal tenderness; Z87.440 Personal history of urinary (tract) infections; F17.200 Nicotine dependence, unspecified, uncomplicated; I48.91 Unspecified atrial fibrillation; Z79.01 Long term (current) use of anticoagulants; Z80.8 Family history of malignant neoplasm of other organs or systems; D75.89 Other specified diseases of blood and blood-forming organs; R79.89 Other specified abnormal findings of blood chemistry; D69.6 Thrombocytopenia, unspecified; K76.0 Fatty (change of) liver, not elsewhere classified
CPT/HCPCS: 36415; 82607; 82746; 82784; 82785; 83521; 83615; 84155; 84165; 85007; 85027; 85045; 86334; G0463